=== PATIENT | male | born 1990 | race Caucasian/White ===

== ENCOUNTER 2023-02-26 12:46 | Inpatient (IN) | payer OTHER, SELFPAY ==
[2023-02-26] VITALS (8 sets, daily range): BP systolic 118–160; BP diastolic 75–103; PULSE 101–130; RESP 14–22; TEMP 36.1–36.9; O2SAT 96–100; BMI 24.4; BMI 20.8
--- NOTE | ~2023-02-26 | CT_ITS ---
EXAMINATION: CT ABDOMEN AND PELVIS WITHOUT CONTRAST CLINICAL INFORMATION: obs. COMPARISON: No pertinent prior studies are available for comparison. TECHNIQUE: Multidetector volumetric imaging was performed from the superior aspect of the liver through the pubic symphysis without contrast per request. Sagittal and coronal reformatted images were obtained on the technologist workstation. This CT examination was performed using dose optimization techniques as appropriate, variously including the following: *Automated exposure control *Adjustment of mA and/or kV according to patient size (this includes techniques or standardized protocols for targeted exams where dose is matched to indication/reason for exam; i.e. extremities or head) *Use of iterative reconstruction technique DLP: 376 mGy-cm. FINDINGS: LUNG BASES: The visualized lung bases are unremarkable. LIVER, GALLBLADDER, BILIARY TREE: The non-contrast liver is normal in size, shape, and attenuation. No focal hepatic lesion or biliary ductal dilatation is present. The gallbladder is unremarkable with no evidence of radiopaque gallstones, gallbladder wall thickening, or obvious pericholecystic inflammatory changes. PANCREAS: Unremarkable. SPLEEN: Unremarkable. ADRENAL GLANDS: Unremarkable. KIDNEYS AND URETERS: The kidneys are normal in size, shape, and attenuation. No hydronephrosis, hydroureter, or calculi seen. No perinephric stranding. BLADDER: Unremarkable. GASTROINTESTINAL TRACT: The small and large bowel are unremarkable. The appendix is unremarkable. ABDOMINAL WALL: No significant hernia is appreciated. LYMPHOVASCULAR STRUCTURES: No lymphadenopathy. The aorta is unremarkable. There is subtle soft tissue stranding in the perivascular space in the region of the celiac axis and to lesser extent SMA. Etiology and significance of this is uncertain and difficult to define further on this noncontrast examination. PELVIC VISCERA: Unremarkable. OSSEUS STRUCTURES: Unremarkable. CT/CT abdomen pelvis wo IV con IMPRESSION: There is subtle soft tissue stranding in the perivascular space in the region of the celiac axis and to lesser extent SMA. Etiology and significance of this is uncertain and difficult to define further on this noncontrast study. This could be clinically correlated. Further evaluation with contrast would be helpful to better evaluate the vessels when the patient is more clinically able. No acute intra-abdominal process otherwise.
--- NOTE | ~2023-02-26 | XR_ITS ---
EXAMINATION: XR CHEST CLINICAL INFORMATION: Shortness of breath. COMPARISON: None available. TECHNIQUE: Frontal view of the chest was obtained. FINDINGS: No significant abnormality is noted involving the heart, lungs, mediastinum, bony thorax or soft tissues. XR/XR chest 1V IMPRESSION: Unremarkable examination.
--- NOTE | 2023-02-26 12:58 | ED_ITS ---
HPI - General Adult General Chief complaint: Abdominal Pain Stated complaint: VOMITING, WEAK,+LOC PER EMS Time Seen by Provider: 02/26/23 14:42 History of Present Illness HPI narrative: Patient is a 32-year-old male with a history of diabetes for many years. Presented today with having abdominal pain generalized malaise nausea vomiting not having good intake patient's sugar was noted to be 162 by EMS. Noted to have elevated sugar at home. Patient took 35 units of Humalog prior to arrival. No fever no chills. No diaphoresis. No cough and a congestion or upper respiratory symptoms. Patient is from home history of DKA in the past no chest pain Related Data Home Medications Medication Instructions Recorded Confirmed insulin glargine 100 unit/mL 30 unit subcut QPM 02/26/23 02/26/23 subcutaneous solution insulin lispro 100 unit/mL 1 sliding scale dose subcut 02/26/23 02/26/23 subcutaneous pen USEASDIRECTD Allergies Allergy/AdvReac Type Severity Reaction Status Date / Time No Known Allergies Allergy Unverified 04/22/20 18:26 Review of Systems Review of Systems: Positive generalized malaise weakness Yes all other systems are reviewed and are negative [facility] Past Medical History Attestation statement: The following information was validated with the patient. Social History Social History Advance Directives: No Advance Directives Information Provided: No Physical Exam ED Vital Signs: Vital Signs - 24 hr 02/26/23 12:59 02/26/23 15:14 Temperature 96.9 F Pulse Rate 130 H 125 H Respiratory Rate 16 18 Blood Pressure 126/82 160/101 H Pulse Oximetry 100 100 Oxygen Delivery Method Room Air Room Air BMI result Body Mass Index 24.4 Appearance: Alert. Oriented X3. No acute distress. Eyes: Pupils equal, round and reactive to light. ENT: Pharynx normal. Neck: Normal inspection. Neck supple. No lymph nodes noted. No crepitus CVS: Tachycardic Respiratory: No respiratory distress. Breath sounds normal. No Wheezing. No ral es Abdomen: Soft and nontender. No rigidity. No distention. good BS x4 Skin: Skin warm and dry. Normal skin color. Normal skin turgor. Extremities: No lower extremity edema. Neurovascular intact to all extremities. No Lacerations. No Rash Neuro: Oriented X 3. No motor deficit. No sensory deficit. Moving all extermities. No slurred speech Course Course Course Narrative: RME- 32-year-old male with past medical history significant for type 1 diabetes presents for evaluation of vomiting or abdominal pain x1 week. Reports a syncopal episode yesterday. Plan for labs, EKG, UA Medications Administered Generic Name Dose Route Start Last Admin Trade Name Freq PRN Reason Stop Dose Admin Dextrose/Sodium Chloride 1,000 mls @ 125 mls/hr 02/26/23 15:15 02/26/23 16:25 D5ns IVCONT 125 mls/hr .Q8H PARKER Administration Insulin Human Regular 100 unit in 100 mls @ 6 mls/hr 02/26/23 16:15 02/26/23 17:38 Myxredlin IVCONT 9 unit/hr .[id number] PARKER 9 mls/hr Titration Protocol 6 UNIT/HR Discontinued Medications Generic Name Dose Route Start Last Admin Trade Name Freq PRN Reason Stop Dose Admin Sodium Chloride 1,000 mls @ 999 mls/hr 02/26/23 15:15 02/26/23 17:36 Ns IV 02/26/23 16:15 Infused .Q1H1M PARKER Infusion Sodium Chloride 1,000 mls @ 999 mls/hr 02/26/23 15:15 02/26/23 16:39 Ns IV 02/26/23 16:15 Not Given .Q1H1M PARKER Ketorolac Tromethamine 30 mg 02/26/23 16:14 02/26/23 16:25 Ketorolac Tromethamine 30 Mg/Ml Vial IVPUSH 02/26/23 16:15 30 mg ONCE ONE Administration Ondansetron HCl 4 mg 02/26/23 15:04 02/26/23 15:31 Ondansetron Hcl 4 Mg/2 Ml Vial IVPUSH 02/26/23 15:05 4 mg ONCE ONE Administration Medical Decision Making Medical Decision Making [facility] Narrative: Patient presented today with having epigastric pain heart rate in the 130s short of breath weak has a long history of diabetes. Patient been noticing his sugar been up and down. Took additional insulin prior. Presents to the emergency dep artment sugar was approximately 200 having epigastric pain weakness. He patient's labs showed a large anion gap of 27. Bicarb is 15. Patient's pH on a venous gas is 7.2. Signs and symptoms consistent with diabetic ketoacidosis. Because patient's sugar is less than 250 started patient on a D5 drip along with having insulin drip started. IV fluid was given. Patient's sugars going up and down. Will repeat electrolytes in approximately 1 hour. Patient's potassium was checked prior to the insulin started. It was 4.9. 17:30 Patient's electrolytes be repeated. On repeat exam patient clinically appears well. Patient's sugar is staying in the 300 range which is acceptable. Being monitored very carefully. Patient's case presented to the paper making machine operator for admission. CT scan of the abdomen is done. Awaiting final results. 18:05 Patient's repeat lab actually shows a increase in patient's anion gap. Sugar is now 350. Patient's bicarb is now 5. We will go ahead and give additional IV fluids. Will stop the D5 for now as sugars above 250. Insulin drip is still going. Patient to be admitted to the intensive care unit. Differential Diagnosis Differential Diagnoses: The differential diagnosis associated with the prese ntation includes Nausea vomiting, obstruction, diabetic ketoacidosis, hyperglycemia, kapoor creatitis, biliary issues, cardiac issue Consult Healthcare Provider Management of the patient was discussed with: Hospitalist and Senior Tax Manager Income Tax Preparer Lab Data MDM Lab Attestation statement: I reviewed the patient's lab results. 02/26/23 13:56 02/26/23 13:56 Labs: Lab Results 02/26/23 02/26/23 02/26/23 Range/Units 13:56 13:56 15:13 WBC 11.3 H (4.8-10.8) X10*3/uL RBC 4.88 (4.60-5.80) X10*6/uL Hgb 13.3 L (14.0-18.0) g/dl Hct 41.1 L (42.0-52.0) % MCV 84.2 (80.0-98.0) fL MCH 27.3 (27.0-33.0) pg MCHC 32.4 (31.0-36.0) g/dl RDW 13.8 (11.0-16.0) % Plt Count 414 H (160-400) X10*3/uL MPV 9.6 (9.4-12.4) fL Immature Gran % (Auto) 1.1 H (0.0-0.4) % Neut % (Auto) 73.3 H (45-73) % Lymph % (Auto) 17.4 L (20-40) % Wilkinson % (Auto) 7.7 (2-11) % Eos % (Auto) 0.1 (0-4) % Baso % (Auto) 0.4 (0-2) % Lymph # (Auto) 2.0 (1.2-4.9) X10*3/uL Wilkinson # (Auto) 0.9 (0.1-1.2) X10*3/uL Eos # (Auto) 0.0 (0.0-0.4) X10*3/uL Baso # (Auto) 0.1 (0.0-0.2) X10*3/uL Abs Immat Gran (auto) 0.12 H (0.00-0.03) X10*3/uL Absolute Neuts (auto) 8.3 (2.0-8.3) x10*3/uL Absolute Nucleated RBC 0.000 (0.0-0.012) X10*3/uL Nucleated RBC % (auto) 0.0 (0.0-0.2) /100WBC VBG pH (7.32-7.43) VBG pCO2 mmHg VBG pO2 mmHg VBG HCO3 (22-26) mmol/L VBG O2 Saturation % VBG Base Excess mmol/L Sodium 136 (135-145) mmol/L Potassium 4.9 (3.3-5.1) mmol/L Chloride 99 (96-108) mmol/L Carbon Dioxide 15 L (22-29) mmol/L Anion Gap 27 H (12-20) BUN 16 (9-16) mg/dL Creatinine 1.66 H (0.5-1.4) mg/dL Estim Creat Clear Calc 70.7 Estimated GFR 49 POC Glucose 276 H (60-115) mg/dL Random Glucose 203 H (60-115) mg/dL Calcium 9.4 (8.4-10.2) mg/dL Magnesium 2.1 (1.6-2.6) mg/dL Total Bilirubin 0.5 (0.0-1.0) mg/dL AST 13 (5-37) U/L ALT 16 (0-40) U/L Alkaline Phosphatase 85 (39-117) U/L Total Protein 7.3 (6.5-8.0) g/dL Albumin 4.1 (3.5-5.0) g/dL Lipase 9 (8-78) U/L Beta-Hydroxybutyrate (0.02-0.27) mmol/L Urine Color Urine Appearance Urine pH (5.0-9.0) Ur Specific [place] (1.005-1.025) Urine Protein (Neg-Trace) mg/dL Urine Glucose (UA) (Negative) mg/dL Urine Ketones (Negative) mg/dL Urine Blood (Negative) Urine Nitrite (Negative) Ur Leukocyte Esterase (Negative) 02/26/23 02/26/23 02/26/23 Range/Units 15:27 15:30 16:27 WBC (4.8-10.8) X10*3/uL RBC (4.60-5.80) X10*6/uL Hgb (14.0-18.0) g/dl Hct (42.0-52.0) % MCV (80.0-98.0) fL MCH (27.0-33.0) pg MCHC (31.0-36.0) g/dl RDW (11.0-16.0) % Plt Count (160-400) X10*3/uL MPV (9.4-12.4) fL Immature Gran % (Auto) (0.0-0.4) % Neut % (Auto) (45-73) % Lymph % (Auto) (20-40) % Wilkinson % (Auto) (2-11) % Eos % (Auto) (0-4) % Baso % (Auto) (0-2) % Lymph # (Auto) (1.2-4.9) X10*3/uL Wilkinson # (Auto) (0.1-1.2) X10*3/uL Eos # (Auto) (0.0-0.4) X10*3/uL Baso # (Auto) (0.0-0.2) X10*3/uL Abs Immat Gran (auto) (0.00-0.03) X10*3/uL Absolute Neuts (auto) (2.0-8.3) x10*3/uL Absolute Nucleated RBC (0.0-0.012) X10*3/uL Nucleated RBC % (auto) (0.0-0.2) /100WBC VBG pH 7.21 L (7.32-7.43) VBG pCO2 20 mmHg VBG pO2 63 mmHg VBG HCO3 8 L (22-26) mmol/L VBG O2 Saturation 86.0 % VBG Base Excess -17.0 mmol/L Sodium (135-145) mmol/L Potassium (3.3-5.1) mmol/L Chloride (96-108) mmol/L Carbon Dioxide (22-29) mmol/L Anion Gap (12-20) BUN (9-16) mg/dL Creatinine (0.5-1.4) mg/dL Estim Creat Clear Calc Estimated GFR POC Glucose 343 H (60-115) mg/dL Random Glucose (60-115) mg/dL Calcium (8.4-10.2) mg/dL Magnesium (1.6-2.6) mg/dL Total Bilirubin (0.0-1.0) mg/dL AST (5-37) U/L ALT (0-40) U/L Alkaline Phosphatase (39-117) U/L Total Protein (6.5-8.0) g/dL Albumin (3.5-5.0) g/dL Lipase (8-78) U/L Beta-Hydroxybutyrate 12.57 H (0.02-0.27) mmol/L Urine Color Urine Appearance Urine pH (5.0-9.0) Ur Specific [place] (1.005-1.025) Urine Protein (Neg-Trace) mg/dL Urine Glucose (UA) (Negative) mg/dL Urine Ketones (Negative) mg/dL Urine Blood (Negative) Urine Nitrite (Negative) Ur Leukocyte Esterase (Negative) 02/26/23 02/26/23 02/26/23 Range/Units 17:04 17:32 17:33 WBC (4.8-10.8) X10*3/uL RBC (4.60-5.80) X10*6/uL Hgb (14.0-18.0) g/dl Hct (42.0-52.0) % MCV (80.0-98.0) fL MCH (27.0-33.0) pg MCHC (31.0-36.0) g/dl RDW (11.0-16.0) % Plt Count (160-400) X10*3/uL MPV (9.4-12.4) fL Immature Gran % (Auto) (0.0-0.4) % Neut % (Auto) (45-73) % Lymph % (Auto) (20-40) % Wilkinson % (Auto) (2-11) % Eos % (Auto) (0-4) % Baso % (Auto) (0-2) % Lymph # (Auto) (1.2-4.9) X10*3/uL Wilkinson # (Auto) (0.1-1.2) X10*3/uL Eos # (Auto) (0.0-0.4) X10*3/uL Baso # (Auto) (0.0-0.2) X10*3/uL Abs Immat Gran (auto) (0.00-0.03) X10*3/uL Absolute Neuts (auto) (2.0-8.3) x10*3/uL Absolute Nucleated RBC (0.0-0.012) X10*3/uL Nucleated RBC % (auto) (0.0-0.2) /100WBC VBG pH (7.32-7.43) VBG pCO2 mmHg VBG pO2 mmHg VBG HCO3 (22-26) mmol/L VBG O2 Saturation % VBG Base Excess mmol/L Sodium 134 L (135-145) mmol/L Potassium 4.1 (3.3-5.1) mmol/L Chloride 102 (96-108) mmol/L Carbon Dioxide 7 L* D (22-29) mmol/L Anion Gap 29 H (12-20) BUN 15 (9-16) mg/dL Creatinine 1.52 H (0.5-1.4) mg/dL Estim Creat Clear Calc 77.2 Estimated GFR 54 POC Glucose 324 H 321 H (60-115) mg/dL Random Glucose 349 H (60-115) mg/dL Calcium 8.6 D (8.4-10.2) mg/dL Magnesium 1.8 (1.6-2.6) mg/dL Total Bilirubin (0.0-1.0) mg/dL AST (5-37) U/L ALT (0-40) U/L Alkaline Phosphatase (39-117) U/L Total Protein (6.5-8.0) g/dL Albumin (3.5-5.0) g/dL Lipase (8-78) U/L Beta-Hydroxybutyrate (0.02-0.27) mmol/L Urine Color Urine Appearance Urine pH (5.0-9.0) Ur Specific [place] (1.005-1.025) Urine Protein (Neg-Trace) mg/dL Urine Glucose (UA) (Negative) mg/dL Urine Ketones (Negative) mg/dL Urine Blood (Negative) Urine Nitrite (Negative) Ur Leukocyte Esterase (Negative) 02/26/23 Range/Units 17:43 WBC (4.8-10.8) X10*3/uL RBC (4.60-5.80) X10*6/uL Hgb (14.0-18.0) g/dl Hct (42.0-52.0) % MCV (80.0-98.0) fL MCH (27.0-33.0) pg MCHC (31.0-36.0) g/dl RDW (11.0-16.0) % Plt Count (160-400) X10*3/uL MPV (9.4-12.4) fL Immature Gran % (Auto) (0.0-0.4) % Neut % (Auto) (45-73) % Lymph % (Auto) (20-40) % Wilkinson % (Auto) (2-11) % Eos % (Auto) (0-4) % Baso % (Auto) (0-2) % Lymph # (Auto) (1.2-4.9) X10*3/uL Wilkinson # (Auto) (0.1-1.2) X10*3/uL Eos # (Auto) (0.0-0.4) X10*3/uL Baso # (Auto) (0.0-0.2) X10*3/uL Abs Immat Gran (auto) (0.00-0.03) X10*3/uL Absolute Neuts (auto) (2.0-8.3) x10*3/uL Absolute Nucleated RBC (0.0-0.012) X10*3/uL Nucleated RBC % (auto) (0.0-0.2) /100WBC VBG pH (7.32-7.43) VBG pCO2 mmHg VBG pO2 mmHg VBG HCO3 (22-26) mmol/L VBG O2 Saturation % VBG Base Excess mmol/L Sodium (135-145) mmol/L Potassium (3.3-5.1) mmol/L Chloride (96-108) mmol/L Carbon Dioxide (22-29) mmol/L Anion Gap (12-20) BUN (9-16) mg/dL Creatinine (0.5-1.4) mg/dL Estim Creat Clear Calc Estimated GFR POC Glucose (60-115) mg/dL Random Glucose (60-115) mg/dL Calcium (8.4-10.2) mg/dL Magnesium (1.6-2.6) mg/dL Total Bilirubin (0.0-1.0) mg/dL AST (5-37) U/L ALT (0-40) U/L Alkaline Phosphatase (39-117) U/L Total Protein (6.5-8.0) g/dL Albumin (3.5-5.0) g/dL Lipase (8-78) U/L Beta-Hydroxybutyrate (0.02-0.27) mmol/L Urine Color Yellow Urine Appearance Clear Urine pH 5.5 (5.0-9.0) Ur Specific [place] 1.025 (1.005-1.025) Urine Protein 30 (1+) H (Neg-Trace) mg/dL Urine Glucose (UA) >=1000 H (Negative) mg/dL Urine Ketones >=160 (Negative) mg/dL Urine Blood Negative (Negative) Urine Nitrite Negative (Negative) Ur Leukocyte Esterase Negative (Negative) Independent Interpretation I performed an independent interpretation of an: EKG, Plain X-Ray and CT Scan Interpretation: My interpretation of patient's EKG showed a sinus rhythm heart rate is 130 NE QRS QT within normal limits is nonspecific T-wave flattening noted. My interpretation of patient's chest x-ray is grossly negative for pneumonia or pneumothorax Radiology Impression Discussion of test interpretation with radiology: I have reviewed the radiologist's reading. External Record Review External record reviewed: Inpatient record Chronic Conditions Patient?s care impacted by: Diabetes Critical Care Time Critical Care Time Critical Care Time: Yes Total Critical Care Time: 90 Attestation: I have personally provided 90 minutes of critical care time exclusive of time spent on separately billable procedures. Time includes review of lab data, radiology results, discussion with consultants, and monitoring for potential decompensation. Interventions were performed as documented above Discharge Plan Discharge Clinical Impression: DKA (diabetic ketoacidosis) Patient Disposition: Admitted As Inpatient
--- NOTE | 2023-02-26 12:59 | ECG_ITS ---
Test Reason : PAIN Blood Pressure : / mmHG Vent. Rate : 130 BPM Atrial Rate : 130 BPM P-R Int : 130 ms QRS Dur : 082 ms QT Int : 318 ms P-R-T Axes : 084 084 038 degrees QTc Int : 467 ms Sinus tachycardia Right atrial enlargement Borderline ECG When compared with ECG of 12-OCT-2013 17:18, T wave inversion no longer evident in Anterior leads Referred By: Gal Cruz Electronically Signed By:WILBERTO SAHNI MD
[2023-02-26 14:01] LABS: MANUAL DIFF FLAG NO
[2023-02-26 14:05] LABS: Basophils Absolute Auto 0.1 X10*3/uL (0.0-0.2); Basophils Percent Auto 0.4 % (0-2); Eosinophils Percent Auto 0.1 % (0-4); Hematocrit 41.1 % (42.0-52.0); Hemoglobin 13.3 g/dl (14.0-18.0); Imm Gran Abs Auto 0.12 X10*3/uL (0.00-0.03); Imm Gran Pct Auto 1.1 % (0.0-0.4); Lymphocytes Percent Auto 17.4 % (20-40); Mean Corpuscular HGB Conc 32.4 g/dl (31.0-36.0); Mean Corpuscular Hemoglobin 27.3 pg (27.0-33.0); Mean Corpuscular Volume 84.2 fL (80.0-98.0); Mean Platelet Volume 9.6 fL (9.4-12.4); Monocytes Absolute Auto 0.9 X10*3/uL (0.1-1.2); Monocytes Percent Auto 7.7 % (2-11); Neutrophils Absolute Auto 8.3 x10*3/uL (2.0-8.3); Neutrophils Percent Auto 73.3 % (45-73); Platelet Count 414 X10*3/uL (160-400); Red Blood Count 4.88 X10*6/uL (4.60-5.80); Red Cell Distribution Width 13.8 % (11.0-16.0); White Blood Count 11.3 X10*3/uL (4.8-10.8)
[2023-02-26 14:24] LABS: Alanine Aminotransferase 16 U/L (0-40); Albumin Level 4.1 g/dL (3.5-5.0); Alkaline Phosphatase 85 U/L (39-117); Anion Gap 27 (12-20); Aspartate Amino Transferase 13 U/L (5-37); Bilirubin Total 0.5 mg/dL (0.0-1.0); Blood Urea Nitrogen 16 mg/dL (9-16); Calcium 9.4 mg/dL (8.4-10.2); Carbon Dioxide 15 mmol/L (22-29); Chloride 99 mmol/L (96-108); Creatinine Clr Calc Pharmacy 70.7; Estimated Glomerular Filt Rate 49; Glucose Random 203 mg/dL (60-115); Lipase 9 U/L (8-78); Magnesium 2.1 mg/dL (1.6-2.6); Potassium 4.9 mmol/L (3.3-5.1); Sodium 136 mmol/L (135-145); Total Protein 7.3 g/dL (6.5-8.0)
[2023-02-26 15:21] LABS: Glucose, Whole Blood 276 mg/dL (60-115)
[2023-02-26] MEDS: ondansetron HCL 4 MG/2 ML VIAL IVPUSH (15:31)
[2023-02-26] MEDS: 0.9 % Sodium Chloride 1,000 ML 999 ML IV ×2 (15:31→18:16)
[2023-02-26 15:39] LABS: VBG HCO3 8 mmol/L (22-26); VBG pCO2 20 mmHg; VBG pH 7.21 (7.32-7.43); VBG pO2 63 mmHg
[2023-02-26 15:43] LABS: Venous Blood Gas Refer to POC result
[2023-02-26] MEDS: Ketorolac Tromethamine 30 MG/ML VIAL IVPUSH (16:25)
[2023-02-26] MEDS: Dextrose 5 % and 0.9 % NaCl 1,000 ML 125 ML IVCONT (16:25)
[2023-02-26 16:32] LABS: Glucose, Whole Blood 343 mg/dL (60-115)
[2023-02-26] MEDS: Insulin Regular/NS 100 UNIT/100 ML PLAST..BAG 6 UNIT IVCONT (16:32)
--- NOTE | 2023-02-26 16:34 | PHA.MEDREC ---
Pharmacy Consult ? Medication Reconciliation Pharmacy has completed the medication reconciliation. Patient reported all medications. Renetta Rivas, NickD
[2023-02-26 17:18] LABS: Glucose, Whole Blood 324 mg/dL (60-115)
--- NOTE | 2023-02-26 17:40 | PC.NURSE ---
Pt remains alert/oriented. Feeling better with decreased pain level 01/13. remains tachy on tele rate 120s, sat 100% ra. Insulin gtt adjusted per protocol, now at 9units/hr. Repeat BMP drawn.
[2023-02-26 17:45] LABS: Beta-Hydroxybutyrate 12.57 mmol/L (0.02-0.27)
[2023-02-26 17:47] LABS: Glucose, Whole Blood 321 mg/dL (60-115)
[2023-02-26 17:52] LABS: Appearance Urine Clear; Color Urine Yellow; Glucose Urine UA >=1000 mg/dL (Negative); Leukocyte Esterase Urine Negative (Negative); Nitrite Urine Negative (Negative); PH 5.5 (5.0-9.0); Specific Gravity - Urine 1.025 (1.005-1.025); UMIC TRIGGER UACC YES; Urine Blood Negative (Negative); Urine Ketones >=160 mg/dL (Negative); Urine Protein 30 (1+) mg/dL (Neg-Trace)
[2023-02-26 17:57] LABS: Anion Gap 29 (12-20); Blood Urea Nitrogen 15 mg/dL (9-16); Calcium 8.6 mg/dL (8.4-10.2); Carbon Dioxide 7 mmol/L (22-29); Chloride 102 mmol/L (96-108); Creatinine Clr Calc Pharmacy 77.2; Estimated Glomerular Filt Rate 54; Glucose Random 349 mg/dL (60-115); Magnesium 1.8 mg/dL (1.6-2.6); Potassium 4.1 mmol/L (3.3-5.1); Sodium 134 mmol/L (135-145)
[2023-02-26 18:06] LABS: Bacteria Urine None Seen (None Seen); Granular Casts Urine Present; RBC Urine 0-2 /HPF (0-2); Squamous Epithelial Cell Urine 0-2 /HPF (0-2); WBC Urine 0-5 /HPF (0-5)
[2023-02-26] MEDS: Heparin Sodium,Porcine 5,000 UNIT/ML VIAL 5000 UNIT SUBCUT (18:43)
[2023-02-26 18:44] LABS: Glucose, Whole Blood 202 mg/dL (60-115)
[2023-02-26] MEDS: Dextrose 5 % and Lactated Ring 1,000 ML 50 ML IVCONT (19:10)
--- NOTE | 2023-02-26 19:11 | PC.NURSE ---
Assuemd care of pt. pt florinda levi ghanshyam, AxO x4, no deficits. per Xsu, D5/LR to begin at 50ml/hour to ofset rapid decline of blood glucose between 2792-9173, recheck glucose at 1930. insluin running in R AC per orders. VSS, planning to call report.
[2023-02-26 19:47] LABS: Glucose, Whole Blood 122 mg/dL (60-115)
--- NOTE | 2023-02-26 20:01 | P.HPCC_ITS ---
History of Present Illness Date of Service: 02/26/23 Attending physician on admission: Everton Burks Chief Complaint: abdominal pain ?The patient is a 32-year-old male with a past medical history of type 1 diabetes mellitus who presented to emergency room with abdominal pain.? Patient reports the time has 1 week of abdominal pain, nausea, vomiting? and unable to tolerate PO intake,? reports taking extra Humalog? due to high blood sugars at home.?? ?Vital signs are stable. Laboratory data was significant for? WBC 11.3, initial serum bicarb was 15 but later down to 7.? Anion gap 29, creatinine 1.52 ?Venous blood gas? 7.//63/8 ?IMAGING: ?No acute? infection/ obstruction ED Course: ?Patient received 2 L bolus of normal saline,? started on maintenance fluids with dextrose and started on insulin drip ?Patient will be admitted to ICU for management of DKA or insulin drip Review of Systems Review of Systems: as per HPI Yes all other systems are reviewed and are negative PMFSH Past Medical History Medical History (Updated 02/26/23 @ 20:21 by Sandra Hermosillo NP) Type 1 diabetes mellitus Social History Social History Household Members: Other Housing: House Do you presently have visiting nurse or other home services: No Patient Tobacco Use Status: Never used Tobacco Use of substances other than those prescribed or required for medical reasons: Yes Substance Use Type: Marijuana Currently Displaying Signs/Symptoms of Drug Intoxication Withdrawal: No Any prior treatment program specific to substance use: No Have you been hit, kicked, punched, or otherwise hurt by someone within the past year? If so, by whom?: No Do you feel safe in your current relationship?: Yes Is there a partner from a previous relationship who is making you feel unsafe now?: No Are you made to feel afraid or neglected: No Advance Directives: No Advance Directives Information Provided: No Do you have thoughts of harming others: None Do you have a plan to hurt others: No Plan Recently lost weight without trying: No Eating poorly because of decreased appetite: No Nutrition Risks: No Nutritional Risk Poor oral hygiene: No Meds Allergies Allergy/AdvReac Type Severity Reaction Status Date / Time No Known Allergies Allergy Unverified 04/22/20 18:26 Active Medications: Current Medications Heparin Sodium (Porcine) (Heparin Sodium,Porcine 5,000 Unit/Ml Vial) 5,000 unit SUBCUT Q8H [facility] Last Admin: 02/26/23 18:43 Dose: 5,000 unit Insulin Human Regular (Myxredlin) 100 unit in 100 mls @ 6 mls/hr IVCONT .[id number] [facility]; Protocol Last Titration: 02/26/23 18:39 Dose: 4.5 unit/hr, 4.5 mls/hr Dextrose/Lactated Ringer's (D5lr) 1,000 mls @ 150 mls/hr IVCONT .[id number] [facility] Last Admin: 02/26/23 19:10 Dose: 50 mls/hr Pharmacy Consult (Consult Rx Perform Med Rec) 1 each MISCELLANE ONCE PRN PRN Reason: Consult order Home Medications Medication Instructions Recorded Confirmed Last Taken Type insulin glargine 100 unit/mL 30 unit subcut QPM 02/26/23 02/26/23 Unknown History subcutaneous solution insulin lispro 100 unit/mL 1 sliding scale dose subcut 02/26/23 02/26/23 Unknown History subcutaneous pen USEASDIRECTD Physical Exam Vital Signs: Vital Signs: Last Vital Signs Temp 98.5 F 02/26/23 19:22 Pulse 122 H 02/26/23 19:22 Resp 14 02/26/23 19:22 BP 122/96 H 02/26/23 19:22 Pulse Ox 100 02/26/23 19:22 O2 Del Method Room Air 02/26/23 19:22 BMI result Body Mass Index 24.4 Constitutional: Alert, in no distress. Sitting comfortably on the hospital bed. Mental Status: Oriented to person, place and time. Head: Normocephalic. Eyes: Pupils are equal, round and reactive to light. Extraocular muscles intact. Ear, Nose and Throat: Oropharynx clear, mucous membranes dry. Ears and nose without masses, lesions or deformities. Trachea midline. Neck: Supple, Full range of motion. Respiratory: Expiratory wheezing in all lung arellano.? Minor increased work of breathing.? Cardiovascular: S1 S2 regular. No murmurs, rubs or gallops. Gastrointestinal: Abdomen soft,, non-distended. does report diffuse tendernessNormal bowel sounds. No pulsatile mass. No hepatosplenomegaly. Genitourinary: No costovertebral angle tenderness. Neurologic: Cranial nerves II-XII grossly intact. No focal neurological deficits. Moves all extremities spontaneously. Sensation intact bilaterally. Skin: Skin discoloration in face/ hands and lower extremities. Musculoskeletal: No cyanosis or clubbing. No gross deformities. Normal range of motion. Psychiatric: Normal mood and affect Results Labs 02/26/23 13:56 02/26/23 17:32 Labs: Laboratory Results - last 24 hr 02/26/23 02/26/23 02/26/23 13:56 13:56 15:13 MCV 84.2 MCH 27.3 MCHC 32.4 RDW 13.8 Plt Count 414 H MPV 9.6 Immature Gran % (Auto) 1.1 H Neut % (Auto) 73.3 H Lymph % (Auto) 17.4 L [place] % (Auto) 7.7 Eos % (Auto) 0.1 Baso % (Auto) 0.4 Lymph # (Auto) 2.0 [place] # (Auto) 0.9 Eos # (Auto) 0.0 Baso # (Auto) 0.1 Abs Immat Gran (auto) 0.12 H Absolute Neuts (auto) 8.3 Absolute Nucleated RBC 0.000 Nucleated RBC % (auto) 0.0 VBG pH VBG pCO2 VBG pO2 VBG HCO3 VBG O2 Saturation VBG Base Excess Anion Gap 27 H Estim Creat Clear Calc 70.7 Estimated GFR 49 POC Glucose 276 H Random Glucose 203 H Calcium 9.4 Magnesium 2.1 Total Bilirubin 0.5 AST 13 ALT 16 Alkaline Phosphatase 85 Total Protein 7.3 Albumin 4.1 Lipase 9 Beta-Hydroxybutyrate Urine Color Urine Appearance Urine pH Ur Specific [place] Urine Protein Urine Glucose (UA) Urine Ketones Urine Blood Urine Nitrite Ur Leukocyte Esterase Urine RBC Urine WBC Ur Squamous Epith Cells Urine Bacteria Hyaline Casts Granular Casts 02/26/23 02/26/23 02/26/23 15:27 15:30 16:27 MCV MCH MCHC RDW Plt Count MPV Immature Gran % (Auto) Neut % (Auto) Lymph % (Auto) [place] % (Auto) Eos % (Auto) Baso % (Auto) Lymph # (Auto) [place] # (Auto) Eos # (Auto) Baso # (Auto) Abs Immat Gran (auto) Absolute Neuts (auto) Absolute Nucleated RBC Nucleated RBC % (auto) VBG pH 7.21 L VBG pCO2 20 VBG pO2 63 VBG HCO3 8 L VBG O2 Saturation 86.0 VBG Base Excess -17.0 Anion Gap Estim Creat Clear Calc Estimated GFR POC Glucose 343 H Random Glucose Calcium Magnesium Total Bilirubin AST ALT Alkaline Phosphatase Total Protein Albumin Lipase Beta-Hydroxybutyrate 12.57 H Urine Color Urine Appearance Urine pH Ur Specific [place] Urine Protein Urine Glucose (UA) Urine Ketones Urine Blood Urine Nitrite Ur Leukocyte Esterase Urine RBC Urine WBC Ur Squamous Epith Cells Urine Bacteria Hyaline Casts Granular Casts 02/26/23 02/26/23 02/26/23 17:04 17:32 17:33 MCV MCH MCHC RDW Plt Count MPV Immature Gran % (Auto) Neut % (Auto) Lymph % (Auto) [place] % (Auto) Eos % (Auto) Baso % (Auto) Lymph # (Auto) [place] # (Auto) Eos # (Auto) Baso # (Auto) Abs Immat Gran (auto) Absolute Neuts (auto) Absolute Nucleated RBC Nucleated RBC % (auto) VBG pH VBG pCO2 VBG pO2 VBG HCO3 VBG O2 Saturation VBG Base Excess Anion Gap 29 H Estim Creat Clear Calc 77.2 Estimated GFR 54 POC Glucose 324 H 321 H Random Glucose 349 H Calcium 8.6 D Magnesium 1.8 Total Bilirubin AST ALT Alkaline Phosphatase Total Protein Albumin Lipase Beta-Hydroxybutyrate Urine Color Urine Appearance Urine pH Ur Specific [place] Urine Protein Urine Glucose (UA) Urine Ketones Urine Blood Urine Nitrite Ur Leukocyte Esterase Urine RBC Urine WBC Ur Squamous Epith Cells Urine Bacteria Hyaline Casts Granular Casts 02/26/23 02/26/23 02/26/23 17:43 18:37 19:42 MCV MCH MCHC RDW Plt Count MPV Immature Gran % (Auto) Neut % (Auto) Lymph % (Auto) [place] % (Auto) Eos % (Auto) Baso % (Auto) Lymph # (Auto) [place] # (Auto) Eos # (Auto) Baso # (Auto) Abs Immat Gran (auto) Absolute Neuts (auto) Absolute Nucleated RBC Nucleated RBC % (auto) VBG pH VBG pCO2 VBG pO2 VBG HCO3 VBG O2 Saturation VBG Base Excess Anion Gap Estim Creat Clear Calc Estimated GFR POC Glucose 202 H 122 H Random Glucose Calcium Magnesium Total Bilirubin AST ALT Alkaline Phosphatase Total Protein Albumin Lipase Beta-Hydroxybutyrate Urine Color Yellow Urine Appearance Clear Urine pH 5.5 Ur Specific [place] 1.025 Urine Protein 30 (1+) H Urine Glucose (UA) >=1000 H Urine Ketones >=160 Urine Blood Negative Urine Nitrite Negative Ur Leukocyte Esterase Negative Urine RBC 0-2 Urine WBC 0-5 Ur Squamous Epith Cells 0-2 Urine Bacteria None Seen Hyaline Casts 6-10 Granular Casts Present Imaging Radiologist's Impressions: Impressions Chest X-Ray 02/26/23 15:49 IMPRESSION: Unremarkable examination. Abdomen/Pelvis CT 02/26/23 16:56 IMPRESSION: There is subtle soft tissue stranding in the perivascular space in the region of the celiac axis and to lesser extent SMA. Etiology and significance of this is uncertain and difficult to define further on this noncontrast study. This could be clinically correlated. Further evaluation with contrast would be helpful to better evaluate the vessels when the patient is more clinically able. No acute intra-abdominal process otherwise. Assessment and Plan (1) DKA (diabetic ketoacidosis): Status: Acute (2) Type 1 diabetes mellitus: Status: Acute (3) CRISTI (acute kidney injury): Status: Acute (4) Gastroparesis: Status: Acute Plan 32 -year-old male with underlying history of type 1 diabetes mellitus admitted with diabetic ketoacidosis Plan: Neuro:? No acute issues. Cardiac:? No acute issues. Pulmonary:? ? no acute issues Renal:? ? CRISTI- ? most likely related to hypoperfusion, nonoliguric.? Continue IV fluid.? Continue to check renal induces and urine output Endo:? type 1 diabetes /diabetic ketoacidosis-? continue insulin drip until her gap is close. Follow DKA protocol?? GI:? nausea and vomiting from? gastroparesis. ? Continue Zofran p.r.n.,? ID: ? leukocytosis,? white count slightly elevated,? no signs of acute infection,? this is likely due to DKA Heme/Onc:? No acute issues. Psych:? No acute issues. Miscellaneous:? No acute issues. Prophylaxis:? subQ heparin Diet:NPO except ice chips CODE: FULL Does not qualify for critical care time Time Spent With Patient Time: Total time managing care of this patient today ____ minutes.
[2023-02-26 21:19] LABS: Glucose, Whole Blood 92 mg/dL (60-115)
[2023-02-26 21:40] LABS: Glucose, Whole Blood 96 mg/dL (60-115)
[2023-02-26 21:56] LABS: Anion Gap 15 (12-20); Blood Urea Nitrogen 14 mg/dL (9-16); Calcium 8.6 mg/dL (8.4-10.2); Carbon Dioxide 19 mmol/L (22-29); Chloride 109 mmol/L (96-108); Creatinine Clr Calc Pharmacy 74.6; Estimated Glomerular Filt Rate 59; Glucose Random 86 mg/dL (60-115); Magnesium 1.7 mg/dL (1.6-2.6); Phosphorus 0.9 mg/dL (2.7-4.5); Potassium 3.5 mmol/L (3.3-5.1); Sodium 139 mmol/L (135-145)
[2023-02-26] MEDS: Magnesium Sulfate/D5W 1 GM/100 ML PIGGYBACK IV (22:07)
[2023-02-26 22:17] LABS: Glucose, Whole Blood 90 mg/dL (60-115)
--- NOTE | 2023-02-26 22:24 | PC.NURSE ---
Assumed care at 1930. Pt came from ED via stretcher. On insulin drip at 4.5unit per hour. D5LR infusing at 50ml an hour. POC on arrival was 122. IVF increased to 150ml an hour per [employer]ATOR order. Sinus tach on monitor. Critical results for phos 0.9. Order for replacements received.
[2023-02-26] MEDS: LORazepam 2 MG/ML VIAL 1 MG IVPUSH (22:35)
[2023-02-26 23:30] LABS: Glucose, Whole Blood 104 mg/dL (60-115)
[2023-02-26] MEDS: Potassium Phosphate/NS 15 MMOL/250 ML PLAST..BAG 62.5 MMOL IV (23:34)
[2023-02-26 23:59] LABS: Glucose, Whole Blood 125 mg/dL (60-115)
[2023-02-27] VITALS (13 sets, daily range): BP systolic 111–151; BP diastolic 73–98; PULSE 81–111; RESP 16–30; TEMP 36–36.6; O2SAT 96–100; BMI 21.9
[2023-02-27] MEDS: Dextrose 5 % and Lactated Ring 1,000 ML 200 ML IVCONT ×2 (00:01→03:43)
[2023-02-27 00:58] LABS: Glucose, Whole Blood 178 mg/dL (60-115)
[2023-02-27 01:59] LABS: Glucose, Whole Blood 178 mg/dL (60-115)
[2023-02-27] MEDS: Heparin Sodium,Porcine 5,000 UNIT/ML VIAL 5000 UNIT SUBCUT ×3 (03:02→17:44)
[2023-02-27 03:15] LABS: Glucose, Whole Blood 158 mg/dL (60-115)
[2023-02-27] MEDS: Potassium Phosphate/NS 15 MMOL/250 ML PLAST..BAG 62.5 MMOL IV ×2 (03:41→08:46)
[2023-02-27 04:05] LABS: Glucose, Whole Blood 130 mg/dL (60-115)
[2023-02-27 04:39] LABS: VBG Base Excess -4.7 mmol/L; VBG HCO3 19 mmol/L (22-26); VBG pCO2 31 mmHg; VBG pH 7.39 (7.32-7.43); VBG pO2 78 mmHg
[2023-02-27 04:51] LABS: MANUAL DIFF FLAG NO
[2023-02-27 05:00] LABS: Basophils Percent Auto 0.3 % (0-2); Eosinophils Absolute Auto 0.1 X10*3/uL (0.0-0.4); Eosinophils Percent Auto 0.8 % (0-4); Hematocrit 30.7 % (42.0-52.0); Hemoglobin 10.1 g/dl (14.0-18.0); Imm Gran Abs Auto 0.05 X10*3/uL (0.00-0.03); Imm Gran Pct Auto 0.5 % (0.0-0.4); Lymphocytes Percent Auto 30.7 % (20-40); Mean Corpuscular HGB Conc 32.9 g/dl (31.0-36.0); Mean Corpuscular Hemoglobin 27.1 pg (27.0-33.0); Mean Corpuscular Volume 82.3 fL (80.0-98.0); Mean Platelet Volume 9.8 fL (9.4-12.4); Monocytes Absolute Auto 1.2 X10*3/uL (0.1-1.2); Monocytes Percent Auto 12.3 % (2-11); Neutrophils Absolute Auto 5.4 x10*3/uL (2.0-8.3); Neutrophils Percent Auto 55.4 % (45-73); Platelet Count 279 X10*3/uL (160-400); Red Blood Count 3.73 X10*6/uL (4.60-5.80); Red Cell Distribution Width 13.9 % (11.0-16.0); White Blood Count 9.7 X10*3/uL (4.8-10.8)
[2023-02-27 05:04] LABS: Glucose, Whole Blood 121 mg/dL (60-115)
[2023-02-27 05:48] LABS: Venous Blood Gas Refer to POC result
[2023-02-27 06:04] LABS: Glucose, Whole Blood 124 mg/dL (60-115)
[2023-02-27 06:33] LABS: Albumin Level 2.7 g/dL (3.5-5.0); Anion Gap 8 (12-20); Blood Urea Nitrogen 11 mg/dL (9-16); Calcium 7.7 mg/dL (8.4-10.2); Carbon Dioxide 21 mmol/L (22-29); Chloride 110 mmol/L (96-108); Creatinine Clr Calc Pharmacy 94.7; Estimated Glomerular Filt Rate > 60; Glucose Random 128 mg/dL (60-115); Magnesium 1.8 mg/dL (1.6-2.6); Phosphorus 2.4 mg/dL (2.7-4.5); Potassium 3.4 mmol/L (3.3-5.1); Sodium 136 mmol/L (135-145)
[2023-02-27 08:04] LABS: Glucose, Whole Blood 136 mg/dL (60-115)
--- NOTE | 2023-02-27 08:20 | PM.CCPN ---
Subjective Subjective Date of Service: 02/27/23 Interval History: 32-year-old gentleman with underlying type diabetes mellitus admitted on 02/26/2023 with abdominal discomfort with nausea and vomiting secondary to underlying diabetic ketoacidosis requiring initiation of insulin drip and monitoring in the intensive care unit. No events overnight. Titrated off insulin drip. Critical Care Time (minutes): 0 Physical Exam Vital Signs: Vital Signs: Last Vital Signs Temp 97.8 F 02/27/23 08:00 Pulse 101 H 02/27/23 08:00 Resp 21 H 02/27/23 08:00 BP 132/88 02/27/23 08:00 Pulse Ox 98 02/27/23 08:00 O2 Del Method Room Air 02/27/23 08:00 BMI result Body Mass Index 21.9 Const: General: no acute distress, alert and awake Eyes: Sclerae: sclerae normal EOM: EOMs intact bilaterally Neck: Neck: Yes no lymphadenopathy, Yes trachea midline and Yes supple Resp: Effort & Inspection: normal respiratory effort and no respiratory distress Auscultation: clear to auscultation bilaterally Cardio: Rate: tachycardic Rhythm: regular rhythm Heart sounds: no gallops, no murmurs and no rubs GI: Palpation (GI): Soft to palpation and Other GI palpation findings present ( Nontender) Auscultation: normal bowel sounds Extrem: General: Yes no pedal edema, No clubbing and No cyanosis Objective Data Labs 02/27/23 04:29 02/27/23 04:42 Labs: Laboratory Results - last 24 hr 02/26/23 02/26/23 02/26/23 13:56 13:56 15:13 WBC 11.3 H RBC 4.88 Hgb 13.3 L Hct 41.1 L MCV 84.2 MCH 27.3 MCHC 32.4 RDW 13.8 Plt Count 414 H MPV 9.6 Immature Gran % (Auto) 1.1 H Neut % (Auto) 73.3 H Lymph % (Auto) 17.4 L [place] % (Auto) 7.7 Eos % (Auto) 0.1 Baso % (Auto) 0.4 Lymph # (Auto) 2.0 [place] # (Auto) 0.9 Eos # (Auto) 0.0 Baso # (Auto) 0.1 Abs Immat Gran (auto) 0.12 H Absolute Neuts (auto) 8.3 Absolute Nucleated RBC 0.000 Nucleated RBC % (auto) 0.0 VBG pH VBG pCO2 VBG pO2 VBG HCO3 VBG O2 Saturation VBG Base Excess Sodium 136 Potassium 4.9 Chloride 99 Carbon Dioxide 15 L Anion Gap 27 H BUN 16 Creatinine 1.66 H Estim Creat Clear Calc 70.7 Estimated GFR 49 POC Glucose 276 H Random Glucose 203 H Calcium 9.4 Phosphorus Magnesium 2.1 Total Bilirubin 0.5 AST 13 ALT 16 Alkaline Phosphatase 85 Total Protein 7.3 Albumin 4.1 Lipase 9 Beta-Hydroxybutyrate Urine Color Urine Appearance Urine pH Ur Specific [place] Urine Protein Urine Glucose (UA) Urine Ketones Urine Blood Urine Nitrite Ur Leukocyte Esterase Urine RBC Urine WBC Ur Squamous Epith Cells Urine Bacteria Hyaline Casts Granular Casts 02/26/23 02/26/23 02/26/23 15:27 15:30 16:27 WBC RBC Hgb Hct MCV MCH MCHC RDW Plt Count MPV Immature Gran % (Auto) Neut % (Auto) Lymph % (Auto) [place] % (Auto) Eos % (Auto) Baso % (Auto) Lymph # (Auto) [place] # (Auto) Eos # (Auto) Baso # (Auto) Abs Immat Gran (auto) Absolute Neuts (auto) Absolute Nucleated RBC Nucleated RBC % (auto) VBG pH 7.21 L VBG pCO2 20 VBG pO2 63 VBG HCO3 8 L VBG O2 Saturation 86.0 VBG Base Excess -17.0 Sodium Potassium Chloride Carbon Dioxide Anion Gap BUN Creatinine Estim Creat Clear Calc Estimated GFR POC Glucose 343 H Random Glucose Calcium Phosphorus Magnesium Total Bilirubin AST ALT Alkaline Phosphatase Total Protein Albumin Lipase Beta-Hydroxybutyrate 12.57 H Urine Color Urine Appearance Urine pH Ur Specific [place] Urine Protein Urine Glucose (UA) Urine Ketones Urine Blood Urine Nitrite Ur Leukocyte Esterase Urine RBC Urine WBC Ur Squamous Epith Cells Urine Bacteria Hyaline Casts Granular Casts 02/26/23 02/26/23 02/26/23 17:04 17:32 17:33 WBC RBC Hgb Hct MCV MCH MCHC RDW Plt Count MPV Immature Gran % (Auto) Neut % (Auto) Lymph % (Auto) [place] % (Auto) Eos % (Auto) Baso % (Auto) Lymph # (Auto) [place] # (Auto) Eos # (Auto) Baso # (Auto) Abs Immat Gran (auto) Absolute Neuts (auto) Absolute Nucleated RBC Nucleated RBC % (auto) VBG pH VBG pCO2 VBG pO2 VBG HCO3 VBG O2 Saturation VBG Base Excess Sodium 134 L Potassium 4.1 Chloride 102 Carbon Dioxide 7 L* D Anion Gap 29 H BUN 15 Creatinine 1.52 H Estim Creat Clear Calc 77.2 Estimated GFR 54 POC Glucose 324 H 321 H Random Glucose 349 H Calcium 8.6 D Phosphorus Magnesium 1.8 Total Bilirubin AST ALT Alkaline Phosphatase Total Protein Albumin Lipase Beta-Hydroxybutyrate Urine Color Urine Appearance Urine pH Ur Specific [place] Urine Protein Urine Glucose (UA) Urine Ketones Urine Blood Urine Nitrite Ur Leukocyte Esterase Urine RBC Urine WBC Ur Squamous Epith Cells Urine Bacteria Hyaline Casts Granular Casts 02/26/23 02/26/23 02/26/23 17:43 18:37 19:42 WBC RBC Hgb Hct MCV MCH MCHC RDW Plt Count MPV Immature Gran % (Auto) Neut % (Auto) Lymph % (Auto) [place] % (Auto) Eos % (Auto) Baso % (Auto) Lymph # (Auto) [place] # (Auto) Eos # (Auto) Baso # (Auto) Abs Immat Gran (auto) Absolute Neuts (auto) Absolute Nucleated RBC Nucleated RBC % (auto) VBG pH VBG pCO2 VBG pO2 VBG HCO3 VBG O2 Saturation VBG Base Excess Sodium Potassium Chloride Carbon Dioxide Anion Gap BUN Creatinine Estim Creat Clear Calc Estimated GFR POC Glucose 202 H 122 H Random Glucose Calcium Phosphorus Magnesium Total Bilirubin AST ALT Alkaline Phosphatase Total Protein Albumin Lipase Beta-Hydroxybutyrate Urine Color Yellow Urine Appearance Clear Urine pH 5.5 Ur Specific [place] 1.025 Urine Protein 30 (1+) H Urine Glucose (UA) >=1000 H Urine Ketones >=160 Urine Blood Negative Urine Nitrite Negative Ur Leukocyte Esterase Negative Urine RBC 0-2 Urine WBC 0-5 Ur Squamous Epith Cells 0-2 Urine Bacteria None Seen Hyaline Casts 6-10 Granular Casts Present 02/26/23 02/26/23 02/26/23 20:42 21:14 21:37 WBC RBC Hgb Hct MCV MCH MCHC RDW Plt Count MPV Immature Gran % (Auto) Neut % (Auto) Lymph % (Auto) [place] % (Auto) Eos % (Auto) Baso % (Auto) Lymph # (Auto) [place] # (Auto) Eos # (Auto) Baso # (Auto) Abs Immat Gran (auto) Absolute Neuts (auto) Absolute Nucleated RBC Nucleated RBC % (auto) VBG pH VBG pCO2 VBG pO2 VBG HCO3 VBG O2 Saturation VBG Base Excess Sodium 139 Potassium 3.5 Chloride 109 H Carbon Dioxide 19 L Anion Gap 15 BUN 14 Creatinine 1.41 H Estim Creat Clear Calc 74.6 Estimated GFR 59 POC Glucose 92 96 Random Glucose 86 Calcium 8.6 Phosphorus 0.9 L* Magnesium 1.7 Total Bilirubin AST ALT Alkaline Phosphatase Total Protein Albumin Lipase Beta-Hydroxybutyrate Urine Color Urine Appearance Urine pH Ur Specific [place] Urine Protein Urine Glucose (UA) Urine Ketones Urine Blood Urine Nitrite Ur Leukocyte Esterase Urine RBC Urine WBC Ur Squamous Epith Cells Urine Bacteria Hyaline Casts Granular Casts 02/26/23 02/26/23 02/26/23 22:14 23:27 23:55 WBC RBC Hgb Hct MCV MCH MCHC RDW Plt Count MPV Immature Gran % (Auto) Neut % (Auto) Lymph % (Auto) [place] % (Auto) Eos % (Auto) Baso % (Auto) Lymph # (Auto) [place] # (Auto) Eos # (Auto) Baso # (Auto) Abs Immat Gran (auto) Absolute Neuts (auto) Absolute Nucleated RBC Nucleated RBC % (auto) VBG pH VBG pCO2 VBG pO2 VBG HCO3 VBG O2 Saturation VBG Base Excess Sodium Potassium Chloride Carbon Dioxide Anion Gap BUN Creatinine Estim Creat Clear Calc Estimated GFR POC Glucose 90 104 125 H Random Glucose Calcium Phosphorus Magnesium Total Bilirubin AST ALT Alkaline Phosphatase Total Protein Albumin Lipase Beta-Hydroxybutyrate Urine Color Urine Appearance Urine pH Ur Specific [place] Urine Protein Urine Glucose (UA) Urine Ketones Urine Blood Urine Nitrite Ur Leukocyte Esterase Urine RBC Urine WBC Ur Squamous Epith Cells Urine Bacteria Hyaline Casts Granular Casts 02/27/23 02/27/23 02/27/23 00:54 01:56 03:10 WBC RBC Hgb Hct MCV MCH MCHC RDW Plt Count MPV Immature Gran % (Auto) Neut % (Auto) Lymph % (Auto) [place] % (Auto) Eos % (Auto) Baso % (Auto) Lymph # (Auto) [place] # (Auto) Eos # (Auto) Baso # (Auto) Abs Immat Gran (auto) Absolute Neuts (auto) Absolute Nucleated RBC Nucleated RBC % (auto) VBG pH VBG pCO2 VBG pO2 VBG HCO3 VBG O2 Saturation VBG Base Excess Sodium Potassium Chloride Carbon Dioxide Anion Gap BUN Creatinine Estim Creat Clear Calc Estimated GFR POC Glucose 178 H 178 H 158 H Random Glucose Calcium Phosphorus Magnesium Total Bilirubin AST ALT Alkaline Phosphatase Total Protein Albumin Lipase Beta-Hydroxybutyrate Urine Color Urine Appearance Urine pH Ur Specific [place] Urine Protein Urine Glucose (UA) Urine Ketones Urine Blood Urine Nitrite Ur Leukocyte Esterase Urine RBC Urine WBC Ur Squamous Epith Cells Urine Bacteria Hyaline Casts Granular Casts 02/27/23 02/27/23 02/27/23 04:01 04:29 04:29 WBC 9.7 RBC 3.73 L D Hgb 10.1 L D Hct 30.7 L D MCV 82.3 MCH 27.1 MCHC 32.9 RDW 13.9 Plt Count 279 D MPV 9.8 Immature Gran % (Auto) 0.5 H Neut % (Auto) 55.4 Lymph % (Auto) 30.7 [place] % (Auto) 12.3 H Eos % (Auto) 0.8 Baso % (Auto) 0.3 Lymph # (Auto) 3.0 [place] # (Auto) 1.2 Eos # (Auto) 0.1 Baso # (Auto) 0.0 Abs Immat Gran (auto) 0.05 H Absolute Neuts (auto) 5.4 Absolute Nucleated RBC 0.000 Nucleated RBC % (auto) 0.0 VBG pH 7.39 VBG pCO2 31 VBG pO2 78 VBG HCO3 19 L VBG O2 Saturation 97.0 VBG Base Excess -4.7 Sodium Potassium Chloride Carbon Dioxide Anion Gap BUN Creatinine Estim Creat Clear Calc Estimated GFR POC Glucose 130 H Random Glucose Calcium Phosphorus Magnesium Total Bilirubin AST ALT Alkaline Phosphatase Total Protein Albumin Lipase Beta-Hydroxybutyrate Urine Color Urine Appearance Urine pH Ur Specific [place] Urine Protein Urine Glucose (UA) Urine Ketones Urine Blood Urine Nitrite Ur Leukocyte Esterase Urine RBC Urine WBC Ur Squamous Epith Cells Urine Bacteria Hyaline Casts Granular Casts 02/27/23 02/27/23 02/27/23 04:42 05:00 05:59 WBC RBC Hgb Hct MCV MCH MCHC RDW Plt Count MPV Immature Gran % (Auto) Neut % (Auto) Lymph % (Auto) [place] % (Auto) Eos % (Auto) Baso % (Auto) Lymph # (Auto) [place] # (Auto) Eos # (Auto) Baso # (Auto) Abs Immat Gran (auto) Absolute Neuts (auto) Absolute Nucleated RBC Nucleated RBC % (auto) VBG pH VBG pCO2 VBG pO2 VBG HCO3 VBG O2 Saturation VBG Base Excess Sodium 136 Potassium 3.4 Chloride 110 H Carbon Dioxide 21 L Anion Gap 8 L BUN 11 Creatinine 1.17 Estim Creat Clear Calc 94.7 Estimated GFR > 60 POC Glucose 121 H 124 H Random Glucose 128 H Calcium 7.7 L D Phosphorus 2.4 L Magnesium 1.8 Total Bilirubin AST ALT Alkaline Phosphatase Total Protein Albumin 2.7 L Lipase Beta-Hydroxybutyrate Urine Color Urine Appearance Urine pH Ur Specific [place] Urine Protein Urine Glucose (UA) Urine Ketones Urine Blood Urine Nitrite Ur Leukocyte Esterase Urine RBC Urine WBC Ur Squamous Epith Cells Urine Bacteria Hyaline Casts Granular Casts 02/27/23 08:00 WBC RBC Hgb Hct MCV MCH MCHC RDW Plt Count MPV Immature Gran % (Auto) Neut % (Auto) Lymph % (Auto) [place] % (Auto) Eos % (Auto) Baso % (Auto) Lymph # (Auto) [place] # (Auto) Eos # (Auto) Baso # (Auto) Abs Immat Gran (auto) Absolute Neuts (auto) Absolute Nucleated RBC Nucleated RBC % (auto) VBG pH VBG pCO2 VBG pO2 VBG HCO3 VBG O2 Saturation VBG Base Excess Sodium Potassium Chloride Carbon Dioxide Anion Gap BUN Creatinine Estim Creat Clear Calc Estimated GFR POC Glucose 136 H Random Glucose Calcium Phosphorus Magnesium Total Bilirubin AST ALT Alkaline Phosphatase Total Protein Albumin Lipase Beta-Hydroxybutyrate Urine Color Urine Appearance Urine pH Ur Specific [place] Urine Protein Urine Glucose (UA) Urine Ketones Urine Blood Urine Nitrite Ur Leukocyte Esterase Urine RBC Urine WBC Ur Squamous Epith Cells Urine Bacteria Hyaline Casts Granular Casts Progress Note: A&P Assessment and plan (1) Type 1 diabetes mellitus: Status: Acute (2) CRISTI (acute kidney injury): Status: Acute (3) DKA (diabetic ketoacidosis): Status: Acute Plan Assessment: 32-year-old gentleman with underlying diabetes mellitus type 1 admitted with diabetic ketoacidosis requiring insulin drip. Now titrated off. Plan: Neuro: No acute issues. Cardiac: No acute issues. Pulmonary: No acute issues. Renal: Acute kidney injury secondary to diabetic ketoacidosis, improving. Non oliguric. Continue to monitor renal indices and urine output. Endo: Diabetic ketoacidosis, titrated off insulin drip to SC insulin. GI: No acute issues. ID: No acute issues Heme/Onc: No acute issues. Psych: No acute issues. Miscellaneous: No acute issues. Prophylaxis: Heparin Diet: diabetic Quality Stroke Does the patient have a stroke diagnosis?: No VTE Prior VTE?: No VTE Risk Level:: Medical - moderate - high VTE Device Contraindication: Treatment Not Indicated VTE Drug Contraindication: N/A - Med Ordered
[2023-02-27] MEDS: Albumin Human 25 % 100 ML IV ×3 (08:46→19:36)
[2023-02-27] MEDS: Insulin Glargine,Hum.rec.anlog 100 UNIT/ML 10 ML VIAL 30 UNIT SUBCUT (08:46)
[2023-02-27 09:01] LABS: Amphetamine Screen Urine Not Detected (Not Detect); Barbiturates, Urine Not Detected (Not Detect); Benzodiazepines Screen Urine Not Detected (Not Detect); Cannabinoid Screen Urine POSITIVE (Not Detect); Cocaine Screen Urine Not Detected (Not Detect); Fentanyl, urine Not Detected (Not Detect); Opiate Screen Urine Not Detected (Not Detect); Phencyclidine Screen Urine Not Detected (Not Detect)
--- NOTE | 2023-02-27 09:03 | PM.EVENT ---
Event Note Date of Service: 02/27/23 Event Note: Discussed case with Dr. Burks. Admitted for DKA requiring insulin drip DKA ss, ada diet CRISTI resolved Time Spent With Patient Time: Total time managing care of this patient today ____ minutes.
--- NOTE | 2023-02-27 09:28 | MHC.CM.PN ---
Pt in ICU w/DKA: now stable and able to transfer to floor. Pt offers no barriers to self care: has been a type 1 diabetic for a long time Has transportation home and understands follow up plan. CM to follow for changes
[2023-02-27 11:50] LABS: Glucose, Whole Blood 213 mg/dL (60-115)
[2023-02-27 12:29] LABS: Anion Gap 10 (12-20); Blood Urea Nitrogen 8 mg/dL (9-16); Calcium 8.3 mg/dL (8.4-10.2); Carbon Dioxide 22 mmol/L (22-29); Chloride 106 mmol/L (96-108); Creatinine Clr Calc Pharmacy 88.6; Estimated Glomerular Filt Rate > 60; Glucose Random 246 mg/dL (60-115); Potassium 3.9 mmol/L (3.3-5.1); Sodium 134 mmol/L (135-145)
[2023-02-27] MEDS: Insulin Lispro 100 UNIT/ML 3 ML VIAL SUBCUT (12:40)
[2023-02-27 17:03] LABS: Glucose, Whole Blood 129 mg/dL (60-115)
[2023-02-27 20:11] LABS: Glucose, Whole Blood 104 mg/dL (60-115)
[2023-02-28] VITALS: BP 130/84; PULSE 98; RESP 20; TEMP 36.5; O2SAT 97
[2023-02-28] MEDS: Heparin Sodium,Porcine 5,000 UNIT/ML VIAL 5000 UNIT SUBCUT (02:57)
[2023-02-28 03:01] VITALS: BP 133/85; PULSE 90; RESP 20; TEMP 36.6; O2SAT 98
[2023-02-28] MEDS: Albumin Human 25 % 100 ML IV (03:03)
[2023-02-28 06:00] VITALS: BMI 21.6
[2023-02-28 07:23] VITALS: BP 145/86; PULSE 83; RESP 18; TEMP 36.5; O2SAT 98
[2023-02-28 07:36] LABS: Glucose, Whole Blood 213 mg/dL (60-115)
[2023-02-28] MEDS: Insulin Lispro 100 UNIT/ML 3 ML VIAL SUBCUT (08:16)
[2023-02-28] MEDS: Insulin Glargine,Hum.rec.anlog 100 UNIT/ML 10 ML VIAL 30 UNIT SUBCUT (08:17)
[2023-02-28 08:22] LABS: MANUAL DIFF FLAG NO
[2023-02-28 08:29] LABS: Basophils Percent Auto 0.4 % (0-2); Eosinophils Absolute Auto 0.1 X10*3/uL (0.0-0.4); Eosinophils Percent Auto 1.2 % (0-4); Hematocrit 28.6 % (42.0-52.0); Hemoglobin 9.4 g/dl (14.0-18.0); Imm Gran Abs Auto 0.02 X10*3/uL (0.00-0.03); Imm Gran Pct Auto 0.3 % (0.0-0.4); Lymphocytes Absolute Auto 1.9 X10*3/uL (1.2-4.9); Lymphocytes Percent Auto 28.3 % (20-40); Mean Corpuscular HGB Conc 32.9 g/dl (31.0-36.0); Mean Corpuscular Hemoglobin 27.2 pg (27.0-33.0); Mean Corpuscular Volume 82.7 fL (80.0-98.0); Mean Platelet Volume 10.5 fL (9.4-12.4); Monocytes Absolute Auto 0.5 X10*3/uL (0.1-1.2); Monocytes Percent Auto 7.9 % (2-11); Neutrophils Absolute Auto 4.1 x10*3/uL (2.0-8.3); Neutrophils Percent Auto 61.9 % (45-73); Platelet Count 255 X10*3/uL (160-400); Red Blood Count 3.46 X10*6/uL (4.60-5.80); Red Cell Distribution Width 14.2 % (11.0-16.0); White Blood Count 6.7 X10*3/uL (4.8-10.8)
[2023-02-28 08:44] LABS: Albumin Level 3.7 g/dL (3.5-5.0); Anion Gap 11 (12-20); Blood Urea Nitrogen 7 mg/dL (9-16); Calcium 8.5 mg/dL (8.4-10.2); Carbon Dioxide 26 mmol/L (22-29); Chloride 104 mmol/L (96-108); Creatinine Clr Calc Pharmacy 98.3; Estimated Glomerular Filt Rate > 60; Glucose Random 235 mg/dL (60-115); Magnesium 1.8 mg/dL (1.6-2.6); Phosphorus 1.6 mg/dL (2.7-4.5); Potassium 3.4 mmol/L (3.3-5.1); Sodium 138 mmol/L (135-145)
--- NOTE | 2023-02-28 09:56 | MHC.CM.PN ---
[facility] PT WILL BE MEDICALLY CLEARED FOR D/C HOME SELF-CARE W/PT ARRANGING TRANSPORT.
--- NOTE | 2023-02-28 10:00 | PM.DS ---
DS: Providers Provider Date of Service: 02/28/23 Date of admission: 02/26/23 18:30 Primary care physician: Unknown Physician DS: Diagnosis Discharge Diagnosis (1) Type 1 diabetes mellitus: Status: Acute (2) CRISTI (acute kidney injury): Status: Acute (3) DKA (diabetic ketoacidosis): Status: Acute DS: Summary Hospital Course Hospital Course: History and physical as per admitting provider. The patient is a 32-year-old male with a past medical history of type 1 diabetes mellitus who presented to emergency room with abdominal pain.? Patient reports the time has 1 week of abdominal pain, nausea, vomiting? and unable to tolerate PO intake,? reports taking extra Humalog? due to high blood sugars at home.??Vital signs are stable. Laboratory data was significant for? WBC 11.3, initial serum bicarb was 15 but later down to 7.? Anion gap 29, creatinine 1.52 Venous blood gas? 7.21//63/8 IMAGING: No acute? infection/ obstruction ED Course: Patient received 2 L bolus of normal saline,? started on maintenance fluids with dextrose and started on insulin drip Patient will be admitted to ICU for management of DKA or insulin drip 32-year-old man treated for DKA and CRISTI secondary to nausea and vomiting. Nausea and vomiting likely secondary to gastroparesis. Patient was admitted to the ICU and treated with an insulin drip and IV fluids. Acidosis subsequently resolved and patient was transferred to the medical floor. His nausea vomiting and abdominal pain has completely resolved. CRISTI likely secondary to hypovolemia from vomiting. Renal function back to baseline. Patient to be discharged home to resume his Lantus and sliding scale. Time Spent with Patient Time attestation: Total time managing care of this patient today ____ minutes. Discharge coordination time: Greater than 30 minutes Quality: Safe Use of Opioids Does Pt have an Active Cancer Diagnosis on the Problem List?: No Quality: Stroke Does the patient have a stroke diagnosis?: No Physical Exam Vital Signs: Vital Signs: Last Vital Signs Temp 97.7 F 02/28/23 07:23 Pulse 83 02/28/23 07:23 Resp 18 02/28/23 07:23 BP 145/86 H 02/28/23 07:23 Pulse Ox 98 02/28/23 07:23 O2 Del Method Room Air 02/28/23 07:23 BMI result Body Mass Index 21.6 Appearing in no acute distress head is normocephalic atraumatic eyes pupils are PERRLA sclera is anicteric mouth throat mucous membranes are intact and moist neck is supple no lymphadenopathy, no JVD noted lung sounds are clear to auscultation heart regular rate rhythm, clear S1, S2 positive bowel sounds, abdomen is soft, nontender neuro patient is alert x3, no focal deficits DS: Data Data Completed and Pending Labs on day of discharge: Laboratory Results - last 24 hr 02/27/23 02/27/23 02/27/23 11:41 12:01 16:59 WBC RBC Hgb Hct MCV MCH MCHC RDW Plt Count MPV Immature Gran % (Auto) Neut % (Auto) Lymph % (Auto) [place] % (Auto) Eos % (Auto) Baso % (Auto) Lymph # (Auto) [place] # (Auto) Eos # (Auto) Baso # (Auto) Abs Immat Gran (auto) Absolute Neuts (auto) Absolute Nucleated RBC Nucleated RBC % (auto) Sodium 134 L Potassium 3.9 Chloride 106 Carbon Dioxide 22 Anion Gap 10 L BUN 8 L Creatinine 1.25 Estim Creat Clear Calc 88.6 Estimated GFR > 60 POC Glucose 213 H 129 H Random Glucose 246 H Calcium 8.3 L D Phosphorus Magnesium Albumin 02/27/23 02/28/23 02/28/23 20:04 06:29 06:29 WBC 6.7 RBC 3.46 L Hgb 9.4 L Hct 28.6 L MCV 82.7 MCH 27.2 MCHC 32.9 RDW 14.2 Plt Count 255 MPV 10.5 Immature Gran % (Auto) 0.3 Neut % (Auto) 61.9 Lymph % (Auto) 28.3 [place] % (Auto) 7.9 Eos % (Auto) 1.2 Baso % (Auto) 0.4 Lymph # (Auto) 1.9 [place] # (Auto) 0.5 Eos # (Auto) 0.1 Baso # (Auto) 0.0 Abs Immat Gran (auto) 0.02 Absolute Neuts (auto) 4.1 Absolute Nucleated RBC 0.000 Nucleated RBC % (auto) 0.0 Sodium 138 Potassium 3.4 Chloride 104 Carbon Dioxide 26 Anion Gap 11 L BUN 7 L Creatinine 1.11 Estim Creat Clear Calc 98.3 Estimated GFR > 60 POC Glucose 104 Random Glucose 235 H Calcium 8.5 Phosphorus 1.6 L Magnesium 1.8 Albumin 3.7 02/28/23 07:32 WBC RBC Hgb Hct MCV MCH MCHC RDW Plt Count MPV Immature Gran % (Auto) Neut % (Auto) Lymph % (Auto) [place] % (Auto) Eos % (Auto) Baso % (Auto) Lymph # (Auto) [place] # (Auto) Eos # (Auto) Baso # (Auto) Abs Immat Gran (auto) Absolute Neuts (auto) Absolute Nucleated RBC Nucleated RBC % (auto) Sodium Potassium Chloride Carbon Dioxide Anion Gap BUN Creatinine Estim Creat Clear Calc Estimated GFR POC Glucose 213 H Random Glucose Calcium Phosphorus Magnesium Albumin Discharge Plan Discharge Anticipated Discharge Date/Time: 02/28/23 09:58 Patient Disposition: Home, Self-Care Discharge Diagnosis: DKA CRISTI Discharge Medications: Continued insulin glargine 100 unit/mL Solution 30 unit SUBCUT QPM insulin lispro 100 unit/mL Insulin Pen 1 sliding scale dose SUBCUT USEASDIRECTD Protocol: Insulin Correction Scale Less than or equal to 110 ---- Give (units): 0 111 to 150 Give (units): 0 151 to 200 Give (units): 2 201 to 250 Give (units): 4 251 to 300 Give (units): 6 301 to 350 Give (units): 8 Greater than 350 Give (units): 10 Call MD if Blood Glucose > : 350 Discharge Orders: Discharge Order (Routine); Ordered 02/28/23 Ordered By: Jessika Carlisle Diet: Advance to usual diet Activity on Discharge: As tolerated Stand Alone Forms: Patient Portal Discharge page Care Plan Goals: Treat episodes of nausea and vomiting to avoid DKA Health Concerns: DKA CRISTI Plan of Treatment: Follow-up with primary care provider as needed Take all medications as prescribed Assessment: See discharge summary
== END 2023-02-28 11:09 | disposition home or self-care (01) | DRG 420 ==
LOC: HO.ED 17:35 → HO.EDOVER 18:34 → HO.ICU 18:38 → HO.IMC 02-27 14:17
PROVIDERS: Physician Assistant; Registered Nurse Community Health; Admitting Provider Internal Medicine Pulmonary Disease; Emergency Provider Emergency Medicine Emergency Medical Services; Visit Provider Nurse Practitioner Acute Care
DX: E10.10 Type 1 diabetes mellitus with ketoacidosis without coma (principal); N17.9 Acute kidney failure, unspecified; K31.84 Gastroparesis; E10.43 Type 1 diabetes mellitus with diabetic autonomic (poly)neuropathy; E86.1 Hypovolemia
CPT/HCPCS: 36415; 71045; 74176; 80048; 80053; 80307; 81001; 82010; 82040; 82803; 82947; 83690; 83735; 84100; 85025; 93005; 99285; J1643; J1885; J2060; J2405; J3475; P9047

== ENCOUNTER → 2023-02-26 12:59 | Outpatient (BNV) | payer OTHER, SELFPAY | PROVIDERS: Emergency Provider Emergency Medicine Emergency Medical Services; Visit Provider Internal Medicine Cardiovascular Disease | DX: R52 Pain, unspecified (principal) | CPT/HCPCS: 93010 ==

== ENCOUNTER → 2023-02-26 18:30 | Outpatient (BNV) | payer OTHER, SELFPAY | PROVIDERS: Admitting Provider Internal Medicine Pulmonary Disease; Emergency Provider Emergency Medicine Emergency Medical Services; Visit Provider Internal Medicine Pulmonary Disease | DX: N17.9 Acute kidney failure, unspecified (principal); E11.10 Type 2 diabetes mellitus with ketoacidosis without coma | CPT/HCPCS: 99232 ==

== ENCOUNTER → 2023-02-26 18:30 | Outpatient (BNV) | payer OTHER, SELFPAY | PROVIDERS: Admitting Provider Internal Medicine Pulmonary Disease; Emergency Provider Emergency Medicine Emergency Medical Services; Visit Provider Registered Nurse Community Health | DX: E11.10 Type 2 diabetes mellitus with ketoacidosis without coma (principal); N17.9 Acute kidney failure, unspecified; K31.84 Gastroparesis | CPT/HCPCS: 99223 ==

== ENCOUNTER → 2023-02-26 18:30 | Outpatient (BNV) | payer OTHER, SELFPAY | PROVIDERS: Admitting Provider Internal Medicine Pulmonary Disease; Emergency Provider Emergency Medicine Emergency Medical Services; Visit Provider Nurse Practitioner Acute Care | DX: E11.10 Type 2 diabetes mellitus with ketoacidosis without coma (principal); N17.9 Acute kidney failure, unspecified | CPT/HCPCS: 99239; 99499 ==

== ENCOUNTER 2023-03-16 08:44 | Emergency (ER) | payer OTHER, SELFPAY ==
[2023-03-16 09:02] VITALS: BP 128/92; BP 145/96; PULSE 102; PULSE 115; RESP 20; TEMP 37.2; O2SAT 100; O2SAT 99; BMI 24.4
[2023-03-16] MEDS: Lactated Ringers 1,000 ML 999 ML IV ×2 (09:24→09:28)
--- NOTE | 2023-03-16 09:26 | ED.ABDPAIN ---
HPI - Abdominal Pain General Chief Complaint: Abdominal Pain Stated Complaint: N/V x 2 days per EMS Time Seen by Provider: 03/16/23 08:49 Source: patient Mode of arrival: ambulatory Limitations: no limitations History of Present Illness HPI narrative: 32-year-old male who presents emergency department for evaluation nausea, vomiting and x2 days. Patient states that feels similar to his DKA wanes admitted on 02/26/2023. Patient states that he has not been able to hold down any food or fluid for the past 2 days. He has been giving himself insulin. He states that he has a constant, diffuse abdominal pain. The pain is a spasm/cramping sensation which waxes and wanes in intensity and is currently 7/10. He denied fever but states he had 1 episode of chills. He denied rhinorrhea, sore throat, cough, chest pain, shortness of breath. He states that he had 2 loose diarrheal stools over the past 2 days. He denied frequency, urgency or dysuria. He denied myalgias arthralgias The patient was recently admitted from 02/26/2023 until 02/28/2023 for DKA and acute kidney injury. I did review the record, at that time, his bicarb was 15 but dropped down to 7, his anion gap was 29 and his creatinine was 1.52. PH was 7.21 . He was treated in the intensive care unit with normal saline and insulin drip. Related Data Home Medications Medication Instructions Recorded Confirmed insulin glargine 100 unit/mL 30 unit subcut QPM 02/26/23 02/26/23 subcutaneous solution insulin lispro 100 unit/mL 1 sliding scale dose subcut 02/26/23 02/26/23 subcutaneous pen [id number] Allergies Allergy/AdvReac Type Severity Reaction Status Date / Time No Known Allergies Allergy Unverified 04/22/20 18:26 Review of Systems Review of Systems Yes all other systems are reviewed and are negative PENDING SALE TO [facility] Past Medical History PENDING SALE TO [facility] Narrative: Past medical history: Reviewed below, DKA with acute kidney injury hospitalized 02/26/2023. Surgical history: None. Social history: He denies tobacco use. He rarely drinks alcohol. He smokes marijuana daily. Medical History Gastroparesis Type 1 diabetes mellitus Social History Social History Household Members: Other Housing: House Do you presently have visiting nurse or other home services: No Alcohol intake: current Alcohol intake frequency: holidays/special occasions only Patient Tobacco Use Status: Never used Tobacco Smoked in Last 30 Days: Yes Use of substances other than those prescribed or required for medical reasons: Yes Substance Use Type: Marijuana Substance Use Frequency: Monthly Advance Directives: No Advance Directives Information Provided: No service: No Physical Exam ED Vital Signs: Vital Signs - 24 hr 03/16/23 09:02 03/16/23 09:46 03/16/23 11:28 Temperature 98.9 F 98.9 F 99.3 F Pulse Rate 115 H 104 H 99 Respiratory Rate 20 20 17 Blood Pressure 145/96 H 124/94 H 139/95 H Pulse Oximetry 100 100 Oxygen Delivery Method Room Air Room Air 03/16/23 14:47 03/16/23 16:02 Temperature 98.6 F 99.3 F Pulse Rate 98 102 H Respiratory Rate 16 18 Blood Pressure 132/87 Pulse Oximetry 98 96 Oxygen Delivery Method Room Air Room Air BMI result Body Mass Index 24.4 Vital signs did reveal an elevated pulse of 115 and elevated blood pressure of 145/96. Exam: General: Awake, alert in no distress. There is a strong odor of ketones on his breath. Head: Normocephalic, atraumatic EENT: PERRL, Lids normal, sclera normal, conjunctiva normal, nose normal , ears normal, throat without erythema or exudates Neck: Supple, no adenopathy, trachea midline and nontender Lung: breath sounds symmetric, no wheezing, rales or rhonchi Chest: symmetric movement, nontender Heart: Tachycardia with a regular rhythm, normal S1, S2 no murmurs or rubs Abdomen: soft, moderate diffuse , nondistended, normal bowel sounds Back: no vertebral tenderness, no CVAT Extremities: no deformities, moves all extremities symmetrically Skin: no rashes, no lesion, normal color and warmth Neuro: Awake, alert, oriented, normal speech, cranial nerves intact, moves all extremities symmetrically Psych: Pleasant, cooperative Medical Decision Making Medical Decision Making MDM Narrative: 32-year-old male with a history of diabetes mellitus S and DKA with acute kidney injury who presents to the emergency department for evaluation of 2 days of nausea, vomiting, abdominal pain-unable to eat or drink, continues to uses insulin. Patient states that his symptoms feel similar to his presentation with DKA on 02/26/2023. Vital signs revealed an elevated blood pressure and tachycardia. Exam revealed a strong odor of ketones on his breath with diffuse abdominal tenderness otherwise was unremarkable pain. I ordered the following evaluation: CBC, CMP, lipase, beta hydroxybutyrate, lactic acid, VBG, point of care glucose, IV insertion, quality assurance monitor chassis, pulse ox monitor. Patient was ordered to get lactated Ringer's IV x2 L. I also ordered Toradol 15 mg IV for his abdominal and Zofran 4 mg IV for his nausea and vomiting. 1059: Patient's laboratory evaluation was surprising in the sense that he a was alkalotic with a pH of 7.55, had an elevated serum bicarb of 36 and VBG bicarb elevated at 45. Patient also had ketones in his urine and ketones in his blood. I suspect that the patient's alkalosis an elevated bicarb was secondary to consuming a large amount of TUMS over the last 2 days and this is masking his acidosis I did discuss these abnormal values with the covering print graphic designer, Dr. Burks any recommended treating the patient with D5 lactated Ringer's and IV insulin. He also recommended repeating the patient's potassium with 10 mEq and 100 mL of NS times 4 and oral potassium chloride 40 mEq. There were no intensive care unit beds at this time therefore the patient will be kept in the emergency department Patient was ordered to get regular insulin 5 units IV, D5 LR at 125 mL/hr, q.1 hour point of care glucose and Q 2 hours BMP to follow electrolytes. 1508: Patient had a repeat BMP which revealed a potassium of 5.0 which is normal which is reassuring BUN of 24 with a creatinine of 1.43 she is slightly improved. Patient's serum glucose was elevated at 535 however this was drawn above the D5 LR IV line. 1634: We do not have intensive care unit beds at this time and the print graphic designer does not think that will be able crater of bed over the next 24 hours. I contacted at [facility], [facility] and [facility] and they do not have any intensive care unit beds The patient refuses to go to [facility] or the [facility]. At this time, the patient wants to sign out against medical advice. The patient is competent to understand the risks and benefits of leaving against medical advice before he was discharged AMA. Differential Diagnosis Differential Diagnoses: The differential diagnosis associated with the presentation includes Admission/Observation Consideration of admission/observation: Escalation of care including admission/observation considered Consult Healthcare Provider Management of the patient was discussed with: Lining Presser (Field Marketing Representative, Dr. Burks) Lab Data MDM Lab Attestation statement: I reviewed the patient's lab results. My independent interpretation patient's laboratory evaluation is as follows: Anemia with an H&H of 11 and 38. Low potassium 3.2. Elevated bicarb 36, elevated BUN 31 with an elevated creatinine to 1.51. Urinalysis revealed greater than 160 ketones. Venous pH was elevate 7.55, penis bicarb was elevated 45, anion gap was normal at 17. Patient's BUN and creatinine were elevated at 31 and 1.51. Calcium is elevated 11.5. Patient's serum beta hydroxybutyrate was elevated at 1.94 03/16/23 09:50 03/16/23 09:35 Labs: Lab Results 03/16/23 03/16/23 03/16/23 Range/Units 09:24 09:35 09:37 WBC (4.8-10.8) X10*3/uL RBC (4.60-5.80) X10*6/uL Hgb (14.0-18.0) g/dl Hct (42.0-52.0) % MCV (80.0-98.0) fL MCH (27.0-33.0) pg MCHC (31.0-36.0) g/dl RDW (11.0-16.0) % Plt Count (160-400) X10*3/uL MPV (9.4-12.4) fL Immature Gran % (Auto) (0.0-0.4) % Neut % (Auto) (45-73) % Lymph % (Auto) (20-40) % Harris % (Auto) (2-11) % Eos % (Auto) (0-4) % Baso % (Auto) (0-2) % Lymph # (Auto) (1.2-4.9) X10*3/uL Harris # (Auto) (0.1-1.2) X10*3/uL Eos # (Auto) (0.0-0.4) X10*3/uL Baso # (Auto) (0.0-0.2) X10*3/uL Abs Immat Gran (auto) (0.00-0.03) X10*3/uL Absolute Neuts (auto) (2.0-8.3) x10*3/uL Absolute Nucleated RBC (0.0-0.012) X10*3/uL Nucleated RBC % (auto) (0.0-0.2) /100WBC VBG pH 7.55 H (7.32-7.43) VBG pCO2 51 mmHg VBG pO2 33 mmHg VBG HCO3 45 H (22-26) mmol/L VBG O2 Saturation 43.0 % VBG Base Excess 19.6 mmol/L Sodium 143 (135-145) mmol/L Potassium 3.2 L (3.3-5.1) mmol/L Chloride 93 L (96-108) mmol/L Carbon Dioxide 36 H (22-29) mmol/L Anion Gap 17 (12-20) BUN 31 H (9-16) mg/dL Creatinine 1.51 H (0.5-1.4) mg/dL Estim Creat Clear Calc 77.7 Estimated GFR 54 POC Glucose 87 (60-115) mg/dL Random Glucose 82 (60-115) mg/dL Lactic Acid (0.5-2.0) mmol/L Calcium 11.6 H D (8.4-10.2) mg/dL Total Bilirubin 0.6 (0.0-1.0) mg/dL AST 18 (5-37) U/L ALT 34 (0-40) U/L Alkaline Phosphatase 89 (39-117) U/L Total Protein 8.1 H (6.5-8.0) g/dL Albumin 4.7 (3.5-5.0) g/dL Lipase 7 L (8-78) U/L Beta-Hydroxybutyrate 1.94 H (0.02-0.27) mmol/L 03/16/23 03/16/23 03/16/23 Range/Units 09:50 09:50 11:02 WBC 9.0 (4.8-10.8) X10*3/uL RBC 4.01 L (4.60-5.80) X10*6/uL Hgb 11.1 L (14.0-18.0) g/dl Hct 33.8 L (42.0-52.0) % MCV 84.3 (80.0-98.0) fL MCH 27.7 (27.0-33.0) pg MCHC 32.8 (31.0-36.0) g/dl RDW 14.6 (11.0-16.0) % Plt Count 398 D (160-400) X10*3/uL MPV 9.1 L (9.4-12.4) fL Immature Gran % (Auto) 0.2 (0.0-0.4) % Neut % (Auto) 74.8 H (45-73) % Lymph % (Auto) 14.5 L (20-40) % Harris % (Auto) 10.0 (2-11) % Eos % (Auto) 0.1 (0-4) % Baso % (Auto) 0.4 (0-2) % Lymph # (Auto) 1.3 (1.2-4.9) X10*3/uL Harris # (Auto) 0.9 (0.1-1.2) X10*3/uL Eos # (Auto) 0.0 (0.0-0.4) X10*3/uL Baso # (Auto) 0.0 (0.0-0.2) X10*3/uL Abs Immat Gran (auto) 0.02 (0.00-0.03) X10*3/uL Absolute Neuts (auto) 6.7 (2.0-8.3) x10*3/uL Absolute Nucleated RBC 0.000 (0.0-0.012) X10*3/uL Nucleated RBC % (auto) 0.0 (0.0-0.2) /100WBC VBG pH (7.32-7.43) VBG pCO2 mmHg VBG pO2 mmHg VBG HCO3 (22-26) mmol/L VBG O2 Saturation % VBG Base Excess mmol/L Sodium (135-145) mmol/L Potassium (3.3-5.1) mmol/L Chloride (96-108) mmol/L Carbon Dioxide (22-29) mmol/L Anion Gap (12-20) BUN (9-16) mg/dL Creatinine (0.5-1.4) mg/dL Estim Creat Clear Calc Estimated GFR POC Glucose 50 L* (60-115) mg/dL Random Glucose (60-115) mg/dL Lactic Acid 2.0 (0.5-2.0) mmol/L Calcium (8.4-10.2) mg/dL Total Bilirubin (0.0-1.0) mg/dL AST (5-37) U/L ALT (0-40) U/L Alkaline Phosphatase (39-117) U/L Total Protein (6.5-8.0) g/dL Albumin (3.5-5.0) g/dL Lipase (8-78) U/L Beta-Hydroxybutyrate (0.02-0.27) mmol/L 03/16/23 03/16/23 03/16/23 Range/Units 11:27 12:45 13:46 WBC (4.8-10.8) X10*3/uL RBC (4.60-5.80) X10*6/uL Hgb (14.0-18.0) g/dl Hct (42.0-52.0) % MCV (80.0-98.0) fL MCH (27.0-33.0) pg MCHC (31.0-36.0) g/dl RDW (11.0-16.0) % Plt Count (160-400) X10*3/uL MPV (9.4-12.4) fL Immature Gran % (Auto) (0.0-0.4) % Neut % (Auto) (45-73) % Lymph % (Auto) (20-40) % Harris % (Auto) (2-11) % Eos % (Auto) (0-4) % Baso % (Auto) (0-2) % Lymph # (Auto) (1.2-4.9) X10*3/uL Harris # (Auto) (0.1-1.2) X10*3/uL Eos # (Auto) (0.0-0.4) X10*3/uL Baso # (Auto) (0.0-0.2) X10*3/uL Abs Immat Gran (auto) (0.00-0.03) X10*3/uL Absolute Neuts (auto) (2.0-8.3) x10*3/uL Absolute Nucleated RBC (0.0-0.012) X10*3/uL Nucleated RBC % (auto) (0.0-0.2) /100WBC VBG pH (7.32-7.43) VBG pCO2 mmHg VBG pO2 mmHg VBG HCO3 (22-26) mmol/L VBG O2 Saturation % VBG Base Excess mmol/L Sodium 137 (135-145) mmol/L Potassium 5.0 D (3.3-5.1) mmol/L Chloride 97 (96-108) mmol/L Carbon Dioxide 29 (22-29) mmol/L Anion Gap 16 (12-20) BUN 24 H (9-16) mg/dL Creatinine 1.43 H (0.5-1.4) mg/dL Estim Creat Clear Calc 82.1 Estimated GFR 58 POC Glucose 129 H 130 H (60-115) mg/dL Random Glucose 535 H* (60-115) mg/dL Lactic Acid (0.5-2.0) mmol/L Calcium 8.9 D (8.4-10.2) mg/dL Total Bilirubin (0.0-1.0) mg/dL AST (5-37) U/L ALT (0-40) U/L Alkaline Phosphatase (39-117) U/L Total Protein (6.5-8.0) g/dL Albumin (3.5-5.0) g/dL Lipase (8-78) U/L Beta-Hydroxybutyrate (0.02-0.27) mmol/L 03/16/23 03/16/23 03/16/23 Range/Units 14:35 15:26 16:24 WBC (4.8-10.8) X10*3/uL RBC (4.60-5.80) X10*6/uL Hgb (14.0-18.0) g/dl Hct (42.0-52.0) % MCV (80.0-98.0) fL MCH (27.0-33.0) pg MCHC (31.0-36.0) g/dl RDW (11.0-16.0) % Plt Count (160-400) X10*3/uL MPV (9.4-12.4) fL Immature Gran % (Auto) (0.0-0.4) % Neut % (Auto) (45-73) % Lymph % (Auto) (20-40) % Harris % (Auto) (2-11) % Eos % (Auto) (0-4) % Baso % (Auto) (0-2) % Lymph # (Auto) (1.2-4.9) X10*3/uL Harris # (Auto) (0.1-1.2) X10*3/uL Eos # (Auto) (0.0-0.4) X10*3/uL Baso # (Auto) (0.0-0.2) X10*3/uL Abs Immat Gran (auto) (0.00-0.03) X10*3/uL Absolute Neuts (auto) (2.0-8.3) x10*3/uL Absolute Nucleated RBC (0.0-0.012) X10*3/uL Nucleated RBC % (auto) (0.0-0.2) /100WBC VBG pH (7.32-7.43) VBG pCO2 mmHg VBG pO2 mmHg VBG HCO3 (22-26) mmol/L VBG O2 Saturation % VBG Base Excess mmol/L Sodium (135-145) mmol/L Potassium (3.3-5.1) mmol/L Chloride (96-108) mmol/L Carbon Dioxide (22-29) mmol/L Anion Gap (12-20) BUN (9-16) mg/dL Creatinine (0.5-1.4) mg/dL Estim Creat Clear Calc Estimated GFR POC Glucose 53 L* 109 101 (60-115) mg/dL Random Glucose (60-115) mg/dL Lactic Acid (0.5-2.0) mmol/L Calcium (8.4-10.2) mg/dL Total Bilirubin (0.0-1.0) mg/dL AST (5-37) U/L ALT (0-40) U/L Alkaline Phosphatase (39-117) U/L Total Protein (6.5-8.0) g/dL Albumin (3.5-5.0) g/dL Lipase (8-78) U/L Beta-Hydroxybutyrate (0.02-0.27) mmol/L Medications Administered Generic Name Dose Route Start Last Admin Trade Name Freq PRN Reason Stop Dose Admin Dextrose/Lactated Ringer's 1,000 mls @ 250 mls/hr 03/16/23 11:15 03/16/23 11:25 D5lr IVCONT 125 mls/hr .Q4H PARKER Administration Insulin Human Regular 100 unit in 100 mls @ 5 mls/hr 03/16/23 11:15 03/16/23 15:21 Myxredlin IVCONT 5 unit/hr .Q20H PARKER 5 mls/hr Titration Protocol 5 UNIT/HR Discontinued Medications Generic Name Dose Route Start Last Admin Trade Name Freq PRN Reason Stop Dose Admin Dextrose 25 gm 03/16/23 11:03 03/16/23 11:06 Dextrose 50 % 25 Gm/50 Ml Syringe IVPUSH 03/16/23 11:04 25 gm ONCE ONE Administration Lactated Ringer's 1,000 mls @ 999 mls/hr 03/16/23 09:15 03/16/23 10:27 Lr IV 03/16/23 10:15 Infused .Q1H1M PARKER Infusion Lactated Ringer's 1,000 mls @ 999 mls/hr 03/16/23 09:30 03/16/23 10:27 Lr IV 03/16/23 10:30 Infused .Q1H1M PRAKER Infusion Potassium Chloride 10 meq in 100 mls @ 100 mls/hr 03/16/23 10:45 03/16/23 15:02 Potassium Chloride/H20 IV 03/16/23 14:44 50 mls/hr Q1H PARKER Administration Ketorolac Tromethamine 15 mg 03/16/23 09:13 03/16/23 09:29 Ketorolac Tromethamine 15 Mg/Ml Vial IVPUSH 03/16/23 09:14 15 mg ONCE STA Administration Ondansetron HCl 4 mg 03/16/23 09:13 03/16/23 09:29 Ondansetron Hcl 4 Mg/2 Ml Vial IVPUSH 03/16/23 09:14 4 mg ONCE ONE Administration Potassium Chloride 40 meq 03/16/23 10:44 03/16/23 11:10 Potassium Chloride Packet 20 Meq Packet PO 03/16/23 10:45 40 meq ONCE ONE Administration Discharge Plan Discharge Clinical Impression: Diabetic keto-acidosis, Alkalosis Patient Disposition: Left Against Medical Advice Additional Instructions: Your laboratory findings are consistent with ketosis, your pH was high at 7.55 and this is most likely due to the significant amount of TUMS that you ate over the last 2 days. We do not have an ICU bed here so I attempted to transfer you to another hospital that can care for you. I called [facility], [facility] in [facility] and they were unable to accept you as an ICU transfer pain You refused transfer to [facility] or [facility] but you refused transfer out of the area. Diabetic ketoacidosis is a life-threatening condition if you leave the hospital you can , you understand this risk, therefore we are discharging you against medical advice. Follow-up with your doctor in 24 hours Please return to the emergency department if your symptoms get worse or if you develop any symptoms that are concerning to you. Prescriptions: No Action insulin glargine 100 unit/mL Solution 30 unit SUBCUT QPM insulin lispro 100 unit/mL Insulin Pen 1 sliding scale dose SUBCUT USEASDIRECTD Protocol: Insulin Correction Scale Less than or equal to 110 ---- Give (units): 0 111 to 150 Give (units): 0 151 to 200 Give (units): 2 201 to 250 Give (units): 4 251 to 300 Give (units): 6 301 to 350 Give (units): 8 Greater than 350 Give (units): 10 Call MD if Blood Glucose > : 350 Stand Alone Forms: Against Medical Advice
[2023-03-16 09:28] LABS: Glucose, Whole Blood 87 mg/dL (60-115)
[2023-03-16] MEDS: Ketorolac Tromethamine 15 MG/ML VIAL IVPUSH (09:29)
[2023-03-16] MEDS: ondansetron HCL 4 MG/2 ML VIAL IVPUSH (09:29)
--- NOTE | 2023-03-16 09:44 | PC.NURSE ---
Pt to [facility] from home via EMS for n/v/d x3 days. Pt has T1D and past history of hospitalization for DKA. POC was 89 for EMS, in hospital POC: 87. Pt tachycardic in the low 100s. Endorsing 7/10 abdominal pain and cramping. Cardiac monitoring initiated. Medicated per OCT. IV access obtained, LR bolus infusing. Plan for labs, meds. WCTA
[2023-03-16 09:46] VITALS: BP 124/94; PULSE 104; RESP 20; TEMP 37.2; O2SAT 100
[2023-03-16 09:47] LABS: VBG Base Excess 19.6 mmol/L; VBG HCO3 45 mmol/L (22-26); VBG pCO2 51 mmHg; VBG pH 7.55 (7.32-7.43); VBG pO2 33 mmHg
[2023-03-16 09:55] LABS: MANUAL DIFF FLAG NO
[2023-03-16 09:56] LABS: Basophils Percent Auto 0.4 % (0-2); Eosinophils Percent Auto 0.1 % (0-4); Hematocrit 33.8 % (42.0-52.0); Hemoglobin 11.1 g/dl (14.0-18.0); Imm Gran Abs Auto 0.02 X10*3/uL (0.00-0.03); Imm Gran Pct Auto 0.2 % (0.0-0.4); Lymphocytes Absolute Auto 1.3 X10*3/uL (1.2-4.9); Lymphocytes Percent Auto 14.5 % (20-40); Mean Corpuscular HGB Conc 32.8 g/dl (31.0-36.0); Mean Corpuscular Hemoglobin 27.7 pg (27.0-33.0); Mean Corpuscular Volume 84.3 fL (80.0-98.0); Mean Platelet Volume 9.1 fL (9.4-12.4); Monocytes Absolute Auto 0.9 X10*3/uL (0.1-1.2); Neutrophils Absolute Auto 6.7 x10*3/uL (2.0-8.3); Neutrophils Percent Auto 74.8 % (45-73); Platelet Count 398 X10*3/uL (160-400); Red Blood Count 4.01 X10*6/uL (4.60-5.80); Red Cell Distribution Width 14.6 % (11.0-16.0)
[2023-03-16 09:58] LABS: Venous Blood Gas Refer to POC result
[2023-03-16 10:21] LABS: Alanine Aminotransferase 34 U/L (0-40); Albumin Level 4.7 g/dL (3.5-5.0); Alkaline Phosphatase 89 U/L (39-117); Anion Gap 17 (12-20); Aspartate Amino Transferase 18 U/L (5-37); Bilirubin Total 0.6 mg/dL (0.0-1.0); Blood Urea Nitrogen 31 mg/dL (9-16); Calcium 11.6 mg/dL (8.4-10.2); Carbon Dioxide 36 mmol/L (22-29); Chloride 93 mmol/L (96-108); Creatinine Clr Calc Pharmacy 77.7; Estimated Glomerular Filt Rate 54; Glucose Random 82 mg/dL (60-115); Lipase 7 U/L (8-78); Potassium 3.2 mmol/L (3.3-5.1); Sodium 143 mmol/L (135-145); Total Protein 8.1 g/dL (6.5-8.0)
[2023-03-16 10:45] LABS: Beta-Hydroxybutyrate 1.94 mmol/L (0.02-0.27)
[2023-03-16 11:06] LABS: Glucose, Whole Blood 50 mg/dL (60-115)
[2023-03-16] MEDS: Dextrose 50 % 25 GM/50 ML SYRINGE IVPUSH (11:06)
[2023-03-16] MEDS: Potassium Chloride Packet 20 MEQ PACKET 40 MEQ PO (11:10)
[2023-03-16] MEDS: Potassium Chloride/H20 10 MEQ/100 ML PIGGYBACK 100 MEQ IV (11:10)
[2023-03-16] MEDS: Dextrose 5 % and Lactated Ring 1,000 ML 125 ML IVCONT (11:25)
[2023-03-16 11:28] VITALS: BP 139/95; PULSE 99; RESP 17; TEMP 37.4
[2023-03-16 11:34] LABS: Glucose, Whole Blood 129 mg/dL (60-115)
[2023-03-16] MEDS: Insulin Regular/NS 100 UNIT/100 ML PLAST..BAG IVCONT (11:40)
[2023-03-16] MEDS: Potassium Chloride/H20 10 MEQ/100 ML PIGGYBACK 50 MEQ IV ×3 (12:26→15:02)
[2023-03-16 12:48] LABS: Glucose, Whole Blood 130 mg/dL (60-115)
[2023-03-16 14:39] LABS: Glucose, Whole Blood 53 mg/dL (60-115)
[2023-03-16 14:47] VITALS: PULSE 98; RESP 16; TEMP 37; O2SAT 98
[2023-03-16 15:00] LABS: Anion Gap 16 (12-20); Blood Urea Nitrogen 24 mg/dL (9-16); Calcium 8.9 mg/dL (8.4-10.2); Carbon Dioxide 29 mmol/L (22-29); Chloride 97 mmol/L (96-108); Creatinine Clr Calc Pharmacy 82.1; Estimated Glomerular Filt Rate 58; Glucose Random 535 mg/dL (60-115); Sodium 137 mmol/L (135-145)
[2023-03-16 15:31] LABS: Glucose, Whole Blood 109 mg/dL (60-115)
[2023-03-16 16:02] VITALS: BP 132/87; PULSE 102; RESP 18; TEMP 37.4; O2SAT 96
[2023-03-16 16:29] LABS: Glucose, Whole Blood 101 mg/dL (60-115)
--- NOTE | 2023-03-16 17:09 | PC.NURSE ---
This RN titrated insulin infusion per MAR according to DKA protocol. Per provider (Leonardo Domingo) in order to get the patient out of DKA instead of decreasing insulin infusion, we should instead focus on increasing the patients glucose. Advised to increase LR to 250ml/hr and titrate insulin back up to 5u/hr with a goal of titrating the patient to 8. Charge notified.
== END 2023-03-16 17:11 | disposition left against medical advice (07) ==
PROVIDERS: Emergency Provider Emergency Medicine Emergency Medical Services
DX: E10.10 Type 1 diabetes mellitus with ketoacidosis without coma (principal); E87.3 Alkalosis; R00.0 Tachycardia, unspecified; F12.90 Cannabis use, unspecified, uncomplicated; Z79.4 Long term (current) use of insulin
CPT/HCPCS: 36415; 80048; 80053; 82010; 82803; 82947; 83605; 83690; 85025; 96361; 96365; 96366; 96375; 96376; 99285; J1885; J2405

== ENCOUNTER 2023-05-22 17:28 | Emergency (ER) | payer OTHER, SELFPAY ==
--- NOTE | ~2023-05-22 | XR_ITS ---
EXAMINATION: XR CHEST CLINICAL INFORMATION: Shortness of breath. COMPARISON: 02/26/2023. TECHNIQUE: Frontal view of the chest was obtained. FINDINGS: The cardiomediastinal silhouette is normal. There is no focal lung consolidation or pleural effusion. The bony structures and soft tissues are unremarkable. XR/XR chest 1V IMPRESSION: No active cardiopulmonary disease.
[2023-05-22 17:31] VITALS: BP 135/96; PULSE 106; O2SAT 100
--- NOTE | 2023-05-22 17:35 | ECG_ITS ---
Test Reason : DIZZINESS Blood Pressure : / mmHG Vent. Rate : 095 BPM Atrial Rate : 095 BPM P-R Int : 130 ms QRS Dur : 084 ms QT Int : 336 ms P-R-T Axes : 042 075 065 degrees QTc Int : 422 ms Normal sinus rhythm Normal ECG When compared with ECG of 26-FEB-2023 13:52, Heart rate has decreased Referred By: Stevo Owen Electronically Signed By:PATRICE ADLER MD
[2023-05-22 17:37] VITALS: BP 138/64; PULSE 104; RESP 18; TEMP 36.7
--- NOTE | 2023-05-22 17:37 | ED_ITS ---
HPI - General Adult General Chief complaint: General Medical Stated complaint: DIZZINESS, HYPERGLYCEMIA Time Seen by Provider: 05/22/23 17:37 Source: patient Mode of arrival: ambulatory Limitations: no limitations History of Present Illness HPI narrative: Type 1 diabetic been feeling tired weak for last 2 days had subjective fever feeling weak almost passing out had a near syncope episode no headache will start short of breath but saturating 100% blood sugar been less [id number] Related Data Home Medications Medication Instructions Recorded Confirmed insulin glargine 100 unit/mL 30 unit subcut QPM 02/26/23 02/26/23 subcutaneous solution insulin lispro 100 unit/mL 1 sliding scale dose subcut 02/26/23 02/26/23 subcutaneous pen USEASDIRECTD Allergies Allergy/AdvReac Type Severity Reaction Status Date / Time No Known Allergies Allergy Unverified 04/22/20 18:26 Review of Systems 2 Review of Systems: Yes all other systems are reviewed and are negative [facility] Past Medical History Medical History Type 1 diabetes mellitus Gastroparesis Social History Social History Household Members: Other Housing: House Do you presently have visiting nurse or other home services: No Alcohol intake: current Alcohol intake frequency: holidays/special occasions only Patient Tobacco Use Status: Never used Tobacco Smoked in Last 30 Days: No Use of substances other than those prescribed or required for medical reasons: Yes Substance Use Type: Marijuana Substance Use Frequency: Monthly Advance Directives: No Advance Directives Information Provided: No service: No Physical Exam ED Vital Signs: Vital Signs - 24 hr 05/22/23 17:37 05/22/23 17:58 05/22/23 20:47 Temperature 98.1 F 98.2 F 98.3 F Pulse Rate 104 H 97 99 Respiratory Rate 18 16 18 Blood Pressure 138/64 137/86 148/92 H Pulse Oximetry 98 97 Oxygen Delivery Method Room Air Room Air Oxygen Flow Rate 97 BMI result Body Mass Index 21.7 Appearance: Alert. Oriented X3. No acute distress. Eyes: PERRLA, No Nystagmus ENT: Pharynx normal. Oral Mucosa moist Neck: Normal inspection. Neck supple. CVS: Normal heart rate and rhythm. Pulses normal. Respiratory: No respiratory distress. Equal air entry bilateral, no wheezing/rales/rhonchi Abdomen: Soft and nontender. Bowel sounds are present, no mass palpable, no CVA tenderness Skin: Skin warm and dry. Normal skin color. Normal skin turgor. Extremities: No lower extremity edema. No calf tenderness Neuro: Oriented X 3. No motor deficit. No sensory deficit.No cerebellar signs , cranial nerves II-XII intact Medications Administered Discontinued Medications Generic Name Dose Route Start Last Admin Trade Name Freq PRN Reason Stop Dose Admin Sodium Chloride 1,000 mls @ 999 mls/hr 05/22/23 20:26 05/22/23 20:34 Ns IV 05/22/23 21:26 999 mls/hr .Q1H1M ONE Administration Sodium Chloride 1,000 mls @ 999 mls/hr 05/22/23 20:26 05/22/23 20:35 Ns IV 05/22/23 21:26 999 mls/hr .Q1H1M ONE Administration Insulin Glargine 30 unit 05/22/23 23:03 05/22/23 23:34 Insulin Glargine,Hum.Rec.Anlog 100 Unit/Ml 10 Ml Vial SUBCUT 05/22/23 23:04 30 unit ONCE ONE Administration Insulin Human Lispro 12 unit 05/22/23 20:26 05/22/23 20:34 Insulin Lispro 100 Unit/Ml 3 Ml Vial SUBCUT 05/22/23 20:27 12 unit ONCE ONE Administration Medical Decision Making Medical Decision Making [facility] Narrative: Patient with mild DKA workup otherwise negative improved after IV fluids and insulin patient with eating food in the ER blood sugar improved last blood sugar was 193, symptoms improved discharge patient home advised to take insulin and drink plenty of fluids Differential Diagnosis Differential Diagnoses: The differential diagnosis associated with the presentation includes Dehydration /DKA/viral syndrome Admission/Observation Consideration of admission/observation: Escalation of care including admission/observation considered Lab Data [facility] Lab Attestation statement: I reviewed the patient's lab results. 05/22/23 17:57 05/22/23 17:57 Labs: Lab Results 05/22/23 05/22/23 05/22/23 Range/Units 17:57 18:00 18:15 WBC 8.4 (4.8-10.8) X10*3/uL RBC 3.96 L (4.60-5.80) X10*6/uL Hgb 10.6 L (14.0-18.0) g/dl Hct 32.9 L (42.0-52.0) % MCV 83.1 (80.0-98.0) fL MCH 26.8 L (27.0-33.0) pg MCHC 32.2 (31.0-36.0) g/dl RDW 14.3 (11.0-16.0) % Plt Count 448 H (160-400) X10*3/uL MPV 9.5 (9.4-12.4) fL Immature Gran % (Auto) 0.4 (0.0-0.4) % Neut % (Auto) 77.3 H (45-73) % Lymph % (Auto) 14.5 L (20-40) % [place] % (Auto) 7.3 (2-11) % Eos % (Auto) 0.0 (0-4) % Baso % (Auto) 0.5 (0-2) % Lymph # (Auto) 1.2 (1.2-4.9) X10*3/uL [place] # (Auto) 0.6 (0.1-1.2) X10*3/uL Eos # (Auto) 0.0 (0.0-0.4) X10*3/uL Baso # (Auto) 0.0 (0.0-0.2) X10*3/uL Abs Immat Gran (auto) 0.03 (0.00-0.03) X10*3/uL Absolute Neuts (auto) 6.5 (2.0-8.3) x10*3/uL Absolute Nucleated RBC 0.000 (0.0-0.012) X10*3/uL Nucleated RBC % (auto) 0.0 (0.0-0.2) /100WBC Sodium 131 L (135-145) mmol/L Potassium 5.4 H (3.3-5.1) mmol/L Chloride 96 (96-108) mmol/L Carbon Dioxide 19 L (22-29) mmol/L Anion Gap 21 H (12-20) BUN 28 H (9-16) mg/dL Creatinine 1.71 H (0.5-1.4) mg/dL Estim Creat Clear Calc 63.6 Estimated GFR 47 POC Glucose 372 H* (60-115) mg/dL Random Glucose 403 H* (60-115) mg/dL Calcium 9.7 D (8.4-10.2) mg/dL Total Bilirubin 0.5 (0.0-1.0) mg/dL AST 16 (5-37) U/L ALT 34 (0-40) U/L Alkaline Phosphatase 91 (39-117) U/L Total Protein 7.3 (6.5-8.0) g/dL Albumin 4.2 (3.5-5.0) g/dL Urine Color Yellow Urine Appearance Clear Urine pH 5.0 (5.0-9.0) Ur Specific [place] 1.025 (1.005-1.025) Urine Protein Negative (Neg-Trace) mg/dL Urine Glucose (UA) >=1000 H (Negative) mg/dL Urine Ketones 80 (Negative) mg/dL Urine Blood Negative (Negative) Urine Nitrite Negative (Negative) Ur Leukocyte Esterase Negative (Negative) Urine RBC 0-2 (0-2) /HPF Urine WBC 0-5 (0-5) /HPF Ur Squamous Epith Cells 0-2 (0-2) /HPF Urine Bacteria None Seen (None Seen) Hyaline Casts 6-10 (0-2) /LPF COVID-19 (MYA) Negative (Negative) COVID-19 Clin Com See Note Influenza Type A (JUDE) (Negative) Influenza Type B (JUDE) (Negative) Influenza A & B Note 05/22/23 05/22/23 Range/Units 18:40 23:04 WBC (4.8-10.8) X10*3/uL RBC (4.60-5.80) X10*6/uL Hgb (14.0-18.0) g/dl Hct (42.0-52.0) % MCV (80.0-98.0) fL MCH (27.0-33.0) pg MCHC (31.0-36.0) g/dl RDW (11.0-16.0) % Plt Count (160-400) X10*3/uL MPV (9.4-12.4) fL Immature Gran % (Auto) (0.0-0.4) % Neut % (Auto) (45-73) % Lymph % (Auto) (20-40) % [place] % (Auto) (2-11) % Eos % (Auto) (0-4) % Baso % (Auto) (0-2) % Lymph # (Auto) (1.2-4.9) X10*3/uL [place] # (Auto) (0.1-1.2) X10*3/uL Eos # (Auto) (0.0-0.4) X10*3/uL Baso # (Auto) (0.0-0.2) X10*3/uL Abs Immat Gran (auto) (0.00-0.03) X10*3/uL Absolute Neuts (auto) (2.0-8.3) x10*3/uL Absolute Nucleated RBC (0.0-0.012) X10*3/uL Nucleated RBC % (auto) (0.0-0.2) /100WBC Sodium (135-145) mmol/L Potassium (3.3-5.1) mmol/L Chloride (96-108) mmol/L Carbon Dioxide (22-29) mmol/L Anion Gap (12-20) BUN (9-16) mg/dL Creatinine (0.5-1.4) mg/dL Estim Creat Clear Calc Estimated GFR POC Glucose 193 H (60-115) mg/dL Random Glucose (60-115) mg/dL Calcium (8.4-10.2) mg/dL Total Bilirubin (0.0-1.0) mg/dL AST (5-37) U/L ALT (0-40) U/L Alkaline Phosphatase (39-117) U/L Total Protein (6.5-8.0) g/dL Albumin (3.5-5.0) g/dL Urine Color Urine Appearance Urine pH (5.0-9.0) Ur Specific [place] (1.005-1.025) Urine Protein (Neg-Trace) mg/dL Urine Glucose (UA) (Negative) mg/dL Urine Ketones (Negative) mg/dL Urine Blood (Negative) Urine Nitrite (Negative) Ur Leukocyte Esterase (Negative) Urine RBC (0-2) /HPF Urine WBC (0-5) /HPF Ur Squamous Epith Cells (0-2) /HPF Urine Bacteria (None Seen) Hyaline Casts (0-2) /LPF COVID-19 (MYA) (Negative) COVID-19 Clin Com Influenza Type A (JUDE) Negative (Negative) Influenza Type B (JUDE) Negative (Negative) Influenza A & B Note See Note Independent Interpretation I performed an independent interpretation of an: EKG Interpretation: Normal sinus rhythm heart rate 95 beats per minute normal intervals normal axis no acute ST-T changes no acute ischemia Discharge Plan Discharge Clinical Impression: Hyperglycemia due to type 1 diabetes mellitus Patient Disposition: Home, Self-Care Instructions: Diabetic Hyperglycemia (ED) Additional Instructions: Drink plenty of fluids Take your insulin on time Follow with PCP if not better Prescriptions: No Action insulin glargine 100 unit/mL Solution 30 unit SUBCUT QPM insulin lispro 100 unit/mL Insulin Pen 1 sliding scale dose SUBCUT USEASDIRECTD Protocol: Insulin Correction Scale Less than or equal to 110 ---- Give (units): 0 111 to 150 Give (units): 0 151 to 200 Give (units): 2 201 to 250 Give (units): 4 251 to 300 Give (units): 6 301 to 350 Give (units): 8 Greater than 350 Give (units): 10 Call MD if Blood Glucose > : 350
--- NOTE | 2023-05-22 17:41 | PC.NURSE ---
Patient alert and oriented, reports is a diabetic and reports last BS was 179 around noon. Patient reports feeling weak and tired since yesterday morning. Denies vomiting or pain with urination. Report some nausea. Reports headache last night nut not currently. Reports sob but no chest pain sinus tacy on monitor.
[2023-05-22 17:57] VITALS: BMI 21.7
[2023-05-22 17:58] VITALS: BP 137/86; PULSE 97; RESP 16; TEMP 36.8; O2SAT 98
[2023-05-22 18:04] LABS: Glucose, Whole Blood 372 mg/dL (60-115)
[2023-05-22 18:09] LABS: MANUAL DIFF FLAG NO
[2023-05-22 18:11] LABS: Basophils Percent Auto 0.5 % (0-2); Hematocrit 32.9 % (42.0-52.0); Hemoglobin 10.6 g/dl (14.0-18.0); Imm Gran Abs Auto 0.03 X10*3/uL (0.00-0.03); Imm Gran Pct Auto 0.4 % (0.0-0.4); Lymphocytes Absolute Auto 1.2 X10*3/uL (1.2-4.9); Lymphocytes Percent Auto 14.5 % (20-40); Mean Corpuscular HGB Conc 32.2 g/dl (31.0-36.0); Mean Corpuscular Hemoglobin 26.8 pg (27.0-33.0); Mean Corpuscular Volume 83.1 fL (80.0-98.0); Mean Platelet Volume 9.5 fL (9.4-12.4); Monocytes Absolute Auto 0.6 X10*3/uL (0.1-1.2); Monocytes Percent Auto 7.3 % (2-11); Neutrophils Absolute Auto 6.5 x10*3/uL (2.0-8.3); Neutrophils Percent Auto 77.3 % (45-73); Platelet Count 448 X10*3/uL (160-400); Red Blood Count 3.96 X10*6/uL (4.60-5.80); Red Cell Distribution Width 14.3 % (11.0-16.0); White Blood Count 8.4 X10*3/uL (4.8-10.8)
[2023-05-22 18:16] LABS: Appearance Urine Clear; Color Urine Yellow; Glucose Urine UA >=1000 mg/dL (Negative); Leukocyte Esterase Urine Negative (Negative); Nitrite Urine Negative (Negative); Specific Gravity - Urine 1.025 (1.005-1.025); UMIC TRIGGER UACC YES; Urine Blood Negative (Negative); Urine Ketones 80 mg/dL (Negative); Urine Protein Negative (Neg-Trace)
[2023-05-22 18:32] LABS: Alanine Aminotransferase 34 U/L (0-40); Albumin Level 4.2 g/dL (3.5-5.0); Alkaline Phosphatase 91 U/L (39-117); Anion Gap 21 (12-20); Aspartate Amino Transferase 16 U/L (5-37); Bilirubin Total 0.5 mg/dL (0.0-1.0); Blood Urea Nitrogen 28 mg/dL (9-16); Calcium 9.7 mg/dL (8.4-10.2); Carbon Dioxide 19 mmol/L (22-29); Chloride 96 mmol/L (96-108); Creatinine Clr Calc Pharmacy 63.6; Estimated Glomerular Filt Rate 47; Glucose Random 403 mg/dL (60-115); Potassium 5.4 mmol/L (3.3-5.1); Sodium 131 mmol/L (135-145); Total Protein 7.3 g/dL (6.5-8.0)
[2023-05-22 18:40] LABS: COVID-19 Test Negative (Negative); IDNOW Serial# BCCEAD1C
[2023-05-22 19:02] LABS: IDNOW Serial# BCCEAD1C; Influenza A Negative (Negative); Influenza B2 Negative (Negative)
[2023-05-22] MEDS: Insulin Lispro 100 UNIT/ML 3 ML VIAL 12 UNIT SUBCUT (20:34)
[2023-05-22] MEDS: 0.9 % Sodium Chloride 1,000 ML 999 ML IV ×2 (20:34→20:35)
[2023-05-22 20:47] VITALS: BP 148/92; PULSE 99; RESP 18; TEMP 36.8; O2SAT 97
[2023-05-22 20:57] LABS: Bacteria Urine None Seen (None Seen); RBC Urine 0-2 /HPF (0-2); Squamous Epithelial Cell Urine 0-2 /HPF (0-2); WBC Urine 0-5 /HPF (0-5)
[2023-05-22 23:08] LABS: Glucose, Whole Blood 193 mg/dL (60-115)
[2023-05-22] MEDS: Insulin Glargine,Hum.rec.anlog 100 UNIT/ML 10 ML VIAL 30 UNIT SUBCUT (23:34)
== END 2023-05-22 23:45 | disposition home or self-care (01) ==
PROVIDERS: Emergency Provider Internal Medicine
DX: E10.65 Type 1 diabetes mellitus with hyperglycemia (principal); R53.1 Weakness; Z11.52 Encounter for screening for COVID-19; F12.90 Cannabis use, unspecified, uncomplicated; Z79.4 Long term (current) use of insulin
CPT/HCPCS: 36415; 71045; 80053; 81001; 82947; 85025; 87502; 87635; 93005; 99284; 99285

== ENCOUNTER 2023-06-07 11:19 | Emergency (ER) | payer OTHER, SELFPAY ==
[2023-06-07 11:28] VITALS: BP 120/88; BP 138/96; PULSE 107; PULSE 108; RESP 20; TEMP 36.6; O2SAT 100; O2SAT 99; BMI 21.5
[2023-06-07 11:29] LABS: Glucose, Whole Blood 168 mg/dL (60-115)
--- NOTE | 2023-06-07 11:51 | ED.GENADULT ---
HPI - General Adult General Chief complaint: General Medical Stated complaint: HIGH BLOOD SUGAR Time Seen by Provider: 06/07/23 11:28 Source: patient and old records reviewed Mode of arrival: EMS Limitations: no limitations History of Present Illness HPI narrative: 33 yo male with PMH of IDDM diagnosed at age 16 here with c/o chronic abdominal pain and n/v that is intermittent. He reports having some n/v and epgiastric pain x 3 days which triggered elevated BS - he is still taking his insulin and dosed this AM. He notes his highest blood sugar was in the 400s. He states he has not seen a GI doctor for this and was never dx with gastroparesis. He states he took insulin prior to arrival. MD complaint: n/v abdominal pain elevated BS Onset (ago): day(s) (3) Location: abdomen Radiation: non-radiation Severity: moderate Quality: aching Pain Consistency: intermittent Relieving factors: none Exacerbating factors: eating Associated symptoms: loss of appetite, malaise and nausea/vomiting Related Data Home Medications Medication Instructions Recorded Confirmed insulin glargine 100 unit/mL 30 unit subcut QPM 02/26/23 02/26/23 subcutaneous solution insulin lispro 100 unit/mL 1 sliding scale dose subcut 02/26/23 02/26/23 subcutaneous pen USEASDIRECTD Previous Rx's Medication Instructions Recorded metoclopramide HCl 10 mg tablet 10 mg PO TIDWMEAL #90 tabs 06/07/23 (Reglan) Allergies Allergy/AdvReac Type Severity Reaction Status Date / Time No Known Allergies Allergy Unverified 04/22/20 18:26 Review of Systems Review of Systems: Constitutional : No Weight loss, No Fever, No Chills ENT/Mouth : No sore throat, No Rhinorrhea Eyes: No Swelling, No Redness Cardiovascular : No Chest Pain, No SOB, NoEdema Respiratory : No Cough, No Sputum, No Wheezing Gastrointestinal : Positive Nausea, Positive Vomiting, no Diarrhea, positive abdominal Pain, No Hematochezia, No Melena Genitourinary : No Dysuria, No Urinary Frequency, No Hematuria, No Urgency Musculoskeletal : No joint pain, No Myalgias, No Joint Swelling Skin : No Skin Lesions, No rash Neuro : No Weakness, No Numbness, No Dizziness, No Headache Psych : No Anxiety/Panic, No Depression All other systems reviewed and are negative. [facility] Past Medical History Attestation statement: The following information was validated with the patient. Source: old records reviewed Medical History Type 1 diabetes mellitus Gastroparesis Social History Social History Household Members: Other Housing: House Do you presently have visiting nurse or other home services: No Alcohol intake: current Alcohol intake frequency: holidays/special occasions only Patient Tobacco Use Status: Never used Tobacco Smoked in Last 30 Days: No Use of substances other than those prescribed or required for medical reasons: Yes Substance Use Type: Marijuana Substance Use Frequency: Weekly Advance Directives: No Advance Directives Information Provided: No service: No Physical Exam ED Vital Signs: Vital Signs - 24 hr 06/07/23 11:28 Temperature 98 F Pulse Rate 107 H Respiratory Rate 20 Blood Pressure 138/96 H Pulse Oximetry 100 Oxygen Delivery Method Room Air BMI result Body Mass Index 21.5 Appearance: Alert. Oriented X3. No acute distress. Eyes: Pupils equal, round and reactive to light. ENT: Pharynx mildly dry MM Neck: Normal inspection. Neck supple. CVS: Normal heart rate and rhythm. Pulses normal. Respiratory: No respiratory distress. Breath sounds normal. Abdomen: Soft and nontender. Skin: Skin warm and dry. pale skin color. Normal skin turgor. Extremities: No lower extremity edema. No calf ttp Neuro: Oriented X 3. No motor deficit. No sensory deficit. Course Course Course Narrative: no gap normal ph doubt DKA Medications Administered Generic Name Dose Route Start Last Admin Trade Name Freq PRN Reason Stop Dose Admin Lactated Ringer's 1,000 mls @ 999 mls/hr 06/07/23 14:45 06/07/23 14:45 Lr IV 06/07/23 15:45 999 mls/hr .Q1H1M PARKER Administration Discontinued Medications Generic Name Dose Route Start Last Admin Trade Name Freq PRN Reason Stop Dose Admin Lactated Ringer's 1,000 mls @ 999 mls/hr 06/07/23 11:45 06/07/23 14:32 Lr IV 06/07/23 12:45 Infused .Q1H1M PARKER Infusion Lactated Ringer's 1,000 mls @ 999 mls/hr 06/07/23 11:45 06/07/23 14:32 Lr IV 06/07/23 12:45 Infused .Q1H1M PARKER Infusion Ketorolac Tromethamine 15 mg 06/07/23 11:45 06/07/23 12:14 Ketorolac Tromethamine 15 Mg/Ml Vial IVPUSH 06/07/23 11:46 15 mg ONCE ONE Administration Ondansetron HCl 4 mg 06/07/23 11:45 06/07/23 12:13 Ondansetron Hcl 4 Mg/2 Ml Vial IVPUSH 06/07/23 11:46 4 mg ONCE ONE Administration Medical Decision Making Medical Decision Making [facility] Narrative: 33 yo male with PMH of IDDM dx age 16 recurrent bouts of upper abdominal pain and n/v that started 3 days ago hx of same. took insulin prior to arrival. He has never seen GI for this - he does smoke THC. at this time labs, IVF x 2L, zofran and toradol. possible DKA vs gastroparesis. Differential Diagnosis Differential Diagnoses: The differential diagnosis associated with the presentation includes gastritis, gastroparesis, DKA Admission/Observation Consideration of admission/observation: Escalation of care including admission/observation considered tolerating PO feels much better, not in DKA Lab Data [facility] Lab Attestation statement: I reviewed the patient's lab results. 06/07/23 12:01 06/07/23 12:01 Labs: Lab Results 06/07/23 06/07/23 06/07/23 Range/Units 11:26 11:59 12:01 WBC 10.4 (4.8-10.8) X10*3/uL RBC 4.62 (4.60-5.80) X10*6/uL Hgb 12.0 L (14.0-18.0) g/dl Hct 37.5 L (42.0-52.0) % MCV 81.2 (80.0-98.0) fL MCH 26.0 L (27.0-33.0) pg MCHC 32.0 (31.0-36.0) g/dl RDW 14.2 (11.0-16.0) % Plt Count 478 H (160-400) X10*3/uL MPV 9.5 (9.4-12.4) fL Immature Gran % (Auto) 0.5 H (0.0-0.4) % Neut % (Auto) 79.0 H (45-73) % Lymph % (Auto) 13.3 L (20-40) % [place] % (Auto) 6.6 (2-11) % Eos % (Auto) 0.0 (0-4) % Baso % (Auto) 0.6 (0-2) % Lymph # (Auto) 1.4 (1.2-4.9) X10*3/uL [place] # (Auto) 0.7 (0.1-1.2) X10*3/uL Eos # (Auto) 0.0 (0.0-0.4) X10*3/uL Baso # (Auto) 0.1 (0.0-0.2) X10*3/uL Abs Immat Gran (auto) 0.05 H (0.00-0.03) X10*3/uL Absolute Neuts (auto) 8.2 (2.0-8.3) x10*3/uL Absolute Nucleated RBC 0.000 (0.0-0.012) X10*3/uL Nucleated RBC % (auto) 0.0 (0.0-0.2) /100WBC VBG pH (7.32-7.43) VBG pCO2 mmHg VBG pO2 mmHg VBG HCO3 (22-26) mmol/L VBG O2 Saturation % VBG Base Excess mmol/L Sodium 137 (135-145) mmol/L Potassium 4.4 (3.3-5.1) mmol/L Chloride 101 (96-108) mmol/L Carbon Dioxide 20 L (22-29) mmol/L Anion Gap 20 (12-20) BUN 19 H (9-16) mg/dL Creatinine 1.55 H (0.5-1.4) mg/dL Estim Creat Clear Calc 69.4 Estimated GFR 52 POC Glucose 168 H (60-115) mg/dL Random Glucose 170 H (60-115) mg/dL Lactic Acid 1.4 (0.5-2.0) mmol/L Calcium 10.3 H D (8.4-10.2) mg/dL Magnesium 2.1 (1.6-2.6) mg/dL Total Bilirubin 0.6 (0.0-1.0) mg/dL Direct Bilirubin 0.2 (0.0-0.5) mg/dL AST 16 (5-37) U/L ALT 30 (0-40) U/L Alkaline Phosphatase 95 (39-117) U/L Total Protein 7.6 (6.5-8.0) g/dL Albumin 4.2 (3.5-5.0) g/dL Lipase 11 (8-78) U/L Beta-Hydroxybutyrate 5.57 H (0.02-0.27) mmol/L COVID-19 (MYA) Negative (Negative) COVID-19 Clin Com See Note 06/07/23 Range/Units 12:07 WBC (4.8-10.8) X10*3/uL RBC (4.60-5.80) X10*6/uL Hgb (14.0-18.0) g/dl Hct (42.0-52.0) % MCV (80.0-98.0) fL MCH (27.0-33.0) pg MCHC (31.0-36.0) g/dl RDW (11.0-16.0) % Plt Count (160-400) X10*3/uL MPV (9.4-12.4) fL Immature Gran % (Auto) (0.0-0.4) % Neut % (Auto) (45-73) % Lymph % (Auto) (20-40) % [place] % (Auto) (2-11) % Eos % (Auto) (0-4) % Baso % (Auto) (0-2) % Lymph # (Auto) (1.2-4.9) X10*3/uL [place] # (Auto) (0.1-1.2) X10*3/uL Eos # (Auto) (0.0-0.4) X10*3/uL Baso # (Auto) (0.0-0.2) X10*3/uL Abs Immat Gran (auto) (0.00-0.03) X10*3/uL Absolute Neuts (auto) (2.0-8.3) x10*3/uL Absolute Nucleated RBC (0.0-0.012) X10*3/uL Nucleated RBC % (auto) (0.0-0.2) /100WBC VBG pH 7.35 (7.32-7.43) VBG pCO2 36 mmHg VBG pO2 46 mmHg VBG HCO3 20 L (22-26) mmol/L VBG O2 Saturation 72.0 % VBG Base Excess -4.2 mmol/L Sodium (135-145) mmol/L Potassium (3.3-5.1) mmol/L Chloride (96-108) mmol/L Carbon Dioxide (22-29) mmol/L Anion Gap (12-20) BUN (9-16) mg/dL Creatinine (0.5-1.4) mg/dL Estim Creat Clear Calc Estimated GFR POC Glucose (60-115) mg/dL Random Glucose (60-115) mg/dL Lactic Acid (0.5-2.0) mmol/L Calcium (8.4-10.2) mg/dL Magnesium (1.6-2.6) mg/dL Total Bilirubin (0.0-1.0) mg/dL Direct Bilirubin (0.0-0.5) mg/dL AST (5-37) U/L ALT (0-40) U/L Alkaline Phosphatase (39-117) U/L Total Protein (6.5-8.0) g/dL Albumin (3.5-5.0) g/dL Lipase (8-78) U/L Beta-Hydroxybutyrate (0.02-0.27) mmol/L COVID-19 (MYA) (Negative) COVID-19 Clin Com Independent Historian Clinical information obtained from an independent historian. History obtained from or confirmed by: EMS External Record Review External record reviewed: Inpatient record Prescription Management I considered prescription management with: Other Discharge Plan Discharge Clinical Impression: Acute dehydration Vomiting Qualifiers: Vomiting type: unspecified Nausea presence: with nausea Qualified Code(s): R11.2 - Nausea with vomiting, unspecified Patient Disposition: Home, Self-Care Instructions: Dehydration (ED), Acute Nausea and Vomiting (ED) Additional Instructions: continue to take your insulin and monitor your blood sugar. drink plenty of fluids and advance diet slowly. return for fevers, vomiting, worsening pain, inability to eat or drink, signs of DKA. Prescriptions: New metoclopramide HCl [Reglan] 10 mg tablet 10 mg PO TIDWMEAL Qty: 90 3RF No Action insulin glargine 100 unit/mL Solution 30 unit SUBCUT QPM insulin lispro 100 unit/mL Insulin Pen 1 sliding scale dose SUBCUT USEASDIRECTD Protocol: Insulin Correction Scale Less than or equal to 110 ---- Give (units): 0 111 to 150 Give (units): 0 151 to 200 Give (units): 2 201 to 250 Give (units): 4 251 to 300 Give (units): 6 301 to 350 Give (units): 8 Greater than 350 Give (units): 10 Call MD if Blood Glucose > : 350 Stand Alone Forms: Work/School Release
[2023-06-07 12:07] LABS: MANUAL DIFF FLAG NO
[2023-06-07 12:09] LABS: Basophils Absolute Auto 0.1 X10*3/uL (0.0-0.2); Basophils Percent Auto 0.6 % (0-2); Hematocrit 37.5 % (42.0-52.0); Imm Gran Abs Auto 0.05 X10*3/uL (0.00-0.03); Imm Gran Pct Auto 0.5 % (0.0-0.4); Lymphocytes Absolute Auto 1.4 X10*3/uL (1.2-4.9); Lymphocytes Percent Auto 13.3 % (20-40); Mean Corpuscular Volume 81.2 fL (80.0-98.0); Mean Platelet Volume 9.5 fL (9.4-12.4); Monocytes Absolute Auto 0.7 X10*3/uL (0.1-1.2); Monocytes Percent Auto 6.6 % (2-11); Neutrophils Absolute Auto 8.2 x10*3/uL (2.0-8.3); Platelet Count 478 X10*3/uL (160-400); Red Blood Count 4.62 X10*6/uL (4.60-5.80); Red Cell Distribution Width 14.2 % (11.0-16.0); White Blood Count 10.4 X10*3/uL (4.8-10.8)
[2023-06-07 12:12] LABS: VBG Base Excess -4.2 mmol/L; VBG HCO3 20 mmol/L (22-26); VBG pCO2 36 mmHg; VBG pH 7.35 (7.32-7.43); VBG pO2 46 mmHg
[2023-06-07] MEDS: ondansetron HCL 4 MG/2 ML VIAL IVPUSH (12:13)
[2023-06-07] MEDS: Ketorolac Tromethamine 15 MG/ML VIAL IVPUSH (12:14)
[2023-06-07] MEDS: Lactated Ringers 1,000 ML 999 ML IV ×3 (12:17→14:45)
[2023-06-07 12:20] LABS: Lactic Acid 1.4 mmol/L (0.5-2.0)
[2023-06-07 12:23] LABS: COVID-19 Test Negative (Negative); IDNOW Serial# BCCEAD1C
[2023-06-07 12:27] LABS: Venous Blood Gas Refer to POC result
[2023-06-07 12:32] LABS: Alanine Aminotransferase 30 U/L (0-40); Albumin Level 4.2 g/dL (3.5-5.0); Alkaline Phosphatase 95 U/L (39-117); Anion Gap 20 (12-20); Aspartate Amino Transferase 16 U/L (5-37); Beta-Hydroxybutyrate 5.57 mmol/L (0.02-0.27); Bilirubin Direct 0.2 mg/dL (0.0-0.5); Bilirubin Total 0.6 mg/dL (0.0-1.0); Blood Urea Nitrogen 19 mg/dL (9-16); Calcium 10.3 mg/dL (8.4-10.2); Carbon Dioxide 20 mmol/L (22-29); Chloride 101 mmol/L (96-108); Creatinine Clr Calc Pharmacy 69.4; Estimated Glomerular Filt Rate 52; Glucose Random 170 mg/dL (60-115); Lipase 11 U/L (8-78); Magnesium 2.1 mg/dL (1.6-2.6); Potassium 4.4 mmol/L (3.3-5.1); Sodium 137 mmol/L (135-145); Total Protein 7.6 g/dL (6.5-8.0)
[2023-06-07 14:53] VITALS: BP 157/97; PULSE 116; RESP 18; O2SAT 99
[2023-06-07 15:40] VITALS: PULSE 120
[2023-06-07] MEDS: hydrOXYzine HCL 25 MG TABLET PO (15:58)
[2023-06-07 16:48] VITALS: PULSE 122
[2023-06-07] MEDS: LORazepam 1 MG TABLET PO (16:48)
[2023-06-07] MEDS: Metoprolol Tartrate 25 MG TABLET PO (16:48)
[2023-06-07 17:48] VITALS: PULSE 103
== END 2023-06-07 17:49 | disposition home or self-care (01) ==
PROVIDERS: Emergency Provider Emergency Medicine
DX: E86.0 Dehydration (principal); R11.2 Nausea with vomiting, unspecified; R10.13 Epigastric pain; R73.9 Hyperglycemia, unspecified; R00.0 Tachycardia, unspecified; Z11.52 Encounter for screening for COVID-19; Z20.822 Contact with and (suspected) exposure to COVID-19; Z79.899 Other long term (current) drug therapy
CPT/HCPCS: 80048; 80076; 82010; 82803; 82947; 83605; 83690; 83735; 85025; 87635; 96361; 96374; 96375; 99284; J1885; J2405

== ENCOUNTER 2023-06-21 15:15 | Inpatient (IN) | payer OTHER, SELFPAY ==
--- NOTE | ~2023-06-21 | CT_ITS ---
EXAMINATION: CT ABDOMEN AND PELVIS WITHOUT CONTRAST CLINICAL INFORMATION: Nausea, vomiting, abdominal pain. COMPARISON: CT abdomen/pelvis 02/26/2023. TECHNIQUE: Multidetector volumetric imaging was performed from the superior aspect of the liver through the pubic symphysis. Sagittal and coronal reformatted images were obtained on the technologist's workstation. This CT examination was performed using dose optimization techniques as appropriate, variously including the following: *Automated exposure control *Adjustment of mA and/or kV according to patient size (this includes techniques or standardized protocols for targeted exams where dose is matched to indication/reason for exam; i.e. extremities or head) *Use of iterative reconstruction technique DLP: 433 mGy-cm FINDINGS: The lack of intravenous contrast limits evaluation of the solid visceral organs including the liver, spleen, pancreas, and kidneys. LUNG BASES: No focal consolidation or pleural effusion. LIVER, GALLBLADDER, AND BILIARY TREE: The liver is normal in size, shape, and attenuation. No focal hepatic lesion or biliary ductal dilatation is present. The gallbladder is unremarkable with no evidence of radiopaque gallstones, gallbladder wall thickening, or obvious pericholecystic inflammatory changes. PANCREAS: Limited noncontrast examination. No main duct dilatation. No significant peripancreatic fat stranding or free fluid. SPLEEN: Unremarkable. ADRENAL GLANDS: Unremarkable. KIDNEYS AND URETERS: The kidneys are normal in size, shape, and attenuation. No hydronephrosis, hydroureter, or calculi seen. No perinephric stranding. BLADDER: Unremarkable. GASTROINTESTINAL TRACT: Nonspecific fluid distention of the duodenum transitioning to luminal underdistention posterior to the SMA/SMV (3:44). The small bowel is nondilated. Normal appendix. No pericolonic fat stranding or free fluid. Equivocal rectal wall thickening, overall suboptimally assessed due to underdistention. No perirectal inflammatory changes. ABDOMINAL WALL: No significant hernia is appreciated. LYMPH NODES: No lymphadenopathy. VASCULAR: Previously described subtle soft tissue stranding in the perivascular space in the region of the celiac axis and to lesser extent SMA, is decreased. Normal caliber abdominal aorta. PELVIC VISCERA: Unremarkable. OSSEOUS STRUCTURES: No acute or aggressive appearing osseous findings. CT/CT abdomen pelvis wo IV con IMPRESSION: 1. Nonspecific fluid distention of the duodenum transitioning to luminal underdistention posterior to the SMA/SMV, this could be seen in the setting of superior mesenteric artery syndrome. Further characterization with outpatient CTA abdomen could be obtained as clinically warranted. 2. Suggestion of rectal wall thickening, suboptimally assessed due to underdistention. Recommend clinical correlation for acute bronchitis. 3. Previously described subtle soft tissue stranding in the perivascular space in the region of the celiac axis and to lesser extent SMA is decreased.
--- NOTE | ~2023-06-21 | FL_ITS ---
EXAMINATION: XR FLUOROSCOPY UPPER GI WITH AIR CLINICAL INFORMATION: Abdominal pain,? SMA syndrome on recent CT exam. COMPARISON: No prior upper GI exam. Correlation made with CT abdomen and pelvis without contrast 06/21/2023. TECHNIQUE: Fluoroscopic air contrast upper GI examination was performed utilizing standard techniques with thin and thick barium and effervescent granules. Numerous spot images were obtained. Several fluoroscopic image hold cine sequences were also obtained. FINDINGS: Lateral cine images of the oropharynx and hypopharynx demonstrate normal swallow mechanism with normal epiglottic inversion and soft palate elevation. No tracheal penetration, glottic or subglottic aspiration identified. No nasopharyngeal reflux present. Hypopharyngeal structures appear normal without evidence of mass or diverticulum. There was no significant cricopharyngeal achalasia. Dual and single contrast images of the esophagus demonstrate normal caliber, contour, and mucosal pattern. No evidence of stricture, mass, or ulcerations identified. Primary peristaltic wave was propulsive, however was followed by multiple nonpropulsive tertiary contractions consistent with dysmotility/presbyesophagus. A small type I hiatus hernia is present. Gastroesophageal reflux was present to the level of the thoracic inlet. Dual contrast and single contrast images of the stomach demonstrated normal contour and mucosal pattern without evidence of mass, ulceration, or other abnormality. No delay of contrast passage into to the duodenal bulb and sweep was present. Single and air-contrast images of the duodenal bulb demonstrate no abnormality. The duodenal sweep has a normal appearance, course, and mucosal fold appearance. No obstruction is identified., And no evidence of SMA syndrome is evident. The imaged proximal jejunum has a normal fold pattern and caliber. In review of the CT abdomen and pelvis without contrast (oral or IV) there are several prominent lymph nodes surrounding the celiac axis in the retroperitoneum, nonspecific but could suggest nonspecific viral syndrome. FLUOROSCOPY TIME: 4 minutes and 19 seconds Number of Spot Images: 19 Number of cines obtained: 10 DOSE AREA PRODUCT: 2789 uGy-m2 (microgray-meter squared) FL/FL upper GI series IMPRESSION: 1. Small type I hiatus hernia. 2. Gastroesophageal reflux to the level of the thoracic inlet. 3. Esophageal dysmotility. 4. No evidence of SMA syndrome on this examination. See the body of the report.
[2023-06-21 15:26] VITALS: BP 144/76; BP 167/107; PULSE 122; PULSE 126; RESP 16; TEMP 37; O2SAT 100; O2SAT 98; BMI 21.7
[2023-06-21 15:52] LABS: Glucose, Whole Blood 300 mg/dL (60-115)
[2023-06-21 15:52] LABS: MANUAL DIFF FLAG NO
[2023-06-21 15:53] LABS: Basophils Percent Auto 0.2 % (0-2); Eosinophils Percent Auto 0.1 % (0-4); Hemoglobin 11.2 g/dl (14.0-18.0); Imm Gran Abs Auto 0.09 X10*3/uL (0.00-0.03); Imm Gran Pct Auto 0.5 % (0.0-0.4); Lymphocytes Percent Auto 5.7 % (20-40); Mean Corpuscular Hemoglobin 25.6 pg (27.0-33.0); Mean Corpuscular Volume 79.9 fL (80.0-98.0); Mean Platelet Volume 9.3 fL (9.4-12.4); Monocytes Absolute Auto 1.5 X10*3/uL (0.1-1.2); Monocytes Percent Auto 8.3 % (2-11); Neutrophils Percent Auto 85.2 % (45-73); Platelet Count 508 X10*3/uL (160-400); Red Blood Count 4.38 X10*6/uL (4.60-5.80); Red Cell Distribution Width 14.8 % (11.0-16.0); White Blood Count 17.6 X10*3/uL (4.8-10.8)
[2023-06-21 15:57] LABS: Appearance Urine Clear; Color Urine Yellow; Glucose Urine UA >=1000 mg/dL (Negative); Leukocyte Esterase Urine Negative (Negative); Nitrite Urine Negative (Negative); Specific Gravity - Urine >= 1.030 (1.005-1.025); UMIC TRIGGER UACC YES; Urine Blood Negative (Negative); Urine Ketones 80 mg/dL (Negative); Urine Protein Trace mg/dL (Neg-Trace)
[2023-06-21 16:20] VITALS: BP 164/98; PULSE 119; RESP 24; TEMP 37.1; O2SAT 99
--- NOTE | 2023-06-21 16:33 | ED.GENADULT ---
HPI - General Adult General Chief complaint: General Medical Stated complaint: N/V,DIABETIC W/ SUGAR OF 338 TAKEN BY EMS Time Seen by Provider: 06/21/23 16:06 Source: patient Mode of arrival: EMS Limitations: no limitations History of Present Illness HPI narrative: Is a 33-year-old male presents emergency department via EMS for evaluation of nausea vomiting and diarrhea. He reports a chronic history with nausea vomiting diarrhea and abdominal pain dating back at least 2 years. He states he has not yet been able to be evaluated by GI outpatient secondary to insurance issues and transitioning a primary care provider. He presents today with 3 days of nausea, vomiting any time she attempts to eat to drain reportedly black emesis but denies it to be coffee ground appearance, diarrhea at least 2-3 times daily described as watery stools which is also black. He has diffuse abdominal pain, constant in nature, states it feels like an intense stabbing pain particularly in the left lower abdomen in the remainder of the abdomen feels spastic and cramping. Has been experiencing chills but denies fever. Denies any known sick contacts. He denies URI symptoms. He states that this is consistent with his prior episodes, states he has previously been found to be in DKA with similar symptoms. He is a type 1 diabetic, diagnosed at the age of 16, reports compliance with sliding scale insulin and Lantus 30 units at bedtime. Related Data Home Medications Medication Instructions Recorded Confirmed insulin glargine 100 unit/mL 30 unit subcut QPM 02/26/23 06/21/23 subcutaneous solution insulin lispro 100 unit/mL 1 sliding scale dose subcut 02/26/23 06/21/23 subcutaneous pen [id number] Allergies Allergy/AdvReac Type Severity Reaction Status Date / Time No Known Allergies Allergy Unverified 04/22/20 18:26 Review of Systems Review of Systems: Yes all other systems are reviewed and are negative PMFSH Past Medical History Attestation statement: The following information was validated with the patient. Source: old records reviewed Medical History (Updated 06/22/23 @ 01:25 by Paula Tinajero CNP) Type 1 diabetes mellitus Gastroparesis Social History Social History Household Members: Other Housing: House Do you presently have visiting nurse or other home services: No Alcohol intake: current Alcohol intake frequency: holidays/special occasions only Patient Tobacco Use Status: Never used Tobacco Smoked in Last 30 Days: No Use of substances other than those prescribed or required for medical reasons: Yes Substance Use Type: Marijuana Advance Directives: No Advance Directives Information Provided: No service: No Physical Exam ED Vital Signs: Vital Signs - 24 hr 06/21/23 15:26 06/21/23 16:20 06/21/23 17:12 Temperature 98.6 F 98.7 F 98.3 F Pulse Rate 122 H 119 H 114 H Respiratory Rate 16 24 H 14 Blood Pressure 167/107 H 164/98 H 160/104 H Pulse Oximetry 100 99 97 Oxygen Delivery Method Room Air Room Air 06/21/23 17:49 Temperature Pulse Rate 115 H Respiratory Rate 16 Blood Pressure 141/90 H Pulse Oximetry 96 Oxygen Delivery Method Room Air BMI result Body Mass Index 21.7 Appearance: Alert.?Oriented to person, place and time. No acute distress.?Normal affect. Eyes: Pupils equal, round and reactive to light.? ENT: Pharynx normal.?? Neck: Normal inspection.? Neck supple.?? CVS: Heart sounds normal. sinus tachycardia? Pulses normal.?? Respiratory: No respiratory distress.? Lung sounds clear to auscultation bilaterally?? Abdomen: Soft With diffuse tenderness upon palpation, notably worse tenderness in the left lower quadrant. No rigidity. No guarding. Nondistended. Normoactive bowel sounds. ? No CVA tenderness Skin: Skin warm and dry.? Normal skin color.? Extremities: No lower extremity edema.? Neuro: Moves all extremities spontaneously. Sensation intact bilaterally. No focal neuro deficits. Ambulates with normal steady gait. Course Reevaluation(s) Reevaluation #1: no lactic acidosis. Elevated beta hydroxybutyrate. VBG with pH 7.45 elevated bicarb at 28; alkalosis likely secondary to vomiting. anion gap of 26 with hyperglycemia 350, not consistent with DKA. PT to receive insulin regular IV and plan to reassess. CRISTI with BUN and creatinine 40/1.85 Time: 18:00 Reevaluation #2: CT revealing nonspecific fluid distention of the duodenum transitioning to luminal under distension posterior to the SMA/SMV, rectal wall thickening. I consulted with General surgery on-call, Dr. López, reviewed patient case, feels that SMA syndrome difficult to assess without contrast, CT imaging was reviewed, advised to keep patient NPO. Asked whether patient should have NGT placed, only if vomiting persists, has had no active vomiting in the emergency department, and stomach is not dilated on imaging. Discussed this case with hospitalist, Dr. Sosa, who accepts patient for admission to medicine service. Patient is agreeable with plan of care. Time: 19:52 Medications Administered Generic Name Dose Route Start Last Admin Trade Name Freq PRN Reason Stop Dose Admin Enoxaparin Sodium 40 mg 06/21/23 21:15 06/21/23 21:48 Enoxaparin Sodium 40 Mg/0.4 Ml Syringe SUBCUT 40 mg Q24H PARKER Administration Insulin Human Lispro 0 unit 06/21/23 21:15 06/21/23 21:51 Insulin Lispro 100 Unit/Ml 3 Ml Vial SUBCUT 10 unit Q6H PARKER Administration Protocol Ondansetron HCl 4 mg 06/21/23 21:04 06/21/23 21:48 Ondansetron Hcl 4 Mg/2 Ml Vial IVPUSH 4 mg Q8H PRN Administration Nausea and Vomiting Discontinued Medications Generic Name Dose Route Start Last Admin Trade Name Freq PRN Reason Stop Dose Admin Sodium Chloride 2,177.25 mls @ 2,177.25 mls/hr 06/21/23 16:09 06/21/23 17:10 Ns 30 ml/kg infuse over 1 hr (2177.25 ml) 06/21/23 17:08 Infused IV Infusion .Q1H STA Piperacillin Sod/Tazobactam 50 mls @ 100 mls/hr 06/21/23 16:12 06/21/23 18:06 Sod 3.375 gm/ Sodium Chloride IV 06/21/23 16:41 Infused ONCE ONE Infusion Insulin Glargine 15 unit 06/21/23 21:09 06/21/23 21:52 Insulin Glargine,Hum.Rec.Anlog 100 Unit/Ml 10 Ml Vial SUBCUT 06/21/23 21:10 15 unit ONCE ONE Administration Insulin Human Regular 5 unit 06/21/23 17:59 06/21/23 18:24 Insulin Regular, Human 100 Unit/Ml 3 Ml Vial IVPUSH 06/21/23 18:00 5 unit ONCE ONE Administration Insulin Human Regular 5 unit 06/21/23 19:18 06/21/23 21:49 Insulin Regular, Human 100 Unit/Ml 3 Ml Vial IVPUSH 06/21/23 19:19 5 unit ONCE ONE Administration Morphine Sulfate 4 mg 06/21/23 16:18 06/21/23 16:45 Morphine Sulfate 4 Mg/Ml Cartridge IVPUSH 06/21/23 16:19 4 mg ONCE ONE Administration Protocol Ondansetron HCl 4 mg 06/21/23 16:09 06/21/23 16:45 Ondansetron Hcl 4 Mg/2 Ml Vial IVPUSH 06/21/23 16:10 4 mg ONCE ONE Administration Medical Decision Making Medical Decision Making MDM Narrative: patient is a 33-year-old male with past medical history of diabetes mellitus, DKA presenting to emergency department for evaluation of nausea vomiting diarrhea and abdominal pain, inability to tolerate oral intake as per HPI. , states this feels similar to prior episodes of DKA in September and March of 2023. I assumed care of patient at 1606, noted patient to be tachycardic, hypertensive, already had and CBC obtained revealing leukocytosis of 17.6 with left shift, normocytic anemia, thrombocytosis, meeting SIRS criteria, SEPSIS alert was called, ordered Zosyn for coverage of intra-abdominal etiology, pending CT of abdomen and pelvis, blood cultures, lactic acid, in addition will obtain venous blood gas, beta hydroxybutyrate, chemistries are pending at the time of initial evaluation, POC glucose of 300. Ketonuria, glucosuria. Patient to receive sepsis fluid bolus, Zofran IV for vomiting, morphine IV for pain. Differential Diagnosis Differential Diagnoses: The differential diagnosis associated with the presentation includes ( DKA, gastroparesis, gastritis, PUD, obstruction, colitis, diverticulitis, appendicitis. Less likely pyelonephritis, urinary tract infection, hydronephrosis, renal calculi) Admission/Observation Consideration of admission/observation: Escalation of care including admission/observation considered ( see narrative above in course narrative for further details) Consult Healthcare Provider Management of the patient was discussed with: Hospitalist and Angiography Nurse Lab Data [facility] Lab Attestation statement: I reviewed the patient's lab results. ( see narrative above and course narrative for further detail) 06/21/23 15:47 06/21/23 15:47 Labs: Lab Results 06/21/23 06/21/23 06/21/23 Range/Units 15:41 15:47 16:46 WBC 17.6 H (4.8-10.8) X10*3/uL RBC 4.38 L (4.60-5.80) X10*6/uL Hgb 11.2 L (14.0-18.0) g/dl Hct 35.0 L (42.0-52.0) % MCV 79.9 L (80.0-98.0) fL MCH 25.6 L (27.0-33.0) pg MCHC 32.0 (31.0-36.0) g/dl RDW 14.8 (11.0-16.0) % Plt Count 508 H (160-400) X10*3/uL MPV 9.3 L (9.4-12.4) fL Immature Gran % (Auto) 0.5 H (0.0-0.4) % Neut % (Auto) 85.2 H (45-73) % Lymph % (Auto) 5.7 L (20-40) % [place] % (Auto) 8.3 (2-11) % Eos % (Auto) 0.1 (0-4) % Baso % (Auto) 0.2 (0-2) % Lymph # (Auto) 1.0 L (1.2-4.9) X10*3/uL [place] # (Auto) 1.5 H (0.1-1.2) X10*3/uL Eos # (Auto) 0.0 (0.0-0.4) X10*3/uL Baso # (Auto) 0.0 (0.0-0.2) X10*3/uL Abs Immat Gran (auto) 0.09 H (0.00-0.03) X10*3/uL Absolute Neuts (auto) 15.0 H (2.0-8.3) x10*3/uL Absolute Nucleated RBC 0.000 (0.0-0.012) X10*3/uL Nucleated RBC % (auto) 0.0 (0.0-0.2) /100WBC VBG pH (7.32-7.43) VBG pCO2 mmHg VBG pO2 mmHg VBG HCO3 (22-26) mmol/L VBG O2 Saturation % VBG Base Excess mmol/L Sodium 135 (135-145) mmol/L Potassium 4.5 (3.3-5.1) mmol/L Chloride 89 L (96-108) mmol/L Carbon Dioxide 25 (22-29) mmol/L Anion Gap 26 H (12-20) BUN 40 H (9-16) mg/dL Creatinine 1.85 H (0.5-1.4) mg/dL Estim Creat Clear Calc 58.8 Estimated GFR 43 POC Glucose 300 H (60-115) mg/dL Random Glucose 350 H* (60-115) mg/dL Lactic Acid 1.2 (0.5-2.0) mmol/L Calcium 9.9 (8.4-10.2) mg/dL Total Bilirubin 0.5 (0.0-1.0) mg/dL AST 15 (5-37) U/L ALT 33 (0-40) U/L Alkaline Phosphatase 95 (39-117) U/L Total Protein 7.5 (6.5-8.0) g/dL Albumin 4.3 (3.5-5.0) g/dL Lipase 7 L (8-78) U/L Beta-Hydroxybutyrate 6.64 H (0.02-0.27) mmol/L Urine Color Yellow Urine Appearance Clear Urine pH 5.0 (5.0-9.0) Ur Specific Nova >= 1.030 H (1.005-1.025) Urine Protein Trace (Neg-Trace) mg/dL Urine Glucose (UA) >=1000 H (Negative) mg/dL Urine Ketones 80 (Negative) mg/dL Urine Blood Negative (Negative) Urine Nitrite Negative (Negative) Ur Leukocyte Esterase Negative (Negative) Urine RBC 0-2 (0-2) /HPF Urine WBC 0-5 (0-5) /HPF Ur Squamous Epith Cells 0-2 (0-2) /HPF Urine Bacteria None Seen (None Seen) Hyaline Casts 3-5 (0-2) /LPF Stool Occult Blood (NEGATIVE) COVID-19 (MYA) (Negative) COVID-19 Clin Com Influenza Type A (JUDE) (Negative) Influenza Type B (JUDE) (Negative) Influenza A & B Note 06/21/23 06/21/23 06/21/23 Range/Units 16:50 17:34 17:49 WBC (4.8-10.8) X10*3/uL RBC (4.60-5.80) X10*6/uL Hgb (14.0-18.0) g/dl Hct (42.0-52.0) % MCV (80.0-98.0) fL MCH (27.0-33.0) pg MCHC (31.0-36.0) g/dl RDW (11.0-16.0) % Plt Count (160-400) X10*3/uL MPV (9.4-12.4) fL Immature Gran % (Auto) (0.0-0.4) % Neut % (Auto) (45-73) % Lymph % (Auto) (20-40) % [place] % (Auto) (2-11) % Eos % (Auto) (0-4) % Baso % (Auto) (0-2) % Lymph # (Auto) (1.2-4.9) X10*3/uL [place] # (Auto) (0.1-1.2) X10*3/uL Eos # (Auto) (0.0-0.4) X10*3/uL Baso # (Auto) (0.0-0.2) X10*3/uL Abs Immat Gran (auto) (0.00-0.03) X10*3/uL Absolute Neuts (auto) (2.0-8.3) x10*3/uL Absolute Nucleated RBC (0.0-0.012) X10*3/uL Nucleated RBC % (auto) (0.0-0.2) /100WBC VBG pH 7.45 H (7.32-7.43) VBG pCO2 41 mmHg VBG pO2 45 mmHg VBG HCO3 28 H (22-26) mmol/L VBG O2 Saturation 70.0 % VBG Base Excess 4.6 mmol/L Sodium (135-145) mmol/L Potassium (3.3-5.1) mmol/L Chloride (96-108) mmol/L Carbon Dioxide (22-29) mmol/L Anion Gap (12-20) BUN (9-16) mg/dL Creatinine (0.5-1.4) mg/dL Estim Creat Clear Calc Estimated GFR POC Glucose 326 H (60-115) mg/dL Random Glucose (60-115) mg/dL Lactic Acid (0.5-2.0) mmol/L Calcium (8.4-10.2) mg/dL Total Bilirubin (0.0-1.0) mg/dL AST (5-37) U/L ALT (0-40) U/L Alkaline Phosphatase (39-117) U/L Total Protein (6.5-8.0) g/dL Albumin (3.5-5.0) g/dL Lipase (8-78) U/L Beta-Hydroxybutyrate (0.02-0.27) mmol/L Urine Color Urine Appearance Urine pH (5.0-9.0) Ur Specific Nova (1.005-1.025) Urine Protein (Neg-Trace) mg/dL Urine Glucose (UA) (Negative) mg/dL Urine Ketones (Negative) mg/dL Urine Blood (Negative) Urine Nitrite (Negative) Ur Leukocyte Esterase (Negative) Urine RBC (0-2) /HPF Urine WBC (0-5) /HPF Ur Squamous Epith Cells (0-2) /HPF Urine Bacteria (None Seen) Hyaline Casts (0-2) /LPF Stool Occult Blood (NEGATIVE) COVID-19 (MYA) Negative (Negative) COVID-19 Clin Com See Note Influenza Type A (JUDE) Negative (Negative) Influenza Type B (JUDE) Negative (Negative) Influenza A & B Note See Note 06/21/23 06/21/23 Range/Units 19:14 20:07 WBC (4.8-10.8) X10*3/uL RBC (4.60-5.80) X10*6/uL Hgb (14.0-18.0) g/dl Hct (42.0-52.0) % MCV (80.0-98.0) fL MCH (27.0-33.0) pg MCHC (31.0-36.0) g/dl RDW (11.0-16.0) % Plt Count (160-400) X10*3/uL MPV (9.4-12.4) fL Immature Gran % (Auto) (0.0-0.4) % Neut % (Auto) (45-73) % Lymph % (Auto) (20-40) % [place] % (Auto) (2-11) % Eos % (Auto) (0-4) % Baso % (Auto) (0-2) % Lymph # (Auto) (1.2-4.9) X10*3/uL [place] # (Auto) (0.1-1.2) X10*3/uL Eos # (Auto) (0.0-0.4) X10*3/uL Baso # (Auto) (0.0-0.2) X10*3/uL Abs Immat Gran (auto) (0.00-0.03) X10*3/uL Absolute Neuts (auto) (2.0-8.3) x10*3/uL Absolute Nucleated RBC (0.0-0.012) X10*3/uL Nucleated RBC % (auto) (0.0-0.2) /100WBC VBG pH (7.32-7.43) VBG pCO2 mmHg VBG pO2 mmHg VBG HCO3 (22-26) mmol/L VBG O2 Saturation % VBG Base Excess mmol/L Sodium (135-145) mmol/L Potassium (3.3-5.1) mmol/L Chloride (96-108) mmol/L Carbon Dioxide (22-29) mmol/L Anion Gap (12-20) BUN (9-16) mg/dL Creatinine (0.5-1.4) mg/dL Estim Creat Clear Calc Estimated GFR POC Glucose 290 H (60-115) mg/dL Random Glucose (60-115) mg/dL Lactic Acid (0.5-2.0) mmol/L Calcium (8.4-10.2) mg/dL Total Bilirubin (0.0-1.0) mg/dL AST (5-37) U/L ALT (0-40) U/L Alkaline Phosphatase (39-117) U/L Total Protein (6.5-8.0) g/dL Albumin (3.5-5.0) g/dL Lipase (8-78) U/L Beta-Hydroxybutyrate (0.02-0.27) mmol/L Urine Color Urine Appearance Urine pH (5.0-9.0) Ur Specific [place] (1.005-1.025) Urine Protein (Neg-Trace) mg/dL Urine Glucose (UA) (Negative) mg/dL Urine Ketones (Negative) mg/dL Urine Blood (Negative) Urine Nitrite (Negative) Ur Leukocyte Esterase (Negative) Urine RBC (0-2) /HPF Urine WBC (0-5) /HPF Ur Squamous Epith Cells (0-2) /HPF Urine Bacteria (None Seen) Hyaline Casts (0-2) /LPF Stool Occult Blood NEGATIVE (NEGATIVE) COVID-19 (MYA) (Negative) COVID-19 Clin Com Influenza Type A (JUDE) (Negative) Influenza Type B (JUDE) (Negative) Influenza A & B Note Independent Interpretation I performed an independent interpretation of an: EKG and CT Scan Interpretation: Rate:117 Rhythm:? sinus tachycardia Fleming:? normal Normal P waves.? Normal DACIA.?? Normal QRS complex.?? ST T wave :?? no ST elevation, no ST depression qTC:[id number] The study has been interpreted contemporaneously by me. Radiology Impression Discussion of test interpretation with radiology: I have reviewed the radiologist's reading. Radiologist Impression: CT/CT abdomen pelvis wo IV con IMPRESSION: 1. Nonspecific fluid distention of the duodenum transitioning to luminal underdistention posterior to the SMA/SMV, this could be seen in the setting of superior mesenteric artery syndrome. Further characterization with outpatient CTA abdomen could be obtained as clinically warranted. 2. Suggestion of rectal wall thickening, suboptimally assessed due to underdistention. Recommend clinical correlation for acute bronchitis. 3. Previously described subtle soft tissue stranding in the perivascular space in the region of the celiac axis and to lesser extent SMA is decreased. Critical Care Time Critical Care Time Critical Care Time: Yes Total Critical Care Time: 40 Attestation: I personally attest to this critical care time spent taking care of the patient exclusive of all other billable procedures was approximately 40 minutes including initial evaluation of patient, ordering tests, x-ray interpretation, EKG interpretation, medical consultation, documentation, re-evaluation. Discharge Plan Discharge Clinical Impression: Type 1 diabetes mellitus, Intractable nausea and vomiting Patient Disposition: Admitted As Inpatient
--- NOTE | 2023-06-21 16:34 | ECG_ITS ---
Test Reason : TACHYCARDIA Blood Pressure : / mmHG Vent. Rate : 117 BPM Atrial Rate : 117 BPM P-R Int : 142 ms QRS Dur : 084 ms QT Int : 324 ms P-R-T Axes : 069 077 050 degrees QTc Int : 451 ms Sinus tachycardia Nonspecific T wave abnormality Abnormal ECG When compared with ECG of 22-MAY-2023 18:17, Nonspecific T wave abnormality now evident in Inferior leads Lateral leads Referred By: Paula Tinajero Electronically Signed By:PATRICE ADLER MD
[2023-06-21] MEDS: 0.9 % Sodium Chloride 2,177.25 ML 2177.25 ML IV (16:35)
[2023-06-21] MEDS: ondansetron HCL 4 MG/2 ML VIAL IVPUSH ×2 (16:45→21:48)
[2023-06-21] MEDS: Morphine Sulfate 4 MG/ML CARTRIDGE IVPUSH (16:45)
[2023-06-21 16:56] LABS: VBG Base Excess 4.6 mmol/L; VBG HCO3 28 mmol/L (22-26); VBG pCO2 41 mmHg; VBG pH 7.45 (7.32-7.43); VBG pO2 45 mmHg
[2023-06-21 16:58] LABS: Bacteria Urine None Seen (None Seen); RBC Urine 0-2 /HPF (0-2); Squamous Epithelial Cell Urine 0-2 /HPF (0-2); WBC Urine 0-5 /HPF (0-5)
[2023-06-21 17:01] LABS: Venous Blood Gas Refer to POC result
[2023-06-21 17:09] LABS: Lactic Acid 1.2 mmol/L (0.5-2.0)
[2023-06-21] MEDS: Piperacillin Sodium/Tazobactam 3.375 GM in 0.9 % Sodium Chloride 50 ML IV (17:10)
[2023-06-21 17:12] VITALS: BP 160/104; PULSE 114; RESP 14; TEMP 36.8; O2SAT 97
[2023-06-21 17:12] LABS: Beta-Hydroxybutyrate 6.64 mmol/L (0.02-0.27)
[2023-06-21 17:42] LABS: Alanine Aminotransferase 33 U/L (0-40); Albumin Level 4.3 g/dL (3.5-5.0); Alkaline Phosphatase 95 U/L (39-117); Anion Gap 26 (12-20); Aspartate Amino Transferase 15 U/L (5-37); Bilirubin Total 0.5 mg/dL (0.0-1.0); Blood Urea Nitrogen 40 mg/dL (9-16); Calcium 9.9 mg/dL (8.4-10.2); Carbon Dioxide 25 mmol/L (22-29); Chloride 89 mmol/L (96-108); Creatinine Clr Calc Pharmacy 58.8; Estimated Glomerular Filt Rate 43; Glucose Random 350 mg/dL (60-115); Potassium 4.5 mmol/L (3.3-5.1); Sodium 135 mmol/L (135-145); Total Protein 7.5 g/dL (6.5-8.0)
[2023-06-21 17:49] VITALS: BP 141/90; PULSE 115; RESP 16; O2SAT 96
[2023-06-21 17:51] LABS: Lipase 7 U/L (8-78)
[2023-06-21 17:53] LABS: Glucose, Whole Blood 326 mg/dL (60-115)
[2023-06-21 17:57] LABS: COVID-19 Test Negative (Negative); IDNOW Serial# 08D9AD1C; IDNOW Serial# BCCEAD1C; Influenza A Negative (Negative); Influenza B2 Negative (Negative)
--- NOTE | 2023-06-21 17:57 | PC.NURSE ---
delay in abx due to needing blood cultures, pt medicated per MAR, resting quietly, denies any pain at this time.
[2023-06-21] MEDS: Insulin Regular, Human 100 UNIT/ML 3 ML VIAL IVPUSH ×2 (18:24→21:49)
[2023-06-21 19:19] LABS: Glucose, Whole Blood 290 mg/dL (60-115)
[2023-06-21 20:12] LABS: OBS Int Ctl Valid YES; OBS1 NEGATIVE (NEGATIVE)
--- NOTE | 2023-06-21 21:05 | PM.IMHP ---
History of Present Illness Date of Service: 06/21/23 Chief Complaint: Nausea/vomiting This is a 33-year-old male with pertinent history of insulin-dependent diabetes mellitus who presents to the emergency department for evaluation of nausea/vomiting/diarrhea. Patient states that he is compliant with his home insulin. He has a chronic history of nausea vomiting that has been ongoing for years. He states that 3 days prior to presentation, he has been having persistent nausea of with dark colored emesis and dark stools. Patient is trying to get an appointment with outpatient GI but has not been able to get it due to insurance issues. Also has associated diffuse abdominal discomfort, constant, nonradiating and without any relieving factors. Admits chills but no fever. Unable to keep anything down and unable to tolerate p.o. intake. States his sugars have been high at home but he takes his home insulin. No chest discomfort, palpitations, shortness of breath, changes in urinary habits. In the emergency department, blood glucose found to be elevated. CT imaging concerning for SMA syndrome and general surgery was consulted. Review of Systems Constitutional: Constitutional: Reports chills, Reports fatigue, Reports lethargy and Reports poor appetite Cardiovascular: Cardiovascular: Reports no additional cardiovascular complaints Respiratory: Respiratory: Reports no additional respiratory complaints Gastrointestinal: Gastrointestinal: Reports diarrhea, Reports nausea and Reports vomiting Genitourinary: Genitourinary: Reports no additional male genitourinary complaints Musculoskeletal: Musculoskeletal: Reports no additional musculoskeletal complaints Endocrine: Endocrine: Reports fatigue [facility] Medical History (Updated 06/21/23 @ 21:21 by Cheri Sosa MD) Type 1 diabetes mellitus Gastroparesis Pertinent family history: No family history of early CAD Social History Household Members: Other Housing: House Do you presently have visiting nurse or other home services: No Alcohol intake: current Alcohol intake frequency: holidays/special occasions only Patient Tobacco Use Status: Never used Tobacco Smoked in Last 30 Days: No Use of substances other than those prescribed or required for medical reasons: Yes Substance Use Type: Marijuana Advance Directives: No Advance Directives Information Provided: No service: No Meds Allergies Allergy/AdvReac Type Severity Reaction Status Date / Time No Known Allergies Allergy Unverified 04/22/20 18:26 Home Medications Medication Instructions Recorded Confirmed Last Taken Type insulin glargine 100 unit/mL 30 unit subcut QPM 02/26/23 06/21/23 Unknown History subcutaneous solution insulin lispro 100 unit/mL 1 sliding scale dose subcut 02/26/23 06/21/23 Unknown History subcutaneous pen USEASDIRECTD Physical Exam Vital Signs and Narrative: Vital Signs: Last Vital Signs Temp 98.3 F 06/21/23 17:12 Pulse 115 H 06/21/23 17:49 Resp 16 06/21/23 17:49 BP 141/90 H 06/21/23 17:49 Pulse Ox 96 06/21/23 17:49 O2 Del Method Room Air 06/21/23 17:49 BMI result Body Mass Index 21.7 Middle-aged male lying in bed in no distress Neck supple, no JVD Tachycardic with regular rhythm, S1-S2 heard Regular breath sounds bilaterally, no wheezing or crackles appreciated Abdomen with generalized tenderness, no guarding, no rigidity, no rebound tenderness Patient is awake, alert and oriented to self, place, time and person ; no focal motor deficit Psych: Normal mood No pedal edema Results Labs 06/21/23 15:47 06/21/23 15:47 Labs: Laboratory Results - last 24 hr 06/21/23 06/21/23 06/21/23 15:41 15:47 16:46 MCV 79.9 L MCH 25.6 L MCHC 32.0 RDW 14.8 Plt Count 508 H MPV 9.3 L Immature Gran % (Auto) 0.5 H Neut % (Auto) 85.2 H Lymph % (Auto) 5.7 L [place] % (Auto) 8.3 Eos % (Auto) 0.1 Baso % (Auto) 0.2 Lymph # (Auto) 1.0 L [place] # (Auto) 1.5 H Eos # (Auto) 0.0 Baso # (Auto) 0.0 Abs Immat Gran (auto) 0.09 H Absolute Neuts (auto) 15.0 H Absolute Nucleated RBC 0.000 Nucleated RBC % (auto) 0.0 VBG pH VBG pCO2 VBG pO2 VBG HCO3 VBG O2 Saturation VBG Base Excess Anion Gap 26 H Estim Creat Clear Calc 58.8 Estimated GFR 43 POC Glucose 300 H Random Glucose 350 H* Lactic Acid 1.2 Calcium 9.9 Total Bilirubin 0.5 AST 15 ALT 33 Alkaline Phosphatase 95 Total Protein 7.5 Albumin 4.3 Lipase 7 L Beta-Hydroxybutyrate 6.64 H Urine Color Yellow Urine Appearance Clear Urine pH 5.0 Ur Specific [place] >= 1.030 H Urine Protein Trace Urine Glucose (UA) >=1000 H Urine Ketones 80 Urine Blood Negative Urine Nitrite Negative Ur Leukocyte Esterase Negative Urine RBC 0-2 Urine WBC 0-5 Ur Squamous Epith Cells 0-2 Urine Bacteria None Seen Hyaline Casts 3-5 Stool Occult Blood COVID-19 (MYA) COVID-19 Clin Com Influenza Type A (JUDE) Influenza Type B (JUDE) Influenza A & B Note 06/21/23 06/21/23 06/21/23 16:50 17:34 17:49 MCV MCH MCHC RDW Plt Count MPV Immature Gran % (Auto) Neut % (Auto) Lymph % (Auto) [place] % (Auto) Eos % (Auto) Baso % (Auto) Lymph # (Auto) [place] # (Auto) Eos # (Auto) Baso # (Auto) Abs Immat Gran (auto) Absolute Neuts (auto) Absolute Nucleated RBC Nucleated RBC % (auto) VBG pH 7.45 H VBG pCO2 41 VBG pO2 45 VBG HCO3 28 H VBG O2 Saturation 70.0 VBG Base Excess 4.6 Anion Gap Estim Creat Clear Calc Estimated GFR POC Glucose 326 H Random Glucose Lactic Acid Calcium Total Bilirubin AST ALT Alkaline Phosphatase Total Protein Albumin Lipase Beta-Hydroxybutyrate Urine Color Urine Appearance Urine pH Ur Specific [place] Urine Protein Urine Glucose (UA) Urine Ketones Urine Blood Urine Nitrite Ur Leukocyte Esterase Urine RBC Urine WBC Ur Squamous Epith Cells Urine Bacteria Hyaline Casts Stool Occult Blood COVID-19 (MYA) Negative COVID-19 Clin Com See Note Influenza Type A (JUDE) Negative Influenza Type B (JUDE) Negative Influenza A & B Note See Note 06/21/23 06/21/23 19:14 20:07 MCV MCH MCHC RDW Plt Count MPV Immature Gran % (Auto) Neut % (Auto) Lymph % (Auto) [place] % (Auto) Eos % (Auto) Baso % (Auto) Lymph # (Auto) [place] # (Auto) Eos # (Auto) Baso # (Auto) Abs Immat Gran (auto) Absolute Neuts (auto) Absolute Nucleated RBC Nucleated RBC % (auto) VBG pH VBG pCO2 VBG pO2 VBG HCO3 VBG O2 Saturation VBG Base Excess Anion Gap Estim Creat Clear Calc Estimated GFR POC Glucose 290 H Random Glucose Lactic Acid Calcium Total Bilirubin AST ALT Alkaline Phosphatase Total Protein Albumin Lipase Beta-Hydroxybutyrate Urine Color Urine Appearance Urine pH Ur Specific [place] Urine Protein Urine Glucose (UA) Urine Ketones Urine Blood Urine Nitrite Ur Leukocyte Esterase Urine RBC Urine WBC Ur Squamous Epith Cells Urine Bacteria Hyaline Casts Stool Occult Blood NEGATIVE COVID-19 (MYA) COVID-19 Clin Com Influenza Type A (JUDE) Influenza Type B (JUDE) Influenza A & B Note Imaging Radiologist's Impressions: Impressions Abdomen/Pelvis CT 06/21/23 18:28 IMPRESSION: 1. Nonspecific fluid distention of the duodenum transitioning to luminal underdistention posterior to the SMA/SMV, this could be seen in the setting of superior mesenteric artery syndrome. Further characterization with outpatient CTA abdomen could be obtained as clinically warranted. 2. Suggestion of rectal wall thickening, suboptimally assessed due to underdistention. Recommend clinical correlation for acute bronchitis. 3. Previously described subtle soft tissue stranding in the perivascular space in the region of the celiac axis and to lesser extent SMA is decreased. Assessment and Plan (1) Nausea vomiting and diarrhea: Status: Acute (2) Hyperglycemia due to type 1 diabetes mellitus: Status: Acute Plan This is a 33-year-old male with pertinent history of insulin-dependent diabetes mellitus who presents to the emergency department for evaluation of nausea/vomiting/diarrhea. #. Intractable nausea and vomiting: Imaging concerning for ?SMA syndrome. General surgery consulted from the ER, appreciate assistance. Will keep patient NPO. No further episodes of vomiting in the ER, if he develops persistent vomiting, will insert NG tube. #. Diarrhea: Patient states he has been having dark stools. Stool occult blood negative in the ER. GI panel obtained. Consulting GI, appreciate assistance #. Type 1 insulin-dependent diabetes mellitus with hyperglycemia: Initiating basal plus insulin regimen DVT prophylaxis: Lovenox Admit as inpatient and will require two night minimum hospital stay for close monitoring of symptoms, optimization of blood glucose (as above), which is not possible in a lesser acute setting. Specialist consult pending Quality Stroke Does the patient have a stroke diagnosis?: No VTE Prior VTE?: No VTE Risk Level:: Medical - moderate - high VTE Device Contraindication: Treatment Not Indicated VTE Drug Contraindication: N/A - Med Ordered
[2023-06-21 21:16] VITALS: BP 148/89; PULSE 122; RESP 12; TEMP 37.2; O2SAT 97
[2023-06-21 21:44] LABS: Glucose, Whole Blood 462 mg/dL (60-115)
[2023-06-21] MEDS: Enoxaparin Sodium 40 MG/0.4 ML SYRINGE SUBCUT (21:48)
[2023-06-21] MEDS: Insulin Lispro 100 UNIT/ML 3 ML VIAL SUBCUT (21:51)
[2023-06-21] MEDS: Insulin Glargine,Hum.rec.anlog 100 UNIT/ML 10 ML VIAL 15 UNIT SUBCUT (21:52)
--- NOTE | 2023-06-21 21:57 | PHA.MEDREC ---
Pharmacy Consult ? Medication Reconciliation Pharmacy has completed the medication reconciliation. Patient reported medications. Renetta Rivas,NickD
[2023-06-21 23:42] VITALS: BP 135/90; PULSE 113; RESP 14; TEMP 36.9; O2SAT 97
[2023-06-22 02:02] LABS: Glucose, Whole Blood 243 mg/dL (60-115)
[2023-06-22 03:30] LABS: Glucose, Whole Blood 227 mg/dL (60-115)
[2023-06-22] MEDS: Insulin Lispro 100 UNIT/ML 3 ML VIAL SUBCUT ×3 (03:50→21:24)
[2023-06-22] MEDS: 0.9 % Sodium Chloride Flush 3 ML SYRINGE IVFLUSH ×2 (03:51→07:54)
[2023-06-22] MEDS: Morphine Sulfate 2 MG/ML CARTRIDGE IVPUSH (04:05)
[2023-06-22 04:08] VITALS: BP 129/94; PULSE 106; RESP 17; TEMP 36.9; O2SAT 96
--- NOTE | 2023-06-22 04:19 | PC.NURSE ---
pt c/o abdominal pain at this time. made aware. pt medicated per OCT. VSS.
--- NOTE | 2023-06-22 05:21 | PC.NURSE ---
pt resting comfortably with eyes closed, breathing even and unlabored, no apparent distress noted at this time.
[2023-06-22 06:31] LABS: MANUAL DIFF FLAG NO
[2023-06-22 06:33] LABS: Basophils Percent Auto 0.3 % (0-2); Eosinophils Percent Auto 0.1 % (0-4); Hemoglobin 9.8 g/dl (14.0-18.0); Imm Gran Abs Auto 0.07 X10*3/uL (0.00-0.03); Imm Gran Pct Auto 0.5 % (0.0-0.4); Lymphocytes Absolute Auto 2.1 X10*3/uL (1.2-4.9); Lymphocytes Percent Auto 14.2 % (20-40); Mean Corpuscular HGB Conc 32.7 g/dl (31.0-36.0); Mean Corpuscular Hemoglobin 26.2 pg (27.0-33.0); Mean Corpuscular Volume 80.2 fL (80.0-98.0); Mean Platelet Volume 9.2 fL (9.4-12.4); Monocytes Absolute Auto 1.5 X10*3/uL (0.1-1.2); Neutrophils Absolute Auto 11.1 x10*3/uL (2.0-8.3); Neutrophils Percent Auto 74.9 % (45-73); Platelet Count 407 X10*3/uL (160-400); Red Blood Count 3.74 X10*6/uL (4.60-5.80); Red Cell Distribution Width 14.8 % (11.0-16.0); White Blood Count 14.8 X10*3/uL (4.8-10.8)
[2023-06-22 06:53] LABS: Anion Gap 15 (12-20); Blood Urea Nitrogen 26 mg/dL (9-16); Calcium 8.8 mg/dL (8.4-10.2); Carbon Dioxide 26 mmol/L (22-29); Chloride 100 mmol/L (96-108); Creatinine Clr Calc Pharmacy 81.2; Estimated Glomerular Filt Rate > 60; Glucose Random 230 mg/dL (60-115); Potassium 3.8 mmol/L (3.3-5.1); Sodium 137 mmol/L (135-145)
[2023-06-22 07:19] VITALS: BP 118/77; PULSE 107; RESP 16; TEMP 36.9; O2SAT 95
--- NOTE | 2023-06-22 07:25 | P.CNGI_ITS ---
History of Present Illness Data of Consult Service Date: 06/22/23 Requesting physician: Cheri Sosa Primary Care Provider: None Physician HPI Reason for consult: Dark stools 33 YM with IDDM (Type 1- diagnosed at age 16 yrs) seen at [facility] on 06/21/23 for evaluation of nausea/vomiting/diarrhea. Pt reports symptoms of nausea and vomiting for the past 2 years and more persistent recently. He reports having nausea without eating and he has been unable to identify any precipitating foods Pt admits to a decrease in PO intake with wt loss of > 20 lbs. Pt was referred to a [facility] in [place] for above symptoms and he has been unable to get an appt (since they dont accept [employer]) Meanwhile his PCP has retired and he is looking for a new PCP. Patient states that he is compliant with his home insulin. Pt states that 3 days prior to presentation, he has been having persistent nausea of with dark colored emesis and dark stools. He complains of constipation alternating with diarrhea and also notes intermittent passage of BRB per rectum which is bright red and is separate from the stools Also has associated diffuse abdominal discomfort, constant, nonradiating and without any relieving factors. Pt admits to chills and denies fever. He has been unable to keep anything down and unable to tolerate p.o. intake. Pt stated his sugars have been high at home despite him taking his home insulin. No chest discomfort, palpitations, shortness of breath, changes in urinary habits. Pt denies smoking tobacco and takes alcohol and Marijuana rarely In the emergency department, blood glucose found to be elevated. imaging concerning for SMA syndrome and general surgery was consulted and no surgical intervention was advised. 06/21/[address] SCAN SHOWED: 1. Nonspecific fluid distention of the duodenum transitioning to luminal underdistention posterior to the SMA/SMV, this could be seen in the setting of superior mesenteric artery syndrome. Further characterization with outpatient CTA abdomen could be obtained as clinically warranted. 2. Suggestion of rectal wall thickening, suboptimally assessed due to underdistention. Recommend clinical correlation for acute bronchitis. 3. Previously described subtle soft tissue stranding in the perivascular space in the region of the celiac axis and to lesser extent SMA is decreased. Review of Systems 2 Review of Systems: Yes all other systems are reviewed and are negative PMFSH Past Medical History Medical History Type 1 diabetes mellitus Gastroparesis Social History Social History Household Members: None Housing: House Do you presently have visiting nurse or other home services: No Alcohol intake: current Alcohol intake frequency: holidays/special occasions only Patient Tobacco Use Status: Never used Tobacco Smoked in Last 30 Days: No Second Hand Smoke Exposure: No Use of substances other than those prescribed or required for medical reasons: Yes Substance Use Type: Marijuana Substance Use Frequency: Chronic Longstanding Advance Directives: Yes Advance Directives on File: Yes Advance Directives Date on File: 06/22/23 service: No Meds Allergies Allergy/AdvReac Type Severity Reaction Status Date / Time No Known Allergies Allergy Verified 12/23/23 16:09 Active Medications: Current Medications Acetaminophen (Acetaminophen 325 Mg Tablet) 650 mg PO Q6H PRN PRN Reason: Pain, Mild (Pain Scale 1-3) Dextrose (Dextrose 50 % 25 Gm/50 Ml Syringe) 25 gm IVPUSH Q15M PRN; Protocol PRN Reason: per Hypoglycemia Standing Ord. Enoxaparin Sodium (Enoxaparin Sodium 40 Mg/0.4 Ml Syringe) 40 mg SUBCUT Q24H PARKER Last Admin: 06/21/23 21:48 Dose: 40 mg Glucose (Glucose Gel 15 Gm Gel..Gram.) 15 gm PO Q15M PRN; Protocol PRN Reason: per Hypoglycemia Standing Ord. Insulin Glargine (Insulin Glargine,Hum.Rec.Anlog 100 Unit/Ml 10 Ml Vial) 15 unit SUBCUT BEDTIME PARKER Insulin Human Lispro (Insulin Lispro 100 Unit/Ml 3 Ml Vial) 0 unit SUBCUT Q6H PARKER; Protocol Last Admin: 06/22/23 03:50 Dose: 4 unit Melatonin (Melatonin 3 Mg Tablet) 6 mg PO BEDTIME PRN PRN Reason: Insomnia Morphine Sulfate (Morphine Sulfate 2 Mg/Ml Cartridge) 2 mg IVPUSH Q4H PRN; Protocol PRN Reason: Pain, Severe (Pain Scale 7-10) Last Admin: 06/22/23 04:05 Dose: 2 mg Ondansetron HCl (Ondansetron Hcl 4 Mg/2 Ml Vial) 4 mg IVPUSH Q8H PRN PRN Reason: Nausea and Vomiting Last Admin: 06/21/23 21:48 Dose: 4 mg Sodium Chloride (0.9 % Sodium Chloride Flush 3 Ml Syringe) 3 ml IVFLUSH [facility] Last Admin: 06/22/23 03:51 Dose: 3 ml Home Medications ?Medication ?Instructions ?Recorded ?Confirmed ?Last Taken ?Type insulin glargine 100 unit/mL 30 unit subcut BEDTIME 02/26/23 10/28/23 Unknown History subcutaneous solution insulin lispro 100 unit/mL 1 sliding scale dose subcut 02/26/23 10/28/23 10/28/23 History subcutaneous pen USEASDIRECTD Physical Exam 2 Vital Signs: Vital Signs: Last Vital Signs Temp 98.5 F 06/22/23 07:19 Pulse 107 H 06/22/23 07:19 Resp 16 06/22/23 07:19 BP 118/77 06/22/23 07:19 Pulse Ox 95 06/22/23 07:19 O2 Del Method Room Air 06/22/23 07:19 BMI result Body Mass Index 21.7 Const: General: cooperative, comfortable, no acute distress, alert and awake Nutritional Appearance: average body habitus Orientation/consciousness: p atient oriented x3 Resp: Effort & Inspection: normal respiratory effort, able to speak in complete sentences, no respiratory distress and no use of accessory muscles Cardio: Rate: tachycardic GI: Inspection: No distended Palpation (GI): Soft to palpation Neuro: General: patient oriented x3, moves all extremities and CN's II-XI intact bilaterally Extrem: General: Yes no pedal edema Results Labs 06/23/23 13:24 06/22/23 06:05 Labs: Short CBC 06/21/23 06/22/23 Range/Units 15:47 06:05 WBC 17.6 H 14.8 H (4.8-10.8) X10*3/uL Hgb 11.2 L 9.8 L (14.0-18.0) g/dl Hct 35.0 L 30.0 L (42.0-52.0) % Plt Count 508 H 407 H (160-400) X10*3/uL BMP 06/21/23 06/22/23 15:47 06:05 Sodium 135 137 Potassium 4.5 3.8 Chloride 89 L 100 Carbon Dioxide 25 26 BUN 40 H 26 H Creatinine 1.85 H 1.34 Calcium 9.9 8.8 D Liver Function 06/21/23 Range/Units 15:47 Total Bilirubin 0.5 (0.0-1.0) mg/dL AST 15 (5-37) U/L ALT 33 (0-40) U/L Alkaline Phosphatase 95 (39-117) U/L Albumin 4.3 (3.5-5.0) g/dL Urine 06/21/23 Range/Units 15:47 Urine Color Yellow Urine Appearance Clear Urine pH 5.0 (5.0-9.0) Ur Specific [place] >= 1.030 H (1.005-1.025) Urine Protein Trace (Neg-Trace) mg/dL Urine Glucose (UA) >=1000 H (Negative) mg/dL Assessment and Plan (1) Nausea vomiting and diarrhea: Status: Resolved Plan 33 YM with IDDM (Type 1- diagnosed at age 16 yrs) seen at [facility] ED on 06/21/23 for evaluation of nausea/vomiting/diarrhea. Patient states that he is compliant with his home insulin. Pt states that 3 days prior to presentation, he has been having persistent nausea with dark colored emesis and dark stools (stool hemoccult was negative). He also notes intermittent passage of blood per rectum which is bright red and appears separate from the stools Also has associated diffuse abdominal discomfort, constant, non-radiating and without any relieving factors. Pt's symptoms can be due to PUD, gastritis, erosive esophagitis or diabetic gastroparesis 06/21/[address] SCAN SHOWED: 1. Nonspecific fluid distention of the duodenum transitioning to luminal underdistention posterior to the SMA/SMV, this could be seen in the setting of superior mesenteric artery syndrome. Further characterization with outpatient CTA abdomen could be obtained as clinically warranted. 2. Suggestion of rectal wall thickening, suboptimally assessed due to underdistention. Recommend clinical correlation for acute proctitis 3. Previously described subtle soft tissue stranding in the perivascular space in the region of the celiac axis and to lesser extent SMA is decreased. RECOMMENDATIONS: 1. Agree with IV pain medications and antiemetics for symptom management 2. UGI to confirm a diagnosis pf SMA syndrome 3. Pt needs further evaluation with EGD, Colonoscopy and a gastric emptying study (these can be performed as an outpatient if nausea and vomiting subsides) Procedures Date of Service Date of Service: 02/17/24
--- NOTE | 2023-06-22 07:32 | MHC.CM.PN ---
Met with patient in regards to discharge planning. Patient lives alone, ambulates independently and had no services prior to coming to the hospital. Patient denies having a PCP. PCP list provided. Copy of HCP obtained from [facility]. Patient received 3 Covid vaccines. Patient interested in information on filing for disability. Resource book and info on filing disability provided. Patient does not drive. Will need assistance with transportation when medically stable. May need [facility]. Continue to monitor for d/c needs.
[2023-06-22 07:39] LABS: Glucose, Whole Blood 240 mg/dL (60-115)
--- NOTE | 2023-06-22 08:16 | PC.NURSE ---
PT IS A/O X 4 NO SOB/LARA NOTED SPEAKS IN FULL SENTENCES. LUNGS - CTA. HEART SOUNDS REGULAR. ABD SOFT AND NON-DISTENDED, BS + X 4 QUADS. NO EDEMA NOTED. PT DENIES ANY PAIN/DISC. PT AWARE OF PLAN OF CARE. POC - 240 PT CONTINUES TO BE NPO.
[2023-06-22 10:53] VITALS: BP 130/100; PULSE 107; RESP 16; TEMP 36.9; O2SAT 97
[2023-06-22] MEDS: Lactated Ringers 1,000 ML 100 ML IVCONT ×2 (10:57→20:08)
--- NOTE | 2023-06-22 11:34 | PC.NURSE ---
RN TO RN REPORT GIVEN TO SOLIS. PT AWARE OF PLAN OF CARE FOR TRANSFER TO [facility].
--- NOTE | 2023-06-22 11:47 | P.CONGS_ITS ---
History of Present Illness Consult details Consult date: 06/22/23 Requesting physician: Yeni Luis Narrative: 33-year-old male patient presenting with complaints of generalized abdominal pain. He reports similar pain for at least 1 year but has been unable to be evaluated by Gastroenterology due to insurance issues. The pain seemed to increase in severity over the last 24 hours and he subsequently presented to the emergency department for further evaluation. This morning he reports the pain is improved after receiving some pain medication and he denies any further nausea or vomiting. He reports a chronic history of constipation with occasional bleeding. The pain is described as constant with episodes of increased severity, colicky in nature. He denies a previous history of abdominal surgery or trauma. He is an insulin-dependent diabetic since the age of 16. Admitting laboratories revealed an elevated WBC of 17.6. CT abdomen and pelvis revealed changes suggestive of an SMA syndrome. He denies any recent weight loss. Review of Systems 2 Review of Systems: Yes all other systems are reviewed and are negative PMFSH Past Medical History Medical History Type 1 diabetes mellitus Gastroparesis Social History Social History Household Members: Other Housing: House Do you presently have visiting nurse or other home services: No Alcohol intake: current Alcohol intake frequency: holidays/special occasions only Patient Tobacco Use Status: Never used Tobacco Smoked in Last 30 Days: No Use of substances other than those prescribed or required for medical reasons: Yes Substance Use Type: Marijuana Advance Directives: Yes Advance Directives on File: Yes Advance Directives Date on File: 06/22/23 Nutrition Risks: No Nutritional Risk service: No Meds Allergies Allergy/AdvReac Type Severity Reaction Status Date / Time No Known Allergies Allergy Unverified 04/22/20 18:26 Active Medications: Current Medications Acetaminophen (Acetaminophen 325 Mg Tablet) 650 mg PO Q6H PRN PRN Reason: Pain, Mild (Pain Scale 1-3) Dextrose (Dextrose 50 % 25 Gm/50 Ml Syringe) 25 gm IVPUSH Q15M PRN; Protocol PRN Reason: per Hypoglycemia Standing Ord. Enoxaparin Sodium (Enoxaparin Sodium 40 Mg/0.4 Ml Syringe) 40 mg SUBCUT Q24H [facility] Last Admin: 06/21/23 21:48 Dose: 40 mg Glucose (Glucose Gel 15 Gm Gel..Gram.) 15 gm PO Q15M PRN; Protocol PRN Reason: per Hypoglycemia Standing Ord. Lactated Ringer's (Lr) 1,000 mls @ 100 mls/hr IVCONT .Q10H [facility] Last Admin: 06/22/23 10:57 Dose: 100 mls/hr Insulin Glargine (Insulin Glargine,Hum.Rec.Anlog 100 Unit/Ml 10 Ml Vial) 15 unit SUBCUT BEDTIME [facility] Insulin Human Lispro (Insulin Lispro 100 Unit/Ml 3 Ml Vial) 0 unit SUBCUT Q6H [facility]; Protocol Last Admin: 06/22/23 10:57 Dose: Not Given Melatonin (Melatonin 3 Mg Tablet) 6 mg PO BEDTIME PRN PRN Reason: Insomnia Morphine Sulfate (Morphine Sulfate 2 Mg/Ml Cartridge) 2 mg IVPUSH Q4H PRN; Protocol PRN Reason: Pain, Severe (Pain Scale 7-10) Last Admin: 06/22/23 04:05 Dose: 2 mg Ondansetron HCl (Ondansetron Hcl 4 Mg/2 Ml Vial) 4 mg IVPUSH Q8H PRN PRN Reason: Nausea and Vomiting Last Admin: 06/21/23 21:48 Dose: 4 mg Sodium Chloride (0.9 % Sodium Chloride Flush 3 Ml Syringe) [address] [facility] Last Admin: 06/22/23 07:54 Dose: 3 ml Home Medications Medication Instructions Recorded Confirmed Last Taken Type insulin glargine 100 unit/mL 30 unit subcut QPM 02/26/23 06/21/23 Unknown History subcutaneous solution insulin lispro 100 unit/mL 1 sliding scale dose subcut 02/26/23 06/21/23 Unknown History subcutaneous pen [id number] Physical Exam 2 Vital Signs: Vital Signs: Last Vital Signs Temp 98.5 F 06/22/23 10:53 Pulse 107 H 06/22/23 10:53 Resp 16 06/22/23 10:53 BP 130/100 H 06/22/23 10:53 Pulse Ox 97 06/22/23 10:53 O2 Del Method Room Air 06/22/23 10:53 BMI result Body Mass Index 21.7 Const: General: cooperative and no acute distress Nutritional Appearance: w ell nourished Orientation/consciousness: patient oriented x3 Limitations: no limitations HEENT: Head: Yes normocephalic and Yes atraumatic Ears: hearing grossly normal bilaterally Resp: Effort & Inspection: normal respiratory effort, no audible wheezes, no cough and no respiratory distress Cardio: Jugular venous distension: no JVD GI: Other: Soft, nondistended, nontender to deep palpation. No rebound, guarding, or rigidity. No palpable mass. No tympany to percussion. Inspection: Yes normal to inspection Skin: Other: Warm, dry, no rash Neuro: General: patient oriented x3 Extrem: General: Yes no clubbing, cyanosis or edema Results Labs 06/22/23 06:05 06/22/23 06:05 Labs: Abnormal lab results 06/21/23 06/21/23 06/21/23 Range/Units 15:41 15:47 16:46 WBC 17.6 H (4.8-10.8) X10*3/uL RBC 4.38 L (4.60-5.80) X10*6/uL Hgb 11.2 L (14.0-18.0) g/dl Hct 35.0 L (42.0-52.0) % MCV 79.9 L (80.0-98.0) fL MCH 25.6 L (27.0-33.0) pg Plt Count 508 H (160-400) X10*3/uL MPV 9.3 L (9.4-12.4) fL Immature Gran % (Auto) 0.5 H (0.0-0.4) % Neut % (Auto) 85.2 H (45-73) % Lymph % (Auto) 5.7 L (20-40) % Lymph # (Auto) 1.0 L (1.2-4.9) X10*3/uL [place] # (Auto) 1.5 H (0.1-1.2) X10*3/uL Abs Immat Gran (auto) 0.09 H (0.00-0.03) X10*3/uL Absolute Neuts (auto) 15.0 H (2.0-8.3) x10*3/uL VBG pH (7.32-7.43) VBG HCO3 (22-26) mmol/L Chloride 89 L (96-108) mmol/L Anion Gap 26 H (12-20) BUN 40 H (9-16) mg/dL Creatinine 1.85 H (0.5-1.4) mg/dL POC Glucose 300 H (60-115) mg/dL Random Glucose 350 H* (60-115) mg/dL Lipase 7 L (8-78) U/L Beta-Hydroxybutyrate 6.64 H (0.02-0.27) mmol/L Ur Specific [place] >= 1.030 H (1.005-1.025) Urine Glucose (UA) >=1000 H (Negative) mg/dL 06/21/23 06/21/23 06/21/23 Range/Units 16:50 17:49 19:14 WBC (4.8-10.8) X10*3/uL RBC (4.60-5.80) X10*6/uL Hgb (14.0-18.0) g/dl Hct (42.0-52.0) % MCV (80.0-98.0) fL MCH (27.0-33.0) pg Plt Count (160-400) X10*3/uL MPV (9.4-12.4) fL Immature Gran % (Auto) (0.0-0.4) % Neut % (Auto) (45-73) % Lymph % (Auto) (20-40) % Lymph # (Auto) (1.2-4.9) X10*3/uL [place] # (Auto) (0.1-1.2) X10*3/uL Abs Immat Gran (auto) (0.00-0.03) X10*3/uL Absolute Neuts (auto) (2.0-8.3) x10*3/uL VBG pH 7.45 H (7.32-7.43) VBG HCO3 28 H (22-26) mmol/L Chloride (96-108) mmol/L Anion Gap (12-20) BUN (9-16) mg/dL Creatinine (0.5-1.4) mg/dL POC Glucose 326 H 290 H (60-115) mg/dL Random Glucose (60-115) mg/dL Lipase (8-78) U/L Beta-Hydroxybutyrate (0.02-0.27) mmol/L Ur Specific [place] (1.005-1.025) Urine Glucose (UA) (Negative) mg/dL 06/21/23 06/22/23 06/22/23 Range/Units 21:19 01:58 03:25 WBC (4.8-10.8) X10*3/uL RBC (4.60-5.80) X10*6/uL Hgb (14.0-18.0) g/dl Hct (42.0-52.0) % MCV (80.0-98.0) fL MCH (27.0-33.0) pg Plt Count (160-400) X10*3/uL MPV (9.4-12.4) fL Immature Gran % (Auto) (0.0-0.4) % Neut % (Auto) (45-73) % Lymph % (Auto) (20-40) % Lymph # (Auto) (1.2-4.9) X10*3/uL [place] # (Auto) (0.1-1.2) X10*3/uL Abs Immat Gran (auto) (0.00-0.03) X10*3/uL Absolute Neuts (auto) (2.0-8.3) x10*3/uL VBG pH (7.32-7.43) VBG HCO3 (22-26) mmol/L Chloride (96-108) mmol/L Anion Gap (12-20) BUN (9-16) mg/dL Creatinine (0.5-1.4) mg/dL POC Glucose 462 H* 243 H 227 H (60-115) mg/dL Random Glucose (60-115) mg/dL Lipase (8-78) U/L Beta-Hydroxybutyrate (0.02-0.27) mmol/L Ur Specific [place] (1.005-1.025) Urine Glucose (UA) (Negative) mg/dL 06/22/23 06/22/23 Range/Units 06:05 07:33 WBC 14.8 H (4.8-10.8) X10*3/uL RBC 3.74 L (4.60-5.80) X10*6/uL Hgb 9.8 L (14.0-18.0) g/dl Hct 30.0 L (42.0-52.0) % MCV (80.0-98.0) fL MCH 26.2 L (27.0-33.0) pg Plt Count 407 H (160-400) X10*3/uL MPV 9.2 L (9.4-12.4) fL Immature Gran % (Auto) 0.5 H (0.0-0.4) % Neut % (Auto) 74.9 H (45-73) % Lymph % (Auto) 14.2 L (20-40) % Lymph # (Auto) (1.2-4.9) X10*3/uL [place] # (Auto) 1.5 H (0.1-1.2) X10*3/uL Abs Immat Gran (auto) 0.07 H (0.00-0.03) X10*3/uL Absolute Neuts (auto) 11.1 H (2.0-8.3) x10*3/uL VBG pH (7.32-7.43) VBG HCO3 (22-26) mmol/L Chloride (96-108) mmol/L Anion Gap (12-20) BUN 26 H (9-16) mg/dL Creatinine (0.5-1.4) mg/dL POC Glucose 240 H (60-115) mg/dL Random Glucose 230 H (60-115) mg/dL Lipase (8-78) U/L Beta-Hydroxybutyrate (0.02-0.27) mmol/L Ur Specific [place] (1.005-1.025) Urine Glucose (UA) (Negative) mg/dL Short CBC 06/21/23 06/22/23 Range/Units 15:47 06:05 WBC 17.6 H 14.8 H (4.8-10.8) X10*3/uL Hgb 11.2 L 9.8 L (14.0-18.0) g/dl Hct 35.0 L 30.0 L (42.0-52.0) % Plt Count 508 H 407 H (160-400) X10*3/uL BMP 06/21/23 06/22/23 15:47 06:05 Sodium 135 137 Potassium 4.5 3.8 Chloride 89 L 100 Carbon Dioxide 25 26 BUN 40 H 26 H Creatinine 1.85 H 1.34 Calcium 9.9 8.8 D Liver Function 06/21/23 Range/Units 15:47 Total Bilirubin 0.5 (0.0-1.0) mg/dL AST 15 (5-37) U/L ALT 33 (0-40) U/L Alkaline Phosphatase 95 (39-117) U/L Albumin 4.3 (3.5-5.0) g/dL Urine 06/21/23 Range/Units 15:47 Urine Color Yellow Urine Appearance Clear Urine pH 5.0 (5.0-9.0) Ur Specific [place] >= 1.030 H (1.005-1.025) Urine Protein Trace (Neg-Trace) mg/dL Urine Glucose (UA) >=1000 H (Negative) mg/dL All other labs normal. Assessment and Plan (1) Intractable nausea and vomiting: Status: Acute Plan 33-year-old male patient with a history of insulin-dependent diabetes and a 1 year history of diffuse abdominal pain associated with constipation. Workup in the emergency department revealed an elevated WBC and CT findings suggestive of an SMA syndrome. This morning he feels much improved with no further abdominal pain but this may return once he starts eating. Suggest repeating CT with oral contrast to better define any potential obstruction from SMA. Agree with need for gastroenterology consultation for possible IBS. No surgical intervention anticipated at this time. Procedures Date of Service Date of Service: 06/22/23
[2023-06-22 11:59] VITALS: BP 154/90; PULSE 100; RESP 18; TEMP 36.2; O2SAT 97
[2023-06-22 13:26] LABS: Glucose, Whole Blood 279 mg/dL (60-115)
[2023-06-22] MEDS: ondansetron HCL 4 MG/2 ML VIAL IVPUSH (13:51)
--- NOTE | 2023-06-22 13:54 | PC.NURSE ---
Hold Insulin, NPO, per PA.
[2023-06-22 15:24] VITALS: BP 168/98; PULSE 96; RESP 20; TEMP 36.2; O2SAT 97
[2023-06-22 16:17] LABS: Glucose, Whole Blood 281 mg/dL (60-115)
--- NOTE | 2023-06-22 16:49 | P.PNIM_ITS ---
Subjective Subjective Date of Service: 06/22/23 Interval History: seen and examined this morning follow up for abdominal pain, nausea and vomiting all improving Review of Systems Review of Systems: Yes all other systems are reviewed and are negative Constitutional Constitutional: Denies chills and Denies fever(s) Cardiovascular Cardiovascular: Denies chest pain Physical Exam 2 Vital Signs: Vital Signs: Last Vital Signs Temp 97.2 F 06/22/23 15:24 Pulse 96 06/22/23 15:24 Resp 20 06/22/23 15:24 BP 168/98 H 06/22/23 15:24 Pulse Ox 97 06/22/23 15:24 O2 Del Method Room Air 06/22/23 15:24 BMI result Body Mass Index 21.7 Const: General: cooperative, comfortable, no acute distress, alert and awake Nutritional Appearance: average body habitus Orientation/consciousness: p atient oriented x3 Resp: Effort & Inspection: normal respiratory effort, able to speak in complete sentences, no respiratory distress and no use of accessory muscles Cardio: Rate: tachycardic GI: Inspection: No distended Palpation (GI): Soft to palpation Neuro: General: patient oriented x3, moves all extremities and CN's II-XI intact bilaterally Extrem: General: Yes no pedal edema Objective Data Active Medications Acetaminophen (Acetaminophen 325 Mg Tablet) 650 mg PO Q6H PRN PRN Reason: Pain, Mild (Pain Scale 1-3) Dextrose (Dextrose 50 % 25 Gm/50 Ml Syringe) 25 gm IVPUSH Q15M PRN; Protocol PRN Reason: per Hypoglycemia Standing Ord. Enoxaparin Sodium (Enoxaparin Sodium 40 Mg/0.4 Ml Syringe) 40 mg SUBCUT Q24H [facility] Last Admin: 06/21/23 21:48 Dose: 40 mg Documented By: ELIANE Glucose (Glucose Gel 15 Gm Gel..Gram.) 15 gm PO Q15M PRN; Protocol PRN Reason: per Hypoglycemia Standing Ord. Lactated Ringer's (Lr) 1,000 mls @ 100 mls/hr IVCONT .Q10H [facility] Last Infusion: 06/22/23 15:38 Dose: 100 mls/hr Documented By: ANTWAN Insulin Glargine (Insulin Glargine,Hum.Rec.Anlog 100 Unit/Ml 10 Ml Vial) 15 unit SUBCUT BEDTIME [facility] Insulin Human Lispro (Insulin Lispro 100 Unit/Ml 3 Ml Vial) 0 unit SUBCUT QIDACHS [facility]; Protocol Melatonin (Melatonin 3 Mg Tablet) 6 mg PO BEDTIME PRN PRN Reason: Insomnia Morphine Sulfate (Morphine Sulfate 2 Mg/Ml Cartridge) 2 mg IVPUSH Q4H PRN; Protocol PRN Reason: Pain, Severe (Pain Scale 7-10) Last Admin: 06/22/23 04:05 Dose: 2 mg Documented By: ELIANE Ondansetron HCl (Ondansetron Hcl 4 Mg/2 Ml Vial) 4 mg IVPUSH Q8H PRN PRN Reason: Nausea and Vomiting Last Admin: 06/22/23 13:51 Dose: 4 mg Documented By: JOÃO Sodium Chloride (0.9 % Sodium Chloride Flush 3 Ml Syringe) [facility] Last Admin: 06/22/23 15:38 Dose: Not Given Documented By: ANTWAN Non-Admin Reason: IV Running Labs 06/22/23 06:05 06/22/23 06:05 Labs: Laboratory Results - last 24 hr 06/21/23 06/21/23 06/21/23 15:41 15:47 16:46 MCV MCH MCHC RDW Plt Count MPV Immature Gran % (Auto) Neut % (Auto) Lymph % (Auto) [place] % (Auto) Eos % (Auto) Baso % (Auto) Lymph # (Auto) [place] # (Auto) Eos # (Auto) Baso # (Auto) Abs Immat Gran (auto) Absolute Neuts (auto) Absolute Nucleated RBC Nucleated RBC % (auto) VBG pH VBG pCO2 VBG pO2 VBG HCO3 VBG O2 Saturation VBG Base Excess Anion Gap 26 H Estim Creat Clear Calc 58.8 Estimated GFR 43 POC Glucose 300 H Random Glucose 350 H* Lactic Acid 1.2 Calcium 9.9 Total Bilirubin 0.5 AST 15 ALT 33 Alkaline Phosphatase 95 Total Protein 7.5 Albumin 4.3 Lipase 7 L Beta-Hydroxybutyrate 6.64 H Urine Color Yellow Urine Appearance Clear Urine pH 5.0 Ur Specific [place] >= 1.030 H Urine Protein Trace Urine Glucose (UA) >=1000 H Urine Ketones 80 Urine Blood Negative Urine Nitrite Negative Ur Leukocyte Esterase Negative Urine RBC 0-2 Urine WBC 0-5 Ur Squamous Epith Cells 0-2 Urine Bacteria None Seen Hyaline Casts 3-5 Stool Occult Blood COVID-19 (MYA) COVID-19 Clin Com Influenza Type A (JUDE) Influenza Type B (JUDE) Influenza A & B Note 06/21/23 06/21/23 06/21/23 16:50 17:34 17:49 MCV MCH MCHC RDW Plt Count MPV Immature Gran % (Auto) Neut % (Auto) Lymph % (Auto) [place] % (Auto) Eos % (Auto) Baso % (Auto) Lymph # (Auto) [place] # (Auto) Eos # (Auto) Baso # (Auto) Abs Immat Gran (auto) Absolute Neuts (auto) Absolute Nucleated RBC Nucleated RBC % (auto) VBG pH 7.45 H VBG pCO2 41 VBG pO2 45 VBG HCO3 28 H VBG O2 Saturation 70.0 VBG Base Excess 4.6 Anion Gap Estim Creat Clear Calc Estimated GFR POC Glucose 326 H Random Glucose Lactic Acid Calcium Total Bilirubin AST ALT Alkaline Phosphatase Total Protein Albumin Lipase Beta-Hydroxybutyrate Urine Color Urine Appearance Urine pH Ur Specific [place] Urine Protein Urine Glucose (UA) Urine Ketones Urine Blood Urine Nitrite Ur Leukocyte Esterase Urine RBC Urine WBC Ur Squamous Epith Cells Urine Bacteria Hyaline Casts Stool Occult Blood COVID-19 (MYA) Negative COVID-19 Clin Com See Note Influenza Type A (JUDE) Negative Influenza Type B (JUDE) Negative Influenza A & B Note See Note 06/21/23 06/21/23 06/21/23 19:14 20:07 21:19 MCV MCH MCHC RDW Plt Count MPV Immature Gran % (Auto) Neut % (Auto) Lymph % (Auto) [place] % (Auto) Eos % (Auto) Baso % (Auto) Lymph # (Auto) [place] # (Auto) Eos # (Auto) Baso # (Auto) Abs Immat Gran (auto) Absolute Neuts (auto) Absolute Nucleated RBC Nucleated RBC % (auto) VBG pH VBG pCO2 VBG pO2 VBG HCO3 VBG O2 Saturation VBG Base Excess Anion Gap Estim Creat Clear Calc Estimated GFR POC Glucose 290 H 462 H* Random Glucose Lactic Acid Calcium Total Bilirubin AST ALT Alkaline Phosphatase Total Protein Albumin Lipase Beta-Hydroxybutyrate Urine Color Urine Appearance Urine pH Ur Specific [place] Urine Protein Urine Glucose (UA) Urine Ketones Urine Blood Urine Nitrite Ur Leukocyte Esterase Urine RBC Urine WBC Ur Squamous Epith Cells Urine Bacteria Hyaline Casts Stool Occult Blood NEGATIVE COVID-19 (MYA) COVID-19 Clin Com Influenza Type A (JUDE) Influenza Type B (JUDE) Influenza A & B Note 06/22/23 06/22/23 06/22/23 01:58 03:25 06:05 MCV 80.2 MCH 26.2 L MCHC 32.7 RDW 14.8 Plt Count 407 H MPV 9.2 L Immature Gran % (Auto) 0.5 H Neut % (Auto) 74.9 H Lymph % (Auto) 14.2 L [place] % (Auto) 10.0 Eos % (Auto) 0.1 Baso % (Auto) 0.3 Lymph # (Auto) 2.1 [place] # (Auto) 1.5 H Eos # (Auto) 0.0 Baso # (Auto) 0.0 Abs Immat Gran (auto) 0.07 H Absolute Neuts (auto) 11.1 H Absolute Nucleated RBC 0.000 Nucleated RBC % (auto) 0.0 VBG pH VBG pCO2 VBG pO2 VBG HCO3 VBG O2 Saturation VBG Base Excess Anion Gap 15 Estim Creat Clear Calc 81.2 Estimated GFR > 60 POC Glucose 243 H 227 H Random Glucose 230 H Lactic Acid Calcium 8.8 D Total Bilirubin AST ALT Alkaline Phosphatase Total Protein Albumin Lipase Beta-Hydroxybutyrate Urine Color Urine Appearance Urine pH Ur Specific [place] Urine Protein Urine Glucose (UA) Urine Ketones Urine Blood Urine Nitrite Ur Leukocyte Esterase Urine RBC Urine WBC Ur Squamous Epith Cells Urine Bacteria Hyaline Casts Stool Occult Blood COVID-19 (MYA) COVID-19 Clin Com Influenza Type A (JUDE) Influenza Type B (JUDE) Influenza A & B Note 06/22/23 06/22/23 06/22/23 07:33 13:22 16:12 MCV MCH MCHC RDW Plt Count MPV Immature Gran % (Auto) Neut % (Auto) Lymph % (Auto) [place] % (Auto) Eos % (Auto) Baso % (Auto) Lymph # (Auto) [place] # (Auto) Eos # (Auto) Baso # (Auto) Abs Immat Gran (auto) Absolute Neuts (auto) Absolute Nucleated RBC Nucleated RBC % (auto) VBG pH VBG pCO2 VBG pO2 VBG HCO3 VBG O2 Saturation VBG Base Excess Anion Gap Estim Creat Clear Calc Estimated GFR POC Glucose 240 H 279 H 281 H Random Glucose Lactic Acid Calcium Total Bilirubin AST ALT Alkaline Phosphatase Total Protein Albumin Lipase Beta-Hydroxybutyrate Urine Color Urine Appearance Urine pH Ur Specific [place] Urine Protein Urine Glucose (UA) Urine Ketones Urine Blood Urine Nitrite Ur Leukocyte Esterase Urine RBC Urine WBC Ur Squamous Epith Cells Urine Bacteria Hyaline Casts Stool Occult Blood COVID-19 (MYA) COVID-19 Clin Com Influenza Type A (JUDE) Influenza Type B (JUDE) Influenza A & B Note Assessment and Plan (1) Intractable nausea and vomiting: Status: Acute Plan This is a 33-year-old male with pertinent history of insulin-dependent diabetes mellitus who presents to the emergency department for evaluation of nausea/vomiting/diarrhea. #. Intractable nausea and vomiting: improving Imaging concerning for ?SMA syndrome seen by General surgery- no surgical intervention anticiapted at this time seen by GI, plan for UGI #. Diarrhea: improved Patient states he has been having dark stools Stool occult blood negative in the ER GI panel pending GI following #. Type 1 insulin-dependent diabetes mellitus with hyperglycemia: continue lower dose of baseline insulin and follow sliding scale advance to clears DVT prophylaxis: [place] attending - dr. cuellar patient requires ongoing hospital stay for close monitoring of symptoms, optimization of blood glucose (as above), which is not possible in a lesser acute setting as well as specialist evaluation and further imaging Quality Stroke Does the patient have a stroke diagnosis?: No VTE Prior VTE?: No VTE Risk Level:: Medical - moderate - high VTE Device Contraindication: Treatment Not Indicated VTE Drug Contraindication: N/A - Med Ordered
[2023-06-22 19:12] VITALS: BP 137/94; PULSE 95; RESP 18; TEMP 36.6; O2SAT 100
[2023-06-22 21:12] LABS: Glucose, Whole Blood 306 mg/dL (60-115)
[2023-06-22] MEDS: Insulin Glargine,Hum.rec.anlog 100 UNIT/ML 10 ML VIAL 15 UNIT SUBCUT (21:23)
[2023-06-22] MEDS: Enoxaparin Sodium 40 MG/0.4 ML SYRINGE SUBCUT (21:24)
[2023-06-23 03:27] VITALS: BP 120/78; PULSE 72; RESP 18; TEMP 36.5; O2SAT 97
[2023-06-23] MEDS: Lactated Ringers 1,000 ML 100 ML IVCONT (04:15)
[2023-06-23 06:09] LABS: Hematocrit 28.5 % (42.0-52.0); Hemoglobin 8.9 g/dl (14.0-18.0); Mean Corpuscular HGB Conc 31.2 g/dl (31.0-36.0); Mean Corpuscular Hemoglobin 25.8 pg (27.0-33.0); Mean Corpuscular Volume 82.6 fL (80.0-98.0); Mean Platelet Volume 9.4 fL (9.4-12.4); Platelet Count 309 X10*3/uL (160-400); Red Blood Count 3.45 X10*6/uL (4.60-5.80); Red Cell Distribution Width 14.6 % (11.0-16.0); White Blood Count 6.3 X10*3/uL (4.8-10.8)
[2023-06-23 07:21] LABS: Glucose, Whole Blood 80 mg/dL (60-115)
[2023-06-23 07:23] VITALS: BP 151/99; PULSE 86; RESP 16; TEMP 36.9; O2SAT 99
[2023-06-23 07:51] LABS: Glucose, Whole Blood 97 mg/dL (60-115)
[2023-06-23 10:57] LABS: Glucose, Whole Blood 230 mg/dL (60-115)
[2023-06-23] MEDS: Insulin Lispro 100 UNIT/ML 3 ML VIAL SUBCUT (11:51)
--- NOTE | 2023-06-23 12:59 | P.DS_ITS ---
DS: Providers Provider Date of Service: 06/23/23 Date of admission: 06/21/23 21:04 Date of discharge: 06/23/23 Primary care physician: None Physician Consults: 06/21/23 21:59 Consult to Gastroenterology Routine Consulting Provider: Francesco Torre Reason for consultation: Dark stools Consult to General Surgery Routine Consulting Provider: [facility] [place] General Surgeons Reason for consultation: ?sma syndrome Attending physician on discharge: Jan Valera Discharging clinician: Yeni Luis DS: Diagnosis Discharge Diagnosis (1) Nausea vomiting and diarrhea: Status: Acute DS: Summary Hospital Course Hospital Course: From H&P on day of admission This is a 33-year-old male with pertinent history of insulin-dependent diabetes mellitus who presents to the emergency department for evaluation of nausea/vomiting/diarrhea. Patient states that he is compliant with his home insulin. He has a chronic history of nausea vomiting that has been ongoing for years. He states that 3 days prior to presentation, he has been having persistent nausea of with dark colored emesis and dark stools. Patient is trying to get an appointment with outpatient GI but has not been able to get it due to insurance issues. Also has associated diffuse abdominal discomfort, constant, nonradiating and without any relieving factors. Admits chills but no fever. Unable to keep anything down and unable to tolerate p.o. intake. States his sugars have been high at home but he takes his home insulin. No chest discomfort, palpitations, shortness of breath, changes in urinary habits. In the emergency department, blood glucose found to be elevated. CT imaging concerning for SMA syndrome and general surgery was consulted. Intractable nausea and vomiting: improving Imaging concerning for ?SMA syndrome. seen by General surgery- no surgical intervention necessary. Follow up Upper GI series was negative for SMA syndrome. It did show some gastroesophageal reflux and esophageal dysmotility. Patient denies difficulty swallowing. GI rec PPI. nausea, vomiting, diarrhea and abdominal pain resolved and patient is currently tolerating a full diabetic diet. patient also was reporting rectal bleeding, now resolved. Seen by GI rec outpatient EGD/colonoscopy and GES. H/H drifted down somewhat from baseline but has remained stable. No active bleeding, outpatient follow up as above. Time Attestation Discharge coordination time: Greater than 30 minutes Quality: Safe Use of Opioids Does Pt have an Active Cancer Diagnosis on the Problem List?: No Quality: Stroke Does the patient have a stroke diagnosis?: No Physical Exam Vital Signs: Vital Signs: Last Vital Signs Temp 98.5 F 06/23/23 07:23 Pulse 86 06/23/23 07:23 Resp 16 06/23/23 07:23 BP 151/99 H 06/23/23 07:23 Pulse Ox 99 06/23/23 07:23 O2 Del Method Room Air 06/23/23 07:23 BMI result Body Mass Index 21.7 Const: General: cooperative, comfortable, no acute distress, alert and awake Nutritional Appearance: average body habitus Orientation/consciousness: patient oriented x3 Resp: Effort & Inspection: normal respiratory effort, able to speak in complete sentences, no respiratory distress and no use of accessory muscles Cardio: Rate: tachycardic GI: Inspection: No distended Palpation (GI): Soft to palpation Neuro: General: patient oriented x3, moves all extremities and CN's II-XI intact bilaterally Extrem: General: Yes no pedal edema DS: Data Data Completed and Pending Labs on day of discharge: Laboratory Results - last 24 hr 06/22/23 06/22/23 06/22/23 13:22 16:12 21:08 WBC RBC Hgb Hct MCV MCH MCHC RDW Plt Count MPV Absolute Nucleated RBC Nucleated RBC % (auto) POC Glucose 279 H 281 H 306 H 06/23/23 06/23/23 06/23/23 05:52 07:15 07:47 WBC 6.3 RBC 3.45 L Hgb 8.9 L Hct 28.5 L MCV 82.6 MCH 25.8 L MCHC 31.2 RDW 14.6 Plt Count 309 MPV 9.4 Absolute Nucleated RBC 0.000 Nucleated RBC % (auto) 0.0 POC Glucose 80 97 06/23/23 10:51 WBC RBC Hgb Hct MCV MCH MCHC RDW Plt Count MPV Absolute Nucleated RBC Nucleated RBC % (auto) POC Glucose 230 H Preliminary micro results at discharge 06/21/23 17:03 Blood Culture - Preliminary Blood - Venous No growth after 24 hours. 06/21/23 16:46 Blood Culture - Preliminary Blood - Venous No growth after 24 hours. Discharge Plan Discharge Anticipated Discharge Date/Time: 06/23/23 13:54 Patient Disposition: Home, Self-Care Discharge Diagnosis: Abdominal pain with nausea and vomiting rectal bleeding Referrals: Francesco Torre MD [Physician] - 1 Week Physician,None [Primary Care Provider] - 1 Week Discharge Medications: New omeprazole 20 mg capsule,delayed release(DR/EC) 20 mg PO DAILY 30 Days Qty: 30 0RF Continued insulin glargine 100 unit/mL Solution 30 unit SUBCUT QPM insulin lispro 100 unit/mL Insulin Pen 1 sliding scale dose SUBCUT USEASDIRECTD Protocol: Insulin Correction Scale Less than or equal to 110 ---- Give (units): 0 111 to 150 Give (units): 0 151 to 200 Give (units): 2 201 to 250 Give (units): 4 251 to 300 Give (units): 6 301 to 350 Give (units): 8 Greater than 350 Give (units): 10 Call MD if Blood Glucose > : 350 Discharge Orders: Discharge Order (Routine); Ordered 06/23/23 Ordered By: Yeni Luis Activity on Discharge: As tolerated Stand Alone Forms: Patient Portal Discharge page Care Plan Goals: see below Health Concerns: abdominal pain, nausea, vomiting; rectal bleeding Plan of Treatment: call to schedule a follow up appointment with GI to schedule likely EGD, colonoscopy and gastric emptying study take omeprazole as prescribed You've had a few high blood pressure readings, recommend outpatient follow up Assessment: see discharge summary
[2023-06-23 13:41] LABS: Hematocrit 29.6 % (42.0-52.0); Hemoglobin 9.2 g/dl (14.0-18.0)
--- NOTE | 2023-06-23 13:59 | MHC.CM.PN ---
Addendum entered by Dawn Diallo 06/23/23 15:00: PT UNABLE TO ARRANGE TRANSPORT LYFT REQUESTED RIDE COMPLETED AT 1448 HOURS Original Note: PT TO DC HOME TODAY WITH NO SERVICES VIA SELF-ARRANGED TRANSPORT
== END 2023-06-23 15:08 | disposition home or self-care (01) | DRG 249 ==
LOC: HO.ED 17:04 → HO.EDOVER 21:17 → HO.S3 06-22 10:48
PROVIDERS: Nurse Practitioner Family; Admitting Provider Student in an Organized Health Care Education/Training Program; Emergency Provider Internal Medicine; Visit Provider Physician Assistant Medical
DX: R11.2 Nausea with vomiting, unspecified (principal); E10.65 Type 1 diabetes mellitus with hyperglycemia; K21.9 Gastro-esophageal reflux disease without esophagitis; R19.5 Other fecal abnormalities; K22.4 Dyskinesia of esophagus; Z20.822 Contact with and (suspected) exposure to COVID-19
CPT/HCPCS: 36415; 74176; 74240; 80048; 80053; 81001; 81003; 82010; 82272; 82803; 82947; 83605; 83690; 85014; 85018; 85025; 85027; 87040; 87502; 87635; 93005; 99221; 99285; J1650; J2270; J2405; J2543; J7120

== ENCOUNTER 2023-06-21 21:04 | Outpatient (BNV) | payer OTHER, SELFPAY | END 2023-06-22 15:10 | PROVIDERS: Admitting Provider Student in an Organized Health Care Education/Training Program; Emergency Provider Internal Medicine; Visit Provider Radiology Diagnostic Radiology | DX: K55.1 Chronic vascular disorders of intestine (principal); R10.9 Unspecified abdominal pain | CPT/HCPCS: 74246 ==

== ENCOUNTER → 2023-06-21 21:04 | Outpatient (BNV) | payer OTHER, SELFPAY | PROVIDERS: Admitting Provider Student in an Organized Health Care Education/Training Program; Emergency Provider Internal Medicine; Visit Provider Surgery | DX: R11.2 Nausea with vomiting, unspecified (principal) | CPT/HCPCS: 99222 ==

== ENCOUNTER → 2023-06-21 21:04 | Outpatient (BNV) | payer OTHER, SELFPAY | PROVIDERS: Admitting Provider Student in an Organized Health Care Education/Training Program; Emergency Provider Internal Medicine; Visit Provider Student in an Organized Health Care Education/Training Program | DX: E10.65 Type 1 diabetes mellitus with hyperglycemia (principal); R11.2 Nausea with vomiting, unspecified; R19.7 Diarrhea, unspecified | CPT/HCPCS: 99222; 99232; 99239 ==

== ENCOUNTER → 2023-06-21 21:04 | Outpatient (BNV) | payer OTHER, SELFPAY | PROVIDERS: Admitting Provider Student in an Organized Health Care Education/Training Program; Emergency Provider Internal Medicine; Visit Provider Internal Medicine Gastroenterology | DX: R11.2 Nausea with vomiting, unspecified (principal); R19.7 Diarrhea, unspecified | CPT/HCPCS: 99499 ==

== ENCOUNTER 2023-09-19 11:58 | Inpatient (IN) | payer OTHER, SELFPAY ==
[2023-09-19 12:33] VITALS: BP 153/105; PULSE 119; RESP 18; TEMP 36.1; O2SAT 100; BMI 21.9
--- NOTE | 2023-09-19 12:37 | ED_ITS ---
HPI - General Adult General Chief complaint: Nausea/Vomiting/Diarrhea Stated complaint: Vomiting Type I Diabetic Time Seen by Provider: 09/19/23 16:43 Source: patient and old records reviewed Mode of arrival: ambulatory Limitations: no limitations History of Present Illness HPI narrative: 33 yo male with PMH of IDDM bouts of DKA and cyclical vomiting syndrome vs gastroparesis and THC use he has had n/v and high sugars for two days. He thinks he is in DKA. Hx of similar episodes in past MD complaint: high sugars, n/v Onset (ago): day(s) (2) Location: abdomen Radiation: non-radiation Severity: moderate Quality: aching and dull Pain Consistency: intermittent Relieving factors: none Exacerbating factors: eating Associated symptoms: loss of appetite, malaise, nausea/vomiting and weakness Treatments prior to arrival: other (no insulin today) Related Data Home Medications Medication Instructions Recorded Confirmed insulin glargine 100 unit/mL 30 unit subcut QPM 02/26/23 06/21/23 subcutaneous solution insulin lispro 100 unit/mL 1 sliding scale dose subcut 02/26/23 06/21/23 subcutaneous pen USEASDIRECTD Previous Rx's Medication Instructions Recorded omeprazole 20 mg capsule,delayed 20 mg PO DAILY 30 days #30 caps 06/23/23 release Allergies Allergy/AdvReac Type Severity Reaction Status Date / Time No Known Allergies Allergy Verified 09/19/23 12:33 Review of Systems 2 Review of Systems: Constitutional : No Weight loss, No Fever, No Chills ENT/Mouth : No sore throat, No Rhinorrhea Eyes: No Swelling, No Redness Cardiovascular : No Chest Pain, No SOB, NoEdema Respiratory : No Cough, No Sputum, No Wheezing Gastrointestinal : Positive Nausea, Positive Vomiting, no Diarrhea, positive abdominal Pain, No Hematochezia, No Melena Genitourinary : No Dysuria, No Urinary Frequency, No Hematuria, No Urgency Musculoskeletal : No joint pain, No Myalgias, No Joint Swelling Skin : No Skin Lesions, No rash Neuro : No Weakness, No Numbness, No Dizziness, No Headache Psych : No Anxiety/Panic, No Depression Heme/Lymph: No Bruising, No Lymphadenopathy Endocrine : pos Polyuria, pos Polydipsia All other systems reviewed and are negative. [facility] Past Medical History Attestation statement: The following information was validated with the patient. Source: old records reviewed Medical History Type 1 diabetes mellitus Gastroparesis Social History Social History Household Members: None Housing: House Do you presently have visiting nurse or other home services: No Alcohol intake: current Alcohol intake frequency: holidays/special occasions only Patient Tobacco Use Status: Never used Tobacco Substance Use Type: Marijuana Advance Directives: Yes Advance Directives on File: Yes Advance Directives Date on File: 06/22/23 service: No Physical Exam ED Vital Signs: Vital Signs - 24 hr 09/19/23 12:33 09/19/23 17:37 09/19/23 20:00 Temperature 96.9 F 98.7 F 98.2 F Pulse Rate 119 H 104 H 116 H Respiratory Rate 18 16 18 Blood Pressure 153/105 H 161/99 H 171/89 H Pulse Oximetry 100 97 97 Oxygen Delivery Method Room Air Room Air Room Air BMI result Body Mass Index 21.9 Appearance: Alert. Oriented X3. No acute distress. Eyes: Pupils equal, round and reactive to light. ENT: Pharynx dry MM Neck: Normal inspection. Neck supple. CVS: Normal heart rate and rhythm. Pulses normal. Respiratory: No respiratory distress. Breath sounds normal. Abdomen: Soft and non-tender. Skin: Skin warm and dry. pale skin color. Normal skin turgor. Extremities: No lower extremity edema. No calf ttp Neuro: Oriented X 3. No motor deficit. No sensory deficit. Course Course Course Narrative: Type 1 diabetic complains of vomiting for past 24 hours of everything he eats with some body aches Labs are ordered This is rapid medical exam done in triage pending full evaluation and dispo by ER provider Medications Administered Generic Name Dose Route Start Last Admin Trade Name Freq PRN Reason Stop Dose Admin Insulin Human Regular 100 unit in 100 mls @ 7 mls/hr 09/19/23 16:45 09/19/23 20:12 Myxredlin IVCONT 0.5 unit/hr .[id number] PARKER 0.5 mls/hr Titration Protocol 7 UNIT/HR Discontinued Medications Generic Name Dose Route Start Last Admin Trade Name Freq PRN Reason Stop Dose Admin Diphenhydramine HCl 25 mg 09/19/23 16:44 09/19/23 17:05 Diphenhydramine Hcl 50 Mg/Ml Vial IVPUSH 09/19/23 16:45 25 mg ONCE ONE Administration Lactated Ringer's 1,000 mls @ 999 mls/hr 09/19/23 16:45 09/19/23 18:30 Lr IV 09/19/23 17:45 Infused .Q1H1M PARKER Infusion Lactated Ringer's 1,000 mls @ 999 mls/hr 09/19/23 16:45 09/19/23 18:30 Lr IV 09/19/23 17:45 Infused .Q1H1M PARKER Infusion Lactated Ringer's 1,000 mls @ 999 mls/hr 09/19/23 16:45 09/19/23 19:38 Lr IV 09/19/23 17:45 Infused .Q1H1M PARKER Infusion Metoclopramide HCl 10 mg 09/19/23 16:44 09/19/23 17:05 Metoclopramide Hcl 10 Mg/2 Ml Vial IVPUSH 09/19/23 16:45 10 mg ONCE ONE Administration Medical Decision Making Medical Decision Making MDM Narrative: 33 yo male with PMH of IDDM, DKA, gastroparesis, THC use here with c/o upper abdominal pain and n/v at this time will need basic labs, IVF x 3L given CRISTI, given sugars in 600s will start on IV insulin drip does have gap - anticipate given levels we can correct in ED over the next few hours - VBG ph reassuring, lactic reassuring. Planned admit pending repeat BMP Differential Diagnosis Differential Diagnoses: The differential diagnosis associated with the presentation includes DKA, dehydration, gastroparesis Admission/Observation Consideration of admission/observation: Escalation of care including admission/observation considered DKA gap closed but CRISTI still present will need admission for further care and monitoring Consult Healthcare Provider Management of the patient was discussed with: Hospitalist (will admit) Lab Data [facility] Lab Attestation statement: I reviewed the patient's lab results. 09/19/23 15:18 09/19/23 20:33 Labs: Lab Results 09/19/23 09/19/23 09/19/23 Range/Units 15:18 16:58 17:04 WBC 15.0 H (4.8-10.8) X10*3/uL RBC 4.30 L D (4.60-5.80) X10*6/uL Hgb 10.4 L (14.0-18.0) g/dl Hct 34.4 L (42.0-52.0) % MCV 80.0 (80.0-98.0) fL MCH 24.2 L (27.0-33.0) pg MCHC 30.2 L (31.0-36.0) g/dl RDW 15.8 (11.0-16.0) % Plt Count 478 H D (160-400) X10*3/uL MPV 9.7 (9.4-12.4) fL Immature Gran % (Auto) 0.5 H (0.0-0.4) % Neut % (Auto) 91.7 H (45-73) % Lymph % (Auto) 4.9 L (20-40) % Aiken % (Auto) 2.8 (2-11) % Eos % (Auto) 0.0 (0-4) % Baso % (Auto) 0.1 (0-2) % Lymph # (Auto) 0.7 L (1.2-4.9) X10*3/uL Aiken # (Auto) 0.4 (0.1-1.2) X10*3/uL Eos # (Auto) 0.0 (0.0-0.4) X10*3/uL Baso # (Auto) 0.0 (0.0-0.2) X10*3/uL Abs Immat Gran (auto) 0.08 H (0.00-0.03) X10*3/uL Absolute Neuts (auto) 13.7 H (2.0-8.3) x10*3/uL Absolute Nucleated RBC 0.000 (0.0-0.012) X10*3/uL Nucleated RBC % (auto) 0.0 (0.0-0.2) /100WBC Smear Tech's Comments VERIFIED VBG pH (7.32-7.43) VBG pCO2 mmHg VBG pO2 mmHg VBG HCO3 (22-26) mmol/L VBG O2 Saturation % VBG Base Excess mmol/L Sodium 139 (135-145) mmol/L Potassium 4.8 (3.3-5.1) mmol/L Chloride 96 (96-108) mmol/L Carbon Dioxide 24 (22-29) mmol/L Anion Gap 24 H (12-20) BUN 39 H (9-16) mg/dL Creatinine 1.95 H (0.5-1.4) mg/dL Estim Creat Clear Calc 56.3 Estimated GFR 40 POC Glucose 588 H* (60-115) mg/dL Random Glucose 627 H* (60-115) mg/dL Lactic Acid 1.7 (0.5-2.0) mmol/L Calcium 9.5 D (8.4-10.2) mg/dL Total Bilirubin 0.4 (0.0-1.0) mg/dL Direct Bilirubin 0.2 (0.0-0.5) mg/dL AST 16 (5-37) U/L ALT 37 (0-40) U/L Alkaline Phosphatase 119 H (39-117) U/L Total Protein 7.9 (6.5-8.0) g/dL Albumin 4.3 (3.5-5.0) g/dL Lipase 14 (8-78) U/L Beta-Hydroxybutyrate 6.53 H (0.02-0.27) mmol/L Urine Color Urine Appearance Urine pH (5.0-9.0) Ur Specific [place] (1.005-1.025) Urine Protein (Neg-Trace) mg/dL Urine Glucose (UA) (Negative) mg/dL Urine Ketones (Negative) mg/dL Urine Blood (Negative) Urine Nitrite (Negative) Ur Leukocyte Esterase (Negative) Urine RBC (0-2) /HPF Urine WBC (0-5) /HPF Ur Squamous Epith Cells (0-2) /HPF Urine Bacteria (None Seen) Hyaline Casts (0-2) /LPF COVID-19 (MYA) Negative (Negative) COVID-19 Clin Com See Note Influenza Type A (JUDE) Negative (Negative) Influenza Type B (JUDE) Negative (Negative) Influenza A & B Note See Note 09/19/23 09/19/23 09/19/23 Range/Units 17:05 18:15 19:14 WBC (4.8-10.8) X10*3/uL RBC (4.60-5.80) X10*6/uL Hgb (14.0-18.0) g/dl Hct (42.0-52.0) % MCV (80.0-98.0) fL MCH (27.0-33.0) pg MCHC (31.0-36.0) g/dl RDW (11.0-16.0) % Plt Count (160-400) X10*3/uL MPV (9.4-12.4) fL Immature Gran % (Auto) (0.0-0.4) % Neut % (Auto) (45-73) % Lymph % (Auto) (20-40) % Aiken % (Auto) (2-11) % Eos % (Auto) (0-4) % Baso % (Auto) (0-2) % Lymph # (Auto) (1.2-4.9) X10*3/uL Aiken # (Auto) (0.1-1.2) X10*3/uL Eos # (Auto) (0.0-0.4) X10*3/uL Baso # (Auto) (0.0-0.2) X10*3/uL Abs Immat Gran (auto) (0.00-0.03) X10*3/uL Absolute Neuts (auto) (2.0-8.3) x10*3/uL Absolute Nucleated RBC (0.0-0.012) X10*3/uL Nucleated RBC % (auto) (0.0-0.2) /100WBC Smear Tech's Comments VBG pH 7.40 (7.32-7.43) VBG pCO2 32 mmHg VBG pO2 57 mmHg VBG HCO3 20 L (22-26) mmol/L VBG O2 Saturation 83.0 % VBG Base Excess -3.7 mmol/L Sodium (135-145) mmol/L Potassium (3.3-5.1) mmol/L Chloride (96-108) mmol/L Carbon Dioxide (22-29) mmol/L Anion Gap (12-20) BUN (9-16) mg/dL Creatinine (0.5-1.4) mg/dL Estim Creat Clear Calc Estimated GFR POC Glucose 492 H* 324 H (60-115) mg/dL Random Glucose (60-115) mg/dL Lactic Acid (0.5-2.0) mmol/L Calcium (8.4-10.2) mg/dL Total Bilirubin (0.0-1.0) mg/dL Direct Bilirubin (0.0-0.5) mg/dL AST (5-37) U/L ALT (0-40) U/L Alkaline Phosphatase (39-117) U/L Total Protein (6.5-8.0) g/dL Albumin (3.5-5.0) g/dL Lipase (8-78) U/L Beta-Hydroxybutyrate (0.02-0.27) mmol/L Urine Color Urine Appearance Urine pH (5.0-9.0) Ur Specific [place] (1.005-1.025) Urine Protein (Neg-Trace) mg/dL Urine Glucose (UA) (Negative) mg/dL Urine Ketones (Negative) mg/dL Urine Blood (Negative) Urine Nitrite (Negative) Ur Leukocyte Esterase (Negative) Urine RBC (0-2) /HPF Urine WBC (0-5) /HPF Ur Squamous Epith Cells (0-2) /HPF Urine Bacteria (None Seen) Hyaline Casts (0-2) /LPF COVID-19 (MYA) (Negative) COVID-19 Clin Com Influenza Type A (JUDE) (Negative) Influenza Type B (JUDE) (Negative) Influenza A & B Note 09/19/23 09/19/23 Range/Units 19:38 20:33 WBC (4.8-10.8) X10*3/uL RBC (4.60-5.80) X10*6/uL Hgb (14.0-18.0) g/dl Hct (42.0-52.0) % MCV (80.0-98.0) fL MCH (27.0-33.0) pg MCHC (31.0-36.0) g/dl RDW (11.0-16.0) % Plt Count (160-400) X10*3/uL MPV (9.4-12.4) fL Immature Gran % (Auto) (0.0-0.4) % Neut % (Auto) (45-73) % Lymph % (Auto) (20-40) % Aiken % (Auto) (2-11) % Eos % (Auto) (0-4) % Baso % (Auto) (0-2) % Lymph # (Auto) (1.2-4.9) X10*3/uL Aiken # (Auto) (0.1-1.2) X10*3/uL Eos # (Auto) (0.0-0.4) X10*3/uL Baso # (Auto) (0.0-0.2) X10*3/uL Abs Immat Gran (auto) (0.00-0.03) X10*3/uL Absolute Neuts (auto) (2.0-8.3) x10*3/uL Absolute Nucleated RBC (0.0-0.012) X10*3/uL Nucleated RBC % (auto) (0.0-0.2) /100WBC Smear Tech's Comments VBG pH (7.32-7.43) VBG pCO2 mmHg VBG pO2 mmHg VBG HCO3 (22-26) mmol/L VBG O2 Saturation % VBG Base Excess mmol/L Sodium 144 (135-145) mmol/L Potassium 4.1 (3.3-5.1) mmol/L Chloride 104 (96-108) mmol/L Carbon Dioxide 24 (22-29) mmol/L Anion Gap 20 (12-20) BUN 36 H (9-16) mg/dL Creatinine 1.64 H (0.5-1.4) mg/dL Estim Creat Clear Calc 67.0 Estimated GFR 49 POC Glucose (60-115) mg/dL Random Glucose 310 H (60-115) mg/dL Lactic Acid (0.5-2.0) mmol/L Calcium 9.1 (8.4-10.2) mg/dL Total Bilirubin (0.0-1.0) mg/dL Direct Bilirubin (0.0-0.5) mg/dL AST (5-37) U/L ALT (0-40) U/L Alkaline Phosphatase (39-117) U/L Total Protein (6.5-8.0) g/dL Albumin (3.5-5.0) g/dL Lipase (8-78) U/L Beta-Hydroxybutyrate (0.02-0.27) mmol/L Urine Color Yellow Urine Appearance Clear Urine pH 5.0 (5.0-9.0) Ur Specific [place] >= 1.030 H (1.005-1.025) Urine Protein Trace (Neg-Trace) mg/dL Urine Glucose (UA) >=1000 H (Negative) mg/dL Urine Ketones >=160 (Negative) mg/dL Urine Blood Trace H (Negative) Urine Nitrite Negative (Negative) Ur Leukocyte Esterase Negative (Negative) Urine RBC 0-2 (0-2) /HPF Urine WBC 0-5 (0-5) /HPF Ur Squamous Epith Cells 0-2 (0-2) /HPF Urine Bacteria None Seen (None Seen) Hyaline Casts 0-2 (0-2) /LPF COVID-19 (MYA) (Negative) COVID-19 Clin Com Influenza Type A (JUDE) (Negative) Influenza Type B (JUDE) (Negative) Influenza A & B Note External Record Review External record reviewed: Inpatient record Critical Care Time Critical Care Time Critical Care Time: Yes Total Critical Care Time: 60 Attestation: insulin drip, repeat labs, IVF x 3L, review of records I attest to this time spent taking care of the patient Discharge Plan Discharge Clinical Impression: CRISTI (acute kidney injury) DKA (diabetic ketoacidosis) Qualifiers: Diabetes mellitus type: type 1 Diabetes mellitus complication detail: without coma Qualified Code(s): E10.10 - Type 1 diabetes mellitus with ketoacidosis without coma Nausea & vomiting Qualifiers: Vomiting type: unspecified Qualified Code(s): R11.2 - Nausea with vomiting, unspecified Patient Disposition: Admitted As Inpatient Prescriptions: No Action insulin glargine 100 unit/mL Solution 30 unit SUBCUT QPM insulin lispro 100 unit/mL Insulin Pen 1 sliding scale dose SUBCUT USEASDIRECTD Protocol: Insulin Correction Scale Less than or equal to 110 ---- Give (units): 0 111 to 150 Give (units): 0 151 to 200 Give (units): 2 201 to 250 Give (units): 4 251 to 300 Give (units): 6 301 to 350 Give (units): 8 Greater than 350 Give (units): 10 Call MD if Blood Glucose > : 350 omeprazole 20 mg capsule,delayed release(DR/EC) 20 mg PO DAILY 30 Days Qty: 30 0RF
[2023-09-19 15:33] LABS: Basophils Percent Auto 0.1 % (0-2); Hematocrit 34.4 % (42.0-52.0); Hemoglobin 10.4 g/dl (14.0-18.0); Imm Gran Abs Auto 0.08 X10*3/uL (0.00-0.03); Imm Gran Pct Auto 0.5 % (0.0-0.4); Lymphocytes Absolute Auto 0.7 X10*3/uL (1.2-4.9); Lymphocytes Percent Auto 4.9 % (20-40); MANUAL DIFF FLAG SCAN; Mean Corpuscular HGB Conc 30.2 g/dl (31.0-36.0); Mean Corpuscular Hemoglobin 24.2 pg (27.0-33.0); Mean Platelet Volume 9.7 fL (9.4-12.4); Monocytes Absolute Auto 0.4 X10*3/uL (0.1-1.2); Monocytes Percent Auto 2.8 % (2-11); Neutrophils Absolute Auto 13.7 x10*3/uL (2.0-8.3); Neutrophils Percent Auto 91.7 % (45-73); Platelet Count 478 X10*3/uL (160-400); Red Cell Distribution Width 15.8 % (11.0-16.0); SCAN SMEAR FLAG 1
[2023-09-19 15:43] LABS: Alanine Aminotransferase 37 U/L (0-40); Albumin Level 4.3 g/dL (3.5-5.0); Alkaline Phosphatase 119 U/L (39-117); Anion Gap 24 (12-20); Aspartate Amino Transferase 16 U/L (5-37); Beta-Hydroxybutyrate 6.53 mmol/L (0.02-0.27); Bilirubin Direct 0.2 mg/dL (0.0-0.5); Bilirubin Total 0.4 mg/dL (0.0-1.0); Blood Urea Nitrogen 39 mg/dL (9-16); COVID-19 Test Negative (Negative); Calcium 9.5 mg/dL (8.4-10.2); Carbon Dioxide 24 mmol/L (22-29); Chloride 96 mmol/L (96-108); Creatinine Clr Calc Pharmacy 56.3; Estimated Glomerular Filt Rate 40; Glucose Random 627 mg/dL (60-115); IDNOW Serial# 58CA691E; IDNOW Serial# 9DB6401D; Influenza A Negative (Negative); Influenza B2 Negative (Negative); Lipase 14 U/L (8-78); Potassium 4.8 mmol/L (3.3-5.1); Sodium 139 mmol/L (135-145); Total Protein 7.9 g/dL (6.5-8.0)
[2023-09-19 16:14] LABS: SLIDE REVIEW VERIFIED
[2023-09-19 17:03] LABS: Glucose, Whole Blood 588 mg/dL (60-115)
[2023-09-19] MEDS: Lactated Ringers 1,000 ML 999 ML IV ×3 (17:05→18:30)
[2023-09-19] MEDS: Metoclopramide HCl 10 MG/2 ML VIAL IVPUSH (17:05)
[2023-09-19] MEDS: diphenhydrAMINE HCL 50 MG/ML VIAL 25 MG IVPUSH (17:05)
[2023-09-19] MEDS: Insulin Regular/NS 100 UNIT/100 ML PLAST..BAG 7 UNIT IVCONT (17:07)
[2023-09-19 17:12] LABS: VBG Base Excess -3.7 mmol/L; VBG HCO3 20 mmol/L (22-26); VBG pCO2 32 mmHg; VBG pO2 57 mmHg
[2023-09-19 17:12] LABS: Venous Blood Gas Refer to POC result
[2023-09-19 17:24] LABS: Lactic Acid 1.7 mmol/L (0.5-2.0)
[2023-09-19 17:37] VITALS: BP 161/99; PULSE 104; RESP 16; TEMP 37.1; O2SAT 97
[2023-09-19 18:19] LABS: Glucose, Whole Blood 492 mg/dL (60-115)
[2023-09-19 19:17] LABS: Glucose, Whole Blood 324 mg/dL (60-115)
[2023-09-19 19:45] LABS: Appearance Urine Clear; Color Urine Yellow; Glucose Urine UA >=1000 mg/dL (Negative); Leukocyte Esterase Urine Negative (Negative); Nitrite Urine Negative (Negative); Specific Gravity - Urine >= 1.030 (1.005-1.025); UMIC TRIGGER UACC YES; Urine Blood Trace (Negative); Urine Ketones >=160 mg/dL (Negative); Urine Protein Trace mg/dL (Neg-Trace)
[2023-09-19 19:50] LABS: Bacteria Urine None Seen (None Seen); Hyaline Casts Urine 0-2 /LPF (0-2); RBC Urine 0-2 /HPF (0-2); Squamous Epithelial Cell Urine 0-2 /HPF (0-2); WBC Urine 0-5 /HPF (0-5)
[2023-09-19 20:00] VITALS: BP 171/89; PULSE 116; RESP 18; TEMP 36.8; O2SAT 97
--- NOTE | 2023-09-19 20:04 | MHC.EDTECH ---
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
[2023-09-19 20:49] LABS: Anion Gap 20 (12-20); Blood Urea Nitrogen 36 mg/dL (9-16); Calcium 9.1 mg/dL (8.4-10.2); Carbon Dioxide 24 mmol/L (22-29); Chloride 104 mmol/L (96-108); Estimated Glomerular Filt Rate 49; Glucose Random 310 mg/dL (60-115); Potassium 4.1 mmol/L (3.3-5.1); Sodium 144 mmol/L (135-145)
--- NOTE | 2023-09-19 20:53 | PC.NURSE ---
Stopping insulin drip per MD verbal order
--- NOTE | 2023-09-19 20:58 | PHA.MEDREC ---
Pharmacy Consult ? Medication Reconciliation Pharmacy has completed the medication reconciliation. Patient reported he only takes insulin, and reported his doses. Renetta Rivas, NickD
[2023-09-19] MEDS: Insulin Glargine,Hum.rec.anlog 100 UNIT/ML 10 ML VIAL 10 UNIT SUBCUT (21:04)
[2023-09-19] MEDS: Lactated Ringers 1,000 ML 100 ML IVCONT (21:05)
[2023-09-19 21:12] LABS: Glucose, Whole Blood 241 mg/dL (60-115)
[2023-09-19 21:12] LABS: Glucose, Whole Blood 341 mg/dL (60-115)
--- NOTE | 2023-09-19 21:31 | P.HPHOSP_ITS ---
History of Present Illness Date of Service: 09/19/23 Attending physician on admission: Cheri Sosa Chief Complaint: nausea/vomiting, hyperglycemia 33-year-old male with history of type 1 diabetes, gastroparesis presented to the ED earlier today for evaluation of nausea and vomiting ongoing for several days. He denies eating any bad foods or recent illness. No one at home with similar symptoms. Does have history of diabetic ketoacidosis as well as gastroparesis. No fevers or chills. Does have mild epigastric pain. No diarrhea, melena, hematochezia, shortness of breath, lightheadedness, chest pain. He states he did not take any insulin today and fasting glucose was 271 when he woke up this morning but glucose levels have been high in the 400s for the last few days. He has poor outpatient follow-up. 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 He has been getting insulin from his friend but reports compliance with insulin usage. He is unsure of his last hemoglobin A1c. He does smoke cannabis on a regular basis. Denies any other illicit drug use, cigarette smoking, or alcohol use. On arrival, patient tachycardic to 119, hypertensive to 171/89 on admission. There was a leukocytosis of 15.0. Stable normocytic anemia with H/H 10.4/34.4%. Renal function on admission consistent with baseline with creatinine 1.64 though initially elevated at 1.95. Electrolyte levels normal though initially did have anion gap 24 with VBG showing normal pH 7.40, pCO2 32, bicarbonate 20. Initial glucose 627, beta hydroxybutyrate 6.53. Urinalysis with significantly elevated glucose levels, trace protein, elevated specific gravity, and positive ketones. He was started on insulin drip and given bolus lactated Ringer's with closure of anion gap and improvement in creatinine to 1.64. Electrolytes remained normal. He was weaned from insulin drip and given 10 units Lantus. He was also treated with Reglan and Benadryl. Review of Systems 2 Review of Systems: General: No fevers, malaise, unintentional weight loss HEENT: No blurred vision, diplopia. No sore throat, nasal congestion, rhinorrhea, sinus pain, ear pain Cardiovascular: No chest pain, palpitations, or leg edema Respiratory: No shortness of breath, wheezing, cough GI: +abd pain, +n/v. No diarrhea, constipation, melena, hematochezia : No dysuria, hematuria, increased urinary frequency, decreased urinary output MSK: No myalgia, back pain Neuro: No headaches, weakness, paresthesias Skin: No rashes or lesions [facility] Medical History Type 1 diabetes mellitus Gastroparesis Social History Household Members: None Housing: House Do you presently have visiting nurse or other home services: No Alcohol intake: current Alcohol intake frequency: holidays/special occasions only Patient Tobacco Use Status: Never used Tobacco Substance Use Type: Marijuana Advance Directives: Yes Advance Directives on File: Yes Advance Directives Date on File: 06/22/23 service: No Meds Allergies Allergy/AdvReac Type Severity Reaction Status Date / Time No Known Allergies Allergy Verified 09/19/23 12:33 Active Medications: Current Medications Acetaminophen (Acetaminophen 325 Mg Tablet) 650 mg PO Q6H PRN PRN Reason: Pain, Mild (Pain Scale 1-3) Dextrose (Dextrose 50 % 25 Gm/50 Ml Syringe) 25 gm IVPUSH Q15M PRN; Protocol PRN Reason: per Hypoglycemia Standing Ord. Enoxaparin Sodium (Enoxaparin Sodium 40 Mg/0.4 Ml Syringe) 40 mg SUBCUT Q24H [facility] Glucose (Glucose Gel 15 Gm Gel..Gram.) 15 gm PO Q15M PRN; Protocol PRN Reason: per Hypoglycemia Standing Ord. Insulin Human Regular (Myxredlin) 100 unit in 100 mls @ 7 mls/hr IVCONT .[id number] [facility]; Protocol Last Titration: 09/19/23 20:55 Dose: 0 unit/hr, 0 mls/hr Lactated Ringer's (Lr) 1,000 mls @ 100 mls/hr IVCONT .Q10H [facility] Last Admin: 09/19/23 21:05 Dose: 100 mls/hr Insulin Human Lispro (Insulin Lispro 100 Unit/Ml 3 Ml Vial) 0 unit SUBCUT QIDACHS [facility]; Protocol Ondansetron HCl (Ondansetron Hcl 4 Mg/2 Ml Vial) 4 mg IVPUSH Q8H PRN PRN Reason: Nausea and Vomiting Senna (Sennosides 8.6 Mg Tablet) 17.2 mg PO BEDTIME PRN PRN Reason: Constipation Sodium Chloride (0.9 % Sodium Chloride Flush 3 Ml Syringe) [facility] Medications Medication Instructions Recorded Confirmed Last Taken Type insulin glargine 100 unit/mL 30 unit subcut QPM 02/26/23 09/19/23 Unknown History subcutaneous solution insulin lispro 100 unit/mL 1 sliding scale dose subcut 02/26/23 09/19/23 Unknown History subcutaneous pen [id number] Physical Exam 2 Vital Signs and Narrative: Vital Signs: Last Vital Signs Temp 98.2 F 09/19/23 20:00 Pulse 116 H 09/19/23 20:00 Resp 18 09/19/23 20:00 BP 171/89 H 09/19/23 20:00 Pulse Ox 97 09/19/23 20:00 O2 Del Method Room Air 09/19/23 20:00 BMI result Body Mass Index 21.9 Constitutional - Awake and Alert, No apparent distress Eyes - PERRLA, EOMI Cardiovascular - S1S2, RRR, No edema Respiratory - Normal lung expansion, Normal respiratory effort, No respiratory distress, CTA bilaterally Gastrointestinal - mild epigastric ttp, ND; +BS; No rebound or guarding Extremities - no calf tenderness bilaterally, no swelling Skin - Warm/Dry Neurological - Alert & oriented x3 Psychological - Appropriate affect Results Labs 09/19/23 15:18 09/19/23 20:33 Labs: Laboratory Results - last 24 hr 09/19/23 09/19/23 09/19/23 15:18 16:58 17:04 MCV 80.0 MCH 24.2 L MCHC 30.2 L RDW 15.8 Plt Count 478 H D MPV 9.7 Immature Gran % (Auto) 0.5 H Neut % (Auto) 91.7 H Lymph % (Auto) 4.9 L [place] % (Auto) 2.8 Eos % (Auto) 0.0 Baso % (Auto) 0.1 Lymph # (Auto) 0.7 L [place] # (Auto) 0.4 Eos # (Auto) 0.0 Baso # (Auto) 0.0 Abs Immat Gran (auto) 0.08 H Absolute Neuts (auto) 13.7 H Absolute Nucleated RBC 0.000 Nucleated RBC % (auto) 0.0 Smear Tech's Comments VERIFIED VBG pH VBG pCO2 VBG pO2 VBG HCO3 VBG O2 Saturation VBG Base Excess Anion Gap 24 H Estim Creat Clear Calc 56.3 Estimated GFR 40 POC Glucose 588 H* Random Glucose 627 H* Lactic Acid 1.7 Calcium 9.5 D Total Bilirubin 0.4 Direct Bilirubin 0.2 AST 16 ALT 37 Alkaline Phosphatase 119 H Total Protein 7.9 Albumin 4.3 Lipase 14 Beta-Hydroxybutyrate 6.53 H Urine Color Urine Appearance Urine pH Ur Specific [place] Urine Protein Urine Glucose (UA) Urine Ketones Urine Blood Urine Nitrite Ur Leukocyte Esterase Urine RBC Urine WBC Ur Squamous Epith Cells Urine Bacteria Hyaline Casts COVID-19 (MYA) Negative COVID-19 Clin Com See Note Influenza Type A (JUDE) Negative Influenza Type B (JUDE) Negative Influenza A & B Note See Note 09/19/23 09/19/23 09/19/23 17:05 18:15 19:14 MCV MCH MCHC RDW Plt Count MPV Immature Gran % (Auto) Neut % (Auto) Lymph % (Auto) [place] % (Auto) Eos % (Auto) Baso % (Auto) Lymph # (Auto) [place] # (Auto) Eos # (Auto) Baso # (Auto) Abs Immat Gran (auto) Absolute Neuts (auto) Absolute Nucleated RBC Nucleated RBC % (auto) Smear Tech's Comments VBG pH 7.40 VBG pCO2 32 VBG pO2 57 VBG HCO3 20 L VBG O2 Saturation 83.0 VBG Base Excess -3.7 Anion Gap Estim Creat Clear Calc Estimated GFR POC Glucose 492 H* 324 H Random Glucose Lactic Acid Calcium Total Bilirubin Direct Bilirubin AST ALT Alkaline Phosphatase Total Protein Albumin Lipase Beta-Hydroxybutyrate Urine Color Urine Appearance Urine pH Ur Specific [place] Urine Protein Urine Glucose (UA) Urine Ketones Urine Blood Urine Nitrite Ur Leukocyte Esterase Urine RBC Urine WBC Ur Squamous Epith Cells Urine Bacteria Hyaline Casts COVID-19 (MYA) COVID-19 Clin Com Influenza Type A (JUDE) Influenza Type B (JUDE) Influenza A & B Note 09/19/23 09/19/23 09/19/23 19:38 20:08 20:33 MCV MCH MCHC RDW Plt Count MPV Immature Gran % (Auto) Neut % (Auto) Lymph % (Auto) [place] % (Auto) Eos % (Auto) Baso % (Auto) Lymph # (Auto) [place] # (Auto) Eos # (Auto) Baso # (Auto) Abs Immat Gran (auto) Absolute Neuts (auto) Absolute Nucleated RBC Nucleated RBC % (auto) Smear Tech's Comments VBG pH VBG pCO2 VBG pO2 VBG HCO3 VBG O2 Saturation VBG Base Excess Anion Gap 20 Estim Creat Clear Calc 67.0 Estimated GFR 49 POC Glucose 241 H Random Glucose 310 H Lactic Acid Calcium 9.1 Total Bilirubin Direct Bilirubin AST ALT Alkaline Phosphatase Total Protein Albumin Lipase Beta-Hydroxybutyrate Urine Color Yellow Urine Appearance Clear Urine pH 5.0 Ur Specific [place] >= 1.030 H Urine Protein Trace Urine Glucose (UA) >=1000 H Urine Ketones >=160 Urine Blood Trace H Urine Nitrite Negative Ur Leukocyte Esterase Negative Urine RBC 0-2 Urine WBC 0-5 Ur Squamous Epith Cells 0-2 Urine Bacteria None Seen Hyaline Casts 0-2 COVID-19 (MYA) COVID-19 Clin Com Influenza Type A (JUDE) Influenza Type B (JUDE) Influenza A & B Note 09/19/23 20:59 MCV MCH MCHC RDW Plt Count MPV Immature Gran % (Auto) Neut % (Auto) Lymph % (Auto) [place] % (Auto) Eos % (Auto) Baso % (Auto) Lymph # (Auto) [place] # (Auto) Eos # (Auto) Baso # (Auto) Abs Immat Gran (auto) Absolute Neuts (auto) Absolute Nucleated RBC Nucleated RBC % (auto) Smear Tech's Comments VBG pH VBG pCO2 VBG pO2 VBG HCO3 VBG O2 Saturation VBG Base Excess Anion Gap Estim Creat Clear Calc Estimated GFR POC Glucose 341 H Random Glucose Lactic Acid Calcium Total Bilirubin Direct Bilirubin AST ALT Alkaline Phosphatase Total Protein Albumin Lipase Beta-Hydroxybutyrate Urine Color Urine Appearance Urine pH Ur Specific [place] Urine Protein Urine Glucose (UA) Urine Ketones Urine Blood Urine Nitrite Ur Leukocyte Esterase Urine RBC Urine WBC Ur Squamous Epith Cells Urine Bacteria Hyaline Casts COVID-19 (MYA) COVID-19 Clin Com Influenza Type A (JUDE) Influenza Type B (JUDE) Influenza A & B Note Assessment and Plan (1) DKA (diabetic ketoacidosis): Qualifiers: Diabetes mellitus complication detail: without coma Diabetes mellitus type: type 1 Qualified Code(s): E10.10 - Type 1 diabetes mellitus with ketoacidosis without coma Status: Acute (2) CRISTI (acute kidney injury): Status: Acute (3) Nausea & vomiting: Qualifiers: Vomiting type: unspecified Qualified Code(s): R11.2 - Nausea with vomiting, unspecified Status: Acute Plan 33-year-old male with history of type 1 diabetes, gastroparesis admitted for diabetic ketoacidosis #Diabetic ketoacidosis -Glucose on arrival >600. AG 24. VBG showed compensating metabolic acidosis, beta hydroxybutyrate 6.53 -weaned from insulin drip -given 10 units Lantus. Add additional 12 units Lantus -resume dose adjusted basal insulin -Humalog on sliding scale -Reglan p.r.n. -bland diabetic diet -POC glucose -hemoglobin A1c pending -will need referral to PCP, endocrinology, and refills of his insulin on discharge -admit to med/tele # acute kidney injury-due to above -resolved on admission -continue IV LR # intractable nausea and vomiting -diabetic gastroparesis versus cannabis hyperemesis syndrome -counseled on cannabis cessation -Reglan p.r.n. -bland diet -reactive leukocytosis of 15.0 secondary to vomiting -outpatient follow-up with Gastroenterology -continue LR DVT prophylaxis-Lovenox Full code Patient will require inpatient stay at least 2 midnights for further management of diabetic ketoacidosis with intractable nausea and vomiting weaned from insulin drip requiring further management of glucose levels with basal and bolus insulin, close monitoring glucose levels as well as monitoring of renal function electrolyte levels. Quality Stroke Does the patient have a stroke diagnosis?: No VTE Prior VTE?: No VTE Risk Level:: Medical - moderate - high VTE Device Contraindication: Treatment Not Indicated VTE Drug Contraindication: N/A - Med Ordered
[2023-09-19 21:43] VITALS: BP 163/89; PULSE 115; RESP 20; TEMP 37.5; O2SAT 98
[2023-09-19] MEDS: amLODIPine Besylate 5 MG TABLET PO (21:51)
[2023-09-19] MEDS: Insulin Glargine,Hum.rec.anlog 100 UNIT/ML 10 ML VIAL 12 UNIT SUBCUT (21:51)
[2023-09-19] MEDS: Enoxaparin Sodium 40 MG/0.4 ML SYRINGE SUBCUT (21:51)
--- NOTE | 2023-09-19 22:52 | PC.NURSE ---
Admit for DKA : on arrival Blood glucose over 600 and was metabolic acidosis . Was on insulin drip however D/C at 2054. Anion gap 20@ 2032. PMH- DM type 1 and gastroparesis. IV 20 RAC and 20 Lforearm Plan POC, endo consult, diabetic diet, LR 100ml.hr
[2023-09-19 23:39] VITALS: BP 156/99; PULSE 109; RESP 16; TEMP 37.5; O2SAT 97
[2023-09-20 01:02] VITALS: BP 149/94; PULSE 108; RESP 16; TEMP 36.9; O2SAT 97
[2023-09-20 05:03] VITALS: BP 149/96; PULSE 109; RESP 17; TEMP 36.8; O2SAT 97
[2023-09-20 05:08] LABS: Glucose, Whole Blood 216 mg/dL (60-115)
[2023-09-20 05:15] LABS: Estimated Average Glucose 260 mg/dL; Hemoglobin A1c % 10.7 % (<6.0)
[2023-09-20 05:31] LABS: Basophils Absolute Auto 0.1 X10*3/uL (0.0-0.2); Basophils Percent Auto 0.3 % (0-2); Eosinophils Percent Auto 0.1 % (0-4); Hematocrit 29.4 % (42.0-52.0); Hemoglobin 9.1 g/dl (14.0-18.0); Imm Gran Abs Auto 0.08 X10*3/uL (0.00-0.03); Imm Gran Pct Auto 0.4 % (0.0-0.4); Lymphocytes Absolute Auto 2.5 X10*3/uL (1.2-4.9); Lymphocytes Percent Auto 13.5 % (20-40); MANUAL DIFF FLAG SCAN; Mean Corpuscular Hemoglobin 24.5 pg (27.0-33.0); Mean Corpuscular Volume 79.2 fL (80.0-98.0); Mean Platelet Volume 9.5 fL (9.4-12.4); Monocytes Absolute Auto 1.5 X10*3/uL (0.1-1.2); Monocytes Percent Auto 8.5 % (2-11); Neutrophils Percent Auto 77.2 % (45-73); Platelet Count 411 X10*3/uL (160-400); Red Blood Count 3.71 X10*6/uL (4.60-5.80); SCAN SMEAR FLAG 1; White Blood Count 18.2 X10*3/uL (4.8-10.8)
[2023-09-20 05:37] LABS: SLIDE REVIEW VERIFIED
[2023-09-20 05:51] LABS: Anion Gap 16 (12-20); Blood Urea Nitrogen 27 mg/dL (9-16); Calcium 8.9 mg/dL (8.4-10.2); Carbon Dioxide 29 mmol/L (22-29); Chloride 101 mmol/L (96-108); Creatinine Clr Calc Pharmacy 80.2; Estimated Glomerular Filt Rate > 60; Glucose Random 210 mg/dL (60-115); Potassium 4.1 mmol/L (3.3-5.1); Sodium 142 mmol/L (135-145)
[2023-09-20 07:21] LABS: Glucose, Whole Blood 168 mg/dL (60-115)
[2023-09-20] MEDS: Insulin Lispro 100 UNIT/ML 3 ML VIAL SUBCUT ×2 (07:54→11:48)
[2023-09-20 08:00] VITALS: BP 152/95; PULSE 96; RESP 18; TEMP 37; O2SAT 99
[2023-09-20] MEDS: Lactated Ringers 1,000 ML 100 ML IVCONT (08:55)
[2023-09-20 09:25] LABS: Glucose, Whole Blood 151 mg/dL (60-115)
--- NOTE | 2023-09-20 09:41 | MHC.CM.PN ---
CM met with Patient at bedside. 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 Home/self care is the plan and CM has initiated and will follow for dc planning. Patient has no PCP but is working on obtaining one. Patient's Sister/Og is the HCP.
--- NOTE | 2023-09-20 09:48 | MHC.CM.PN ---
CM will provide Patient with the pamphlet containing local PCPs.
[2023-09-20 11:00] VITALS: BP 145/83; PULSE 97; RESP 18; TEMP 36.6; O2SAT 96
[2023-09-20 11:02] VITALS: BP 145/83; PULSE 97; RESP 18; TEMP 36.1; O2SAT 96
[2023-09-20 11:36] LABS: Glucose, Whole Blood 173 mg/dL (60-115)
--- NOTE | 2023-09-20 12:30 | HO.PM.IMPN ---
Subjective Subjective Date of Service: 09/20/23 Interval History: seen and examined this morning follow up for abdominal pain, nausea and vomiting all improving Physical Exam Vital Signs: Vital Signs: Last Vital Signs Temp 96.9 F 09/20/23 11:02 Pulse 97 09/20/23 11:02 Resp 18 09/20/23 11:02 BP 145/83 H 09/20/23 11:02 Pulse Ox 96 09/20/23 11:02 O2 Del Method Room Air 09/20/23 11:02 BMI result Body Mass Index 21.9 General: AO X 3, no acute distress Resp: CTA bilateral CVS: S1,S2,RRR GI: +BS, NT, no distention Skin: No rash Neuro: motor grossly intact Psych: appropriate affect Objective Data Active Medications Acetaminophen (Acetaminophen 325 Mg Tablet) 650 mg PO Q6H PRN PRN Reason: Pain, Mild (Pain Scale 1-3) Dextrose (Dextrose 50 % 25 Gm/50 Ml Syringe) 25 gm IVPUSH Q15M PRN; Protocol PRN Reason: per Hypoglycemia Standing Ord. Enoxaparin Sodium (Enoxaparin Sodium 40 Mg/0.4 Ml Syringe) 40 mg SUBCUT Q24H [facility] Last Admin: 09/19/23 21:51 Dose: 40 mg Documented By: WILLIAM Glucose (Glucose Gel 15 Gm Gel..Gram.) 15 gm PO Q15M PRN; Protocol PRN Reason: per Hypoglycemia Standing Ord. Lactated Ringer's (Lr) 1,000 mls @ 100 mls/hr IVCONT .Q10H [facility] Last Admin: 09/20/23 08:55 Dose: 100 mls/hr Documented By: JOSE Insulin Glargine (Insulin Glargine,Hum.Rec.Anlog 100 Unit/Ml 10 Ml Vial) 22 unit SUBCUT BEDTIME [facility] Insulin Human Lispro (Insulin Lispro 100 Unit/Ml 3 Ml Vial) 0 unit SUBCUT QIDACHS [facility]; Protocol Last Admin: 09/20/23 11:48 Dose: 2 unit Documented By: RANDELL Metoclopramide HCl (Metoclopramide Hcl 10 Mg/2 Ml Vial) 10 mg IVPUSH Q6H PRN PRN Reason: Nausea and Vomiting Ondansetron HCl (Ondansetron Hcl 4 Mg/2 Ml Vial) 4 mg IVPUSH Q8H PRN PRN Reason: Nausea and Vomiting Senna (Sennosides 8.6 Mg Tablet) 17.2 mg PO BEDTIME PRN PRN Reason: Constipation Sodium Chloride (0.9 % Sodium Chloride Flush 3 Ml Syringe) 3 ml IVFLUSH QSHIFT [facility] Last Admin: 09/20/23 07:55 Dose: Not Given Documented By: TITA Non-Admin Reason: IV Running Labs 09/20/23 05:11 09/20/23 05:10 Labs: Laboratory Results - last 24 hr 09/19/23 09/19/23 09/19/23 15:18 16:58 17:04 MCV 80.0 MCH 24.2 L MCHC 30.2 L RDW 15.8 Plt Count 478 H D MPV 9.7 Immature Gran % (Auto) 0.5 H Neut % (Auto) 91.7 H Lymph % (Auto) 4.9 L [place] % (Auto) 2.8 Eos % (Auto) 0.0 Baso % (Auto) 0.1 Lymph # (Auto) 0.7 L [place] # (Auto) 0.4 Eos # (Auto) 0.0 Baso # (Auto) 0.0 Abs Immat Gran (auto) 0.08 H Absolute Neuts (auto) 13.7 H Absolute Nucleated RBC 0.000 Nucleated RBC % (auto) 0.0 Smear Tech's Comments VERIFIED VBG pH VBG pCO2 VBG pO2 VBG HCO3 VBG O2 Saturation VBG Base Excess Anion Gap 24 H Estim Creat Clear Calc 56.3 Estimated GFR 40 POC Glucose 588 H* Random Glucose 627 H* Estimat Average Glucose 260 Hemoglobin A1c % 10.7 H Lactic Acid 1.7 Calcium 9.5 D Total Bilirubin 0.4 Direct Bilirubin 0.2 AST 16 ALT 37 Alkaline Phosphatase 119 H Total Protein 7.9 Albumin 4.3 Lipase 14 Beta-Hydroxybutyrate 6.53 H Urine Color Urine Appearance Urine pH Ur Specific [place] Urine Protein Urine Glucose (UA) Urine Ketones Urine Blood Urine Nitrite Ur Leukocyte Esterase Urine RBC Urine WBC Ur Squamous Epith Cells Urine Bacteria Hyaline Casts COVID-19 (MYA) Negative COVID-19 Clin Com See Note Influenza Type A (JUDE) Negative Influenza Type B (JUDE) Negative Influenza A & B Note See Note 09/19/23 09/19/23 09/19/23 17:05 18:15 19:14 MCV MCH MCHC RDW Plt Count MPV Immature Gran % (Auto) Neut % (Auto) Lymph % (Auto) [place] % (Auto) Eos % (Auto) Baso % (Auto) Lymph # (Auto) [place] # (Auto) Eos # (Auto) Baso # (Auto) Abs Immat Gran (auto) Absolute Neuts (auto) Absolute Nucleated RBC Nucleated RBC % (auto) Smear Tech's Comments VBG pH 7.40 VBG pCO2 32 VBG pO2 57 VBG HCO3 20 L VBG O2 Saturation 83.0 VBG Base Excess -3.7 Anion Gap Estim Creat Clear Calc Estimated GFR POC Glucose 492 H* 324 H Random Glucose Estimat Average Glucose Hemoglobin A1c % Lactic Acid Calcium Total Bilirubin Direct Bilirubin AST ALT Alkaline Phosphatase Total Protein Albumin Lipase Beta-Hydroxybutyrate Urine Color Urine Appearance Urine pH Ur Specific [place] Urine Protein Urine Glucose (UA) Urine Ketones Urine Blood Urine Nitrite Ur Leukocyte Esterase Urine RBC Urine WBC Ur Squamous Epith Cells Urine Bacteria Hyaline Casts COVID-19 (MYA) COVID-19 Clin Com Influenza Type A (JUDE) Influenza Type B (JUDE) Influenza A & B Note 09/19/23 09/19/23 09/19/23 19:38 20:08 20:33 MCV MCH MCHC RDW Plt Count MPV Immature Gran % (Auto) Neut % (Auto) Lymph % (Auto) [place] % (Auto) Eos % (Auto) Baso % (Auto) Lymph # (Auto) [place] # (Auto) Eos # (Auto) Baso # (Auto) Abs Immat Gran (auto) Absolute Neuts (auto) Absolute Nucleated RBC Nucleated RBC % (auto) Smear Tech's Comments VBG pH VBG pCO2 VBG pO2 VBG HCO3 VBG O2 Saturation VBG Base Excess Anion Gap 20 Estim Creat Clear Calc 67.0 Estimated GFR 49 POC Glucose 241 H Random Glucose 310 H Estimat Average Glucose Hemoglobin A1c % Lactic Acid Calcium 9.1 Total Bilirubin Direct Bilirubin AST ALT Alkaline Phosphatase Total Protein Albumin Lipase Beta-Hydroxybutyrate Urine Color Yellow Urine Appearance Clear Urine pH 5.0 Ur Specific [place] >= 1.030 H Urine Protein Trace Urine Glucose (UA) >=1000 H Urine Ketones >=160 Urine Blood Trace H Urine Nitrite Negative Ur Leukocyte Esterase Negative Urine RBC 0-2 Urine WBC 0-5 Ur Squamous Epith Cells 0-2 Urine Bacteria None Seen Hyaline Casts 0-2 COVID-19 (MYA) COVID-19 Clin Com Influenza Type A (JUDE) Influenza Type B (JUDE) Influenza A & B Note 09/19/23 09/20/23 09/20/23 20:59 05:03 05:10 MCV MCH MCHC RDW Plt Count MPV Immature Gran % (Auto) Neut % (Auto) Lymph % (Auto) [place] % (Auto) Eos % (Auto) Baso % (Auto) Lymph # (Auto) [place] # (Auto) Eos # (Auto) Baso # (Auto) Abs Immat Gran (auto) Absolute Neuts (auto) Absolute Nucleated RBC Nucleated RBC % (auto) Smear Tech's Comments VBG pH VBG pCO2 VBG pO2 VBG HCO3 VBG O2 Saturation VBG Base Excess Anion Gap 16 Estim Creat Clear Calc 80.2 Estimated GFR > 60 POC Glucose 341 H 216 H Random Glucose 210 H Estimat Average Glucose Hemoglobin A1c % Lactic Acid Calcium 8.9 Total Bilirubin Direct Bilirubin AST ALT Alkaline Phosphatase Total Protein Albumin Lipase Beta-Hydroxybutyrate Urine Color Urine Appearance Urine pH Ur Specific [place] Urine Protein Urine Glucose (UA) Urine Ketones Urine Blood Urine Nitrite Ur Leukocyte Esterase Urine RBC Urine WBC Ur Squamous Epith Cells Urine Bacteria Hyaline Casts COVID-19 (MYA) COVID-19 Clin Com Influenza Type A (JUDE) Influenza Type B (JUDE) Influenza A & B Note 09/20/23 09/20/23 09/20/23 05:11 07:17 09:22 MCV 79.2 L MCH 24.5 L MCHC 31.0 RDW 16.0 Plt Count 411 H MPV 9.5 Immature Gran % (Auto) 0.4 Neut % (Auto) 77.2 H Lymph % (Auto) 13.5 L [place] % (Auto) 8.5 Eos % (Auto) 0.1 Baso % (Auto) 0.3 Lymph # (Auto) 2.5 [place] # (Auto) 1.5 H Eos # (Auto) 0.0 Baso # (Auto) 0.1 Abs Immat Gran (auto) 0.08 H Absolute Neuts (auto) 14.0 H Absolute Nucleated RBC 0.000 Nucleated RBC % (auto) 0.0 Smear Tech's Comments VERIFIED VBG pH VBG pCO2 VBG pO2 VBG HCO3 VBG O2 Saturation VBG Base Excess Anion Gap Estim Creat Clear Calc Estimated GFR POC Glucose 168 H 151 H Random Glucose Estimat Average Glucose Hemoglobin A1c % Lactic Acid Calcium Total Bilirubin Direct Bilirubin AST ALT Alkaline Phosphatase Total Protein Albumin Lipase Beta-Hydroxybutyrate Urine Color Urine Appearance Urine pH Ur Specific [place] Urine Protein Urine Glucose (UA) Urine Ketones Urine Blood Urine Nitrite Ur Leukocyte Esterase Urine RBC Urine WBC Ur Squamous Epith Cells Urine Bacteria Hyaline Casts COVID-19 (MYA) COVID-19 Clin Com Influenza Type A (JUDE) Influenza Type B (JUDE) Influenza A & B Note 09/20/23 11:24 MCV MCH MCHC RDW Plt Count MPV Immature Gran % (Auto) Neut % (Auto) Lymph % (Auto) [place] % (Auto) Eos % (Auto) Baso % (Auto) Lymph # (Auto) [place] # (Auto) Eos # (Auto) Baso # (Auto) Abs Immat Gran (auto) Absolute Neuts (auto) Absolute Nucleated RBC Nucleated RBC % (auto) Smear Tech's Comments VBG pH VBG pCO2 VBG pO2 VBG HCO3 VBG O2 Saturation VBG Base Excess Anion Gap Estim Creat Clear Calc Estimated GFR POC Glucose 173 H Random Glucose Estimat Average Glucose Hemoglobin A1c % Lactic Acid Calcium Total Bilirubin Direct Bilirubin AST ALT Alkaline Phosphatase Total Protein Albumin Lipase Beta-Hydroxybutyrate Urine Color Urine Appearance Urine pH Ur Specific [place] Urine Protein Urine Glucose (UA) Urine Ketones Urine Blood Urine Nitrite Ur Leukocyte Esterase Urine RBC Urine WBC Ur Squamous Epith Cells Urine Bacteria Hyaline Casts COVID-19 (MYA) COVID-19 Clin Com Influenza Type A (JUDE) Influenza Type B (JUDE) Influenza A & B Note Assessment and Plan (1) Intractable nausea and vomiting: Status: Resolved Plan 33-year-old male with pertinent history of insulin-dependent diabetes mellitus who presents to the emergency department for evaluation of nausea/vomiting/diarrhea. #. Intractable nausea and vomiting: improving Imaging concerning for ?SMA syndrome seen by General surgery- no surgical intervention anticiapted at this time seen by GI, plan for UGI #. Diarrhea: improved Patient states he has been having dark stools Stool occult blood negative in the ER GI panel pending GI following #. Type 1 insulin-dependent diabetes mellitus with hyperglycemia: continue lower dose of baseline insulin and follow sliding scale advance to clears DVT prophylaxis: Lovenox attending - dr. cuellar patient requires ongoing hospital stay for close monitoring of symptoms, optimization of blood glucose (as above), which is not possible in a lesser acute setting as well as specialist evaluation and further imaging Quality Stroke Does the patient have a stroke diagnosis?: No VTE Prior VTE?: No VTE Risk Level:: Medical - moderate - high VTE Device Contraindication: Treatment Not Indicated VTE Drug Contraindication: N/A - Med Ordered
--- NOTE | 2023-09-20 12:42 | PM.DS ---
DS: Providers Provider Date of Service: 09/20/23 Date of admission: 09/19/23 21:27 Primary care physician: None Physician DS: Diagnosis Discharge Diagnosis (1) Intractable nausea and vomiting: Status: Resolved DS: Summary Hospital Course Hospital Course: admission HPI Chief Complaint: nausea/vomiting, hyperglycemia 33-year-old male with history of type 1 diabetes, gastroparesis presented to the ED earlier today for evaluation of nausea and vomiting ongoing for several days. He denies eating any bad foods or recent illness. No one at home with similar symptoms. Does have history of diabetic ketoacidosis as well as gastroparesis. No fevers or chills. Does have mild epigastric pain. No diarrhea, melena, hematochezia, shortness of breath, lightheadedness, chest pain. He states he did not take any insulin today and fasting glucose was 271 when he woke up this morning but glucose levels have been high in the 400s for the last few days. He has poor outpatient follow-up. He has not currently have a PCP or it sales executive. He has been getting insulin from his friend but reports compliance with insulin usage. He is unsure of his last hemoglobin A1c. He does smoke cannabis on a regular basis. Denies any other illicit drug use, cigarette smoking, or alcohol use. On arrival, patient tachycardic to 119, hypertensive to 171/89 on admission. There was a leukocytosis of 15.0. Stable normocytic anemia with H/H 10.4/34.4%. Renal function on admission consistent with baseline with creatinine 1.64 though initially elevated at 1.95. Electrolyte levels normal though initially did have anion gap 24 with VBG showing normal pH 7.40, pCO2 32, bicarbonate 20. Initial glucose 627, beta hydroxybutyrate 6.53. Urinalysis with significantly elevated glucose levels, trace protein, elevated specific gravity, and positive ketones. He was started on insulin drip and given bolus lactated Ringer's with closure of anion gap and improvement in creatinine to 1.64. Electrolytes remained normal. He was weaned from insulin drip and given 10 units Lantus. He was also treated with Reglan and Benadryl. Hospital course: The Patient presented with nasusea and vomitting since sunday and thought it was related to the food he ate, he was not eating as result and presented with hyperglycemia, low bicab, high AGAP, elevated beta hydroxybutyrate, ketones in urine, overall clinical presentation consistent with DKA and was treated with IVF and IV insulin and overall the course of time, sugar came down he was ultimately given long acting insulin, given diet which he is tolerating, repat lab show normal bicab, normal Anion gap. Nasuea and vomitting could be viral in etiology but one cannot rule out diabetes gastroparesis, I have advised him taking reglan as needed for nausea, and making referal to be seen by auction clerk. He is in the process of getting a new PCP and we discussed the importance of staying regular with insulin, over the course of time he may benefit from insulin pump, and continous glucose monitoring, he will need an it sales executive for this. He is comfortable going home today and tells me has has enough insulin at home. Marked Leukocytosis was likely reactive and is trending down without antibiotics. Time Attestation Discharge coordination time: Greater than 30 minutes Quality: Safe Use of Opioids Does Pt have an Active Cancer Diagnosis on the Problem List?: No Quality: Stroke Does the patient have a stroke diagnosis?: No Physical Exam Vital Signs: Vital Signs: Last Vital Signs Temp 96.9 F 09/20/23 11:02 Pulse 97 09/20/23 11:02 Resp 18 09/20/23 11:02 BP 145/83 H 09/20/23 11:02 Pulse Ox 96 09/20/23 11:02 O2 Del Method Room Air 09/20/23 11:02 BMI result Body Mass Index 21.9 Const: Other: General: AO X 3, no acute distress Resp: CTA bilateral CVS: S1,S2,RRR GI: +BS, NT, no distention Skin: No rash Neuro: motor grossly intact Psych: appropriate affect DS: Data Data Completed and Pending Labs on day of discharge: Laboratory Results - last 24 hr 09/19/23 09/19/23 09/19/23 15:18 16:58 17:04 WBC 15.0 H RBC 4.30 L D Hgb 10.4 L Hct 34.4 L MCV 80.0 MCH 24.2 L MCHC 30.2 L RDW 15.8 Plt Count 478 H D MPV 9.7 Immature Gran % (Auto) 0.5 H Neut % (Auto) 91.7 H Lymph % (Auto) 4.9 L Wallace % (Auto) 2.8 Eos % (Auto) 0.0 Baso % (Auto) 0.1 Lymph # (Auto) 0.7 L Wallace # (Auto) 0.4 Eos # (Auto) 0.0 Baso # (Auto) 0.0 Abs Immat Gran (auto) 0.08 H Absolute Neuts (auto) 13.7 H Absolute Nucleated RBC 0.000 Nucleated RBC % (auto) 0.0 Smear Tech's Comments VERIFIED VBG pH VBG pCO2 VBG pO2 VBG HCO3 VBG O2 Saturation VBG Base Excess Sodium 139 Potassium 4.8 Chloride 96 Carbon Dioxide 24 Anion Gap 24 H BUN 39 H Creatinine 1.95 H Estim Creat Clear Calc 56.3 Estimated GFR 40 POC Glucose 588 H* Random Glucose 627 H* Estimat Average Glucose 260 Hemoglobin A1c % 10.7 H Lactic Acid 1.7 Calcium 9.5 D Total Bilirubin 0.4 Direct Bilirubin 0.2 AST 16 ALT 37 Alkaline Phosphatase 119 H Total Protein 7.9 Albumin 4.3 Lipase 14 Beta-Hydroxybutyrate 6.53 H Urine Color Urine Appearance Urine pH Ur Specific [place] Urine Protein Urine Glucose (UA) Urine Ketones Urine Blood Urine Nitrite Ur Leukocyte Esterase Urine RBC Urine WBC Ur Squamous Epith Cells Urine Bacteria Hyaline Casts COVID-19 (MYA) Negative COVID-19 Clin Com See Note Influenza Type A (JUDE) Negative Influenza Type B (JUDE) Negative Influenza A & B Note See Note 09/19/23 09/19/23 09/19/23 17:05 18:15 19:14 WBC RBC Hgb Hct MCV MCH MCHC RDW Plt Count MPV Immature Gran % (Auto) Neut % (Auto) Lymph % (Auto) Wallace % (Auto) Eos % (Auto) Baso % (Auto) Lymph # (Auto) Wallace # (Auto) Eos # (Auto) Baso # (Auto) Abs Immat Gran (auto) Absolute Neuts (auto) Absolute Nucleated RBC Nucleated RBC % (auto) Smear Tech's Comments VBG pH 7.40 VBG pCO2 32 VBG pO2 57 VBG HCO3 20 L VBG O2 Saturation 83.0 VBG Base Excess -3.7 Sodium Potassium Chloride Carbon Dioxide Anion Gap BUN Creatinine Estim Creat Clear Calc Estimated GFR POC Glucose 492 H* 324 H Random Glucose Estimat Average Glucose Hemoglobin A1c % Lactic Acid Calcium Total Bilirubin Direct Bilirubin AST ALT Alkaline Phosphatase Total Protein Albumin Lipase Beta-Hydroxybutyrate Urine Color Urine Appearance Urine pH Ur Specific [place] Urine Protein Urine Glucose (UA) Urine Ketones Urine Blood Urine Nitrite Ur Leukocyte Esterase Urine RBC Urine WBC Ur Squamous Epith Cells Urine Bacteria Hyaline Casts COVID-19 (MYA) COVID-19 Clin Com Influenza Type A (JUDE) Influenza Type B (JUDE) Influenza A & B Note 09/19/23 09/19/23 09/19/23 19:38 20:08 20:33 WBC RBC Hgb Hct MCV MCH MCHC RDW Plt Count MPV Immature Gran % (Auto) Neut % (Auto) Lymph % (Auto) Wallace % (Auto) Eos % (Auto) Baso % (Auto) Lymph # (Auto) Wallace # (Auto) Eos # (Auto) Baso # (Auto) Abs Immat Gran (auto) Absolute Neuts (auto) Absolute Nucleated RBC Nucleated RBC % (auto) Smear Tech's Comments VBG pH VBG pCO2 VBG pO2 VBG HCO3 VBG O2 Saturation VBG Base Excess Sodium 144 Potassium 4.1 Chloride 104 Carbon Dioxide 24 Anion Gap 20 BUN 36 H Creatinine 1.64 H Estim Creat Clear Calc 67.0 Estimated GFR 49 POC Glucose 241 H Random Glucose 310 H Estimat Average Glucose Hemoglobin A1c % Lactic Acid Calcium 9.1 Total Bilirubin Direct Bilirubin AST ALT Alkaline Phosphatase Total Protein Albumin Lipase Beta-Hydroxybutyrate Urine Color Yellow Urine Appearance Clear Urine pH 5.0 Ur Specific [place] >= 1.030 H Urine Protein Trace Urine Glucose (UA) >=1000 H Urine Ketones >=160 Urine Blood Trace H Urine Nitrite Negative Ur Leukocyte Esterase Negative Urine RBC 0-2 Urine WBC 0-5 Ur Squamous Epith Cells 0-2 Urine Bacteria None Seen Hyaline Casts 0-2 COVID-19 (MYA) COVID-19 Clin Com Influenza Type A (JUDE) Influenza Type B (JUDE) Influenza A & B Note 09/19/23 09/20/23 09/20/23 20:59 05:03 05:10 WBC RBC Hgb Hct MCV MCH MCHC RDW Plt Count MPV Immature Gran % (Auto) Neut % (Auto) Lymph % (Auto) Wallace % (Auto) Eos % (Auto) Baso % (Auto) Lymph # (Auto) Wallace # (Auto) Eos # (Auto) Baso # (Auto) Abs Immat Gran (auto) Absolute Neuts (auto) Absolute Nucleated RBC Nucleated RBC % (auto) Smear Tech's Comments VBG pH VBG pCO2 VBG pO2 VBG HCO3 VBG O2 Saturation VBG Base Excess Sodium 142 Potassium 4.1 Chloride 101 Carbon Dioxide 29 Anion Gap 16 BUN 27 H Creatinine 1.37 Estim Creat Clear Calc 80.2 Estimated GFR > 60 POC Glucose 341 H 216 H Random Glucose 210 H Estimat Average Glucose Hemoglobin A1c % Lactic Acid Calcium 8.9 Total Bilirubin Direct Bilirubin AST ALT Alkaline Phosphatase Total Protein Albumin Lipase Beta-Hydroxybutyrate Urine Color Urine Appearance Urine pH Ur Specific [place] Urine Protein Urine Glucose (UA) Urine Ketones Urine Blood Urine Nitrite Ur Leukocyte Esterase Urine RBC Urine WBC Ur Squamous Epith Cells Urine Bacteria Hyaline Casts COVID-19 (MYA) COVID-19 Clin Com Influenza Type A (JUDE) Influenza Type B (JUDE) Influenza A & B Note 09/20/23 09/20/23 09/20/23 05:11 07:17 09:22 WBC 18.2 H RBC 3.71 L Hgb 9.1 L Hct 29.4 L MCV 79.2 L MCH 24.5 L MCHC 31.0 RDW 16.0 Plt Count 411 H MPV 9.5 Immature Gran % (Auto) 0.4 Neut % (Auto) 77.2 H Lymph % (Auto) 13.5 L Wallace % (Auto) 8.5 Eos % (Auto) 0.1 Baso % (Auto) 0.3 Lymph # (Auto) 2.5 Wallace # (Auto) 1.5 H Eos # (Auto) 0.0 Baso # (Auto) 0.1 Abs Immat Gran (auto) 0.08 H Absolute Neuts (auto) 14.0 H Absolute Nucleated RBC 0.000 Nucleated RBC % (auto) 0.0 Smear Tech's Comments VERIFIED VBG pH VBG pCO2 VBG pO2 VBG HCO3 VBG O2 Saturation VBG Base Excess Sodium Potassium Chloride Carbon Dioxide Anion Gap BUN Creatinine Estim Creat Clear Calc Estimated GFR POC Glucose 168 H 151 H Random Glucose Estimat Average Glucose Hemoglobin A1c % Lactic Acid Calcium Total Bilirubin Direct Bilirubin AST ALT Alkaline Phosphatase Total Protein Albumin Lipase Beta-Hydroxybutyrate Urine Color Urine Appearance Urine pH Ur Specific [place] Urine Protein Urine Glucose (UA) Urine Ketones Urine Blood Urine Nitrite Ur Leukocyte Esterase Urine RBC Urine WBC Ur Squamous Epith Cells Urine Bacteria Hyaline Casts COVID-19 (MYA) COVID-19 Clin Com Influenza Type A (JUDE) Influenza Type B (JUDE) Influenza A & B Note 09/20/23 11:24 WBC RBC Hgb Hct MCV MCH MCHC RDW Plt Count MPV Immature Gran % (Auto) Neut % (Auto) Lymph % (Auto) Wallace % (Auto) Eos % (Auto) Baso % (Auto) Lymph # (Auto) Wallace # (Auto) Eos # (Auto) Baso # (Auto) Abs Immat Gran (auto) Absolute Neuts (auto) Absolute Nucleated RBC Nucleated RBC % (auto) Smear Tech's Comments VBG pH VBG pCO2 VBG pO2 VBG HCO3 VBG O2 Saturation VBG Base Excess Sodium Potassium Chloride Carbon Dioxide Anion Gap BUN Creatinine Estim Creat Clear Calc Estimated GFR POC Glucose 173 H Random Glucose Estimat Average Glucose Hemoglobin A1c % Lactic Acid Calcium Total Bilirubin Direct Bilirubin AST ALT Alkaline Phosphatase Total Protein Albumin Lipase Beta-Hydroxybutyrate Urine Color Urine Appearance Urine pH Ur Specific [place] Urine Protein Urine Glucose (UA) Urine Ketones Urine Blood Urine Nitrite Ur Leukocyte Esterase Urine RBC Urine WBC Ur Squamous Epith Cells Urine Bacteria Hyaline Casts COVID-19 (MYA) COVID-19 Clin Com Influenza Type A (JUDE) Influenza Type B (JUDE) Influenza A & B Note Discharge Plan Discharge Anticipated Discharge Date/Time: 09/20/23 12:45 Patient Disposition: Home, Self-Care Discharge Diagnosis: DKA, diabetes gastroparesis, nausea and vomitting, reactive leukocytosis Referrals: Physician,None [Primary Care Provider] - 1 Week Discharge Medications: New metoclopramide HCl [Reglan] 5 mg tablet 5 mg PO TID PRN (Reason: nausea and vomiting) Qty: 30 0RF Continued insulin glargine 100 unit/mL Solution 30 unit SUBCUT QPM insulin lispro 100 unit/mL Insulin Pen 1 sliding scale dose SUBCUT USEASDIRECTD Protocol: Insulin Correction Scale Less than or equal to 110 ---- Give (units): 0 111 to 150 Give (units): 0 151 to 200 Give (units): 2 201 to 250 Give (units): 4 251 to 300 Give (units): 6 301 to 350 Give (units): 8 Greater than 350 Give (units): 10 Call MD if Blood Glucose > : 350 Discharge Orders: Discharge Order (Routine); Ordered 09/20/23 Ordered By: Wiley Rendon Diet: Diabetic diet Activity on Discharge: As tolerated Stand Alone Forms: Patient Portal Discharge page Care Plan Goals: DKA prevention, control of diabeted gastroparesis Health Concerns: Type 1 diabetes dka that has resolved gastroparesis Plan of Treatment: take insulin as you usually do take reglin as needed for nausea or vomitting you should follow up with a auction clerk (Call Dr. Tabor's office ) Assessment: see above
[2023-09-20 13:44] LABS: Hematocrit 28.5 % (42.0-52.0); Hemoglobin 8.9 g/dl (14.0-18.0); Mean Corpuscular HGB Conc 31.2 g/dl (31.0-36.0); Mean Corpuscular Hemoglobin 24.7 pg (27.0-33.0); Mean Corpuscular Volume 78.9 fL (80.0-98.0); Mean Platelet Volume 9.6 fL (9.4-12.4); Platelet Count 349 X10*3/uL (160-400); Red Blood Count 3.61 X10*6/uL (4.60-5.80); Red Cell Distribution Width 15.8 % (11.0-16.0); White Blood Count 13.3 X10*3/uL (4.8-10.8)
--- NOTE | 2023-09-20 14:14 | MHC.CM.PN ---
Patient has been medically cleared for dc to home today, self care.
[2023-09-20 15:20] VITALS: BP 144/92; PULSE 95; RESP 18; TEMP 36.6; O2SAT 97
--- NOTE | 2023-09-20 15:32 | MHC.CM.PN ---
Per RN's request, CM has provided Patient with a bus pass for transport to home.
== END 2023-09-20 16:00 | disposition home or self-care (01) | DRG 420 ==
LOC: HO.ED 20:56 → HO.EDOVER 21:36 → HO.IMC 09-20 07:40
PROVIDERS: Physician Assistant Medical; Student in an Organized Health Care Education/Training Program; Admitting Provider Physician Assistant; Emergency Provider Emergency Medicine; Visit Provider Internal Medicine
DX: E10.10 Type 1 diabetes mellitus with ketoacidosis without coma (principal); N17.9 Acute kidney failure, unspecified; K31.84 Gastroparesis; E10.43 Type 1 diabetes mellitus with diabetic autonomic (poly)neuropathy; Z20.822 Contact with and (suspected) exposure to COVID-19; R11.2 Nausea with vomiting, unspecified; F12.90 Cannabis use, unspecified, uncomplicated
CPT/HCPCS: 36415; 80048; 80076; 81001; 82010; 82803; 82947; 83036; 83605; 83690; 85025; 85027; 87502; 87635; 99285; J1200; J1650; J2765; J7120

== ENCOUNTER → 2023-09-19 21:27 | Outpatient (BNV) | payer OTHER, SELFPAY | PROVIDERS: Admitting Provider Physician Assistant; Emergency Provider Emergency Medicine; Visit Provider Physician Assistant | DX: R11.2 Nausea with vomiting, unspecified (principal) | CPT/HCPCS: 99223; 99238 ==

== ENCOUNTER 2023-10-24 10:34 | Emergency (ER) | payer MEDICAID, SELFPAY ==
--- NOTE | 2023-10-24 10:36 | ED_ITS ---
HPI - General Adult General Chief complaint: Nausea/Vomiting/Diarrhea Stated complaint: DIARRHEA VOMITING SINCE YEST Source: patient, EMS, RN notes reviewed and old records reviewed Mode of arrival: EMS Limitations: no limitations History of Present Illness HPI narrative: 33 year old male with pmhx significant for T1DM, DKA, and gastroparesis presents to the ED today via EMS from home for evaluation of nausea, vomiting, diarrhea x1 day. Admits to waking yesterday morning and immediately vomiting. Since this time, he has not been able to keep anything down. Admits to having diffuse abdominal pain following multiple episodes of vomiting. Last episode of vomiting was 1 hour prior to arrival. States the last time he was seen in our ED, there was question of gastroparesis. He was placed on Reglan and Benadryl. He states that he has not been able to keep these medications down at home. Admits to eating porkchops that he cooked himself the night before symptom onset. No one else consumed this food. Patient states that he has been compliant with his insulin. Denies known sick contacts. Denies eating new foods. Denies fever, chills, sore throat, chest pain, shortness of breath, constipation, hematemesis, hematochezia, melena. Admits to smoking marijuana on occasion. Per EMS, POC glucose on arrival was 138. Related Data Home Medications Medication Instructions Recorded Confirmed insulin glargine 100 unit/mL 30 unit subcut QPM 02/26/23 09/19/23 subcutaneous solution insulin lispro 100 unit/mL 1 sliding scale dose subcut 02/26/23 09/19/23 subcutaneous pen USEASDIRECTD Previous Rx's Medication Instructions Recorded metoclopramide HCl 5 mg tablet 5 mg PO TID PRN nausea and 09/20/23 (Reglan) vomiting #30 tabs ondansetron 4 mg disintegrating 4 mg PO DAILY PRN nausea and 10/24/23 tablet vomiting 5 days #14 tabs Allergies Allergy/AdvReac Type Severity Reaction Status Date / Time No Known Allergies Allergy Verified 09/19/23 12:33 Review of Systems 2 Review of Systems: Constitutional: No fever, chills, fatigue, night sweats, weight changes ENT/Mouth: No ear pain, hearing loss, nasal congestion, sinus pain, rhinorrhea, sore throat Eyes: No eye pain, swelling, redness, vision changes, discharge Cardio: No chest pain, palpitations, ELMORE, orthopnea, peripheral edema Pulm: No SOB, cough, sputum, wheezing, dyspnea, hemoptysis GI: No hematemesis, abdominal pain, constipation, hematochezia, melena, + nausea, + vomiting, + diarrhea, + abdominal pain : No irregular bleeding, dysuria, frequency, urgency, hesitancy, hematuria, flank pain, urinary flow changes, urinary incontinence or retention MSK: No back pain, neck pain, joint pain, myalgias Skin: No lesions, rashes Neuro: No weakness, numbness, paresthesias, LOC, dizziness, headache Psych: No anxiety/panic, depression, SI/HI, AH/VH All other systems reviewed and are negative. [facility] Past Medical History Attestation statement: The following information was validated with the patient. Source: old records reviewed and nursing notes reviewed Medical History Type 1 diabetes mellitus Gastroparesis Social History Social History Household Members: None Housing: House Do you presently have visiting nurse or other home services: No Alcohol intake: current Alcohol intake frequency: holidays/special occasions only Patient Tobacco Use Status: Never used Tobacco Second Hand Smoke Exposure: No Substance Use Type: Marijuana Advance Directives: Yes Advance Directives on File: Yes Advance Directives Date on File: 06/22/23 service: No Physical Exam ED Vital Signs: Vital Signs - 24 hr 10/24/23 10:45 10/24/23 12:12 10/24/23 15:03 Temperature 97.7 F 98.9 F Pulse Rate 100 95 99 Respiratory Rate 20 13 20 Blood Pressure 168/111 H 125/75 145/98 H Pulse Oximetry 100 95 99 Oxygen Delivery Method Room Air Room Air Room Air BMI result Body Mass Index 23.1 Vital signs stable Const General: cooperative, comfortable and no acute distress Orientation/consciousness: patient oriented x3 Limitations: no limitations HENMT Head: Yes normal to inspection, Yes No palpable skull fracture present, Yes normocephalic and Yes atraumatic Ears: hearing grossly normal bilaterally Mouth: Normal oral and palatal mucosa present Eyes General: appearance normal, both eyes and all related structures Conjunctivae: conjunctivae normal Sclerae: sclerae normal Pupils: Equal, round and reactive pupils present Neck Neck: Yes normal visual inspection, Yes full ROM, Yes no lymphadenopathy and Yes no meningeal signs Chest Chest palpation & inspection: normal inspection of the chest Resp Effort & Inspection: normal respiratory effort and able to speak in complete sentences Auscultation: clear to auscultation bilaterally Cardio Jugular venous distension: no JVD Rate: regular rate Rhythm: regular rhythm GI Other: + abdomen soft, mildly tender to palpation epigastric region, no rebound or guarding. Normoactive bowel sounds x4. General: Yes no CVA tenderness Back/Spine/Pelvis Back: no CVA tenderness Skin General skin exam: no rashes or lesions noted Neuro General: patient oriented x3 and no meningeal signs Cranial nerves: Yes Equal, round and reactive pupils present Motor exam (neuro): no tremor noted, no asterixis and Motor fasciculations not present Course Course Course Narrative: 1126--CBC with slight leukocytosis to 12.4 likely secondary to vomiting. Chronically anemic, H and H stable. ABG shows metabolic alkalosis with pH of 7.47 and 33 secondary to vomiting. Patient has tested negative for flu, COVID, RSV. 1230-- Informed by RN that patient's POC is now 47. Patient states that he is feeling much better nausea-paredes after receiving Zofran and IV fluids. Abdominal pain is very minimal. Will give patient food to increase glucose and recheck POC. 1350-- Repeat POC is 169. On re-evaluation, patient states that he is feeling great. He's had no further episodes of vomiting and has been tolerating gingerale and food in ED. Pending UA and disposition. 1640-- UA negative for infection. Patient is feeling much better. He is ambulating with steady gait to the bathroom. He is speaking in complete sentences. POC glucose WNL. UA without infection. I discussed all workup results with patient. He feels safe to be discharged home with Zofran. Discussed worrisome signs and symptoms of when to return to the ED. Educated on checking blood sugar at home and being compliant with insulin. He verbalizes understanding. He has been tolerating p.o. intake while in ED and has not had further episodes of vomiting. Patient has remained stable throughout ED visit today. All questions answered at this time. Patient is agreeable with disposition and stable for discharge. Medications Administered Discontinued Medications Generic Name Dose Route Start Last Admin Trade Name Dario PRN Reason Stop Dose Admin Diphenhydramine HCl 50 mg 10/24/23 10:47 10/24/23 10:54 Diphenhydramine Hcl 50 Mg/Ml Vial IVPUSH 10/24/23 10:48 50 mg ONCE ONE Administration Sodium Chloride 1,000 mls @ 999 mls/hr 10/24/23 10:45 10/24/23 14:09 Ns IV 10/24/23 11:45 Infused .Q1H1M PARKER Infusion Metoclopramide HCl 10 mg 10/24/23 10:47 10/24/23 10:54 Metoclopramide Hcl 10 Mg/2 Ml Vial IVPUSH 10/24/23 10:48 10 mg ONCE ONE Administration Morphine Sulfate 4 mg 10/24/23 11:06 10/24/23 11:15 Morphine Sulfate 4 Mg/Ml Cartridge IVPUSH 10/24/23 11:07 4 mg ONCE ONE Administration Protocol Medical Decision Making Medical Decision Making [facility] Narrative: 33 year old male with pmhx significant for T1DM, DKA, and gastroparesis presents to the ED today via EMS from home for evaluation of nausea, vomiting, diarrhea x1 day. Patient hypertensive, vitals otherwise WNL. He is nontoxic-appearing and in no acute distress. Speaking in complete sentences. Lying comfortably in bed, playing on his phone. Abdomen is soft, nondistended, abdomen soft, mildly tender to palpation epigastric region, no rebound or guarding. Normoactive bowel sounds x4. No CVAT bilaterally. Differential diagnosis includes hypoglycemia, hyperglycemia, viral syndrome, gastroenteritis, gastritis. Lower suspicion for DKA, gastroparesis. Plan for labs, viral serology, POC glucose, IV fluids and re-evaluation. Differential Diagnosis Differential Diagnoses: The differential diagnosis associated with the presentation includes As above Admission/Observation Consideration of admission/observation: Escalation of care including admission/observation considered In this patient presenting with acute nausea and vomiting with history of DKA, admission was considered. Lab Data [facility] Lab Attestation statement: I reviewed the patient's lab results. As above 10/24/23 11:03 10/24/23 11:03 Labs: Lab Results 10/24/23 10/24/23 10/24/23 Range/Units 10:41 11:03 11:09 WBC 12.4 H (4.8-10.8) X10*3/uL RBC 4.48 L D (4.60-5.80) X10*6/uL Hgb 11.2 L D (14.0-18.0) g/dl Hct 35.4 L D (42.0-52.0) % MCV 79.0 L (80.0-98.0) fL MCH 25.0 L (27.0-33.0) pg MCHC 31.6 (31.0-36.0) g/dl RDW 15.9 (11.0-16.0) % Plt Count 519 H D (160-400) X10*3/uL MPV 9.5 (9.4-12.4) fL Immature Gran % (Auto) 0.5 H (0.0-0.4) % Neut % (Auto) 86.3 H (45-73) % Lymph % (Auto) 9.0 L (20-40) % [place] % (Auto) 4.0 (2-11) % Eos % (Auto) 0.0 (0-4) % Baso % (Auto) 0.2 (0-2) % Lymph # (Auto) 1.1 L (1.2-4.9) X10*3/uL [place] # (Auto) 0.5 (0.1-1.2) X10*3/uL Eos # (Auto) 0.0 (0.0-0.4) X10*3/uL Baso # (Auto) 0.0 (0.0-0.2) X10*3/uL Abs Immat Gran (auto) 0.06 H (0.00-0.03) X10*3/uL Absolute Neuts (auto) 10.7 H (2.0-8.3) x10*3/uL Absolute Nucleated RBC 0.000 (0.0-0.012) X10*3/uL Nucleated RBC % (auto) 0.0 (0.0-0.2) /100WBC VBG pH 7.47 H (7.32-7.43) VBG pCO2 45 mmHg VBG pO2 32 mmHg VBG HCO3 33 H (22-26) mmol/L VBG O2 Saturation 44.0 % VBG Base Excess 8.6 mmol/L Sodium 145 (135-145) mmol/L Potassium 4.1 (3.3-5.1) mmol/L Chloride 103 (96-108) mmol/L Carbon Dioxide 30 H (22-29) mmol/L Anion Gap 16 (12-20) BUN 30 H (9-16) mg/dL Creatinine 1.25 (0.5-1.4) mg/dL Estim Creat Clear Calc 92.5 Estimated GFR > 60 POC Glucose 103 (60-115) mg/dL Random Glucose 89 (60-115) mg/dL Osmolality 309 H (281-305) mosm/kg Calcium 9.9 D (8.4-10.2) mg/dL Magnesium 2.0 (1.6-2.6) mg/dL Total Bilirubin 0.3 (0.0-1.0) mg/dL AST 23 (5-37) U/L ALT 32 (0-40) U/L Alkaline Phosphatase 119 H (39-117) U/L Total Creatine Kinase 57 (38-174) U/L Total Protein 7.8 (6.5-8.0) g/dL Albumin 4.1 (3.5-5.0) g/dL Lipase 9 (8-78) U/L Beta-Hydroxybutyrate 1.16 H (0.02-0.27) mmol/L Urine Color Urine Appearance Urine pH (5.0-9.0) Ur Specific [place] (1.005-1.025) Urine Protein (Neg-Trace) mg/dL Urine Glucose (UA) (Negative) mg/dL Urine Ketones (Negative) mg/dL Urine Blood (Negative) Urine Nitrite (Negative) Ur Leukocyte Esterase (Negative) Urine RBC (0-2) /HPF Urine WBC (0-5) /HPF Ur Squamous Epith Cells (0-2) /HPF Urine Bacteria (None Seen) Hyaline Casts (0-2) /LPF Influenza Type A (PCR) NEGATIVE (Negative) Influenza Type B (PCR) NEGATIVE (Negative) RSV RNA Qual (PCR) NEGATIVE (Negative) SARS-CoV-2 RNA (RT-PCR) NEGATIVE (Negative) 10/24/23 10/24/23 10/24/23 Range/Units 12:31 13:31 16:00 WBC (4.8-10.8) X10*3/uL RBC (4.60-5.80) X10*6/uL Hgb (14.0-18.0) g/dl Hct (42.0-52.0) % MCV (80.0-98.0) fL MCH (27.0-33.0) pg MCHC (31.0-36.0) g/dl RDW (11.0-16.0) % Plt Count (160-400) X10*3/uL MPV (9.4-12.4) fL Immature Gran % (Auto) (0.0-0.4) % Neut % (Auto) (45-73) % Lymph % (Auto) (20-40) % [place] % (Auto) (2-11) % Eos % (Auto) (0-4) % Baso % (Auto) (0-2) % Lymph # (Auto) (1.2-4.9) X10*3/uL [place] # (Auto) (0.1-1.2) X10*3/uL Eos # (Auto) (0.0-0.4) X10*3/uL Baso # (Auto) (0.0-0.2) X10*3/uL Abs Immat Gran (auto) (0.00-0.03) X10*3/uL Absolute Neuts (auto) (2.0-8.3) x10*3/uL Absolute Nucleated RBC (0.0-0.012) X10*3/uL Nucleated RBC % (auto) (0.0-0.2) /100WBC VBG pH (7.32-7.43) VBG pCO2 mmHg VBG pO2 mmHg VBG HCO3 (22-26) mmol/L VBG O2 Saturation % VBG Base Excess mmol/L Sodium (135-145) mmol/L Potassium (3.3-5.1) mmol/L Chloride (96-108) mmol/L Carbon Dioxide (22-29) mmol/L Anion Gap (12-20) BUN (9-16) mg/dL Creatinine (0.5-1.4) mg/dL Estim Creat Clear Calc Estimated GFR POC Glucose 47 L* 169 H (60-115) mg/dL Random Glucose (60-115) mg/dL Osmolality (281-305) mosm/kg Calcium (8.4-10.2) mg/dL Magnesium (1.6-2.6) mg/dL Total Bilirubin (0.0-1.0) mg/dL AST (5-37) U/L ALT (0-40) U/L Alkaline Phosphatase (39-117) U/L Total Creatine Kinase (38-174) U/L Total Protein (6.5-8.0) g/dL Albumin (3.5-5.0) g/dL Lipase (8-78) U/L Beta-Hydroxybutyrate (0.02-0.27) mmol/L Urine Color Yellow Urine Appearance Clear Urine pH 6.0 (5.0-9.0) Ur Specific [place] >= 1.030 H (1.005-1.025) Urine Protein 100 (2+) H (Neg-Trace) mg/dL Urine Glucose (UA) >=1000 H (Negative) mg/dL Urine Ketones 40 (Negative) mg/dL Urine Blood Negative (Negative) Urine Nitrite Negative (Negative) Ur Leukocyte Esterase Negative (Negative) Urine RBC 0-2 (0-2) /HPF Urine WBC 0-5 (0-5) /HPF Ur Squamous Epith Cells 0-2 (0-2) /HPF Urine Bacteria None Seen (None Seen) Hyaline Casts 3-5 (0-2) /LPF Influenza Type A (PCR) (Negative) Influenza Type B (PCR) (Negative) RSV RNA Qual (PCR) (Negative) SARS-CoV-2 RNA (RT-PCR) (Negative) External Record Review External record reviewed: Inpatient record, Office record, Outpatient record, Prior outpatient labs, Prior outpatient radiology, Primary care record and Outside ED record Prescription Management I considered prescription management with: Other (antiemetic) Chronic Conditions Patient?s care impacted by: Diabetes Social Determinants Patient?s care significantly limited by Social Determinants of Health including: Other Social Determinant of Health Discharge Plan Discharge Clinical Impression: Hypoglycemia, Metabolic alkalosis, Gastroenteritis Patient Disposition: Home, Self-Care Instructions: Gastroenteritis (ED), Acute Nausea and Vomiting (ED), What to Do if Your Blood Sugar is Low (ED), Hypoglycemia in Adolescents with Diabetes (ED) Additional Instructions: Your labs are reassuring. Your urine does not show infection. Your glucose was noted to be low however this improved with eating. You received IV Zofran and fluids today and symptoms improved. You had no further episodes of vomiting and state you feel much better. Zofran has been sent to your pharmacy. Please take this as needed for nausea/vomiting. Please make sure you are checking her sugars regularly at home and taking your insulin as prescribed. Do not miss any doses as this can be dangerous. Follow up with PCP as needed. Please return with new or worsening symptoms. The case of an emergency call 911. Prescriptions: New ondansetron 4 mg tablet,disintegrating 4 mg PO DAILY PRN (Reason: nausea and vomiting) 5 Days Qty: 14 0RF No Action metoclopramide HCl [Reglan] 5 mg tablet 5 mg PO TID PRN (Reason: nausea and vomiting) Qty: 30 0RF insulin glargine 100 unit/mL Solution 30 unit SUBCUT QPM insulin lispro 100 unit/mL Insulin Pen 1 sliding scale dose SUBCUT USEASDIRECTD Protocol: Insulin Correction Scale Less than or equal to 110 ---- Give (units): 0 111 to 150 Give (units): 0 151 to 200 Give (units): 2 201 to 250 Give (units): 4 251 to 300 Give (units): 6 301 to 350 Give (units): 8 Greater than 350 Give (units): 10 Call if Blood Glucose > : 350 Referrals: Physician,Gladys J [Primary Care Provider] -
[2023-10-24 10:45] VITALS: BP 168/111; BP 170/108; PULSE 100; PULSE 104; RESP 20; TEMP 36.5; O2SAT 100; O2SAT 99; BMI 23.1
[2023-10-24 10:47] LABS: Glucose, Whole Blood 103 mg/dL (60-115)
[2023-10-24] MEDS: 0.9 % Sodium Chloride 1,000 ML 999 ML IV (10:53)
[2023-10-24] MEDS: Metoclopramide HCl 10 MG/2 ML VIAL IVPUSH (10:54)
[2023-10-24] MEDS: diphenhydrAMINE HCL 50 MG/ML VIAL IVPUSH (10:54)
[2023-10-24 11:15] LABS: MANUAL DIFF FLAG NO; Venous Blood Gas Refer to POC result
[2023-10-24 11:15] LABS: VBG Base Excess 8.6 mmol/L; VBG HCO3 33 mmol/L (22-26); VBG pCO2 45 mmHg; VBG pH 7.47 (7.32-7.43); VBG pO2 32 mmHg
[2023-10-24] MEDS: Morphine Sulfate 4 MG/ML CARTRIDGE IVPUSH (11:15)
[2023-10-24 11:21] LABS: Basophils Percent Auto 0.2 % (0-2); Hematocrit 35.4 % (42.0-52.0); Hemoglobin 11.2 g/dl (14.0-18.0); Imm Gran Abs Auto 0.06 X10*3/uL (0.00-0.03); Imm Gran Pct Auto 0.5 % (0.0-0.4); Lymphocytes Absolute Auto 1.1 X10*3/uL (1.2-4.9); Mean Corpuscular HGB Conc 31.6 g/dl (31.0-36.0); Mean Platelet Volume 9.5 fL (9.4-12.4); Monocytes Absolute Auto 0.5 X10*3/uL (0.1-1.2); Neutrophils Absolute Auto 10.7 x10*3/uL (2.0-8.3); Neutrophils Percent Auto 86.3 % (45-73); Platelet Count 519 X10*3/uL (160-400); Red Blood Count 4.48 X10*6/uL (4.60-5.80); Red Cell Distribution Width 15.9 % (11.0-16.0); White Blood Count 12.4 X10*3/uL (4.8-10.8)
[2023-10-24 11:36] LABS: Osmolality, Serum 309 mosm/kg (281-305)
[2023-10-24 12:05] LABS: Alanine Aminotransferase 32 U/L (0-40); Albumin Level 4.1 g/dL (3.5-5.0); Alkaline Phosphatase 119 U/L (39-117); Anion Gap 16 (12-20); Aspartate Amino Transferase 23 U/L (5-37); Beta-Hydroxybutyrate 1.16 mmol/L (0.02-0.27); Bilirubin Total 0.3 mg/dL (0.0-1.0); Blood Urea Nitrogen 30 mg/dL (9-16); Calcium 9.9 mg/dL (8.4-10.2); Carbon Dioxide 30 mmol/L (22-29); Chloride 103 mmol/L (96-108); Creatinine Clr Calc Pharmacy 92.5; Estimated Glomerular Filt Rate > 60; Glucose Random 89 mg/dL (60-115); Potassium 4.1 mmol/L (3.3-5.1); Sodium 145 mmol/L (135-145); Total Protein 7.8 g/dL (6.5-8.0)
[2023-10-24 12:12] VITALS: BP 125/75; PULSE 95; RESP 13; O2SAT 95
[2023-10-24 12:25] LABS: Influenza A PCR NEGATIVE (Negative); Influenza B PCR NEGATIVE (Negative); Resp Syncy Virus RNA Qual PCR NEGATIVE (Negative); SARS COV2 PCR INHOUSE NEGATIVE (Negative)
[2023-10-24 12:35] LABS: Glucose, Whole Blood 47 mg/dL (60-115)
[2023-10-24 13:35] LABS: Glucose, Whole Blood 169 mg/dL (60-115)
[2023-10-24 14:17] LABS: Lipase 9 U/L (8-78)
[2023-10-24 15:03] VITALS: BP 145/98; PULSE 99; RESP 20; TEMP 37.2; O2SAT 99
[2023-10-24 16:15] LABS: Appearance Urine Clear; Color Urine Yellow; Glucose Urine UA >=1000 mg/dL (Negative); Leukocyte Esterase Urine Negative (Negative); Nitrite Urine Negative (Negative); Specific Gravity - Urine >= 1.030 (1.005-1.025); UMIC TRIGGER UACC YES; Urine Blood Negative (Negative); Urine Ketones 40 mg/dL (Negative); Urine Protein 100 (2+) mg/dL (Neg-Trace)
[2023-10-24 16:18] LABS: Bacteria Urine None Seen (None Seen); RBC Urine 0-2 /HPF (0-2); Squamous Epithelial Cell Urine 0-2 /HPF (0-2); WBC Urine 0-5 /HPF (0-5)
[2023-10-24 16:51] VITALS: BP 145/98; PULSE 99; RESP 20; TEMP 37.2
== END 2023-10-24 16:52 | disposition home or self-care (01) ==
PROVIDERS: Physician Assistant Medical; Emergency Provider Emergency Medicine
DX: K52.9 Noninfective gastroenteritis and colitis, unspecified (principal); E87.3 Alkalosis; E10.649 Type 1 diabetes mellitus with hypoglycemia without coma; Z11.52 Encounter for screening for COVID-19; Z20.828 Contact with and (suspected) exposure to other viral communicable diseases
CPT/HCPCS: 0241U; 36415; 80053; 81001; 82010; 82550; 82803; 82947; 83690; 83735; 83930; 85025; 96361; 96374; 96375; 99284; J1200; J2270; J2765

== ENCOUNTER 2023-10-28 11:29 | Inpatient (IN) | payer MEDICAID, SELFPAY ==
[2023-10-28] VITALS (15 sets, daily range): BP systolic 140–183; BP diastolic 84–103; PULSE 109–139; RESP 15–32; TEMP 36.1–36.9; O2SAT 85–100; BMI 23.9; BMI 21.6
--- NOTE | ~2023-10-28 | XR_ITS ---
EXAMINATION: XR CHEST CLINICAL INFORMATION: Shortness of breath COMPARISON: Chest radiograph from 02/26/2023 TECHNIQUE: 2 views of the chest were obtained. FINDINGS: Slight elevation the right hemidiaphragm, stable. No pneumothorax. Trachea is midline. Cardiac mediastinal silhouette is not enlarged. No large pleural effusion. Osseous structures are intact. Soft tissues are unremarkable. XR/XR chest 2V IMPRESSION: No acute cardiopulmonary process.
--- NOTE | ~2023-10-28 | NM_ITS ---
EXAMINATION: PULMONARY PERFUSION STUDY CLINICAL INFORMATION: Pulmonary embolus. Chest pain. Shortness of breath. COMPARISON: Chest radiograph from 10/28/2023. TECHNIQUE: The patient received 4 mCi Tc-99m MAA intravenously and a 8-view perfusion study was performed. FINDINGS: No segmental perfusion defects are present. There is homogeneous distribution of activity bilaterally. There are no focal anatomic appearing perfusion defects present. NM/NM pul perfusion IMPRESSION: Normal radionuclide lung perfusion scan. Pulmonary embolism absent.
--- NOTE | 2023-10-28 11:45 | ECG_ITS ---
Test Reason : CHEST PAIN Blood Pressure : / mmHG Vent. Rate : 135 BPM Atrial Rate : 135 BPM P-R Int : 130 ms QRS Dur : 084 ms QT Int : 384 ms P-R-T Axes : 079 080 063 degrees QTc Int : 576 ms Sinus tachycardia Biatrial enlargement Abnormal ECG When compared with ECG of 21-JUN-2023 16:42, Nonspecific T wave abnormality, improved in Inferior leads T wave inversion less evident in Anterolateral leads Referred By: Mone Almodovar Electronically Signed By:Kam Gracia
--- NOTE | 2023-10-28 11:46 | ED.GENADULT ---
HPI - General Adult General Chief complaint: General Medical Stated complaint: SOB and hyperglycemia, BGL 444 Time Seen by Provider: 10/28/23 11:45 Source: patient and EMS Mode of arrival: EMS Limitations: no limitations History of Present Illness HPI narrative: Patient is a 33 year old assigned male at with a history of DM presenting to the emergency department today with nausea, vomiting, chest pain, and shortness of breath. Patient states that over the last day and a half, he has felt generally unwell with chest pain, shortness of breath, upset stomach, nausea, and vomiting. Patient denies any dizziness, lightheadedness, fever, chills, blurry vision, double vision, loss of vision, back pain, night sweats, pain with urination, increased urinary frequency, increased urinary urgency, blood in his urine or stool, syncope or a near syncopal episode, recent trauma or falls, bowel incontinence, bladder incontinence, bowel retention, bladder retention, or any other complaints at this time. Onset (ago): day(s) Relieving factors: none Exacerbating factors: none Associated symptoms: chest pain, nausea/vomiting and shortness of breath Treatments prior to arrival: none Related Data Home Medications Medication Instructions Recorded Confirmed insulin glargine 100 unit/mL 30 unit subcut QPM 02/26/23 09/19/23 subcutaneous solution insulin lispro 100 unit/mL 1 sliding scale dose subcut 02/26/23 09/19/23 subcutaneous pen USEASDIRECTD Previous Rx's Medication Instructions Recorded metoclopramide HCl 5 mg tablet 5 mg PO TID PRN nausea and 09/20/23 (Reglan) vomiting #30 tabs ondansetron 4 mg disintegrating 4 mg PO DAILY PRN nausea and 10/24/23 tablet vomiting 5 days #14 tabs Allergies Allergy/AdvReac Type Severity Reaction Status Date / Time No Known Allergies Allergy Verified 10/28/23 11:32 Review of Systems Constitutional: Constitutional: Reports no additional constitutional complaints, Denies chills, Denies fever(s) and Denies night sweats Eyes: Eyes: Reports no additional eye complaints, Denies blurry vision, Denies change in vision, Denies diplopia, Denies eye discharge, Denies loss of vision and Denies eye pain ENT: Denies dizziness Cardiovascular: Cardiovascular: Reports no additional cardiovascular complaints, Reports chest pain, Denies lightheadedness, Denies Loss of Consciousness and Reports dyspnea Respiratory: Respiratory: Reports no additional respiratory complaints and Reports dyspnea Gastrointestinal: Gastrointestinal: Reports no additional gastrointestinal complaints, Reports abdominal pain, Denies melena, Denies hematochezia, Denies change in bowel habits, Denies change in stool character, Reports nausea and Reports vomiting Genitourinary: Genitourinary: Reports no additional male genitourinary complaints, Denies hematuria, Denies oliguria, Denies difficulty urinating, Denies dysuria, Denies urinary frequency, Denies urinary hesitancy, Denies urinary incontinence and Denies urinary urgency Musculoskeletal: Musculoskeletal: Reports no additional musculoskeletal complaints, Denies numbness and Denies tingling Neurologic: Denies dizziness, Denies loss of vision, Denies numbness and Denies tingling Psychiatric: Psychiatric: Reports no additional psychiatric complaints Endocrine: Endocrine: Reports no additional endocrine complaints Hematologic/Lymphatic: Hematologic/Lymphatic: Reports no additional hematologic/lymphatic complaints Allergic/Immunologic: Allergic/Immunologic: Reports no additional allergic/immunologic complaints [facility] Past Medical History Attestation statement: The following information was validated with the patient. Source: old records reviewed and nursing notes reviewed Medical History Type 1 diabetes mellitus Gastroparesis Social History Social History Household Members: None Housing: House Do you presently have visiting nurse or other home services: No Alcohol intake: current Alcohol intake frequency: holidays/special occasions only Patient Tobacco Use Status: Never used Tobacco Smoked in Last 30 Days: No Second Hand Smoke Exposure: No Use of substances other than those prescribed or required for medical reasons: Yes Substance Use Type: Marijuana Substance Use Frequency: Daily Advance Directives: Yes Advance Directives on File: Yes Advance Directives Date on File: 06/22/23 service: No Physical Exam ED Vital Signs: Vital Signs - 24 hr 10/28/23 11:34 10/28/23 12:13 10/28/23 13:08 Temperature 98 F 97 F Pulse Rate 135 H 136 H 139 H Respiratory Rate 32 H 24 H 28 H Blood Pressure 157/100 H 158/90 H 158/95 H Pulse Oximetry 100 100 100 Oxygen Delivery Method Room Air Room Air BMI result Body Mass Index 23.9 Const General: cooperative, no acute distress, alert and awake Nutritional Appearance: well nourished Orientation/consciousness: patient oriented x3 Limitations: no limitations HENMT Head: Yes normal to inspection and Yes atraumatic Ears: hearing grossly normal bilaterally and external ears normal General nose exam: Normal external nose present, no nasal discharge noted and no epistaxis Face and sinus: Yes normal facial exam, No abrasion and No laceration Mouth: Normal oral and palatal mucosa present, no drooling and no muffled voice Eyes General: appearance normal, both eyes and all related structures Periorbital: periorbital findings normal Eyelids: Yes eyelids normal Conjunctivae: conjunctivae normal Pupils: Equal, round and reactive pupils present EOM: EOMs intact bilaterally Neck Neck: Yes normal visual inspection, Yes full ROM and Yes no lymphadenopathy Chest Chest palpation & inspection: normal inspection of the chest Resp Effort & Inspection: able to speak in complete sentences and tachypneic Auscultation: clear to auscultation bilaterally Cardio Rate: tachycardic Rhythm: regular rhythm GI Inspection: Yes normal to inspection Neuro General: patient oriented x3 and moves all extremities Cranial nerves: Yes Equal, round and reactive pupils present Cognition (Neuro): normal cognition Motor exam (neuro): 5/5 motor strength present throughout Sensory Exam: Normal double simultaneous stimulation for sensation Coordination: [id number] test normal Extrem General: Yes normal to inspection, Yes full ROM and Yes capillary refill normal Psych Appearance: grossly normal Mental Status: mental status grossly normal Affect: normal affect Attitude: cooperative Thought process: Normal thought process present Thought content: Normal thought content present Insight: Good insight present (Psych) Medications Administered Generic Name Dose Route Start Last Admin Trade Name Freq PRN Reason Stop Dose Admin Sodium Bicarbonate 150 meq/ 1,000 mls @ 100 mls/hr 10/28/23 12:45 10/28/23 13:37 Dextrose IV 100 mls/hr .Q10H PARKER Administration Insulin Human Regular 100 unit in 100 mls @ 0 mls/hr 10/28/23 12:45 10/28/23 15:10 Myxredlin IVCONT 2 unit/hr .Q0M PARKER 2 mls/hr Titration Protocol Titrate Discontinued Medications Generic Name Dose Route Start Last Admin Trade Name Freq PRN Reason Stop Dose Admin Sodium Chloride 1,000 mls @ 999 mls/hr 10/28/23 11:45 10/28/23 13:16 Ns IV 10/28/23 12:45 Infused .Q1H1M PARKER Infusion Sodium Chloride 1,000 mls @ 999 mls/hr 10/28/23 12:00 10/28/23 13:41 Ns IV 10/28/23 13:00 Infused .Q1H1M PARKER Infusion Ceftriaxone Sodium 1 gm/ 50 mls @ 100 mls/hr 10/28/23 12:26 10/28/23 13:16 Sodium Chloride IV 10/28/23 12:55 Infused ONCE ONE Infusion Insulin Human Lispro 10 unit 10/28/23 11:53 10/28/23 12:03 Insulin Lispro 100 Unit/Ml 3 Ml Vial SUBCUT 10/28/23 11:54 10 unit ONCE ONE Administration Insulin Human Regular 10 unit 10/28/23 13:01 10/28/23 13:10 Insulin Regular, Human 100 Unit/Ml 3 Ml Vial IVPUSH 10/28/23 13:02 10 unit ONCE ONE Administration Lorazepam 2 mg 10/28/23 11:53 10/28/23 12:04 Lorazepam 2 Mg/Ml Vial IVPUSH 10/28/23 11:54 2 mg ONCE ONE Administration Medical Decision Making Medical Decision Making [facility] Narrative: Patient is a 33 year old assigned male at with a history of DM presenting to the emergency department today with nausea, vomiting, chest pain, and shortness of breath. Patient's physical exam was as noted in the physical exam portion of this note. Patient's blood work showed an elevated blood sugar of 697, CO of 5, Anion GAP of 45, BUN of 29, CR of 2.34, beta-hydroxybuturate of 16.31, and a WBC count of 28.8. Patient's urine showed no acute process. Patient's EKG showed sinus tachycardia. Patient's chest x-ray showed no acute process. Given patient's presentation, I believe the patient to be in DKA. I consulted with my attending physician, Dr. Haynes, who recommended subcutaneous insulin, IV insulin, an insulin drip, and bicarb. All of which were ordered and given / started. Given the patient's elevated WBC count, will cover with ceftriaxone. Patient's clinical presentation is not consistent with sepsis (@1520). Given the patient's complaint of chest pain and shortness of breath coupled with his tachycardia, will rule out PE. VQ scan ordered given patient's elevated CR, he is unable to have a CTA performed. Additionally, urine drug screen added to rule out any substance causing his sustained tachycardia. I spoke to the food bagging machine operator who agreed to admission. I explained my physical exam findings as well as all test results to the patient. I answered all questions asked by the patient. Patient verbalized agreement and undertanding with admission. Differential Diagnosis Differential Diagnoses: The differential diagnosis associated with the presentation includes DKA Tachycardia Hyperglycemia Admission/Observation Consideration of admission/observation: Escalation of care including admission/observation considered Patient admitted. Consult Healthcare Provider Management of the patient was discussed with: Senior Construction Estimator (spoke to the food bagging machine operator as noted in the MDM Rationale portion of this note.) Lab Data [facility] Lab Attestation statement: I reviewed the patient's lab results. My interpretation of these results are in the MDM Rationale portion of this note. 10/28/23 11:55 10/28/23 11:55 Labs: Lab Results 10/28/23 10/28/23 10/28/23 Range/Units 11:43 11:55 12:49 WBC 28.8 H (4.8-10.8) X10*3/uL RBC 4.49 L (4.60-5.80) X10*6/uL Hgb 11.3 L (14.0-18.0) g/dl Hct 37.5 L (42.0-52.0) % MCV 83.5 (80.0-98.0) fL MCH 25.2 L (27.0-33.0) pg MCHC 30.1 L (31.0-36.0) g/dl RDW 15.5 (11.0-16.0) % Plt Count 579 H (160-400) X10*3/uL MPV 9.6 (9.4-12.4) fL Immature Gran % (Auto) 1.1 H (0.0-0.4) % Neut % (Auto) 90.5 H (45-73) % Lymph % (Auto) 4.9 L (20-40) % Esmeralda % (Auto) 3.3 (2-11) % Eos % (Auto) 0.0 (0-4) % Baso % (Auto) 0.2 (0-2) % Lymph # (Auto) 1.4 (1.2-4.9) X10*3/uL Esmeralda # (Auto) 1.0 (0.1-1.2) X10*3/uL Eos # (Auto) 0.0 (0.0-0.4) X10*3/uL Baso # (Auto) 0.1 (0.0-0.2) X10*3/uL Abs Immat Gran (auto) 0.33 H (0.00-0.03) X10*3/uL Absolute Neuts (auto) 26.1 H (2.0-8.3) x10*3/uL Absolute Nucleated RBC 0.000 (0.0-0.012) X10*3/uL Nucleated RBC % (auto) 0.0 (0.0-0.2) /100WBC Smear Tech's Comments VERIFIED VBG pH (7.32-7.43) VBG pCO2 mmHg VBG pO2 mmHg VBG HCO3 (22-26) mmol/L VBG O2 Saturation % VBG Base Excess mmol/L Sodium 136 (135-145) mmol/L Potassium 4.9 (3.3-5.1) mmol/L Chloride 91 L (96-108) mmol/L Carbon Dioxide 5 L* D (22-29) mmol/L Anion Gap 45 H (12-20) BUN 29 H (9-16) mg/dL Creatinine 2.34 H (0.5-1.4) mg/dL Estim Creat Clear Calc 49.7 Estimated GFR 32 POC Glucose 599 H* 557 H* (60-115) mg/dL Random Glucose 697 H* (60-115) mg/dL Lactic Acid (0.5-2.0) mmol/L Calcium 8.9 D (8.4-10.2) mg/dL Magnesium 2.0 (1.6-2.6) mg/dL Total Bilirubin 0.4 (0.0-1.0) mg/dL AST 13 (5-37) U/L ALT 23 (0-40) U/L Alkaline Phosphatase 124 H (39-117) U/L Troponin I High Sens < 2.7 (<3.5-35.0) ng/L Total Protein 7.1 (6.5-8.0) g/dL Albumin 3.8 (3.5-5.0) g/dL Beta-Hydroxybutyrate 16.31 H (0.02-0.27) mmol/L Urine Color Yellow Urine Appearance Clear Urine pH 5.5 (5.0-9.0) Ur Specific [place] 1.020 (1.005-1.025) Urine Protein 100 (2+) H (Neg-Trace) mg/dL Urine Glucose (UA) >=1000 H (Negative) mg/dL Urine Ketones >=160 (Negative) mg/dL Urine Blood Negative (Negative) Urine Nitrite Negative (Negative) Ur Leukocyte Esterase Negative (Negative) Urine RBC 0-2 (0-2) /HPF Urine WBC 0-5 (0-5) /HPF Ur Squamous Epith Cells 0-2 (0-2) /HPF Urine Bacteria None Seen (None Seen) Hyaline Casts 6-10 (0-2) /LPF Granular Casts Present Influenza Type A (PCR) NEGATIVE (Negative) Influenza Type B (PCR) NEGATIVE (Negative) RSV RNA Qual (PCR) NEGATIVE (Negative) SARS-CoV-2 RNA (RT-PCR) NEGATIVE (Negative) 10/28/23 10/28/23 10/28/23 Range/Units 12:50 12:53 14:15 WBC (4.8-10.8) X10*3/uL RBC (4.60-5.80) X10*6/uL Hgb (14.0-18.0) g/dl Hct (42.0-52.0) % MCV (80.0-98.0) fL MCH (27.0-33.0) pg MCHC (31.0-36.0) g/dl RDW (11.0-16.0) % Plt Count (160-400) X10*3/uL MPV (9.4-12.4) fL Immature Gran % (Auto) (0.0-0.4) % Neut % (Auto) (45-73) % Lymph % (Auto) (20-40) % Esmeralda % (Auto) (2-11) % Eos % (Auto) (0-4) % Baso % (Auto) (0-2) % Lymph # (Auto) (1.2-4.9) X10*3/uL Esmeralda # (Auto) (0.1-1.2) X10*3/uL Eos # (Auto) (0.0-0.4) X10*3/uL Baso # (Auto) (0.0-0.2) X10*3/uL Abs Immat Gran (auto) (0.00-0.03) X10*3/uL Absolute Neuts (auto) (2.0-8.3) x10*3/uL Absolute Nucleated RBC (0.0-0.012) X10*3/uL Nucleated RBC % (auto) (0.0-0.2) /100WBC Smear Tech's Comments VBG pH 7.06 L* (7.32-7.43) VBG pCO2 13 mmHg VBG pO2 83 mmHg VBG HCO3 4 L (22-26) mmol/L VBG O2 Saturation 92.0 % VBG Base Excess -23.8 mmol/L Sodium (135-145) mmol/L Potassium (3.3-5.1) mmol/L Chloride (96-108) mmol/L Carbon Dioxide (22-29) mmol/L Anion Gap (12-20) BUN (9-16) mg/dL Creatinine (0.5-1.4) mg/dL Estim Creat Clear Calc Estimated GFR POC Glucose 386 H* (60-115) mg/dL Random Glucose (60-115) mg/dL Lactic Acid 3.3 H* (0.5-2.0) mmol/L Calcium (8.4-10.2) mg/dL Magnesium (1.6-2.6) mg/dL Total Bilirubin (0.0-1.0) mg/dL AST (5-37) U/L ALT (0-40) U/L Alkaline Phosphatase (39-117) U/L Troponin I High Sens (<3.5-35.0) ng/L Total Protein (6.5-8.0) g/dL Albumin (3.5-5.0) g/dL Beta-Hydroxybutyrate (0.02-0.27) mmol/L Urine Color Urine Appearance Urine pH (5.0-9.0) Ur Specific [place] (1.005-1.025) Urine Protein (Neg-Trace) mg/dL Urine Glucose (UA) (Negative) mg/dL Urine Ketones (Negative) mg/dL Urine Blood (Negative) Urine Nitrite (Negative) Ur Leukocyte Esterase (Negative) Urine RBC (0-2) /HPF Urine WBC (0-5) /HPF Ur Squamous Epith Cells (0-2) /HPF Urine Bacteria (None Seen) Hyaline Casts (0-2) /LPF Granular Casts Influenza Type A (PCR) (Negative) Influenza Type B (PCR) (Negative) RSV RNA Qual (PCR) (Negative) SARS-CoV-2 RNA (RT-PCR) (Negative) 10/28/23 Range/Units 15:05 WBC (4.8-10.8) X10*3/uL RBC (4.60-5.80) X10*6/uL Hgb (14.0-18.0) g/dl Hct (42.0-52.0) % MCV (80.0-98.0) fL MCH (27.0-33.0) pg MCHC (31.0-36.0) g/dl RDW (11.0-16.0) % Plt Count (160-400) X10*3/uL MPV (9.4-12.4) fL Immature Gran % (Auto) (0.0-0.4) % Neut % (Auto) (45-73) % Lymph % (Auto) (20-40) % Esmeralda % (Auto) (2-11) % Eos % (Auto) (0-4) % Baso % (Auto) (0-2) % Lymph # (Auto) (1.2-4.9) X10*3/uL Esmeralda # (Auto) (0.1-1.2) X10*3/uL Eos # (Auto) (0.0-0.4) X10*3/uL Baso # (Auto) (0.0-0.2) X10*3/uL Abs Immat Gran (auto) (0.00-0.03) X10*3/uL Absolute Neuts (auto) (2.0-8.3) x10*3/uL Absolute Nucleated RBC (0.0-0.012) X10*3/uL Nucleated RBC % (auto) (0.0-0.2) /100WBC Smear Tech's Comments VBG pH (7.32-7.43) VBG pCO2 mmHg VBG pO2 mmHg VBG HCO3 (22-26) mmol/L VBG O2 Saturation % VBG Base Excess mmol/L Sodium (135-145) mmol/L Potassium (3.3-5.1) mmol/L Chloride (96-108) mmol/L Carbon Dioxide (22-29) mmol/L Anion Gap (12-20) BUN (9-16) mg/dL Creatinine (0.5-1.4) mg/dL Estim Creat Clear Calc Estimated GFR POC Glucose 250 H (60-115) mg/dL Random Glucose (60-115) mg/dL Lactic Acid (0.5-2.0) mmol/L Calcium (8.4-10.2) mg/dL Magnesium (1.6-2.6) mg/dL Total Bilirubin (0.0-1.0) mg/dL AST (5-37) U/L ALT (0-40) U/L Alkaline Phosphatase (39-117) U/L Troponin I High Sens (<3.5-35.0) ng/L Total Protein (6.5-8.0) g/dL Albumin (3.5-5.0) g/dL Beta-Hydroxybutyrate (0.02-0.27) mmol/L Urine Color Urine Appearance Urine pH (5.0-9.0) Ur Specific [place] (1.005-1.025) Urine Protein (Neg-Trace) mg/dL Urine Glucose (UA) (Negative) mg/dL Urine Ketones (Negative) mg/dL Urine Blood (Negative) Urine Nitrite (Negative) Ur Leukocyte Esterase (Negative) Urine RBC (0-2) /HPF Urine WBC (0-5) /HPF Ur Squamous Epith Cells (0-2) /HPF Urine Bacteria (None Seen) Hyaline Casts (0-2) /LPF Granular Casts Influenza Type A (PCR) (Negative) Influenza Type B (PCR) (Negative) RSV RNA Qual (PCR) (Negative) SARS-CoV-2 RNA (RT-PCR) (Negative) Independent Interpretation I performed an independent interpretation of an: EKG, Plain X-Ray and CT Scan Interpretation: My interpretation is in agreement with the radiologist's impression of this imaging study. EXAMINATION: XR CHEST CLINICAL INFORMATION: Shortness of breath COMPARISON: Chest radiograph from 02/26/2023 TECHNIQUE: 2 views of the chest were obtained. FINDINGS: Slight elevation the right hemidiaphragm, stable. No pneumothorax. Trachea is midline. Cardiac mediastinal silhouette is not enlarged. No large pleural effusion. Osseous structures are intact. Soft tissues are unremarkable. XR/XR chest 2V IMPRESSION: No acute cardiopulmonary process. Dictated By: Roxana Chua MD Signed By: Electronically signed by Roxana Chua MD 10/28/23 1326 Vent. Rate: 135 BPM Atrial Rate: 135 BPM P-R Int: 130 ms QRS Dur: 084 ms QT Int: 384 ms P-R-T Axes: 079 080 063 degrees QTc Int: 576 ms Sinus tachycardia Biatrial enlargement Abnormal ECG When compared with ECG of 21-JUN-2023 16:42, Nonspecific T wave abnormality, improved in Inferior leads T wave inversion less evident in Anterolateral leads DD/ 1149 Radiology Impression Discussion of test interpretation with radiology: I have reviewed the radiologist's reading. Independent Historian Clinical information obtained from an independent historian. History obtained from or confirmed by: EMS (EMS provided additional history and confirmed the history provided by the patient.) Chronic Conditions Patient?s care impacted by: Diabetes Critical Care Time Critical Care Time Critical Care Time: Yes Total Critical Care Time: 198 Attestation: I spent 198 minutes of Critical Care Time with this patient. This does not include time spent on separately reported billable procedures. Discharge Plan Discharge Clinical Impression: DKA, type 1, Elevated WBC count, Tachycardia Patient Disposition: Admitted As Inpatient Prescriptions: No Action metoclopramide HCl [Reglan] 5 mg tablet 5 mg PO TID PRN (Reason: nausea and vomiting) Qty: 30 0RF insulin glargine 100 unit/mL Solution 30 unit SUBCUT QPM insulin lispro 100 unit/mL Insulin Pen 1 sliding scale dose SUBCUT USEASDIRECTD Protocol: Insulin Correction Scale Less than or equal to 110 ---- Give (units): 0 111 to 150 Give (units): 0 151 to 200 Give (units): 2 201 to 250 Give (units): 4 251 to 300 Give (units): 6 301 to 350 Give (units): 8 Greater than 350 Give (units): 10 Call MD if Blood Glucose > : 350 ondansetron 4 mg tablet,disintegrating 4 mg PO DAILY PRN (Reason: nausea and vomiting) 5 Days Qty: 14 0RF
[2023-10-28 11:47] LABS: Glucose, Whole Blood 599 mg/dL (60-115)
[2023-10-28] MEDS: 0.9 % Sodium Chloride 1,000 ML 999 ML IV ×2 (11:48→12:09)
[2023-10-28 12:01] LABS: Basophils Absolute Auto 0.1 X10*3/uL (0.0-0.2); Basophils Percent Auto 0.2 % (0-2); Hematocrit 37.5 % (42.0-52.0); Hemoglobin 11.3 g/dl (14.0-18.0); Imm Gran Abs Auto 0.33 X10*3/uL (0.00-0.03); Imm Gran Pct Auto 1.1 % (0.0-0.4); Lymphocytes Absolute Auto 1.4 X10*3/uL (1.2-4.9); Lymphocytes Percent Auto 4.9 % (20-40); MANUAL DIFF FLAG SCAN; Mean Corpuscular HGB Conc 30.1 g/dl (31.0-36.0); Mean Corpuscular Hemoglobin 25.2 pg (27.0-33.0); Mean Corpuscular Volume 83.5 fL (80.0-98.0); Mean Platelet Volume 9.6 fL (9.4-12.4); Monocytes Percent Auto 3.3 % (2-11); Neutrophils Absolute Auto 26.1 x10*3/uL (2.0-8.3); Neutrophils Percent Auto 90.5 % (45-73); Platelet Count 579 X10*3/uL (160-400); Red Blood Count 4.49 X10*6/uL (4.60-5.80); Red Cell Distribution Width 15.5 % (11.0-16.0); SCAN SMEAR FLAG 1; White Blood Count 28.8 X10*3/uL (4.8-10.8)
[2023-10-28 12:02] LABS: Appearance Urine Clear; Color Urine Yellow; Glucose Urine UA >=1000 mg/dL (Negative); Leukocyte Esterase Urine Negative (Negative); Nitrite Urine Negative (Negative); PH 5.5 (5.0-9.0); UMIC TRIGGER UACC YES; Urine Blood Negative (Negative); Urine Ketones >=160 mg/dL (Negative); Urine Protein 100 (2+) mg/dL (Neg-Trace)
[2023-10-28] MEDS: Insulin Lispro 100 UNIT/ML 3 ML VIAL 10 UNIT SUBCUT (12:03)
[2023-10-28] MEDS: LORazepam 2 MG/ML VIAL IVPUSH ×2 (12:04→20:00)
[2023-10-28 12:09] LABS: Bacteria Urine None Seen (None Seen); Granular Casts Urine Present; RBC Urine 0-2 /HPF (0-2); Squamous Epithelial Cell Urine 0-2 /HPF (0-2); WBC Urine 0-5 /HPF (0-5)
--- NOTE | 2023-10-28 12:09 | PC.NURSE ---
Pt coming from home via EMS. Pt reports feeling ill, nausea, SOB and sharp chest pains since yesterday. Pt also reports urinating frequently and feeling very thirsty/ dehydrated. Pt is T1DM and did take his insulin this morning, has hx of DKA. Pt also reports some chills/ feverish feelings and general malaise. Pt reports CP is sharp, 8/10 across his chest. Pt is alert and oriented, breathing elevated (RR 22-28), skin slightly pale. Pt placed on bedside playground monitor, sinus tach in 130s. Pt medicated per OCT.
[2023-10-28 12:24] LABS: SLIDE REVIEW VERIFIED
[2023-10-28 12:25] LABS: Troponin-I High Sensitivity < 2.7 ng/L (<3.5-35.0)
[2023-10-28 12:39] LABS: Alanine Aminotransferase 23 U/L (0-40); Albumin Level 3.8 g/dL (3.5-5.0); Alkaline Phosphatase 124 U/L (39-117); Anion Gap 45 (12-20); Aspartate Amino Transferase 13 U/L (5-37); Beta-Hydroxybutyrate 16.31 mmol/L (0.02-0.27); Bilirubin Total 0.4 mg/dL (0.0-1.0); Blood Urea Nitrogen 29 mg/dL (9-16); Calcium 8.9 mg/dL (8.4-10.2); Chloride 91 mmol/L (96-108); Creatinine Clr Calc Pharmacy 49.7; Estimated Glomerular Filt Rate 32; Potassium 4.9 mmol/L (3.3-5.1); Sodium 136 mmol/L (135-145); Total Protein 7.1 g/dL (6.5-8.0)
[2023-10-28 12:41] LABS: Carbon Dioxide 5 mmol/L (22-29); Glucose Random 697 mg/dL (60-115); Influenza A PCR NEGATIVE (Negative); Influenza B PCR NEGATIVE (Negative); Resp Syncy Virus RNA Qual PCR NEGATIVE (Negative); SARS COV2 PCR INHOUSE NEGATIVE (Negative)
[2023-10-28] MEDS: cefTRIAXone sodium 1 GM in 0.9 % Sodium Chloride 50 ML IV (12:52)
[2023-10-28 12:56] LABS: Glucose, Whole Blood 557 mg/dL (60-115)
[2023-10-28 13:02] LABS: VBG Base Excess -23.8 mmol/L; VBG HCO3 4 mmol/L (22-26); VBG pCO2 13 mmHg; VBG pH 7.06 (7.32-7.43); VBG pO2 83 mmHg
[2023-10-28 13:02] LABS: Venous Blood Gas Refer to POC result
[2023-10-28] MEDS: Insulin Regular, Human 100 UNIT/ML 3 ML VIAL 10 UNIT IVPUSH (13:10)
[2023-10-28 13:13] LABS: Lactic Acid 3.3 mmol/L (0.5-2.0)
[2023-10-28] MEDS: Insulin Regular/NS 100 UNIT/100 ML PLAST..BAG 8 UNIT IVCONT (13:13)
[2023-10-28] MEDS: Sodium Bicarbonate 8.4% 150 MEQ in Dextrose 5 % 850 ML 100 MEQ IV (13:37)
[2023-10-28 14:19] LABS: Glucose, Whole Blood 386 mg/dL (60-115)
[2023-10-28 14:55] LABS: Reflex Lactate? Lactic Acid Added
[2023-10-28 15:10] LABS: Glucose, Whole Blood 250 mg/dL (60-115)
[2023-10-28 15:40] LABS: Amphetamine Screen Urine Not Detected (Not Detect); Barbiturates, Urine Not Detected (Not Detect); Benzodiazepines Screen Urine Not Detected (Not Detect); Cannabinoid Screen Urine POSITIVE (Not Detect); Cocaine Screen Urine Not Detected (Not Detect); Fentanyl, urine Not Detected (Not Detect); Opiate Screen Urine Not Detected (Not Detect); Phencyclidine Screen Urine Not Detected (Not Detect)
--- NOTE | 2023-10-28 15:46 | PHA.MEDREC ---
Pharmacy Consult ? Medication Reconciliation Pharmacy has completed the medication reconciliation.
[2023-10-28 16:04] LABS: ~Lactic Acid-LAB USE ONLY 1.7 mmol/L (0.5-2.0)
[2023-10-28] MEDS: Dextrose 5 % and Lactated Ring 1,000 ML 150 ML IVCONT ×2 (16:04→23:04)
[2023-10-28 16:15] LABS: Glucose, Whole Blood 185 mg/dL (60-115)
[2023-10-28] MEDS: Heparin Sodium,Porcine 5,000 UNIT/ML VIAL 5000 UNIT SUBCUT (16:22)
[2023-10-28 17:26] LABS: Glucose, Whole Blood 152 mg/dL (60-115)
[2023-10-28 18:04] LABS: Glucose, Whole Blood 144 mg/dL (60-115)
--- NOTE | 2023-10-28 18:15 | PC.NURSE ---
ASSUMED CARE OF PT AT 1630. ER NURSE BROUGHT PT TO [facility] AN THIS RN MET PT THERE. ON ARRIVAL, PT A&OX3. STATED HE FEELS BETTER. MONITOR SHOWED ST, 120'S, NO ECTOPY. LUNG SCAN DONE. PT TOLERATED THE TEST WELL. RESULTS PENDING. PT TO ICU AT 1720. NO CHANGES. STATES HE FEELS ABOUT 50% THAN WHEN HE CAME TO ER. ONLT COMPLAINT IS MILD STOMACH DISCOMFORT. PT HAS HICCOUGHS ON AND OFF. NO RESP DISTRESS. LUNGS CLEAR O2 SAT 99-100% ON RA. MONITOR CONTINUES ST, 120'S NO ECTOPY. AFEBRILE 98.4 ORAL. BP 156/90. INSULIN DRIP INFUSING PER PROTOCOL. SEE INSULIN INFUSION FLOW SHEET. DR TREVINO UPDATED ON POC/INSULIN IV RATE. 1800 LABS DRAWN AND PENDING.
[2023-10-28 18:39] LABS: Anion Gap 23 (12-20); Blood Urea Nitrogen 26 mg/dL (9-16); Calcium 7.9 mg/dL (8.4-10.2); Carbon Dioxide 16 mmol/L (22-29); Chloride 104 mmol/L (96-108); Creatinine Clr Calc Pharmacy 63.3; Estimated Glomerular Filt Rate 47; Glucose Random 150 mg/dL (60-115); Potassium 3.7 mmol/L (3.3-5.1); Sodium 139 mmol/L (135-145)
[2023-10-28 19:10] LABS: Glucose, Whole Blood 175 mg/dL (60-115)
--- NOTE | 2023-10-28 19:22 | ECG_ITS ---
Test Reason : CHEST PAIN Blood Pressure : / mmHG Vent. Rate : 125 BPM Atrial Rate : 125 BPM P-R Int : 138 ms QRS Dur : 078 ms QT Int : 336 ms P-R-T Axes : 066 076 073 degrees QTc Int : 484 ms Sinus tachycardia T wave abnormality, consider lateral ischemia Abnormal ECG When compared with ECG of 28-OCT-2023 11:49, Nonspecific T wave abnormality, worse in Inferior leads T wave inversion now evident in Lateral leads Referred By: Renee Ortega Electronically Signed By:Kam Gracia
[2023-10-28] MEDS: Calcium Carbonate 750 MG TAB.CHEW PO (19:59)
[2023-10-28 20:12] LABS: Glucose, Whole Blood 245 mg/dL (60-115)
[2023-10-28 21:07] LABS: Glucose, Whole Blood 204 mg/dL (60-115)
--- NOTE | 2023-10-28 21:11 | PM.CCHP ---
History of Present Illness Date of Service: 10/29/23 Chief Complaint: Diabetic ketoacidosis 33-year-old gentleman with underlying history of diabetes mellitus with prior episodes of DKA admitted on 10/28/2023 with diabetic ketoacidosis after presenting and complaining of nausea, vomiting, and dyspnea. Per patient he has been taking his insulin, however on ER evaluation patient with significant hyperglycemia and diabetic ketoacidosis. Started on insulin drip and admitted to intensive care unit. Review of Systems Constitutional: Constitutional: Denies daytime sleepiness, Denies excessive sweating, Denies fatigue, Denies fever(s), Denies lethargy, Reports malaise, Denies night sweats, Denies snoring and Denies weight loss Eyes: Eyes: Denies blurry vision and Denies itchy eyes ENT: Denies nasal congestion, Denies post nasal drip, Denies sinus pain, Denies sinus pressure and Denies other ( Thrush) Cardiovascular: Cardiovascular: Denies chest pain, Denies pedal edema, Denies dyspnea, Denies orthopnea and Denies paroxysmal nocturnal dyspnea Respiratory: Respiratory: Denies cough, Denies hemoptysis, Denies excessive phlegm production, Denies dyspnea, Denies snoring and Denies wheezing Gastrointestinal: Gastrointestinal: Denies abdominal pain, Denies heartburn and Reports nausea Musculoskeletal: Musculoskeletal: Denies myalgias, Denies arthralgias and Denies joint swelling Integumentary/Breasts: Skin/Breast: Denies rash Neurologic: Denies memory loss and Denies seizure-like activity Psychiatric: Psychiatric: Denies abnormal sleep pattern, Denies anxiety and Denies memory loss Endocrine: Endocrine: Denies excessive sweating, Denies fatigue and Denies heat intolerance Hematologic/Lymphatic: Hematologic/Lymphatic: Denies easy bruising Allergic/Immunologic: Allergic/Immunologic: Denies itchy eyes, Denies seasonal rhinorrhea and Denies wheezing PMFSH Past Medical History Medical History Type 1 diabetes mellitus Gastroparesis Social History Social History Household Members: None Housing: House Do you presently have visiting nurse or other home services: No Alcohol intake: current Alcohol intake frequency: holidays/special occasions only Patient Tobacco Use Status: Never used Tobacco Smoked in Last 30 Days: No Second Hand Smoke Exposure: No Use of substances other than those prescribed or required for medical reasons: Yes Substance Use Type: Marijuana Substance Use Frequency: Weekly Last Used Substance: Days (ago) Currently Displaying Signs/Symptoms of Drug Intoxication Withdrawal: No Any prior treatment program specific to substance use: No Have you been hit, kicked, punched, or otherwise hurt by someone within the past year? If so, by whom?: No Do you feel safe in your current relationship?: No Is there a partner from a previous relationship who is making you feel unsafe now?: No Are you made to feel afraid or neglected: No Spiritual Healthcare Practices: NONE Mandaen Healthcare Practices: NONE Cultural Healthcare Practices: NONE Advance Directives: Yes Advance Directives on File: Yes Advance Directives Date on File: 06/22/23 Do you have thoughts of harming others: None Do you have a plan to hurt others: No Plan Recently lost weight without trying: No Eating poorly because of decreased appetite: No Nutrition Risks: No Nutritional Risk Poor oral hygiene: No service: No Meds Allergies Allergy/AdvReac Type Severity Reaction Status Date / Time No Known Allergies Allergy Verified 10/28/23 11:32 Active Medications: Current Medications Dextrose (Dextrose 50 % 25 Gm/50 Ml Syringe) 25 gm IVPUSH Q30M PRN PRN Reason: BG < 70 Heparin Sodium (Porcine) (Heparin Sodium,Porcine 5,000 Unit/Ml Vial) 5,000 unit SUBCUT Q8H FOR[facility] Last Admin: 10/28/23 16:22 Dose: 5,000 unit Insulin Human Regular (Myxredlin) 100 unit in 100 mls @ 0 mls/hr IVCONT .Q0M [facility]; Protocol Last Titration: 10/28/23 18:02 Dose: 0.5 unit/hr, 0.5 mls/hr Dextrose/Lactated Ringer's (D5lr) 1,000 mls @ 150 mls/hr IVCONT .Q6H40M [facility] Last Admin: 10/28/23 16:04 Dose: 150 mls/hr Home Medications Medication Instructions Recorded Confirmed Last Taken Type insulin glargine 100 unit/mL 30 unit subcut BEDTIME 02/26/23 10/28/23 Unknown History subcutaneous solution insulin lispro 100 unit/mL 1 sliding scale dose subcut 02/26/23 10/28/23 10/28/23 History subcutaneous pen USEASDIRECTD Physical Exam Vital Signs: Vital Signs: Last Vital Signs Temp 98.0 F 10/28/23 21:00 Pulse 115 H 10/28/23 21:00 Resp 18 10/28/23 21:00 BP 143/95 H 10/28/23 21:00 Pulse Ox 97 10/28/23 21:00 O2 Del Method Room Air 10/28/23 21:00 BMI result Body Mass Index 21.6 Const: General: no acute distress and alert Nutritional Appearance: not obese Orientation/consciousness: Other orientation findings ( oriented) HEENT: Head: Yes atraumatic Eyes: General: appearance normal, both eyes and all related structures Sclerae: sclerae normal EOM: EOMs intact bilaterally Neck: Neck: Yes supple Lymphatic: no lymphadenopathy noted Resp: Effort & Inspection: normal respiratory effort and no use of accessory muscles Auscultation: clear to auscultation bilaterally Cardio: Rate: tachycardic Rhythm: regular rhythm Heart sounds: no gallops, no murmurs and no rubs Skin: General skin exam: other ( warm) Extrem: General: No clubbing, No cyanosis and No edema Results Labs 10/29/23 05:24 10/29/23 05:24 Labs: Laboratory Results - last 24 hr 10/28/23 10/28/23 10/28/23 11:43 11:55 12:49 MCV 83.5 MCH 25.2 L MCHC 30.1 L RDW 15.5 Plt Count 579 H MPV 9.6 Immature Gran % (Auto) 1.1 H Neut % (Auto) 90.5 H Lymph % (Auto) 4.9 L [place] % (Auto) 3.3 Eos % (Auto) 0.0 Baso % (Auto) 0.2 Lymph # (Auto) 1.4 [place] # (Auto) 1.0 Eos # (Auto) 0.0 Baso # (Auto) 0.1 Abs Immat Gran (auto) 0.33 H Absolute Neuts (auto) 26.1 H Absolute Nucleated RBC 0.000 Nucleated RBC % (auto) 0.0 Smear Tech's Comments VERIFIED VBG pH VBG pCO2 VBG pO2 VBG HCO3 VBG O2 Saturation VBG Base Excess Anion Gap 45 H Estim Creat Clear Calc 49.7 Estimated GFR 32 POC Glucose 599 H* 557 H* Random Glucose 697 H* Lactic Acid Lactic Acid F/U @ 2Hr Calcium 8.9 D Magnesium 2.0 Total Bilirubin 0.4 AST 13 ALT 23 Alkaline Phosphatase 124 H Troponin I High Sens < 2.7 Total Protein 7.1 Albumin 3.8 Beta-Hydroxybutyrate 16.31 H Urine Color Yellow Urine Appearance Clear Urine pH 5.5 Ur Specific Mead 1.020 Urine Protein 100 (2+) H Urine Glucose (UA) >=1000 H Urine Ketones >=160 Urine Blood Negative Urine Nitrite Negative Ur Leukocyte Esterase Negative Urine RBC 0-2 Urine WBC 0-5 Ur Squamous Epith Cells 0-2 Urine Bacteria None Seen Hyaline Casts 6-10 Granular Casts Present Urine Opiates Screen Not Detected Urine Fentanyl Screen Not Detected Ur Barbiturates Screen Not Detected Ur Phencyclidine Scrn Not Detected Ur Amphetamines Screen Not Detected U Benzodiazepines Scrn Not Detected Urine Cocaine Screen Not Detected U Marijuana (THC) Screen POSITIVE H Influenza Type A (PCR) NEGATIVE Influenza Type B (PCR) NEGATIVE RSV RNA Qual (PCR) NEGATIVE SARS-CoV-2 RNA (RT-PCR) NEGATIVE 10/28/23 10/28/23 10/28/23 12:50 12:53 14:15 MCV MCH MCHC RDW Plt Count MPV Immature Gran % (Auto) Neut % (Auto) Lymph % (Auto) [place] % (Auto) Eos % (Auto) Baso % (Auto) Lymph # (Auto) [place] # (Auto) Eos # (Auto) Baso # (Auto) Abs Immat Gran (auto) Absolute Neuts (auto) Absolute Nucleated RBC Nucleated RBC % (auto) Smear Tech's Comments VBG pH 7.06 L* VBG pCO2 13 VBG pO2 83 VBG HCO3 4 L VBG O2 Saturation 92.0 VBG Base Excess -23.8 Anion Gap Estim Creat Clear Calc Estimated GFR POC Glucose 386 H* Random Glucose Lactic Acid 3.3 H* Lactic Acid F/U @ 2Hr Calcium Magnesium Total Bilirubin AST ALT Alkaline Phosphatase Troponin I High Sens Total Protein Albumin Beta-Hydroxybutyrate Urine Color Urine Appearance Urine pH Ur Specific Mead Urine Protein Urine Glucose (UA) Urine Ketones Urine Blood Urine Nitrite Ur Leukocyte Esterase Urine RBC Urine WBC Ur Squamous Epith Cells Urine Bacteria Hyaline Casts Granular Casts Urine Opiates Screen Urine Fentanyl Screen Ur Barbiturates Screen Ur Phencyclidine Scrn Ur Amphetamines Screen U Benzodiazepines Scrn Urine Cocaine Screen U Marijuana (THC) Screen Influenza Type A (PCR) Influenza Type B (PCR) RSV RNA Qual (PCR) SARS-CoV-2 RNA (RT-PCR) 10/28/23 10/28/23 10/28/23 15:05 15:34 16:11 MCV MCH MCHC RDW Plt Count MPV Immature Gran % (Auto) Neut % (Auto) Lymph % (Auto) [place] % (Auto) Eos % (Auto) Baso % (Auto) Lymph # (Auto) [place] # (Auto) Eos # (Auto) Baso # (Auto) Abs Immat Gran (auto) Absolute Neuts (auto) Absolute Nucleated RBC Nucleated RBC % (auto) Smear Tech's Comments VBG pH VBG pCO2 VBG pO2 VBG HCO3 VBG O2 Saturation VBG Base Excess Anion Gap Estim Creat Clear Calc Estimated GFR POC Glucose 250 H 185 H Random Glucose Lactic Acid Lactic Acid F/U @ 2Hr 1.7 Calcium Magnesium Total Bilirubin AST ALT Alkaline Phosphatase Troponin I High Sens Total Protein Albumin Beta-Hydroxybutyrate Urine Color Urine Appearance Urine pH Ur Specific Mead Urine Protein Urine Glucose (UA) Urine Ketones Urine Blood Urine Nitrite Ur Leukocyte Esterase Urine RBC Urine WBC Ur Squamous Epith Cells Urine Bacteria Hyaline Casts Granular Casts Urine Opiates Screen Urine Fentanyl Screen Ur Barbiturates Screen Ur Phencyclidine Scrn Ur Amphetamines Screen U Benzodiazepines Scrn Urine Cocaine Screen U Marijuana (THC) Screen Influenza Type A (PCR) Influenza Type B (PCR) RSV RNA Qual (PCR) SARS-CoV-2 RNA (RT-PCR) 10/28/23 10/28/23 10/28/23 17:17 18:00 18:13 MCV MCH MCHC RDW Plt Count MPV Immature Gran % (Auto) Neut % (Auto) Lymph % (Auto) [place] % (Auto) Eos % (Auto) Baso % (Auto) Lymph # (Auto) [place] # (Auto) Eos # (Auto) Baso # (Auto) Abs Immat Gran (auto) Absolute Neuts (auto) Absolute Nucleated RBC Nucleated RBC % (auto) Smear Tech's Comments VBG pH VBG pCO2 VBG pO2 VBG HCO3 VBG O2 Saturation VBG Base Excess Anion Gap 23 H Estim Creat Clear Calc 63.3 Estimated GFR 47 POC Glucose 152 H 144 H Random Glucose 150 H Lactic Acid Lactic Acid F/U @ 2Hr Calcium 7.9 L D Magnesium Total Bilirubin AST ALT Alkaline Phosphatase Troponin I High Sens Total Protein Albumin Beta-Hydroxybutyrate Urine Color Urine Appearance Urine pH Ur Specific [place] Urine Protein Urine Glucose (UA) Urine Ketones Urine Blood Urine Nitrite Ur Leukocyte Esterase Urine RBC Urine WBC Ur Squamous Epith Cells Urine Bacteria Hyaline Casts Granular Casts Urine Opiates Screen Urine Fentanyl Screen Ur Barbiturates Screen Ur Phencyclidine Scrn Ur Amphetamines Screen U Benzodiazepines Scrn Urine Cocaine Screen U Marijuana (THC) Screen Influenza Type A (PCR) Influenza Type B (PCR) RSV RNA Qual (PCR) SARS-CoV-2 RNA (RT-PCR) 10/28/23 10/28/23 10/28/23 19:06 20:04 21:04 MCV MCH MCHC RDW Plt Count MPV Immature Gran % (Auto) Neut % (Auto) Lymph % (Auto) [place] % (Auto) Eos % (Auto) Baso % (Auto) Lymph # (Auto) [place] # (Auto) Eos # (Auto) Baso # (Auto) Abs Immat Gran (auto) Absolute Neuts (auto) Absolute Nucleated RBC Nucleated RBC % (auto) Smear Tech's Comments VBG pH VBG pCO2 VBG pO2 VBG HCO3 VBG O2 Saturation VBG Base Excess Anion Gap Estim Creat Clear Calc Estimated GFR POC Glucose 175 H 245 H 204 H Random Glucose Lactic Acid Lactic Acid F/U @ 2Hr Calcium Magnesium Total Bilirubin AST ALT Alkaline Phosphatase Troponin I High Sens Total Protein Albumin Beta-Hydroxybutyrate Urine Color Urine Appearance Urine pH Ur Specific [place] Urine Protein Urine Glucose (UA) Urine Ketones Urine Blood Urine Nitrite Ur Leukocyte Esterase Urine RBC Urine WBC Ur Squamous Epith Cells Urine Bacteria Hyaline Casts Granular Casts Urine Opiates Screen Urine Fentanyl Screen Ur Barbiturates Screen Ur Phencyclidine Scrn Ur Amphetamines Screen U Benzodiazepines Scrn Urine Cocaine Screen U Marijuana (THC) Screen Influenza Type A (PCR) Influenza Type B (PCR) RSV RNA Qual (PCR) SARS-CoV-2 RNA (RT-PCR) Imaging Radiologist's Impressions: Impressions Chest X-Ray 10/28/23 12:15 IMPRESSION: No acute cardiopulmonary process. Pulmonary Perfusion Imaging 10/28/23 17:15 IMPRESSION: Normal radionuclide lung perfusion scan. Pulmonary embolism absent. Assessment and Plan (1) DKA, type 1: Status: Acute (2) CRISTI (acute kidney injury): Status: Resolved Plan Assessment: 33-year-old gentleman with underlying diabetes mellitus type 1 admitted with diabetic ketoacidosis requiring insulin drip. Plan: Neuro: No acute issues. Cardiac: No acute issues. Pulmonary: No acute issues. Renal: Acute kidney injury secondary to diabetic ketoacidosis, expect to improve with IV support. Non oliguric. Continue to monitor renal indices and urine output. Endo: Diabetic ketoacidosis, continue on IV insulin drip protocol. GI: No acute issues. ID: No acute issues Heme/Onc: No acute issues. Psych: No acute issues. Miscellaneous: No acute issues. Prophylaxis: Heparin Diet: Nothing by mouth
[2023-10-28 22:01] LABS: Glucose, Whole Blood 162 mg/dL (60-115)
[2023-10-28 22:09] LABS: VBG Base Excess -4.4 mmol/L; VBG HCO3 18 mmol/L (22-26); VBG pCO2 28 mmHg; VBG pH 7.42 (7.32-7.43); VBG pO2 66 mmHg
[2023-10-28 22:35] LABS: Anion Gap 22 (12-20); Blood Urea Nitrogen 22 mg/dL (9-16); Calcium 8.2 mg/dL (8.4-10.2); Carbon Dioxide 18 mmol/L (22-29); Chloride 103 mmol/L (96-108); Creatinine Clr Calc Pharmacy 63.7; Estimated Glomerular Filt Rate 47; Glucose Random 184 mg/dL (60-115); Potassium 3.8 mmol/L (3.3-5.1); Sodium 139 mmol/L (135-145)
[2023-10-28 23:05] LABS: Glucose, Whole Blood 182 mg/dL (60-115)
--- NOTE | 2023-10-28 23:17 | PC.NURSE ---
Assumed care of patient at 19:00. Patient seen in ICU, admitted earlier today for DKA requiring insulin gtt and q1h POC per protocol. Continues on D5/LR per CUPROUS CHLORIDE OPERATOR. Pt is A&Ox4. Tele showing sinus tach 110-120's on assuming care, no ectopy noted. 19:00 hour patient c/o intermittent dull/throbbing 5/10 chest pain as well as intermittent hiccups that pt stated started last night in the middle of the night . Pt also noted to be hypertensive at the time and stated I have anxiety at home, but it's worse when I'm in the hospital . CUPROUS CHLORIDE OPERATOR Renee Ortega notified of current complaints and BP. An EKG was obtained confirming sinus tach. 1x tums requested by pt for indigestion, 1x ativan IVP were ordered and given per CUPROUS CHLORIDE OPERATOR with +effect; HTN improved, HR improved to 100-110's and pt denied further chest pain. Hypoactive BSx4. Continues NPO at this time. Abdomen soft, round, non-tender. Denies n/v. Voiding cyu in urinal. Pt is resting in bed with eyes closed at this time, breathing observed even and unlabored. No distress noted. Bed alarm on and safety measures in place. Call rocha within reach and educated on use, pt able to make his needs known. See shift assessment, task, and MAR for full details. Plan of care continues.
[2023-10-29] VITALS (14 sets, daily range): BP systolic 146–179; BP diastolic 80–118; PULSE 96–118; RESP 10–28; TEMP 36.2–37.3; O2SAT 95–98; BMI 22.2
[2023-10-29 00:01] LABS: Glucose, Whole Blood 218 mg/dL (60-115)
[2023-10-29] MEDS: Heparin Sodium,Porcine 5,000 UNIT/ML VIAL 5000 UNIT SUBCUT ×4 (00:15→23:34)
[2023-10-29 01:05] LABS: Glucose, Whole Blood 197 mg/dL (60-115)
[2023-10-29 01:06] LABS: Venous Blood Gas Refer to POC result
[2023-10-29 02:00] LABS: Glucose, Whole Blood 153 mg/dL (60-115)
[2023-10-29 03:04] LABS: Glucose, Whole Blood 127 mg/dL (60-115)
[2023-10-29 03:59] LABS: Glucose, Whole Blood 148 mg/dL (60-115)
[2023-10-29 05:17] LABS: Glucose, Whole Blood 153 mg/dL (60-115)
[2023-10-29] MEDS: Dextrose 5 % and Lactated Ring 1,000 ML 150 ML IVCONT (05:29)
[2023-10-29 05:33] LABS: VBG Base Excess 0.9 mmol/L; VBG HCO3 24 mmol/L (22-26); VBG pCO2 33 mmHg; VBG pH 7.46 (7.32-7.43); VBG pO2 95 mmHg
[2023-10-29 05:35] LABS: Venous Blood Gas Refer to POC result
[2023-10-29 06:09] LABS: Glucose, Whole Blood 184 mg/dL (60-115)
[2023-10-29 06:48] LABS: Alanine Aminotransferase 15 U/L (0-40); Alkaline Phosphatase 97 U/L (39-117); Anion Gap 12 (12-20); Aspartate Amino Transferase 10 U/L (5-37); Bilirubin Total 0.3 mg/dL (0.0-1.0); Blood Urea Nitrogen 17 mg/dL (9-16); Calcium 8.4 mg/dL (8.4-10.2); Carbon Dioxide 22 mmol/L (22-29); Chloride 106 mmol/L (96-108); Creatinine Clr Calc Pharmacy 84.3; Estimated Glomerular Filt Rate > 60; Glucose Random 153 mg/dL (60-115); Magnesium 1.8 mg/dL (1.6-2.6); Phosphorus 1.7 mg/dL (2.7-4.5); Potassium 3.4 mmol/L (3.3-5.1); Sodium 137 mmol/L (135-145); Total Protein 5.5 g/dL (6.5-8.0)
[2023-10-29 06:58] LABS: Basophils Absolute Auto 0.1 X10*3/uL (0.0-0.2); Basophils Percent Auto 0.2 % (0-2); Eosinophils Percent Auto 0.2 % (0-4); Hematocrit 29.2 % (42.0-52.0); Hemoglobin 9.3 g/dl (14.0-18.0); Imm Gran Abs Auto 0.21 X10*3/uL (0.00-0.03); Imm Gran Pct Auto 0.8 % (0.0-0.4); Lymphocytes Absolute Auto 1.8 X10*3/uL (1.2-4.9); Lymphocytes Percent Auto 7.1 % (20-40); MANUAL DIFF FLAG SCAN; Mean Corpuscular HGB Conc 31.8 g/dl (31.0-36.0); Mean Corpuscular Hemoglobin 25.6 pg (27.0-33.0); Mean Corpuscular Volume 80.4 fL (80.0-98.0); Mean Platelet Volume 9.9 fL (9.4-12.4); Monocytes Absolute Auto 2.1 X10*3/uL (0.1-1.2); Monocytes Percent Auto 8.4 % (2-11); Neutrophils Percent Auto 83.3 % (45-73); Platelet Count 452 X10*3/uL (160-400); Red Blood Count 3.63 X10*6/uL (4.60-5.80); Red Cell Distribution Width 15.8 % (11.0-16.0); SCAN SMEAR FLAG 1; White Blood Count 25.2 X10*3/uL (4.8-10.8)
[2023-10-29 07:06] LABS: Glucose, Whole Blood 206 mg/dL (60-115)
[2023-10-29 08:07] LABS: Glucose, Whole Blood 192 mg/dL (60-115)
[2023-10-29 08:21] LABS: SLIDE REVIEW VERIFIED
[2023-10-29] MEDS: Insulin Glargine,Hum.rec.anlog 100 UNIT/ML 10 ML VIAL 15 UNIT SUBCUT (09:30)
[2023-10-29] MEDS: Potassium Phosphate/NS 15 MMOL/250 ML PLAST..BAG 62.5 MMOL IV (09:30)
--- NOTE | 2023-10-29 09:33 | P.PNCC_ITS ---
Subjective Subjective Date of Service: 10/29/23 Interval History: 33-year-old gentleman with underlying history of diabetes mellitus with prior episodes of DKA admitted on 10/28/2023 with diabetic ketoacidosis after presenting and complaining of nausea, vomiting, and dyspnea. Per patient he has been taking his insulin, however on ER evaluation patient with significant hyperglycemia and diabetic ketoacidosis. Started on insulin drip and admitted to intensive care unit. No events overnight, titrated off insulin drip. Critical Care Time (minutes): 0 Physical Exam 2 Vital Signs: Vital Signs: Last Vital Signs Temp 98.0 F 10/29/23 08:00 Pulse 103 H 10/29/23 09:00 Resp 25 H 10/29/23 09:00 BP 179/109 H 10/29/23 09:00 Pulse Ox 95 10/29/23 09:00 O2 Del Method Room Air 10/29/23 09:00 BMI result Body Mass Index 22.2 Const: General: no acute distress, alert and awake Eyes: Sclerae: sclerae normal EOM: EOMs intact bilaterally Neck: Neck: Yes no lymphadenopathy, Yes trachea midline and Yes supple Resp: Effort & Inspection: normal respiratory effort and no respiratory distress Auscultation: clear to auscultation bilaterally Cardio: Rate: tachycardic Rhythm: regular rhythm Heart sounds: no gallops, no murmurs and no rubs GI: Palpation (GI): Soft to palpation and Other GI palpation findings present ( Nontender) Auscultation: normal bowel sounds Extrem: General: Yes no pedal edema, No clubbing and No cyanosis Objective Data Labs 10/29/23 05:24 10/29/23 05:24 Labs: Laboratory Results - last 24 hr 10/28/23 10/28/23 10/28/23 11:43 11:55 12:49 WBC 28.8 H RBC 4.49 L Hgb 11.3 L Hct 37.5 L MCV 83.5 MCH 25.2 L MCHC 30.1 L RDW 15.5 Plt Count 579 H MPV 9.6 Immature Gran % (Auto) 1.1 H Neut % (Auto) 90.5 H Lymph % (Auto) 4.9 L [place] % (Auto) 3.3 Eos % (Auto) 0.0 Baso % (Auto) 0.2 Lymph # (Auto) 1.4 [place] # (Auto) 1.0 Eos # (Auto) 0.0 Baso # (Auto) 0.1 Abs Immat Gran (auto) 0.33 H Absolute Neuts (auto) 26.1 H Absolute Nucleated RBC 0.000 Nucleated RBC % (auto) 0.0 Smear Tech's Comments VERIFIED VBG pH VBG pCO2 VBG pO2 VBG HCO3 VBG O2 Saturation VBG Base Excess Sodium 136 Potassium 4.9 Chloride 91 L Carbon Dioxide 5 L* D Anion Gap 45 H BUN 29 H Creatinine 2.34 H Estim Creat Clear Calc 49.7 Estimated GFR 32 POC Glucose 599 H* 557 H* Random Glucose 697 H* Lactic Acid Lactic Acid F/U @ 2Hr Calcium 8.9 D Phosphorus Magnesium 2.0 Total Bilirubin 0.4 AST 13 ALT 23 Alkaline Phosphatase 124 H Troponin I High Sens < 2.7 Total Protein 7.1 Albumin 3.8 Beta-Hydroxybutyrate 16.31 H Urine Color Yellow Urine Appearance Clear Urine pH 5.5 Ur Specific [place] 1.020 Urine Protein 100 (2+) H Urine Glucose (UA) >=1000 H Urine Ketones >=160 Urine Blood Negative Urine Nitrite Negative Ur Leukocyte Esterase Negative Urine RBC 0-2 Urine WBC 0-5 Ur Squamous Epith Cells 0-2 Urine Bacteria None Seen Hyaline Casts 6-10 Granular Casts Present Urine Opiates Screen Not Detected Urine Fentanyl Screen Not Detected Ur Barbiturates Screen Not Detected Ur Phencyclidine Scrn Not Detected Ur Amphetamines Screen Not Detected U Benzodiazepines Scrn Not Detected Urine Cocaine Screen Not Detected U Marijuana (THC) Screen POSITIVE H Influenza Type A (PCR) NEGATIVE Influenza Type B (PCR) NEGATIVE RSV RNA Qual (PCR) NEGATIVE SARS-CoV-2 RNA (RT-PCR) NEGATIVE 10/28/23 10/28/23 10/28/23 12:50 12:53 14:15 WBC RBC Hgb Hct MCV MCH MCHC RDW Plt Count MPV Immature Gran % (Auto) Neut % (Auto) Lymph % (Auto) [place] % (Auto) Eos % (Auto) Baso % (Auto) Lymph # (Auto) [place] # (Auto) Eos # (Auto) Baso # (Auto) Abs Immat Gran (auto) Absolute Neuts (auto) Absolute Nucleated RBC Nucleated RBC % (auto) Smear Tech's Comments VBG pH 7.06 L* VBG pCO2 13 VBG pO2 83 VBG HCO3 4 L VBG O2 Saturation 92.0 VBG Base Excess -23.8 Sodium Potassium Chloride Carbon Dioxide Anion Gap BUN Creatinine Estim Creat Clear Calc Estimated GFR POC Glucose 386 H* Random Glucose Lactic Acid 3.3 H* Lactic Acid F/U @ 2Hr Calcium Phosphorus Magnesium Total Bilirubin AST ALT Alkaline Phosphatase Troponin I High Sens Total Protein Albumin Beta-Hydroxybutyrate Urine Color Urine Appearance Urine pH Ur Specific [place] Urine Protein Urine Glucose (UA) Urine Ketones Urine Blood Urine Nitrite Ur Leukocyte Esterase Urine RBC Urine WBC Ur Squamous Epith Cells Urine Bacteria Hyaline Casts Granular Casts Urine Opiates Screen Urine Fentanyl Screen Ur Barbiturates Screen Ur Phencyclidine Scrn Ur Amphetamines Screen U Benzodiazepines Scrn Urine Cocaine Screen U Marijuana (THC) Screen Influenza Type A (PCR) Influenza Type B (PCR) RSV RNA Qual (PCR) SARS-CoV-2 RNA (RT-PCR) 10/28/23 10/28/23 10/28/23 15:05 15:34 16:11 WBC RBC Hgb Hct MCV MCH MCHC RDW Plt Count MPV Immature Gran % (Auto) Neut % (Auto) Lymph % (Auto) [place] % (Auto) Eos % (Auto) Baso % (Auto) Lymph # (Auto) [place] # (Auto) Eos # (Auto) Baso # (Auto) Abs Immat Gran (auto) Absolute Neuts (auto) Absolute Nucleated RBC Nucleated RBC % (auto) Smear Tech's Comments VBG pH VBG pCO2 VBG pO2 VBG HCO3 VBG O2 Saturation VBG Base Excess Sodium Potassium Chloride Carbon Dioxide Anion Gap BUN Creatinine Estim Creat Clear Calc Estimated GFR POC Glucose 250 H 185 H Random Glucose Lactic Acid Lactic Acid F/U @ 2Hr 1.7 Calcium Phosphorus Magnesium Total Bilirubin AST ALT Alkaline Phosphatase Troponin I High Sens Total Protein Albumin Beta-Hydroxybutyrate Urine Color Urine Appearance Urine pH Ur Specific [place] Urine Protein Urine Glucose (UA) Urine Ketones Urine Blood Urine Nitrite Ur Leukocyte Esterase Urine RBC Urine WBC Ur Squamous Epith Cells Urine Bacteria Hyaline Casts Granular Casts Urine Opiates Screen Urine Fentanyl Screen Ur Barbiturates Screen Ur Phencyclidine Scrn Ur Amphetamines Screen U Benzodiazepines Scrn Urine Cocaine Screen U Marijuana (THC) Screen Influenza Type A (PCR) Influenza Type B (PCR) RSV RNA Qual (PCR) SARS-CoV-2 RNA (RT-PCR) 10/28/23 10/28/2324 17:17 18:00 18:13 WBC RBC Hgb Hct MCV MCH MCHC RDW Plt Count MPV Immature Gran % (Auto) Neut % (Auto) Lymph % (Auto) [place] % (Auto) Eos % (Auto) Baso % (Auto) Lymph # (Auto) [place] # (Auto) Eos # (Auto) Baso # (Auto) Abs Immat Gran (auto) Absolute Neuts (auto) Absolute Nucleated RBC Nucleated RBC % (auto) Smear Tech's Comments VBG pH VBG pCO2 VBG pO2 VBG HCO3 VBG O2 Saturation VBG Base Excess Sodium 139 Potassium 3.7 D Chloride 104 Carbon Dioxide 16 L Anion Gap 23 H BUN 26 H Creatinine 1.71 H Estim Creat Clear Calc 63.3 Estimated GFR 47 POC Glucose 152 H 144 H Random Glucose 150 H Lactic Acid Lactic Acid F/U @ 2Hr Calcium 7.9 L D Phosphorus Magnesium Total Bilirubin AST ALT Alkaline Phosphatase Troponin I High Sens Total Protein Albumin Beta-Hydroxybutyrate Urine Color Urine Appearance Urine pH Ur Specific [place] Urine Protein Urine Glucose (UA) Urine Ketones Urine Blood Urine Nitrite Ur Leukocyte Esterase Urine RBC Urine WBC Ur Squamous Epith Cells Urine Bacteria Hyaline Casts Granular Casts Urine Opiates Screen Urine Fentanyl Screen Ur Barbiturates Screen Ur Phencyclidine Scrn Ur Amphetamines Screen U Benzodiazepines Scrn Urine Cocaine Screen U Marijuana (THC) Screen Influenza Type A (PCR) Influenza Type B (PCR) RSV RNA Qual (PCR) SARS-CoV-2 RNA (RT-PCR) 10/28/23 10/28/23 10/28/23 19:06 20:04 21:04 WBC RBC Hgb Hct MCV MCH MCHC RDW Plt Count MPV Immature Gran % (Auto) Neut % (Auto) Lymph % (Auto) [place] % (Auto) Eos % (Auto) Baso % (Auto) Lymph # (Auto) [place] # (Auto) Eos # (Auto) Baso # (Auto) Abs Immat Gran (auto) Absolute Neuts (auto) Absolute Nucleated RBC Nucleated RBC % (auto) Smear Tech's Comments VBG pH VBG pCO2 VBG pO2 VBG HCO3 VBG O2 Saturation VBG Base Excess Sodium Potassium Chloride Carbon Dioxide Anion Gap BUN Creatinine Estim Creat Clear Calc Estimated GFR POC Glucose 175 H 245 H 204 H Random Glucose Lactic Acid Lactic Acid F/U @ 2Hr Calcium Phosphorus Magnesium Total Bilirubin AST ALT Alkaline Phosphatase Troponin I High Sens Total Protein Albumin Beta-Hydroxybutyrate Urine Color Urine Appearance Urine pH Ur Specific [place] Urine Protein Urine Glucose (UA) Urine Ketones Urine Blood Urine Nitrite Ur Leukocyte Esterase Urine RBC Urine WBC Ur Squamous Epith Cells Urine Bacteria Hyaline Casts Granular Casts Urine Opiates Screen Urine Fentanyl Screen Ur Barbiturates Screen Ur Phencyclidine Scrn Ur Amphetamines Screen U Benzodiazepines Scrn Urine Cocaine Screen U Marijuana (THC) Screen Influenza Type A (PCR) Influenza Type B (PCR) RSV RNA Qual (PCR) SARS-CoV-2 RNA (RT-PCR) 10/28/23 10/28/23 10/28/23 21:58 22:02 22:03 WBC RBC Hgb Hct MCV MCH MCHC RDW Plt Count MPV Immature Gran % (Auto) Neut % (Auto) Lymph % (Auto) [place] % (Auto) Eos % (Auto) Baso % (Auto) Lymph # (Auto) [place] # (Auto) Eos # (Auto) Baso # (Auto) Abs Immat Gran (auto) Absolute Neuts (auto) Absolute Nucleated RBC Nucleated RBC % (auto) Smear Tech's Comments VBG pH 7.42 VBG pCO2 28 VBG pO2 66 VBG HCO3 18 L VBG O2 Saturation 93.0 VBG Base Excess -4.4 Sodium 139 Potassium 3.8 Chloride 103 Carbon Dioxide 18 L Anion Gap 22 H BUN 22 H Creatinine 1.70 H Estim Creat Clear Calc 63.7 Estimated GFR 47 POC Glucose 162 H Random Glucose 184 H Lactic Acid Lactic Acid F/U @ 2Hr Calcium 8.2 L Phosphorus Magnesium Total Bilirubin AST ALT Alkaline Phosphatase Troponin I High Sens Total Protein Albumin Beta-Hydroxybutyrate Urine Color Urine Appearance Urine pH Ur Specific [place] Urine Protein Urine Glucose (UA) Urine Ketones Urine Blood Urine Nitrite Ur Leukocyte Esterase Urine RBC Urine WBC Ur Squamous Epith Cells Urine Bacteria Hyaline Casts Granular Casts Urine Opiates Screen Urine Fentanyl Screen Ur Barbiturates Screen Ur Phencyclidine Scrn Ur Amphetamines Screen U Benzodiazepines Scrn Urine Cocaine Screen U Marijuana (THC) Screen Influenza Type A (PCR) Influenza Type B (PCR) RSV RNA Qual (PCR) SARS-CoV-2 RNA (RT-PCR) 10/28/23 10/28/23 10/29/23 22:58 23:57 01:01 WBC RBC Hgb Hct MCV MCH MCHC RDW Plt Count MPV Immature Gran % (Auto) Neut % (Auto) Lymph % (Auto) [place] % (Auto) Eos % (Auto) Baso % (Auto) Lymph # (Auto) [place] # (Auto) Eos # (Auto) Baso # (Auto) Abs Immat Gran (auto) Absolute Neuts (auto) Absolute Nucleated RBC Nucleated RBC % (auto) Smear Tech's Comments VBG pH VBG pCO2 VBG pO2 VBG HCO3 VBG O2 Saturation VBG Base Excess Sodium Potassium Chloride Carbon Dioxide Anion Gap BUN Creatinine Estim Creat Clear Calc Estimated GFR POC Glucose 182 H 218 H 197 H Random Glucose Lactic Acid Lactic Acid F/U @ 2Hr Calcium Phosphorus Magnesium Total Bilirubin AST ALT Alkaline Phosphatase Troponin I High Sens Total Protein Albumin Beta-Hydroxybutyrate Urine Color Urine Appearance Urine pH Ur Specific [place] Urine Protein Urine Glucose (UA) Urine Ketones Urine Blood Urine Nitrite Ur Leukocyte Esterase Urine RBC Urine WBC Ur Squamous Epith Cells Urine Bacteria Hyaline Casts Granular Casts Urine Opiates Screen Urine Fentanyl Screen Ur Barbiturates Screen Ur Phencyclidine Scrn Ur Amphetamines Screen U Benzodiazepines Scrn Urine Cocaine Screen U Marijuana (THC) Screen Influenza Type A (PCR) Influenza Type B (PCR) RSV RNA Qual (PCR) SARS-CoV-2 RNA (RT-PCR) 10/29/23 10/29/23 10/29/23 01:56 03:00 03:55 WBC RBC Hgb Hct MCV MCH MCHC RDW Plt Count MPV Immature Gran % (Auto) Neut % (Auto) Lymph % (Auto) [place] % (Auto) Eos % (Auto) Baso % (Auto) Lymph # (Auto) [place] # (Auto) Eos # (Auto) Baso # (Auto) Abs Immat Gran (auto) Absolute Neuts (auto) Absolute Nucleated RBC Nucleated RBC % (auto) Smear Tech's Comments VBG pH VBG pCO2 VBG pO2 VBG HCO3 VBG O2 Saturation VBG Base Excess Sodium Potassium Chloride Carbon Dioxide Anion Gap BUN Creatinine Estim Creat Clear Calc Estimated GFR POC Glucose 153 H 127 H 148 H Random Glucose Lactic Acid Lactic Acid F/U @ 2Hr Calcium Phosphorus Magnesium Total Bilirubin AST ALT Alkaline Phosphatase Troponin I High Sens Total Protein Albumin Beta-Hydroxybutyrate Urine Color Urine Appearance Urine pH Ur Specific [place] Urine Protein Urine Glucose (UA) Urine Ketones Urine Blood Urine Nitrite Ur Leukocyte Esterase Urine RBC Urine WBC Ur Squamous Epith Cells Urine Bacteria Hyaline Casts Granular Casts Urine Opiates Screen Urine Fentanyl Screen Ur Barbiturates Screen Ur Phencyclidine Scrn Ur Amphetamines Screen U Benzodiazepines Scrn Urine Cocaine Screen U Marijuana (THC) Screen Influenza Type A (PCR) Influenza Type B (PCR) RSV RNA Qual (PCR) SARS-CoV-2 RNA (RT-PCR) 10/29/23 10/29/23 10/29/23 05:13 05:24 05:26 WBC 25.2 H RBC 3.63 L Hgb 9.3 L Hct 29.2 L D MCV 80.4 MCH 25.6 L MCHC 31.8 RDW 15.8 Plt Count 452 H MPV 9.9 Immature Gran % (Auto) 0.8 H Neut % (Auto) 83.3 H Lymph % (Auto) 7.1 L [place] % (Auto) 8.4 Eos % (Auto) 0.2 Baso % (Auto) 0.2 Lymph # (Auto) 1.8 [place] # (Auto) 2.1 H Eos # (Auto) 0.0 Baso # (Auto) 0.1 Abs Immat Gran (auto) 0.21 H Absolute Neuts (auto) 21.0 H Absolute Nucleated RBC 0.000 Nucleated RBC % (auto) 0.0 Smear Tech's Comments VERIFIED VBG pH 7.46 H VBG pCO2 33 VBG pO2 95 VBG HCO3 24 VBG O2 Saturation 99.0 VBG Base Excess 0.9 Sodium 137 Potassium 3.4 Chloride 106 Carbon Dioxide 22 Anion Gap 12 BUN 17 H Creatinine 1.32 Estim Creat Clear Calc 84.3 Estimated GFR > 60 POC Glucose 153 H Random Glucose 153 H Lactic Acid Lactic Acid F/U @ 2Hr Calcium 8.4 Phosphorus 1.7 L Magnesium 1.8 Total Bilirubin 0.3 AST 10 ALT 15 Alkaline Phosphatase 97 Troponin I High Sens Total Protein 5.5 L Albumin 3.0 L Beta-Hydroxybutyrate Urine Color Urine Appearance Urine pH Ur Specific [place] Urine Protein Urine Glucose (UA) Urine Ketones Urine Blood Urine Nitrite Ur Leukocyte Esterase Urine RBC Urine WBC Ur Squamous Epith Cells Urine Bacteria Hyaline Casts Granular Casts Urine Opiates Screen Urine Fentanyl Screen Ur Barbiturates Screen Ur Phencyclidine Scrn Ur Amphetamines Screen U Benzodiazepines Scrn Urine Cocaine Screen U Marijuana (THC) Screen Influenza Type A (PCR) Influenza Type B (PCR) RSV RNA Qual (PCR) SARS-CoV-2 RNA (RT-PCR) 10/29/23 10/29/23 10/29/23 06:03 07:03 08:01 WBC RBC Hgb Hct MCV MCH MCHC RDW Plt Count MPV Immature Gran % (Auto) Neut % (Auto) Lymph % (Auto) [place] % (Auto) Eos % (Auto) Baso % (Auto) Lymph # (Auto) [place] # (Auto) Eos # (Auto) Baso # (Auto) Abs Immat Gran (auto) Absolute Neuts (auto) Absolute Nucleated RBC Nucleated RBC % (auto) Smear Tech's Comments VBG pH VBG pCO2 VBG pO2 VBG HCO3 VBG O2 Saturation VBG Base Excess Sodium Potassium Chloride Carbon Dioxide Anion Gap BUN Creatinine Estim Creat Clear Calc Estimated GFR POC Glucose 184 H 206 H 192 H Random Glucose Lactic Acid Lactic Acid F/U @ 2Hr Calcium Phosphorus Magnesium Total Bilirubin AST ALT Alkaline Phosphatase Troponin I High Sens Total Protein Albumin Beta-Hydroxybutyrate Urine Color Urine Appearance Urine pH Ur Specific [place] Urine Protein Urine Glucose (UA) Urine Ketones Urine Blood Urine Nitrite Ur Leukocyte Esterase Urine RBC Urine WBC Ur Squamous Epith Cells Urine Bacteria Hyaline Casts Granular Casts Urine Opiates Screen Urine Fentanyl Screen Ur Barbiturates Screen Ur Phencyclidine Scrn Ur Amphetamines Screen U Benzodiazepines Scrn Urine Cocaine Screen U Marijuana (THC) Screen Influenza Type A (PCR) Influenza Type B (PCR) RSV RNA Qual (PCR) SARS-CoV-2 RNA (RT-PCR) Progress Note: A&P Assessment and plan (1) DKA, type 1: Status: Acute (2) CRISTI (acute kidney injury): Status: Resolved Plan Assessment: 33-year-old gentleman with underlying diabetes mellitus type 1 admitted with diabetic ketoacidosis requiring insulin drip. Plan: Neuro: No acute issues. Cardiac: No acute issues. Pulmonary: No acute issues. Renal: Acute kidney injury secondary to diabetic ketoacidosis, improving. Non oliguric. Continue to monitor renal indices and urine output. Endo: Diabetic ketoacidosis, titrated off insulin drip to SC insulin. GI: No acute issues. ID: No acute issues Heme/Onc: No acute issues. Psych: No acute issues. Miscellaneous: No acute issues. Prophylaxis: Heparin Diet: Diabetic Quality Stroke Does the patient have a stroke diagnosis?: No VTE Prior VTE?: No VTE Risk Level:: Medical - moderate - high VTE Device Contraindication: Treatment Not Indicated VTE Drug Contraindication: N/A - Med Ordered
[2023-10-29 09:53] LABS: Glucose, Whole Blood 145 mg/dL (60-115)
[2023-10-29 11:49] LABS: Glucose, Whole Blood 362 mg/dL (60-115)
[2023-10-29] MEDS: Insulin Lispro 100 UNIT/ML 3 ML VIAL SUBCUT ×3 (12:17→20:28)
[2023-10-29] MEDS: Insulin Glargine,Hum.rec.anlog 100 UNIT/ML 10 ML VIAL SUBCUT (12:17)
[2023-10-29 13:02] LABS: Anion Gap 12 (12-20); Blood Urea Nitrogen 13 mg/dL (9-16); Calcium 8.6 mg/dL (8.4-10.2); Carbon Dioxide 24 mmol/L (22-29); Chloride 102 mmol/L (96-108); Creatinine Clr Calc Pharmacy 82.4; Estimated Glomerular Filt Rate > 60; Glucose Random 320 mg/dL (60-115); Potassium 3.8 mmol/L (3.3-5.1); Sodium 134 mmol/L (135-145)
--- NOTE | 2023-10-29 15:08 | MHC.CM.PN ---
PATIENT IS FROM HOME ALONE. FUNCTIONALLY INDEPENDENT. DENIES USE OF DME OR SERVICES. NO PCP, DX DIABETES. DISCUSSED IMPORTANCE OF ESTABLISHING CARE. PROVIDED PHYSICIAN BROCHURE. NO ACTIVE INSURANCE AT THIS TIME. REFERRAL SENT TO FINANCIAL SERVICES. ALSO DISCUSSED CLINICS SUCH [facility] AND [facility] THAT HAVE INSURANCE NAVIGATORS. HCP ON FILE AND VERIFIED, SISTER NICOLE IS AGENT. DP: GOAL IS HOME SELF CARE. WILL NEED SHUTTLE TO TRANSPORT. CM WILL CONTINUE TO FOLLOW FOR DC NEEDS.
[2023-10-29 16:25] LABS: Glucose, Whole Blood 122 mg/dL (60-115)
[2023-10-29 20:20] LABS: Glucose, Whole Blood 152 mg/dL (60-115)
[2023-10-29] MEDS: Melatonin 3 MG TABLET 6 MG PO (23:50)
[2023-10-30 04:00] VITALS: BP 142/97; PULSE 82; RESP 16; TEMP 36.6; O2SAT 97
[2023-10-30 05:46] LABS: MANUAL DIFF FLAG NO
[2023-10-30 05:58] LABS: Basophils Absolute Auto 0.1 X10*3/uL (0.0-0.2); Basophils Percent Auto 0.5 % (0-2); Eosinophils Absolute Auto 0.1 X10*3/uL (0.0-0.4); Eosinophils Percent Auto 1.2 % (0-4); Hematocrit 27.6 % (42.0-52.0); Hemoglobin 8.5 g/dl (14.0-18.0); Imm Gran Abs Auto 0.04 X10*3/uL (0.00-0.03); Imm Gran Pct Auto 0.4 % (0.0-0.4); Lymphocytes Absolute Auto 1.7 X10*3/uL (1.2-4.9); Lymphocytes Percent Auto 15.9 % (20-40); Mean Corpuscular HGB Conc 30.8 g/dl (31.0-36.0); Mean Corpuscular Hemoglobin 24.8 pg (27.0-33.0); Mean Corpuscular Volume 80.5 fL (80.0-98.0); Mean Platelet Volume 9.8 fL (9.4-12.4); Monocytes Absolute Auto 0.9 X10*3/uL (0.1-1.2); Monocytes Percent Auto 8.1 % (2-11); Neutrophils Absolute Auto 7.9 x10*3/uL (2.0-8.3); Neutrophils Percent Auto 73.9 % (45-73); Platelet Count 346 X10*3/uL (160-400); Red Blood Count 3.43 X10*6/uL (4.60-5.80); Red Cell Distribution Width 15.4 % (11.0-16.0); White Blood Count 10.7 X10*3/uL (4.8-10.8)
[2023-10-30 06:17] LABS: Anion Gap 12 (12-20); Blood Urea Nitrogen 12 mg/dL (9-16); Carbon Dioxide 25 mmol/L (22-29); Chloride 105 mmol/L (96-108); Creatinine Clr Calc Pharmacy 101.1; Estimated Glomerular Filt Rate > 60; Glucose Random 202 mg/dL (60-115); Magnesium 1.7 mg/dL (1.6-2.6); Phosphorus 2.3 mg/dL (2.7-4.5); Potassium 3.3 mmol/L (3.3-5.1); Sodium 139 mmol/L (135-145)
[2023-10-30 07:21] VITALS: BP 157/102; PULSE 91; RESP 18; TEMP 36.7; O2SAT 96
[2023-10-30 07:39] LABS: Glucose, Whole Blood 260 mg/dL (60-115)
[2023-10-30] MEDS: Insulin Glargine,Hum.rec.anlog 100 UNIT/ML 10 ML VIAL 20 UNIT SUBCUT (07:49)
[2023-10-30] MEDS: Insulin Lispro 100 UNIT/ML 3 ML VIAL SUBCUT (07:49)
[2023-10-30] MEDS: Heparin Sodium,Porcine 5,000 UNIT/ML VIAL 5000 UNIT SUBCUT (07:49)
[2023-10-30 08:14] VITALS: BP 158/78
--- NOTE | 2023-10-30 10:20 | MHC.CM.PN ---
EMR reviewed. Per MD rounds patient is medically cleared for dc home self care. Will take shuttle home.
--- NOTE | 2023-10-30 11:16 | P.DS_ITS ---
DS: Providers Provider Date of Service: 10/30/23 Date of admission: 10/28/23 15:53 Primary care physician: Unknown Physician DS: Diagnosis Discharge Diagnosis (1) DKA, type 1: Status: Acute (2) CRISTI (acute kidney injury): Status: Resolved (3) Elevated WBC count: Status: Acute (4) Gastroenteritis: Status: Acute DS: Summary Hospital Course Hospital Course: Admission note HPI 33-year-old gentleman with underlying history of diabetes mellitus with prior episodes of DKA admitted on 10/28/2023 with diabetic ketoacidosis after presenting and complaining of nausea, vomiting, and dyspnea. Per patient he has been taking his insulin, however on ER evaluation patient with significant hyperglycemia and diabetic ketoacidosis. Started on insulin drip and admitted to intensive care unit. Hospital course The patient was admitted to the hospital for treatment of DKA. He was admitted to ICU on IV insulin drip and IV fluids with good response as the gap closed and he became able to tolerate PO. titrated off insulin drip and started on SC Lantus and SSI with fair control of his blood sugar levels. He likely had gastroenteritis driving the DKA. no more N\V\D. Will be discharged home on same doses of Lantus 30 units bedtime and SSI. Keep yourself well hydrated Use Insulin as prescribed For tonight, take 10-15 units of Lantus bedtime before you go back to full 30 units tomorrow night Time Attestation Discharge Coordination Time (in mins): 37 Quality: Safe Use of Opioids Does Pt have an Active Cancer Diagnosis on the Problem List?: No Quality: Stroke Does the patient have a stroke diagnosis?: No Physical Exam Vital Signs: Vital Signs: Last Vital Signs Temp 98.1 F 10/30/23 07:21 Pulse 91 10/30/23 07:21 Resp 18 10/30/23 07:21 BP 158/78 H 10/30/23 08:14 Pulse Ox 96 10/30/23 07:21 O2 Del Method Room Air 10/30/23 07:21 BMI result Body Mass Index 22.2 Const: Other: Constitutional : Awake, interactive, not in distress Neck : Normal inspection, Supple Cardiovascular : RRR, no JVP, no lower extremity edema Respiratory : good bilateral air entry, no crackles, wheezes or rhonchi Gastrointestinal: soft, lax, Normal bowel sounds, Non tender Skin : Warm, Dry Neurological : Alert & oriented x3, No focal deficit DS: Data Data Completed and Pending Labs on day of discharge: Laboratory Results - last 24 hr 10/29/23 10/29/23 10/29/23 11:43 12:29 16:17 WBC RBC Hgb Hct MCV MCH MCHC RDW Plt Count MPV Immature Gran % (Auto) Neut % (Auto) Lymph % (Auto) [place] % (Auto) Eos % (Auto) Baso % (Auto) Lymph # (Auto) [place] # (Auto) Eos # (Auto) Baso # (Auto) Abs Immat Gran (auto) Absolute Neuts (auto) Absolute Nucleated RBC Nucleated RBC % (auto) Sodium 134 L Potassium 3.8 Chloride 102 Carbon Dioxide 24 Anion Gap 12 BUN 13 Creatinine 1.35 Estim Creat Clear Calc 82.4 Estimated GFR > 60 POC Glucose 362 H* 122 H Random Glucose 320 H Calcium 8.6 Phosphorus Magnesium 10/29/23 10/30/23 10/30/23 20:12 05:08 07:24 WBC 10.7 RBC 3.43 L Hgb 8.5 L Hct 27.6 L MCV 80.5 MCH 24.8 L MCHC 30.8 L RDW 15.4 Plt Count 346 MPV 9.8 Immature Gran % (Auto) 0.4 Neut % (Auto) 73.9 H Lymph % (Auto) 15.9 L [place] % (Auto) 8.1 Eos % (Auto) 1.2 Baso % (Auto) 0.5 Lymph # (Auto) 1.7 [place] # (Auto) 0.9 Eos # (Auto) 0.1 Baso # (Auto) 0.1 Abs Immat Gran (auto) 0.04 H Absolute Neuts (auto) 7.9 Absolute Nucleated RBC 0.000 Nucleated RBC % (auto) 0.0 Sodium 139 Potassium 3.3 Chloride 105 Carbon Dioxide 25 Anion Gap 12 BUN 12 Creatinine 1.10 Estim Creat Clear Calc 101.1 Estimated GFR > 60 POC Glucose 152 H 260 H Random Glucose 202 H Calcium 8.0 L D Phosphorus 2.3 L Magnesium 1.7 Preliminary micro results at discharge 10/28/23 12:50 Blood Culture - Preliminary Blood - Venous No growth after 24 hours. 10/28/23 12:40 Blood Culture - Preliminary Blood - Venous No growth after 24 hours. Imaging Chest x-ray: Radiologist's impression: ITS Impressions Chest X-Ray 10/28/23 12:15 IMPRESSION: No acute cardiopulmonary process. Pulmonary Perfusion Imaging 10/28/23 17:15 IMPRESSION: Normal radionuclide lung perfusion scan. Pulmonary embolism absent. Discharge Plan Discharge Anticipated Discharge Date/Time: 10/30/23 10:43 Patient Disposition: Home, Self-Care Discharge Diagnosis: Diabetic ketoacidosis Referrals: Physician,Unknown J [Primary Care Provider] - 1 Week Discharge Medications: Continued metoclopramide HCl [Reglan] 5 mg tablet 5 mg PO TID PRN (Reason: nausea and vomiting) Qty: 30 0RF insulin glargine 100 unit/mL Solution 30 unit SUBCUT BEDTIME insulin lispro 100 unit/mL Insulin Pen 1 sliding scale dose SUBCUT USEASDIRECTD Protocol: Insulin Correction Scale Less than or equal to 110 ---- Give (units): 0 111 to 150 Give (units): 0 151 to 200 Give (units): 2 201 to 250 Give (units): 4 251 to 300 Give (units): 6 301 to 350 Give (units): 8 Greater than 350 Give (units): 10 Call MD if Blood Glucose > : 350 ondansetron 4 mg tablet,disintegrating 4 mg PO DAILY PRN (Reason: nausea and vomiting) 5 Days Qty: 14 0RF Discharge Orders: Discharge Order (Routine); Ordered 10/30/23 Ordered By: Jan Valera Diet: Advance to usual diet Activity on Discharge: As tolerated Stand Alone Forms: Patient Portal Discharge page Care Plan Goals: Read below Health Concerns: Read below Plan of Treatment: Read below Assessment: You were treated for diabetic ketoacidosis and responded well to IV fluids and Insulin. Keep yourself well hydrated Use Insulin as prescribed For tonight, take 10-15 units of Lantus bedtime before you go back to full 30 units tomorrow night
[2023-10-30 11:32] LABS: Estimated Average Glucose 289 mg/dL; Hemoglobin A1c % 11.7 % (<6.0)
[2023-10-30 11:38] LABS: Glucose, Whole Blood 182 mg/dL (60-115)
== END 2023-10-30 11:41 | disposition home or self-care (01) | DRG 420 ==
LOC: HO.ED 15:31 → HO.EDOVER 15:58 → HO.ICU 16:00 → HO.S3 10-29 10:12
PROVIDERS: Nurse Practitioner Family; Physician Assistant Medical; Admitting Provider Internal Medicine Pulmonary Disease; Emergency Provider Emergency Medicine; Visit Provider Student in an Organized Health Care Education/Training Program
DX: E10.10 Type 1 diabetes mellitus with ketoacidosis without coma (principal); N17.9 Acute kidney failure, unspecified; K31.84 Gastroparesis; E10.43 Type 1 diabetes mellitus with diabetic autonomic (poly)neuropathy; Z20.822 Contact with and (suspected) exposure to COVID-19; Z79.899 Other long term (current) drug therapy
CPT/HCPCS: 0241U; 36415; 71046; 78580; 80048; 80053; 80307; 81001; 81003; 82010; 82803; 82947; 83036; 83605; 83735; 84100; 84484; 85025; 87040; 93005; 99285; A9540; J0696; J1644; J2060

== ENCOUNTER → 2023-10-28 11:45 | Outpatient (BNV) | payer MEDICAID, SELFPAY | PROVIDERS: Admitting Provider Internal Medicine Pulmonary Disease; Emergency Provider Emergency Medicine; Visit Provider Internal Medicine Cardiovascular Disease | DX: R07.9 Chest pain, unspecified (principal); I51.7 Cardiomegaly; R94.31 Abnormal electrocardiogram [ECG] [EKG]; R00.0 Tachycardia, unspecified | CPT/HCPCS: 93010 ==

== ENCOUNTER → 2023-10-28 15:53 | Outpatient (BNV) | payer MEDICAID, SELFPAY | PROVIDERS: Admitting Provider Internal Medicine Pulmonary Disease; Emergency Provider Emergency Medicine; Visit Provider Student in an Organized Health Care Education/Training Program | DX: E10.10 Type 1 diabetes mellitus with ketoacidosis without coma (principal); N17.9 Acute kidney failure, unspecified; D72.829 Elevated white blood cell count, unspecified; K52.9 Noninfective gastroenteritis and colitis, unspecified | CPT/HCPCS: 99239 ==

== ENCOUNTER → 2023-10-28 15:53 | Outpatient (BNV) | payer OTHER, SELFPAY | PROVIDERS: Admitting Provider Internal Medicine Pulmonary Disease; Emergency Provider Emergency Medicine; Visit Provider Internal Medicine Pulmonary Disease | DX: E10.10 Type 1 diabetes mellitus with ketoacidosis without coma (principal); N17.9 Acute kidney failure, unspecified | CPT/HCPCS: 99223; 99233 ==

== ENCOUNTER 2023-12-23 15:28 | Emergency (ER) | payer OTHER, SELFPAY ==
--- NOTE | ~2023-12-23 | XR_ITS ---
EXAMINATION: XR ABDOMEN KUB CLINICAL INDICATION: Nausea and vomiting COMPARISON: None available. TECHNIQUE: AP view of the abdomen. FINDINGS: The bowel gas pattern is normal with no evidence of ileus or obstruction. No unusual soft tissue calcifications are noted. The bones are unremarkable. XR/XR KUB IMPRESSION: Unremarkable abdomen exam
--- NOTE | 2023-12-23 15:44 | ED_ITS ---
HPI - General Adult General Chief complaint: Abdominal Pain Stated complaint: nausea/vomiting type 1 diabetic Time Seen by Provider: 12/23/23 18:51 Source: patient Mode of arrival: ambulatory Limitations: no limitations History of Present Illness ED Provider: Estefani Montoya NP HPI narrative: Patient is a 33-year-old male with history of T1DM, CRISTI presenting to the emergency department with complaint of nausea, vomiting, diarrhea and diffuse abdominal pain since 5:00 a.m. today. He reports emesis is nonbloody, nonbilious. Denies taking any medications at home for his symptoms. States that he initially was having constipation then today began having diarrhea. Denies hematochezia or melena. Denies fevers. Denies any dysuria, frequency, urgency, hematuria or other urinary symptoms. Denies any chest pain, palpitations, dyspnea. He denies any recent drug or alcohol use, states he smokes marijuana rarely. MD complaint: abdominal pain, n/v/d Onset (ago): hour(s) Location: abdomen Radiation: non-radiation Severity: severe Quality: aching Pain Consistency: constant Relieving factors: none Exacerbating factors: none Associated symptoms: nausea/vomiting Treatments prior to arrival: none Related Data Home Medications ?Medication ?Instructions ?Recorded ?Confirmed insulin glargine 100 unit/mL 30 unit subcut BEDTIME 02/26/23 10/28/23 subcutaneous solution insulin lispro 100 unit/mL 1 sliding scale dose subcut 02/26/23 10/28/23 subcutaneous pen USEASDIRECTD Previous Rx's ?Medication ?Instructions ?Recorded metoclopramide HCl 5 mg tablet 5 mg PO TID PRN nausea and 09/20/23 (Reglan) vomiting #30 tabs ondansetron 4 mg disintegrating 4 mg PO DAILY PRN nausea and 10/24/23 tablet vomiting 5 days #14 tabs ondansetron 4 mg disintegrating 4 mg PO Q8H PRN nausea and 12/23/23 tablet vomiting #10 tabs Allergies Allergy/AdvReac Type Severity Reaction Status Date / Time No Known Allergies Allergy Verified 12/23/23 16:09 Review of Systems 2 Review of Systems: As per HPI. Yes all other systems are reviewed and are negative Constitutional: Constitutional: Reports as per HPI PMFSH Past Medical History Medical History Type 1 diabetes mellitus Gastroparesis Social History Social History Household Members: None Housing: House Do you presently have visiting nurse or other home services: No Alcohol intake: current Alcohol intake frequency: holidays/special occasions only Patient Tobacco Use Status: Never used Tobacco Smoked in Last 30 Days: No Second Hand Smoke Exposure: No Use of substances other than those prescribed or required for medical reasons: Yes Substance Use Type: Marijuana Substance Use Frequency: Chronic Longstanding Advance Directives: Yes Advance Directives on File: Yes Advance Directives Date on File: 06/22/23 service: No Physical Exam ED Vital Signs: Vital Signs - 24 hr 12/23/23 16:08 12/23/23 18:25 Temperature 97.5 F Pulse Rate 123 H 119 H Respiratory Rate 16 20 Blood Pressure 119/91 H 155/99 H Pulse Oximetry 99 98 Oxygen Delivery Method Room Air Room Air BMI result Body Mass Index 22.7 Vital signs have been reviewed and appear to be correct. Blood pressure elevated. Heart rate tachycardic. Respiratory rate normal. Temperature normal. Oxygen saturation normal. Const General: cooperative, no acute distress and anxious Orientation/consciousness: oriented to person, oriented to place, oriented to time and patient oriented x3 Limitations: no limitations HENMT Head: Yes normocephalic and Yes atraumatic Ears: external ears normal General nose exam: Normal external nose present Face and sinus: Yes face symmetric Mouth: oropharynx normal and moist mucous membranes Throat: Yes uvula midline Eyes Pupils: Equal, round and reactive pupils present Neck Neck: Yes normal visual inspection and Yes supple Resp Effort & Inspection: normal respiratory effort and able to speak in complete sentences Auscultation: clear to auscultation bilaterally Cardio Rate: regular rate Rhythm: regular rhythm Heart sounds: S1 normal heart sound present and S2 normal heart sound present GI Inspection: Yes normal to inspection Palpation (GI): Soft to palpation and nontender Auscultation: normoactive bowel sounds General: Yes no CVA tenderness Back/Spine/Pelvis Back: no CVA tenderness Skin General skin exam: elasticity normal and turgor normal Neuro General: oriented to person, oriented to place, oriented to time, patient oriented x3, tone normal, moves all extremities, Normal light touch and pain sensation, no focal motor deficits, CN's II-XI intact bilaterally and deep tendon reflexes 2+ bilaterally Cranial nerves: Yes Equal, round and reactive pupils present Cognition (Neuro): normal cognition Extrem General: Yes full ROM, Yes no pedal edema and Yes no calf tenderness Psych Mental Status: mental status grossly normal Affect: Anxious affect present Thought process: Normal thought process present Course Course Course Narrative: This is an RME performed by Reynaldo Tinajero CNP: Additional HPI, ROS, PE not included below will be deferred to primary provider. Patient is a 33-year-old male with nausea, vomiting, 10/10 diffuse abdominal pain, inability to tolerate any oral intake. Onset of symptoms was this morning. Reports he is a type 1 diabetic, undergoing evaluation for gastroparesis. Reports his blood sugars have been well controlled Plan: Labs, urinalysis, Medications Administered Discontinued Medications Generic Name Dose Route Start Last Admin Trade Name Freq PRN Reason Stop Dose Admin Haloperidol Lactate 5 mg 12/23/23 20:06 12/23/23 20:12 Haloperidol Lactate 5 Mg/Ml Vial IVPUSH 12/23/23 20:07 5 mg ONCE ONE Administration Sodium Chloride 1,000 mls @ 999 mls/hr 12/23/23 19:00 12/23/23 20:43 Ns IV 12/23/23 20:00 Infused .Q1H1M PARKER Infusion Sodium Chloride 1,000 mls @ 999 mls/hr 12/23/23 19:00 12/23/23 21:42 Ns IV 12/23/23 20:00 Infused .Q1H1M PARKER Infusion Lorazepam 1 mg 12/23/23 20:06 12/23/23 20:12 Lorazepam 2 Mg/Ml Vial IVPUSH 12/23/23 20:07 1 mg ONCE ONE Administration Ondansetron HCl 4 mg 12/23/23 19:06 12/23/23 19:41 Ondansetron Hcl 4 Mg/2 Ml Vial IVPUSH 12/23/23 19:07 4 mg ONCE ONE Administration Medical Decision Making Medical Decision Making MDM Narrative: Patient is a 33-year-old male with history of T1DM, CRISTI presenting to the emergency department with complaint of nausea, vomiting, diarrhea and diffuse abdominal pain since 5:00 a.m. today. On exam patient is awake, A+Ox3, tachycardic, VS otherwise WNL, afebrile, normal neurological exam without focal deficits, physical exam findings as above. Labs notable for glucose of 161, anion gap of 21, betahydroxybutyrate of 0.95, lactic of 5, pH of 7.52, bicarb of 35, CRISTI with BUN/Cr of 25/1.82, no leukocytosis. X-ray KUB notable for no evidence of ileus or bowel obstruction. My interpretation is in agreement with the radiologist's interpretation. At this time do not feel patient is in DKA, case discussed with my attending MD, Dr. Owen who feels patient is in metabolic alkalosis due to vomiting and dehydration. Patient initially denied recent marijuana use but urine drug screen notable for THC today, and on two prior visits. Feel symptoms may be due in part to cyclical vomiting syndrome/cannabinoid hyperemesis syndrome. Patient denied improvement in symptoms with Zofran but reported improvement in symptoms with Haldol and Ativan. Repeat lactic is normal, repeat BUN/creatinine significantly improved. Feel patient is stable for discharge home at this time. Will send prescription for Zofran. Instructed patient to follow-up with primary care provider. Return precautions discussed. Patient verbalized understanding of and agreement with plan. Differential Diagnosis Differential Diagnoses: The differential diagnosis associated with the presentation includes As per MDM. Admission/Observation Consideration of admission/observation: Escalation of care including admission/observation considered Patient would have been admitted to the hospital had their work up had any findings where hospital admission was appropriate and their clinical presentation warranted hospital admission. Lab Data [facility] Lab Attestation statement: I reviewed the patient's lab results. As per [facility]. 12/23/23 17:16 12/23/23 22:37 Labs: Lab Results 12/23/23 12/23/23 12/23/23 Range/Units 17:08 17:16 17:21 WBC 7.8 (4.8-10.8) X10*3/uL RBC 4.52 L D (4.60-5.80) X10*6/uL Hgb 11.3 L D (14.0-18.0) g/dl Hct 36.1 L D (42.0-52.0) % MCV 79.9 L (80.0-98.0) fL MCH 25.0 L (27.0-33.0) pg MCHC 31.3 (31.0-36.0) g/dl RDW 15.6 (11.0-16.0) % Plt Count 483 H D (160-400) X10*3/uL MPV 9.8 (9.4-12.4) fL Immature Gran % (Auto) 0.3 (0.0-0.4) % Neut % (Auto) 75.2 H (45-73) % Lymph % (Auto) 16.6 L (20-40) % [place] % (Auto) 7.0 (2-11) % Eos % (Auto) 0.3 (0-4) % Baso % (Auto) 0.6 (0-2) % Lymph # (Auto) 1.3 (1.2-4.9) X10*3/uL [place] # (Auto) 0.6 (0.1-1.2) X10*3/uL Eos # (Auto) 0.0 (0.0-0.4) X10*3/uL Baso # (Auto) 0.1 (0.0-0.2) X10*3/uL Abs Immat Gran (auto) 0.02 (0.00-0.03) X10*3/uL Absolute Neuts (auto) 5.9 (2.0-8.3) x10*3/uL Absolute Nucleated RBC 0.000 (0.0-0.012) X10*3/uL Nucleated RBC % (auto) 0.0 (0.0-0.2) /100WBC VBG pH 7.52 H (7.32-7.43) VBG pCO2 43 mmHg VBG pO2 49 mmHg VBG HCO3 35 H (22-26) mmol/L VBG O2 Saturation 82.0 % VBG Base Excess 11.8 mmol/L Sodium 143 (135-145) mmol/L Potassium 3.7 (3.3-5.1) mmol/L Chloride 96 (96-108) mmol/L Carbon Dioxide 30 H (22-29) mmol/L Anion Gap 21 H (12-20) BUN 25 H (9-16) mg/dL Creatinine 1.82 H (0.5-1.4) mg/dL Estim Creat Clear Calc 62.6 Estimated GFR 43 Random Glucose 161 H (60-115) mg/dL Lactic Acid 5.0 H* (0.5-2.0) mmol/L Lactic Acid F/U @ 2Hr (0.5-2.0) mmol/L Calcium 10.5 H D (8.4-10.2) mg/dL Magnesium 1.7 (1.6-2.6) mg/dL Total Bilirubin 0.3 (0.0-1.0) mg/dL AST 24 (5-37) U/L ALT 29 (0-40) U/L Alkaline Phosphatase 102 (39-117) U/L Total Protein 7.5 (6.5-8.0) g/dL Albumin 4.1 (3.5-5.0) g/dL Lipase 13 (8-78) U/L Beta-Hydroxybutyrate 0.95 H (0.02-0.27) mmol/L Urine Color Urine Appearance Urine pH (5.0-9.0) Ur Specific [place] (1.005-1.025) Urine Protein (Neg-Trace) mg/dL Urine Glucose (UA) (Negative) mg/dL Urine Ketones (Negative) mg/dL Urine Blood (Negative) Urine Nitrite (Negative) Ur Leukocyte Esterase (Negative) Urine Opiates Screen (Not Detect) Ur Buprenorphine Scrn (Not Detect) ng/mL Ur Oxycodone Screen (Not Detect) ng/mL Urine Methadone Screen (Not Detect) ng/mL Urine Fentanyl Screen (Not Detect) Ur Barbiturates Screen (Not Detect) Ur Phencyclidine Scrn (Not Detect) Ur Amphetamines Screen (Not Detect) U Benzodiazepines Scrn (Not Detect) Urine Cocaine Screen (Not Detect) U Marijuana (THC) Screen (Not Detect) Influenza Type A (PCR) NEGATIVE (Negative) Influenza Type B (PCR) NEGATIVE (Negative) RSV RNA Qual (PCR) NEGATIVE (Negative) SARS-CoV-2 RNA (RT-PCR) NEGATIVE (Negative) 12/23/23 12/23/23 Range/Units 18:25 22:37 WBC (4.8-10.8) X10*3/uL RBC (4.60-5.80) X10*6/uL Hgb (14.0-18.0) g/dl Hct (42.0-52.0) % MCV (80.0-98.0) fL MCH (27.0-33.0) pg MCHC (31.0-36.0) g/dl RDW (11.0-16.0) % Plt Count (160-400) X10*3/uL MPV (9.4-12.4) fL Immature Gran % (Auto) (0.0-0.4) % Neut % (Auto) (45-73) % Lymph % (Auto) (20-40) % [place] % (Auto) (2-11) % Eos % (Auto) (0-4) % Baso % (Auto) (0-2) % Lymph # (Auto) (1.2-4.9) X10*3/uL [place] # (Auto) (0.1-1.2) X10*3/uL Eos # (Auto) (0.0-0.4) X10*3/uL Baso # (Auto) (0.0-0.2) X10*3/uL Abs Immat Gran (auto) (0.00-0.03) X10*3/uL Absolute Neuts (auto) (2.0-8.3) x10*3/uL Absolute Nucleated RBC (0.0-0.012) X10*3/uL Nucleated RBC % (auto) (0.0-0.2) /100WBC VBG pH (7.32-7.43) VBG pCO2 mmHg VBG pO2 mmHg VBG HCO3 (22-26) mmol/L VBG O2 Saturation % VBG Base Excess mmol/L Sodium 143 (135-145) mmol/L Potassium 3.7 (3.3-5.1) mmol/L Chloride 102 (96-108) mmol/L Carbon Dioxide 29 (22-29) mmol/L Anion Gap 16 (12-20) BUN 23 H (9-16) mg/dL Creatinine 1.40 (0.5-1.4) mg/dL Estim Creat Clear Calc 81.4 Estimated GFR 59 Random Glucose 138 H (60-115) mg/dL Lactic Acid (0.5-2.0) mmol/L Lactic Acid F/U @ 2Hr 0.5 (0.5-2.0) mmol/L Calcium 8.8 D (8.4-10.2) mg/dL Magnesium (1.6-2.6) mg/dL Total Bilirubin (0.0-1.0) mg/dL AST (5-37) U/L ALT (0-40) U/L Alkaline Phosphatase (39-117) U/L Total Protein (6.5-8.0) g/dL Albumin (3.5-5.0) g/dL Lipase (8-78) U/L Beta-Hydroxybutyrate (0.02-0.27) mmol/L Urine Color Yellow Urine Appearance Clear Urine pH 8.0 (5.0-9.0) Ur Specific [place] 1.020 (1.005-1.025) Urine Protein Trace (Neg-Trace) mg/dL Urine Glucose (UA) 250 H (Negative) mg/dL Urine Ketones 40 (Negative) mg/dL Urine Blood Negative (Negative) Urine Nitrite Negative (Negative) Ur Leukocyte Esterase Negative (Negative) Urine Opiates Screen Not Detected (Not Detect) Ur Buprenorphine Scrn Not Detected (Not Detect) ng/mL Ur Oxycodone Screen Not Detected (Not Detect) ng/mL Urine Methadone Screen Not Detected (Not Detect) ng/mL Urine Fentanyl Screen Not Detected (Not Detect) Ur Barbiturates Screen Not Detected (Not Detect) Ur Phencyclidine Scrn Not Detected (Not Detect) Ur Amphetamines Screen Not Detected (Not Detect) U Benzodiazepines Scrn Not Detected (Not Detect) Urine Cocaine Screen Not Detected (Not Detect) U Marijuana (THC) Screen POSITIVE H (Not Detect) Influenza Type A (PCR) (Negative) Influenza Type B (PCR) (Negative) RSV RNA Qual (PCR) (Negative) SARS-CoV-2 RNA (RT-PCR) (Negative) Independent Interpretation I performed an independent interpretation of an: Plain X-Ray Interpretation: No evidence of ileus or obstruction on KUB Radiology Impression Discussion of test interpretation with radiology: I have reviewed the radiologist's reading. Radiologist Impression: FINDINGS: The bowel gas pattern is normal with no evidence of ileus or obstruction. No unusual soft tissue calcifications are noted. The bones are unremarkable. XR/XR KUB IMPRESSION: Unremarkable abdomen exam External Record Review External record reviewed: Inpatient record, Office record and Outpatient record Prescription Management I considered prescription management with: Other Critical Care Time Critical Care Time Critical Care Time: Yes Total Critical Care Time: 45 Attestation: I have personally provided critical care time exclusive of time spent on separately billable procedures. Time includes review of lab data, radiology results, discussion with consultants, and monitoring for potential decompensation. Intervention performed as documented. Discharge Plan Discharge Clinical Impression: Nausea & vomiting Patient Disposition: Home, Self-Care Instructions: Acute Nausea and Vomiting (ED), Cyclic Vomiting Syndrome (ED) Additional Instructions: You were evaluated in the emergency department today for nausea, vomiting and abdominal pain. Your labs did not show evidence of DKA (diabetic ketoacidosis). Your symptoms and lab work improved after fluids and medications given in the emergency department. We recommend that you follow-up with your primary care provider within the next 2 days. You are being a prescription for zofran which you can use every 8 hours as needed for nausea. Return to the emergency department if you develop worsening abdominal pain, persistent vomiting, fever, abnormal glucose levels or any other concerning symptoms. Prescriptions: New ondansetron 4 mg tablet,disintegrating 4 mg PO Q8H PRN (Reason: nausea and vomiting) Qty: 10 0RF No Action metoclopramide HCl [Reglan] 5 mg tablet 5 mg PO TID PRN (Reason: nausea and vomiting) Qty: 30 0RF insulin glargine 100 unit/mL Solution 30 unit SUBCUT BEDTIME insulin lispro 100 unit/mL Insulin Pen 1 sliding scale dose SUBCUT USEASDIRECTD Protocol: Insulin Correction Scale Less than or equal to 110 ---- Give (units): 0 111 to 150 Give (units): 0 151 to 200 Give (units): 2 201 to 250 Give (units): 4 251 to 300 Give (units): 6 301 to 350 Give (units): 8 Greater than 350 Give (units): 10 Call MD if Blood Glucose > : 350 ondansetron 4 mg tablet,disintegrating 4 mg PO DAILY PRN (Reason: nausea and vomiting) 5 Days Qty: 14 0RF Print Language: Syriac
[2023-12-23 16:08] VITALS: BP 119/91; PULSE 123; RESP 16; TEMP 36.4; O2SAT 99; BMI 22.7
[2023-12-23 17:22] LABS: MANUAL DIFF FLAG NO
[2023-12-23 17:24] LABS: Basophils Absolute Auto 0.1 X10*3/uL (0.0-0.2); Basophils Percent Auto 0.6 % (0-2); Eosinophils Percent Auto 0.3 % (0-4); Hematocrit 36.1 % (42.0-52.0); Hemoglobin 11.3 g/dl (14.0-18.0); Imm Gran Abs Auto 0.02 X10*3/uL (0.00-0.03); Imm Gran Pct Auto 0.3 % (0.0-0.4); Lymphocytes Absolute Auto 1.3 X10*3/uL (1.2-4.9); Lymphocytes Percent Auto 16.6 % (20-40); Mean Corpuscular HGB Conc 31.3 g/dl (31.0-36.0); Mean Corpuscular Volume 79.9 fL (80.0-98.0); Mean Platelet Volume 9.8 fL (9.4-12.4); Monocytes Absolute Auto 0.6 X10*3/uL (0.1-1.2); Neutrophils Absolute Auto 5.9 x10*3/uL (2.0-8.3); Neutrophils Percent Auto 75.2 % (45-73); Platelet Count 483 X10*3/uL (160-400); Red Blood Count 4.52 X10*6/uL (4.60-5.80); Red Cell Distribution Width 15.6 % (11.0-16.0); White Blood Count 7.8 X10*3/uL (4.8-10.8)
[2023-12-23 17:28] LABS: VBG Base Excess 11.8 mmol/L; VBG HCO3 35 mmol/L (22-26); VBG pCO2 43 mmHg; VBG pH 7.52 (7.32-7.43); VBG pO2 49 mmHg
[2023-12-23 17:29] LABS: Venous Blood Gas Refer to POC result
[2023-12-23 17:54] LABS: Alanine Aminotransferase 29 U/L (0-40); Albumin Level 4.1 g/dL (3.5-5.0); Alkaline Phosphatase 102 U/L (39-117); Anion Gap 21 (12-20); Aspartate Amino Transferase 24 U/L (5-37); Beta-Hydroxybutyrate 0.95 mmol/L (0.02-0.27); Bilirubin Total 0.3 mg/dL (0.0-1.0); Blood Urea Nitrogen 25 mg/dL (9-16); Calcium 10.5 mg/dL (8.4-10.2); Carbon Dioxide 30 mmol/L (22-29); Chloride 96 mmol/L (96-108); Creatinine Clr Calc Pharmacy 62.6; Estimated Glomerular Filt Rate 43; Glucose Random 161 mg/dL (60-115); Lipase 13 U/L (8-78); Magnesium 1.7 mg/dL (1.6-2.6); Potassium 3.7 mmol/L (3.3-5.1); Sodium 143 mmol/L (135-145); Total Protein 7.5 g/dL (6.5-8.0)
[2023-12-23 18:03] LABS: Influenza A PCR NEGATIVE (Negative); Influenza B PCR NEGATIVE (Negative); Resp Syncy Virus RNA Qual PCR NEGATIVE (Negative); SARS COV2 PCR INHOUSE NEGATIVE (Negative)
[2023-12-23 18:25] VITALS: BP 155/99; PULSE 119; RESP 20; O2SAT 98
[2023-12-23 18:33] LABS: Appearance Urine Clear; Color Urine Yellow; Glucose Urine UA 250 mg/dL (Negative); Leukocyte Esterase Urine Negative (Negative); Nitrite Urine Negative (Negative); Urine Blood Negative (Negative); Urine Ketones 40 mg/dL (Negative); Urine Protein Trace mg/dL (Neg-Trace)
[2023-12-23 19:20] LABS: Reflex Lactate? Lactic Acid Added
[2023-12-23] MEDS: 0.9 % Sodium Chloride 1,000 ML 999 ML IV ×2 (19:41)
[2023-12-23] MEDS: ondansetron HCL 4 MG/2 ML VIAL IVPUSH (19:41)
[2023-12-23] MEDS: Haloperidol Lactate 5 MG/ML VIAL IVPUSH (20:12)
[2023-12-23] MEDS: LORazepam 2 MG/ML VIAL 1 MG IVPUSH (20:12)
[2023-12-23 21:08] LABS: Amphetamine Screen Urine Not Detected (Not Detect); Barbiturates, Urine Not Detected (Not Detect); Benzodiazepines Screen Urine Not Detected (Not Detect); Buprenorphine Scr Not Detected (Not Detect); Cannabinoid Screen Urine POSITIVE (Not Detect); Cocaine Screen Urine Not Detected (Not Detect); Fentanyl, urine Not Detected (Not Detect); Methadone Screen, Urine Not Detected (Not Detect); Opiate Screen Urine Not Detected (Not Detect); Oxycodone Screen Urine Not Detected (Not Detect); Phencyclidine Screen Urine Not Detected (Not Detect)
[2023-12-23 22:52] LABS: ~Lactic Acid-LAB USE ONLY 0.5 mmol/L (0.5-2.0)
[2023-12-23 22:57] LABS: Anion Gap 16 (12-20); Blood Urea Nitrogen 23 mg/dL (9-16); Calcium 8.8 mg/dL (8.4-10.2); Carbon Dioxide 29 mmol/L (22-29); Chloride 102 mmol/L (96-108); Creatinine Clr Calc Pharmacy 81.4; Estimated Glomerular Filt Rate 59; Glucose Random 138 mg/dL (60-115); Potassium 3.7 mmol/L (3.3-5.1); Sodium 143 mmol/L (135-145)
[2023-12-23 23:47] VITALS: BP 148/88; PULSE 102; RESP 20; TEMP 36.8; O2SAT 98
== END 2023-12-24 00:17 | disposition home or self-care (01) ==
PROVIDERS: Nurse Practitioner Family; Registered Nurse Emergency; Emergency Provider Internal Medicine
DX: R11.2 Nausea with vomiting, unspecified (principal); R00.0 Tachycardia, unspecified; E10.9 Type 1 diabetes mellitus without complications; F12.90 Cannabis use, unspecified, uncomplicated; Z03.818 Encounter for observation for suspected exposure to other biological agents ruled out; Z79.4 Long term (current) use of insulin; Z79.899 Other long term (current) drug therapy
CPT/HCPCS: 0241U; 36415; 74018; 80048; 80053; 80307; 81003; 82010; 82803; 83605; 83690; 83735; 85025; 87040; 96361; 96374; 96375; 99284; J1630; J2060; J2405

== ENCOUNTER 2024-02-18 11:54 | Inpatient (IN) | payer OTHER, SELFPAY ==
[2024-02-18] VITALS (8 sets, daily range): BP systolic 121–149; BP diastolic 60–95; PULSE 91–130; RESP 14–24; TEMP 36.7–37.1; O2SAT 96–100; BMI 22.4; BMI 24.4
--- NOTE | ~2024-02-18 | CT_ITS ---
EXAMINATION: CT CERVICAL SPINE WITHOUT CONTRAST CLINICAL INFORMATION: Pain, injury COMPARISON: None available. TECHNIQUE: Noncontrast CT imaging examination of the cervical spine is performed. The axial images and multiplanar reformatted images are reviewed. This CT examination was performed using dose optimization techniques as appropriate, variously including the following: *Automated exposure control *Adjustment of mA and/or kV according to patient size (this includes techniques or standardized protocols for targeted exams where dose is matched to indication/reason for exam; i.e. extremities or head) *Use of iterative reconstruction technique DLP: 1001 mGy-cm (total, for CT exams of the head and cervical spine) FINDINGS: The localizer images demonstrate that the neck is flexed. The craniocervical junction is normal. The cervical vertebra have normal density, height and alignment. No fracture, prevertebral edema or soft tissue hematoma. Incidentally noted is a bone island of the C3 vertebra. The disc spaces are well-preserved. The facet joints and uncovertebral joints are unremarkable. No evidence of any significant stenosis of the cervical spinal canal or neural foramina. Thyroid gland is unremarkable. Mild paraseptal emphysema at the right lung apex. No pneumothorax. CT/CT cervical spine wo IV con IMPRESSION: No acute findings. No fracture or malalignment of the cervical spine.
--- NOTE | ~2024-02-18 | CT_ITS ---
EXAMINATION: CT HEAD WITHOUT CONTRAST CLINICAL INFORMATION: Injury. Pain. COMPARISON: None available. TECHNIQUE: Contiguous axial imaging was performed from the skull base to vertex without intravenous administration of contrast. This CT examination was performed using dose optimization techniques as appropriate, variously including the following: *Automated exposure control *Adjustment of mA and/or kV according to patient size (this includes techniques or standardized protocols for targeted exams where dose is matched to indication/reason for exam; i.e. extremities or head) *Use of iterative reconstruction technique DLP: 1001 mGy-cm FINDINGS: There is no acute intracranial hemorrhage. There is no evidence of acute/subacute cerebral or cerebellar infarction. There is no midline shift or mass effect. No extra-axial fluid collection. The ventricles are normal in size. The orbits are symmetric and within normal limits. The visualized paranasal sinuses and mastoid air cells are clear. There is a 8 mm soft tissue density lesion within the left parietal scalp. CT/CT head/brain wo IV con IMPRESSION: No acute intracranial pathology.
[2024-02-18 12:23] LABS: Glucose, Whole Blood 347 mg/dL (60-115)
--- NOTE | 2024-02-18 12:31 | ECG_ITS ---
Test Reason : FALL Blood Pressure : / mmHG Vent. Rate : 133 BPM Atrial Rate : 133 BPM P-R Int : 136 ms QRS Dur : 082 ms QT Int : 312 ms P-R-T Axes : 081 085 033 degrees QTc Int : 464 ms Sinus tachycardia Possible Left atrial enlargement Borderline ECG When compared with ECG of 28-OCT-2023 19:15, Non-specific change in ST segment in Inferior leads T wave inversion no longer evident in Lateral leads Referred By: Mone Almodovar Electronically Signed By:WILBERTO SAHNI MD
--- NOTE | 2024-02-18 12:54 | ED_ITS ---
HPI - General Adult General Chief complaint: General Medical Stated complaint: SYNCOPE,HIT NOSE,BLEEDING CONTROLLED PER EMS Time Seen by Provider: 02/18/24 12:48 Source: patient Mode of arrival: EMS Limitations: no limitations History of Present Illness ED Provider: claudio MONTES narrative: Patient is type 1 diabetic on insulin with gastroparesis with frequent episodes of vomiting comes here for similar episode for last 2 days nauseated unable to hold much fluids down last night blood sugar was high but he took his insulin on arrival of EMS POC was 395 was given 500 cc of normal saline earlier after vomiting patient fell lightheaded and passed out hitting his nose to the ground with minor epistaxis and swelling of the nose no other injuries no significant abdominal pain fever no chills patient does not have any PCP by and insulin from [facility] missed his Lantus insulin for last few days Related Data Home Medications ?Medication ?Instructions ?Recorded ?Confirmed insulin glargine 100 unit/mL 30 unit subcut BEDTIME 02/26/23 10/28/23 subcutaneous solution insulin lispro 100 unit/mL 1 sliding scale dose subcut 02/26/23 10/28/23 subcutaneous pen [id number] Previous Rx's ?Medication ?Instructions ?Recorded metoclopramide HCl 5 mg tablet 5 mg PO TID PRN nausea and 09/20/23 (Reglan) vomiting #30 tabs ondansetron 4 mg disintegrating 4 mg PO DAILY PRN nausea and 10/24/23 tablet vomiting 5 days #14 tabs ondansetron 4 mg disintegrating 4 mg PO Q8H PRN nausea and 12/23/23 tablet vomiting #10 tabs Allergies Allergy/AdvReac Type Severity Reaction Status Date / Time No Known Allergies Allergy Verified 02/18/24 12:24 Review of Systems 2 Review of Systems: Yes all other systems are reviewed and are negative PMFSH Past Medical History Medical History Type 1 diabetes mellitus Gastroparesis Social History Social History Household Members: None Housing: House Do you presently have visiting nurse or other home services: No Alcohol intake: current Alcohol intake frequency: holidays/special occasions only Patient Tobacco Use Status: Never used Tobacco Second Hand Smoke Exposure: No Substance Use Type: Marijuana Advance Directives: Yes Advance Directives on File: Yes Advance Directives Date on File: 06/22/23 Do you have a plan to hurt others: No Plan service: No Physical Exam ED Vital Signs: Vital Signs - 24 hr 02/18/24 12:22 Temperature 98.7 F Pulse Rate 130 H Respiratory Rate 18 Blood Pressure 149/93 H Pulse Oximetry 98 Oxygen Delivery Method Room Air BMI result Body Mass Index 24.4 Appearance: Alert. Oriented X3. No acute distress. Eyes: PERRLA, No Nystagmus ENT: Pharynx normal. Oral Mucosa moist superficial laceration nasal bridge with dried blood in the nostril Neck: Normal inspection. Neck supple. CVS: Normal heart rate and rhythm. Pulses normal. Respiratory: No respiratory distress. Equal air entry bilateral, no wheezing/rales/rhonchi Abdomen: Soft and nontender. Bowel sounds are present, no mass palpable, no CVA tenderness Skin: Skin warm and dry. Normal skin color. Normal skin turgor. Extremities: No lower extremity edema. No calf tenderness Neuro: Oriented X 3. No motor deficit. No sensory deficit.No cerebellar signs , cranial nerves II-XII intact Medications Administered Generic Name Dose Route Start Last Admin Trade Name Freq PRN Reason Stop Dose Admin Insulin Human Regular 100 unit in 100 mls @ 6 mls/hr 02/18/24 15:30 02/18/24 15:37 Myxredlin IVCONT 6 unit/hr .[id number] PARKER 6 mls/hr Administration Protocol 6 UNIT/HR Discontinued Medications Generic Name Dose Route Start Last Admin Trade Name Freq PRN Reason Stop Dose Admin Sodium Chloride 1,000 mls @ 999 mls/hr 02/18/24 12:55 02/18/24 13:09 Ns IV 02/18/24 13:55 999 mls/hr .Q1H1M ONE Administration Sodium Chloride 1,000 mls @ 999 mls/hr 02/18/24 13:05 02/18/24 13:45 Ns IV 02/18/24 14:05 999 mls/hr .Q1H1M ONE Administration Sodium Chloride 1,000 mls @ 999 mls/hr 02/18/24 14:27 02/18/24 15:40 Ns IV 02/18/24 15:27 999 mls/hr .Q1H1M ONE Administration Insulin Human Regular 12 unit 02/18/24 14:06 02/18/24 14:37 Insulin Regular, Human 100 Unit/Ml 10 Ml Vial IVPUSH 02/18/24 14:07 12 unit ONCE ONE Administration Ketorolac Tromethamine 30 mg 02/18/24 13:35 02/18/24 13:44 Ketorolac Tromethamine 30 Mg/Ml Vial IVPUSH 02/18/24 13:36 30 mg ONCE ONE Administration Metoclopramide HCl 10 mg 02/18/24 13:05 02/18/24 13:11 Metoclopramide Hcl 10 Mg/2 Ml Vial IVPUSH 02/18/24 13:06 10 mg ONCE ONE Administration Procedures Laceration Laceration 1: Site: face Size (cm): 1 Description: linear Depth: simple, single layer Skin layer closed with: other (Skin adhesive) Medical Decision Making Medical Decision Making MDM Narrative: Patient is type 1 diabetic noncompliant to his insulin , gastroparesis comes here for vomiting and elevated blood sugar noticed to have anion gap of 33, bicarb of 14 venous pH 7.29 with positive hydroxybutyrate patient received IV fluids insulin started on insulin drip will admit to ICU for further management Differential Diagnosis Differential Diagnoses: The differential diagnosis associated with the presentation includes Diabetic Ketoacidosis/gastroparesis/fluid loss/uncontrolled diabetes Admission/Observation Consideration of admission/observation: Escalation of care including admission/observation considered Consult Healthcare Provider 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 02/18/24 13:30 02/18/24 13:30 Labs: Lab Results 02/18/24 02/18/24 02/18/24 Range/Units 12:20 13:30 14:20 WBC 16.4 H (4.8-10.8) X10*3/uL RBC 4.44 L (4.60-5.80) X10*6/uL Hgb 11.1 L (14.0-18.0) g/dl Hct 35.6 L (42.0-52.0) % MCV 80.2 (80.0-98.0) fL MCH 25.0 L (27.0-33.0) pg MCHC 31.2 (31.0-36.0) g/dl RDW 16.4 H (11.0-16.0) % Plt Count 542 H (160-400) X10*3/uL MPV 9.3 L (9.4-12.4) fL Immature Gran % (Auto) 0.4 (0.0-0.4) % Neut % (Auto) 84.6 H (45-73) % Lymph % (Auto) 4.2 L (20-40) % [place] % (Auto) 10.6 (2-11) % Eos % (Auto) 0.0 (0-4) % Baso % (Auto) 0.2 (0-2) % Lymph # (Auto) 0.7 L (1.2-4.9) X10*3/uL [place] # (Auto) 1.7 H (0.1-1.2) X10*3/uL Eos # (Auto) 0.0 (0.0-0.4) X10*3/uL Baso # (Auto) 0.0 (0.0-0.2) X10*3/uL Abs Immat Gran (auto) 0.07 H (0.00-0.03) X10*3/uL Absolute Neuts (auto) 13.8 H (2.0-8.3) x10*3/uL Absolute Nucleated RBC 0.000 (0.0-0.012) X10*3/uL Nucleated RBC % (auto) 0.0 (0.0-0.2) /100WBC Smear Tech's Comments VERIFIED VBG pH 7.29 L (7.32-7.43) VBG pCO2 23 mmHg VBG pO2 52 mmHg VBG HCO3 11 L (22-26) mmol/L VBG O2 Saturation 77.0 % VBG Base Excess -12.9 mmol/L Sodium 137 (135-145) mmol/L Potassium 4.5 D (3.3-5.1) mmol/L Chloride 95 L (96-108) mmol/L Carbon Dioxide 14 L (22-29) mmol/L Anion Gap 33 H (12-20) BUN 22 H (9-16) mg/dL Creatinine 2.24 H (0.5-1.4) mg/dL Estim Creat Clear Calc 48.8 Estimated GFR 34 POC Glucose 347 H (60-115) mg/dL Random Glucose 406 H* (60-115) mg/dL Calcium 10.6 H D (8.4-10.2) mg/dL Magnesium 1.7 (1.6-2.6) mg/dL Total Bilirubin 0.3 (0.0-1.0) mg/dL AST 14 (5-37) U/L ALT 22 (0-40) U/L Alkaline Phosphatase 102 (39-117) U/L Total Protein 6.8 (6.5-8.0) g/dL Albumin 3.8 (3.5-5.0) g/dL Beta-Hydroxybutyrate 12.21 H (0.02-0.27) mmol/L 02/18/24 Range/Units 16:02 WBC (4.8-10.8) X10*3/uL RBC (4.60-5.80) X10*6/uL Hgb (14.0-18.0) g/dl Hct (42.0-52.0) % MCV (80.0-98.0) fL MCH (27.0-33.0) pg MCHC (31.0-36.0) g/dl RDW (11.0-16.0) % Plt Count (160-400) X10*3/uL MPV (9.4-12.4) fL Immature Gran % (Auto) (0.0-0.4) % Neut % (Auto) (45-73) % Lymph % (Auto) (20-40) % [place] % (Auto) (2-11) % Eos % (Auto) (0-4) % Baso % (Auto) (0-2) % Lymph # (Auto) (1.2-4.9) X10*3/uL [place] # (Auto) (0.1-1.2) X10*3/uL Eos # (Auto) (0.0-0.4) X10*3/uL Baso # (Auto) (0.0-0.2) X10*3/uL Abs Immat Gran (auto) (0.00-0.03) X10*3/uL Absolute Neuts (auto) (2.0-8.3) x10*3/uL Absolute Nucleated RBC (0.0-0.012) X10*3/uL Nucleated RBC % (auto) (0.0-0.2) /100WBC Smear Tech's Comments VBG pH (7.32-7.43) VBG pCO2 mmHg VBG pO2 mmHg VBG HCO3 (22-26) mmol/L VBG O2 Saturation % VBG Base Excess mmol/L Sodium (135-145) mmol/L Potassium (3.3-5.1) mmol/L Chloride (96-108) mmol/L Carbon Dioxide (22-29) mmol/L Anion Gap (12-20) BUN (9-16) mg/dL Creatinine (0.5-1.4) mg/dL Estim Creat Clear Calc Estimated GFR POC Glucose 425 H* (60-115) mg/dL Random Glucose (60-115) mg/dL Calcium (8.4-10.2) mg/dL Magnesium (1.6-2.6) mg/dL Total Bilirubin (0.0-1.0) mg/dL AST (5-37) U/L ALT (0-40) U/L Alkaline Phosphatase (39-117) U/L Total Protein (6.5-8.0) g/dL Albumin (3.5-5.0) g/dL Beta-Hydroxybutyrate (0.02-0.27) mmol/L Independent Interpretation I performed an independent interpretation of an: CT Scan Interpretation: CT scan of the head and C-spine negative Critical Care Time Critical Care Time Critical Care Time: Yes Total Critical Care Time: 60 Attestation: The patient was critically ill with a high probability of imminent or life threatening deterioration. I spent greater than 65 ???minutes of discontinuous time evaluating the patient,delivering critical care at the bedside, discussing and evaluating pertinent data with consultants. Critical care time does not include time spent performing separately billable procedures or teaching. Total time spent performing critical care was 60???minutes. Discharge Plan Discharge Clinical Impression: Diabetic ketoacidosis, Syncope, Diabetic gastroparesis Patient Disposition: Admitted As Inpatient Print Language: Albanian
[2024-02-18] MEDS: 0.9 % Sodium Chloride 1,000 ML 999 ML IV ×3 (13:09→15:40)
[2024-02-18] MEDS: Metoclopramide HCl 10 MG/2 ML VIAL IVPUSH (13:11)
[2024-02-18 13:36] LABS: Basophils Percent Auto 0.2 % (0-2); Hematocrit 35.6 % (42.0-52.0); Hemoglobin 11.1 g/dl (14.0-18.0); Imm Gran Abs Auto 0.07 X10*3/uL (0.00-0.03); Imm Gran Pct Auto 0.4 % (0.0-0.4); Lymphocytes Absolute Auto 0.7 X10*3/uL (1.2-4.9); Lymphocytes Percent Auto 4.2 % (20-40); MANUAL DIFF FLAG SCAN; Mean Corpuscular HGB Conc 31.2 g/dl (31.0-36.0); Mean Corpuscular Volume 80.2 fL (80.0-98.0); Mean Platelet Volume 9.3 fL (9.4-12.4); Monocytes Absolute Auto 1.7 X10*3/uL (0.1-1.2); Monocytes Percent Auto 10.6 % (2-11); Neutrophils Absolute Auto 13.8 x10*3/uL (2.0-8.3); Neutrophils Percent Auto 84.6 % (45-73); Platelet Count 542 X10*3/uL (160-400); Red Blood Count 4.44 X10*6/uL (4.60-5.80); Red Cell Distribution Width 16.4 % (11.0-16.0); SCAN SMEAR FLAG 1; White Blood Count 16.4 X10*3/uL (4.8-10.8)
[2024-02-18] MEDS: Ketorolac Tromethamine 30 MG/ML VIAL IVPUSH (13:44)
[2024-02-18 13:51] LABS: Alanine Aminotransferase 22 U/L (0-40); Albumin Level 3.8 g/dL (3.5-5.0); Alkaline Phosphatase 102 U/L (39-117); Anion Gap 33 (12-20); Aspartate Amino Transferase 14 U/L (5-37); Bilirubin Total 0.3 mg/dL (0.0-1.0); Blood Urea Nitrogen 22 mg/dL (9-16); Calcium 10.6 mg/dL (8.4-10.2); Carbon Dioxide 14 mmol/L (22-29); Chloride 95 mmol/L (96-108); Creatinine Clr Calc Pharmacy 48.8; Estimated Glomerular Filt Rate 34; Magnesium 1.7 mg/dL (1.6-2.6); Potassium 4.5 mmol/L (3.3-5.1); Sodium 137 mmol/L (135-145); Total Protein 6.8 g/dL (6.5-8.0)
[2024-02-18 13:53] LABS: Glucose Random 406 mg/dL (60-115)
[2024-02-18 13:56] LABS: SLIDE REVIEW VERIFIED
[2024-02-18 14:03] LABS: Beta-Hydroxybutyrate 12.21 mmol/L (0.02-0.27)
[2024-02-18 14:26] LABS: Venous Blood Gas Refer to POC result
[2024-02-18 14:27] LABS: VBG Base Excess -12.9 mmol/L; VBG HCO3 11 mmol/L (22-26); VBG pCO2 23 mmHg; VBG pH 7.29 (7.32-7.43); VBG pO2 52 mmHg
[2024-02-18] MEDS: Insulin Regular, Human 100 UNIT/ML 10 ML VIAL 12 UNIT IVPUSH (14:37)
[2024-02-18] MEDS: Insulin Regular/NS 100 UNIT/100 ML PLAST..BAG 6 UNIT IVCONT (15:37)
[2024-02-18 16:06] LABS: Glucose, Whole Blood 425 mg/dL (60-115)
--- NOTE | 2024-02-18 16:12 | P.HPCC_ITS ---
History of Present Illness Date of Service: 02/18/24 Chief Complaint: abdominal pain 33-year-old male past medical history of diabetes mellitus noncompliant to the medications, missed his insulin due to insurance issues presented to the ED with abdominal pain and syncopal episodes. He was found to be in DKA, pH was 7.29, anion gap of 32 so MICU was consulted for admission. He also has an acute kidney injury possibly due to volume depletion. Review of Systems 2 Constitutional: Constitutional: Reports anorexia, Reports difficulty sleeping and Reports excessive sweating Eyes: Eyes: Reports blurry vision, Denies exophthalmos and Reports change in vision ENT: Reports Normal hearing present and Denies bleeding gums Cardiovascular: Cardiovascular: Denies Abdominal Distension and Denies acrocyanosis Respiratory: Respiratory: Denies change in phlegm color and Denies chest congestion Gastrointestinal: Gastrointestinal: Denies belching and Denies melena Genitourinary: Genitourinary: Denies change in libido and Denies hematuria Musculoskeletal: Musculoskeletal: Denies abnormal gait and Denies back pain Integumentary/Breasts: Skin/Breast: Denies bleeding lesions and Denies swelling Neurologic: Reports Normal hearing present, Denies abnormal gait and Reports behavioral changes Psychiatric: Psychiatric: Reports abnormal sleep pattern, Reports anxiety, Reports behavioral changes and Denies change in libido Endocrine: Endocrine: Denies change in libido and Reports excessive sweating PMFSH Past Medical History Medical History Type 1 diabetes mellitus Gastroparesis Surgical History Surgical History (Updated 02/18/24 @ 18:04 by Leda Keller RN) History of dental surgery Social History Social History Household Members: None Housing: Apartment Do you presently have visiting nurse or other home services: No Alcohol intake: current Alcohol intake frequency: holidays/special occasions only Patient Tobacco Use Status: Former Tobacco user Second Hand Smoke Exposure: No Use of substances other than those prescribed or required for medical reasons: Yes Substance Use Type: Marijuana Substance Use Frequency: Socially Last Used Substance: Weeks (ago) Last Used Substance Other:: 2 weeks ago Currently Displaying Signs/Symptoms of Drug Intoxication Withdrawal: No Any prior treatment program specific to substance use: No Have you been hit, kicked, punched, or otherwise hurt by someone within the past year? If so, by whom?: No Do you feel safe in your current relationship?: No Current Relationship Is there a partner from a previous relationship who is making you feel unsafe now?: No Are you made to feel afraid or neglected: No Spiritual Healthcare Practices: none per patient Hoahaoism Healthcare Practices: none per patient Cultural Healthcare Practices: none per patient Advance Directives: Yes Advance Directives Information Provided: No Advance Directives on File: Yes Advance Directives Date on File: 06/22/23 Do you have a plan to hurt others: No Plan Recently lost weight without trying: No Eating poorly because of decreased appetite: No Nutrition Risks: Dental problems Poor oral hygiene: Yes service: No Meds Allergies Allergy/AdvReac Type Severity Reaction Status Date / Time No Known Allergies Allergy Verified 02/18/24 12:24 Active Medications: Current Medications Insulin Human Regular (Myxredlin) 100 unit in 100 mls @ 6 mls/hr IVCONT .[id number] [facility]; Protocol Last Admin: 02/18/24 15:37 Dose: 6 unit/hr, 6 mls/hr Home Medications ?Medication ?Instructions ?Recorded ?Confirmed ?Last Taken ?Type insulin glargine 100 unit/mL 30 unit subcut BEDTIME 02/26/23 02/18/24 02/15/24 History subcutaneous solution insulin lispro 100 unit/mL 1 sliding scale dose subcut TID 02/26/23 02/18/24 02/15/24 History subcutaneous pen Physical Exam 2 Vital Signs: Vital Signs: Last Vital Signs Temp 98.7 F 02/18/24 12:22 Pulse 130 H 02/18/24 12:22 Resp 18 02/18/24 12:22 BP 149/93 H 02/18/24 12:22 Pulse Ox 98 02/18/24 12:22 O2 Del Method Room Air 02/18/24 12:22 BMI result Body Mass Index 24.4 General: acute distress, ill appearing and tired appearing Nutritional Appearance: Poorly nourished and under weight Eyes: appearance normal, both eyes and all related structures; Alignment and Position: alignment normal and position normal Neck: No lymphadenopathy, no thyromegaly Resp: bilateral air entry equal, occasional added sounds present Cardio: Regular rate, regular rhythm; Heart sounds: S1 normal heart sound present and S2 normal heart sound present GI: soft, nontender, no guarding, no hepatosplenomegaly : bladder normal to inspection, bladder normal to palpation, no renal angle tenderness Skin: no rashes or lesions noted and elasticity normal Neuro: oriented to person, oriented to place, oriented to time and moves all extremities Neuro: Cranial nerves: Yes Normal hearing present Results Labs 02/19/24 04:55 02/19/24 08:31 Labs: Laboratory Results - last 24 hr 02/18/24 02/18/24 02/18/24 12:20 13:30 14:20 MCV 80.2 MCH 25.0 L MCHC 31.2 RDW 16.4 H Plt Count 542 H MPV 9.3 L Immature Gran % (Auto) 0.4 Neut % (Auto) 84.6 H Lymph % (Auto) 4.2 L [place] % (Auto) 10.6 Eos % (Auto) 0.0 Baso % (Auto) 0.2 Lymph # (Auto) 0.7 L [place] # (Auto) 1.7 H Eos # (Auto) 0.0 Baso # (Auto) 0.0 Abs Immat Gran (auto) 0.07 H Absolute Neuts (auto) 13.8 H Absolute Nucleated RBC 0.000 Nucleated RBC % (auto) 0.0 Smear Tech's Comments VERIFIED VBG pH 7.29 L VBG pCO2 23 VBG pO2 52 VBG HCO3 11 L VBG O2 Saturation 77.0 VBG Base Excess -12.9 Anion Gap 33 H Estim Creat Clear Calc 48.8 Estimated GFR 34 POC Glucose 347 H Random Glucose 406 H* Calcium 10.6 H D Magnesium 1.7 Total Bilirubin 0.3 AST 14 ALT 22 Alkaline Phosphatase 102 Total Protein 6.8 Albumin 3.8 Beta-Hydroxybutyrate 12.21 H 02/18/24 16:02 MCV MCH MCHC RDW Plt Count MPV Immature Gran % (Auto) Neut % (Auto) Lymph % (Auto) [place] % (Auto) Eos % (Auto) Baso % (Auto) Lymph # (Auto) [place] # (Auto) Eos # (Auto) Baso # (Auto) Abs Immat Gran (auto) Absolute Neuts (auto) Absolute Nucleated RBC Nucleated RBC % (auto) Smear Tech's Comments VBG pH VBG pCO2 VBG pO2 VBG HCO3 VBG O2 Saturation VBG Base Excess Anion Gap Estim Creat Clear Calc Estimated GFR POC Glucose 425 H* Random Glucose Calcium Magnesium Total Bilirubin AST ALT Alkaline Phosphatase Total Protein Albumin Beta-Hydroxybutyrate Assessment and Plan (1) Diabetic ketoacidosis: Status: Acute (2) Syncope: Status: Acute (3) CRISTI (acute kidney injury): Status: Resolved Plan DKA: Secondary to noncompliance We will start the patient on insulin drip and titrate according to blood sugar every hour until the anion gap closes We will give fluid boluses followed by LR at 150 cc/hour, if the blood sugar drops below 200 we will switch to D5 water We will get BMP, Mag phos every 4 hours until the patient is on insulin drip We will keep the patient NPO until ketoacidosis results HbA1c 10.9 Acute kidney injury: Secondary to volume depletion we will give multiple boluses Closely monitor renal function Monitor I's and O's Chronic anemia: Needs to be evaluated by his PCP once he is more stable Prophylaxis: Heparin, pantoprazole Total time managing care of this patient today: 35 minutes.
--- NOTE | 2024-02-18 16:37 | PHA.MEDREC ---
Addendum entered by Ana Lanza 02/18/24 16:41: Humalog is 7-30 units tid per sliding scale. Original Note: Pharmacy Consult ? Medication Reconciliation Pharmacy has completed the medication reconciliation. Spoke to patient to confirm med list. Patient states he is only on Insulin Humalog is 7-30 units per sliding scale, Lantus 30 units daily. Patient says he don't have a prescription for both he just gets both insulins at [facility].
[2024-02-18 17:01] LABS: Glucose, Whole Blood 302 mg/dL (60-115)
[2024-02-18] MEDS: Lactated Ringers 1,000 ML 999 ML IV (17:15)
[2024-02-18] MEDS: Lactated Ringers 1,000 ML 150 ML IVCONT (17:20)
[2024-02-18] MEDS: Pantoprazole Sodium 40 MG in 0.9 % Sodium Chloride 100 ML 400 MG IV (17:29)
[2024-02-18] MEDS: Heparin Sodium,Porcine 5,000 UNIT/ML VIAL 5000 UNIT SUBCUT (17:29)
[2024-02-18 18:18] LABS: Glucose, Whole Blood 159 mg/dL (60-115)
[2024-02-18] MEDS: Dextrose 5 % 1,000 ML 150 ML IVCONT (18:25)
[2024-02-18 19:03] LABS: Glucose, Whole Blood 137 mg/dL (60-115)
[2024-02-18 19:13] LABS: Anion Gap 21 (12-20); Blood Urea Nitrogen 17 mg/dL (9-16); Calcium 9.4 mg/dL (8.4-10.2); Carbon Dioxide 15 mmol/L (22-29); Chloride 104 mmol/L (96-108); Creatinine Clr Calc Pharmacy 63.2; Estimated Glomerular Filt Rate 46; Glucose Random 155 mg/dL (60-115); Potassium 3.8 mmol/L (3.3-5.1); Sodium 136 mmol/L (135-145)
[2024-02-18] MEDS: Insulin Glargine,Hum.rec.anlog 100 UNIT/ML 10 ML VIAL 30 UNIT SUBCUT (19:51)
[2024-02-18 20:01] LABS: Glucose, Whole Blood 132 mg/dL (60-115)
[2024-02-18 20:43] LABS: Appearance Urine Clear; Color Urine Yellow; Glucose Urine UA >=1000 mg/dL (Negative); Leukocyte Esterase Urine Negative (Negative); Nitrite Urine Negative (Negative); PH 5.5 (5.0-9.0); UMIC TRIGGER UACC YES; Urine Blood Trace (Negative); Urine Ketones >=160 mg/dL (Negative); Urine Protein Trace mg/dL (Neg-Trace)
[2024-02-18 20:48] LABS: Bacteria Urine None Seen (None Seen); RBC Urine 0-2 /HPF (0-2); Squamous Epithelial Cell Urine 0-2 /HPF (0-2); WBC Urine 0-5 /HPF (0-5)
[2024-02-18 20:50] LABS: Anion Gap 21 (12-20); Blood Urea Nitrogen 17 mg/dL (9-16); Calcium 9.4 mg/dL (8.4-10.2); Carbon Dioxide 13 mmol/L (22-29); Chloride 105 mmol/L (96-108); Creatinine Clr Calc Pharmacy 70.1; Estimated Glomerular Filt Rate 52; Glucose Random 163 mg/dL (60-115); Potassium 4.1 mmol/L (3.3-5.1); Sodium 135 mmol/L (135-145)
[2024-02-18 21:12] LABS: Glucose, Whole Blood 135 mg/dL (60-115)
[2024-02-18 22:04] LABS: Glucose, Whole Blood 148 mg/dL (60-115)
[2024-02-18 23:21] LABS: Glucose, Whole Blood 127 mg/dL (60-115)
[2024-02-19] VITALS (13 sets, daily range): BP systolic 109–156; BP diastolic 68–101; PULSE 83–100; RESP 15–25; TEMP 36.2–36.7; O2SAT 95–100; BMI 23.4
[2024-02-19 00:06] LABS: Glucose, Whole Blood 87 mg/dL (60-115)
[2024-02-19] MEDS: Heparin Sodium,Porcine 5,000 UNIT/ML VIAL 5000 UNIT SUBCUT ×2 (00:47→16:42)
[2024-02-19 01:12] LABS: Anion Gap 11 (12-20); Blood Urea Nitrogen 16 mg/dL (9-16); Carbon Dioxide 23 mmol/L (22-29); Chloride 105 mmol/L (96-108); Creatinine Clr Calc Pharmacy 70.1; Estimated Glomerular Filt Rate 52; Glucose Random 79 mg/dL (60-115); Potassium 3.3 mmol/L (3.3-5.1); Sodium 136 mmol/L (135-145)
[2024-02-19] MEDS: Potassium Chloride Packet 20 MEQ PACKET 40 MEQ PO (01:36)
[2024-02-19] MEDS: Lactated Ringers 1,000 ML 100 ML IVCONT (01:36)
[2024-02-19 05:28] LABS: MANUAL DIFF FLAG NO
[2024-02-19 05:33] LABS: Basophils Percent Auto 0.3 % (0-2); Eosinophils Absolute Auto 0.1 X10*3/uL (0.0-0.4); Hematocrit 27.8 % (42.0-52.0); Hemoglobin 8.8 g/dl (14.0-18.0); Imm Gran Abs Auto 0.04 X10*3/uL (0.00-0.03); Imm Gran Pct Auto 0.5 % (0.0-0.4); Lymphocytes Absolute Auto 1.7 X10*3/uL (1.2-4.9); Lymphocytes Percent Auto 19.1 % (20-40); Mean Corpuscular HGB Conc 31.7 g/dl (31.0-36.0); Mean Corpuscular Hemoglobin 24.8 pg (27.0-33.0); Mean Corpuscular Volume 78.3 fL (80.0-98.0); Monocytes Absolute Auto 1.5 X10*3/uL (0.1-1.2); Monocytes Percent Auto 16.7 % (2-11); Neutrophils Absolute Auto 5.5 x10*3/uL (2.0-8.3); Neutrophils Percent Auto 62.4 % (45-73); Platelet Count 406 X10*3/uL (160-400); Red Blood Count 3.55 X10*6/uL (4.60-5.80); Red Cell Distribution Width 16.5 % (11.0-16.0); White Blood Count 8.7 X10*3/uL (4.8-10.8)
[2024-02-19 05:53] LABS: Alanine Aminotransferase 15 U/L (0-40); Albumin Level 2.9 g/dL (3.5-5.0); Alkaline Phosphatase 78 U/L (39-117); Anion Gap 13 (12-20); Aspartate Amino Transferase 11 U/L (5-37); Bilirubin Total 0.2 mg/dL (0.0-1.0); Blood Urea Nitrogen 16 mg/dL (9-16); Calcium 8.8 mg/dL (8.4-10.2); Carbon Dioxide 22 mmol/L (22-29); Chloride 107 mmol/L (96-108); Creatinine Clr Calc Pharmacy 81.7; Estimated Glomerular Filt Rate > 60; Glucose Random 72 mg/dL (60-115); Potassium 3.9 mmol/L (3.3-5.1); Sodium 138 mmol/L (135-145); Total Protein 5.1 g/dL (6.5-8.0)
[2024-02-19] MEDS: Pantoprazole Sodium 40 MG in 0.9 % Sodium Chloride 100 ML 400 MG IVPUSH (05:56)
--- NOTE | 2024-02-19 05:57 | PM.CCPN ---
Subjective Subjective Date of Service: 02/19/24 Critical Care Time (minutes): 15 Comment: pt has no complaints. Focus ROS no c/o other thank being hungry Physical Exam Vital Signs: Vital Signs: Last Vital Signs Temp 98.0 F 02/18/24 23:00 Pulse 92 02/19/24 05:00 Resp 25 H 02/19/24 05:00 BP 156/99 H 02/19/24 05:00 Pulse Ox 100 02/19/24 05:00 O2 Del Method Room Air 02/19/24 05:00 BMI result Body Mass Index 24.4 Const: General: cooperative, healthy appearing and comfortable; No no acute distress Eyes: General: appearance normal, both eyes and all related structures Cardio: Jugular venous distension: JVD present Rate: regular rate Rhythm: regular rhythm Heart sounds: S1 normal heart sound present and S2 normal heart sound present GI: Inspection: Yes normal to inspection and No distended Palpation (GI): Soft to palpation, nontender, no guarding, not rigid and hepatosplenomegaly present Skin: General skin exam: rashes and/or lesions noted Objective Data Labs 02/19/24 04:55 02/19/24 08:31 Labs: Laboratory Results - last 24 hr 02/18/24 02/18/24 02/18/24 12:20 13:30 14:20 WBC 16.4 H RBC 4.44 L Hgb 11.1 L Hct 35.6 L MCV 80.2 MCH 25.0 L MCHC 31.2 RDW 16.4 H Plt Count 542 H MPV 9.3 L Immature Gran % (Auto) 0.4 Neut % (Auto) 84.6 H Lymph % (Auto) 4.2 L [place] % (Auto) 10.6 Eos % (Auto) 0.0 Baso % (Auto) 0.2 Lymph # (Auto) 0.7 L [place] # (Auto) 1.7 H Eos # (Auto) 0.0 Baso # (Auto) 0.0 Abs Immat Gran (auto) 0.07 H Absolute Neuts (auto) 13.8 H Absolute Nucleated RBC 0.000 Nucleated RBC % (auto) 0.0 Smear Tech's Comments VERIFIED VBG pH 7.29 L VBG pCO2 23 VBG pO2 52 VBG HCO3 11 L VBG O2 Saturation 77.0 VBG Base Excess -12.9 Sodium 137 Potassium 4.5 D Chloride 95 L Carbon Dioxide 14 L Anion Gap 33 H BUN 22 H Creatinine 2.24 H Estim Creat Clear Calc 48.8 Estimated GFR 34 POC Glucose 347 H Random Glucose 406 H* Calcium 10.6 H D Magnesium 1.7 Total Bilirubin 0.3 AST 14 ALT 22 Alkaline Phosphatase 102 Total Protein 6.8 Albumin 3.8 Beta-Hydroxybutyrate 12.21 H Urine Color Urine Appearance Urine pH Ur Specific [place] Urine Protein Urine Glucose (UA) Urine Ketones Urine Blood Urine Nitrite Ur Leukocyte Esterase Urine RBC Urine WBC Ur Squamous Epith Cells Urine Bacteria Hyaline Casts 02/18/24 02/18/24 02/18/24 16:02 16:56 18:13 WBC RBC Hgb Hct MCV MCH MCHC RDW Plt Count MPV Immature Gran % (Auto) Neut % (Auto) Lymph % (Auto) [place] % (Auto) Eos % (Auto) Baso % (Auto) Lymph # (Auto) [place] # (Auto) Eos # (Auto) Baso # (Auto) Abs Immat Gran (auto) Absolute Neuts (auto) Absolute Nucleated RBC Nucleated RBC % (auto) Smear Tech's Comments VBG pH VBG pCO2 VBG pO2 VBG HCO3 VBG O2 Saturation VBG Base Excess Sodium Potassium Chloride Carbon Dioxide Anion Gap BUN Creatinine Estim Creat Clear Calc Estimated GFR POC Glucose 425 H* 302 H 159 H Random Glucose Calcium Magnesium Total Bilirubin AST ALT Alkaline Phosphatase Total Protein Albumin Beta-Hydroxybutyrate Urine Color Urine Appearance Urine pH Ur Specific [place] Urine Protein Urine Glucose (UA) Urine Ketones Urine Blood Urine Nitrite Ur Leukocyte Esterase Urine RBC Urine WBC Ur Squamous Epith Cells Urine Bacteria Hyaline Casts 02/18/24 02/18/24 02/18/24 18:21 18:58 19:13 WBC RBC Hgb Hct MCV MCH MCHC RDW Plt Count MPV Immature Gran % (Auto) Neut % (Auto) Lymph % (Auto) [place] % (Auto) Eos % (Auto) Baso % (Auto) Lymph # (Auto) [place] # (Auto) Eos # (Auto) Baso # (Auto) Abs Immat Gran (auto) Absolute Neuts (auto) Absolute Nucleated RBC Nucleated RBC % (auto) Smear Tech's Comments VBG pH VBG pCO2 VBG pO2 VBG HCO3 VBG O2 Saturation VBG Base Excess Sodium 136 Potassium 3.8 Chloride 104 Carbon Dioxide 15 L Anion Gap 21 H BUN 17 H Creatinine 1.73 H Estim Creat Clear Calc 63.2 Estimated GFR 46 POC Glucose 137 H Random Glucose 155 H Calcium 9.4 D Magnesium Total Bilirubin AST ALT Alkaline Phosphatase Total Protein Albumin Beta-Hydroxybutyrate Urine Color Yellow Urine Appearance Clear Urine pH 5.5 Ur Specific [place] 1.020 Urine Protein Trace Urine Glucose (UA) >=1000 H Urine Ketones >=160 Urine Blood Trace H Urine Nitrite Negative Ur Leukocyte Esterase Negative Urine RBC 0-2 Urine WBC 0-5 Ur Squamous Epith Cells 0-2 Urine Bacteria None Seen Hyaline Casts 3-5 02/18/24 02/18/24 02/18/24 19:57 20:24 21:09 WBC RBC Hgb Hct MCV MCH MCHC RDW Plt Count MPV Immature Gran % (Auto) Neut % (Auto) Lymph % (Auto) [place] % (Auto) Eos % (Auto) Baso % (Auto) Lymph # (Auto) [place] # (Auto) Eos # (Auto) Baso # (Auto) Abs Immat Gran (auto) Absolute Neuts (auto) Absolute Nucleated RBC Nucleated RBC % (auto) Smear Tech's Comments VBG pH VBG pCO2 VBG pO2 VBG HCO3 VBG O2 Saturation VBG Base Excess Sodium 135 Potassium 4.1 Chloride 105 Carbon Dioxide 13 L Anion Gap 21 H BUN 17 H Creatinine 1.56 H Estim Creat Clear Calc 70.1 Estimated GFR 52 POC Glucose 132 H 135 H Random Glucose 163 H Calcium 9.4 Magnesium Total Bilirubin AST ALT Alkaline Phosphatase Total Protein Albumin Beta-Hydroxybutyrate Urine Color Urine Appearance Urine pH Ur Specific [place] Urine Protein Urine Glucose (UA) Urine Ketones Urine Blood Urine Nitrite Ur Leukocyte Esterase Urine RBC Urine WBC Ur Squamous Epith Cells Urine Bacteria Hyaline Casts 02/18/24 02/18/24 02/18/24 22:00 23:13 23:58 WBC RBC Hgb Hct MCV MCH MCHC RDW Plt Count MPV Immature Gran % (Auto) Neut % (Auto) Lymph % (Auto) [place] % (Auto) Eos % (Auto) Baso % (Auto) Lymph # (Auto) [place] # (Auto) Eos # (Auto) Baso # (Auto) Abs Immat Gran (auto) Absolute Neuts (auto) Absolute Nucleated RBC Nucleated RBC % (auto) Smear Tech's Comments VBG pH VBG pCO2 VBG pO2 VBG HCO3 VBG O2 Saturation VBG Base Excess Sodium Potassium Chloride Carbon Dioxide Anion Gap BUN Creatinine Estim Creat Clear Calc Estimated GFR POC Glucose 148 H 127 H 87 Random Glucose Calcium Magnesium Total Bilirubin AST ALT Alkaline Phosphatase Total Protein Albumin Beta-Hydroxybutyrate Urine Color Urine Appearance Urine pH Ur Specific [place] Urine Protein Urine Glucose (UA) Urine Ketones Urine Blood Urine Nitrite Ur Leukocyte Esterase Urine RBC Urine WBC Ur Squamous Epith Cells Urine Bacteria Hyaline Casts 02/19/24 02/19/24 00:46 04:55 WBC 8.7 RBC 3.55 L D Hgb 8.8 L D Hct 27.8 L D MCV 78.3 L MCH 24.8 L MCHC 31.7 RDW 16.5 H Plt Count 406 H D MPV 9.0 L Immature Gran % (Auto) 0.5 H Neut % (Auto) 62.4 Lymph % (Auto) 19.1 L [place] % (Auto) 16.7 H Eos % (Auto) 1.0 Baso % (Auto) 0.3 Lymph # (Auto) 1.7 [place] # (Auto) 1.5 H Eos # (Auto) 0.1 Baso # (Auto) 0.0 Abs Immat Gran (auto) 0.04 H Absolute Neuts (auto) 5.5 Absolute Nucleated RBC 0.000 Nucleated RBC % (auto) 0.0 Smear Tech's Comments VBG pH VBG pCO2 VBG pO2 VBG HCO3 VBG O2 Saturation VBG Base Excess Sodium 136 138 Potassium 3.3 3.9 Chloride 105 107 Carbon Dioxide 23 22 Anion Gap 11 L 13 BUN 16 16 Creatinine 1.56 H 1.34 Estim Creat Clear Calc 70.1 81.7 Estimated GFR 52 > 60 POC Glucose Random Glucose 79 72 Calcium 9.0 8.8 Magnesium Total Bilirubin 0.2 AST 11 ALT 15 Alkaline Phosphatase 78 Total Protein 5.1 L Albumin 2.9 L Beta-Hydroxybutyrate Urine Color Urine Appearance Urine pH Ur Specific [place] Urine Protein Urine Glucose (UA) Urine Ketones Urine Blood Urine Nitrite Ur Leukocyte Esterase Urine RBC Urine WBC Ur Squamous Epith Cells Urine Bacteria Hyaline Casts Progress Note: A&P Assessment and plan (1) Diabetic ketoacidosis: Status: Acute Plan DKA in Type I DM due to noncompliance==== resolved METABOLIC ACIDOSIS ===== resolved CRISTI due to vol depletion ==== resolved post syncope and fall ? nose fracture (out patient eval ) all resolved, pt off insulin gtt since last night, back on lantus dose from home, needs diet and diabetic counseling will transfer to the floor case discussed with Dr Ian LEDESMA service Case discussed with Dr. Arango who agrees Total critical care time is 20 min Quality Stroke Does the patient have a stroke diagnosis?: No VTE Prior VTE?: No VTE Risk Level:: Medical - low VTE Device Contraindication: N/A - Device Ordered VTE Drug Contraindication: N/A - Med Ordered
[2024-02-19 07:40] LABS: Glucose, Whole Blood 92 mg/dL (60-115)
[2024-02-19 07:49] LABS: Estimated Average Glucose 266 mg/dL; Hemoglobin A1c % 10.9 % (<6.0)
[2024-02-19 08:54] LABS: Anion Gap 12 (12-20); Blood Urea Nitrogen 14 mg/dL (9-16); Carbon Dioxide 21 mmol/L (22-29); Chloride 108 mmol/L (96-108); Creatinine Clr Calc Pharmacy 82.9; Estimated Glomerular Filt Rate > 60; Glucose Random 116 mg/dL (60-115); Potassium 4.2 mmol/L (3.3-5.1); Sodium 137 mmol/L (135-145)
--- NOTE | 2024-02-19 09:18 | PM.EVENT ---
Event Note Date of Service: 02/19/24 Event Note: Seen and evaluated this morning Start diet received home lantus dose SSI Encourage oral intake and increase activity Reglan for gastroparesis prn Time Spent With Patient Time: Total time managing care of this patient today ____ minutes.
[2024-02-19 11:13] LABS: Glucose, Whole Blood 165 mg/dL (60-115)
[2024-02-19 11:53] LABS: Glucose, Whole Blood 186 mg/dL (60-115)
--- NOTE | 2024-02-19 13:05 | MHC.CM.PN ---
Pt. lives alone in an apt., he has no home health services, for DME, he has diabetic supplies. He is not working and being evicted from apt., Resource booklet given. He said he has food stamps, and health insurance, and has medication at home. He is in the process of getting on disability for his health problems. HCP is on file and confirmed: Ara. PCP is new to him, he does not have a name but it is at [facility] in [place]. He will need assistance with transport home. DCP: home, self care, CM to follow and assist with DC plan.
[2024-02-19 16:38] LABS: Glucose, Whole Blood 253 mg/dL (60-115)
[2024-02-19] MEDS: Insulin Lispro 100 UNIT/ML 3 ML VIAL SUBCUT ×2 (16:42→21:04)
[2024-02-19 20:59] LABS: Glucose, Whole Blood 161 mg/dL (60-115)
[2024-02-19] MEDS: Insulin Glargine,Hum.rec.anlog 100 UNIT/ML 10 ML VIAL 30 UNIT SUBCUT (21:05)
--- NOTE | 2024-02-19 23:31 | PC.NURSE ---
Report received. Patient in bed sleeping.Care assumed.
[2024-02-20] VITALS: BP 131/90; PULSE 87; RESP 20; TEMP 36.4; O2SAT 97
[2024-02-20] MEDS: Fluticasone Propionate Nasal 16 GM SPRAY 2 SPRAY NOSTRIL-B (00:59)
[2024-02-20] MEDS: Heparin Sodium,Porcine 5,000 UNIT/ML VIAL 5000 UNIT SUBCUT (01:01)
[2024-02-20 04:00] VITALS: BP 133/91; PULSE 84; RESP 20; TEMP 36.1; O2SAT 96
[2024-02-20 05:23] VITALS: BMI 23.7
[2024-02-20] MEDS: Pantoprazole Sodium 40 MG in 0.9 % Sodium Chloride 100 ML 110 MG IVPUSH (05:27)
[2024-02-20 06:45] LABS: Hematocrit 26.3 % (42.0-52.0); Hemoglobin 8.3 g/dl (14.0-18.0); Mean Corpuscular HGB Conc 31.6 g/dl (31.0-36.0); Mean Corpuscular Hemoglobin 25.2 pg (27.0-33.0); Mean Corpuscular Volume 79.9 fL (80.0-98.0); Mean Platelet Volume 9.5 fL (9.4-12.4); Platelet Count 338 X10*3/uL (160-400); Red Blood Count 3.29 X10*6/uL (4.60-5.80); Red Cell Distribution Width 16.5 % (11.0-16.0); White Blood Count 8.2 X10*3/uL (4.8-10.8)
[2024-02-20 07:02] LABS: Anion Gap 11 (12-20); Blood Urea Nitrogen 13 mg/dL (9-16); Calcium 8.5 mg/dL (8.4-10.2); Carbon Dioxide 26 mmol/L (22-29); Chloride 106 mmol/L (96-108); Creatinine Clr Calc Pharmacy 111.7; Estimated Glomerular Filt Rate > 60; Glucose Random 84 mg/dL (60-115); Potassium 3.6 mmol/L (3.3-5.1); Sodium 139 mmol/L (135-145)
[2024-02-20 07:30] VITALS: BP 132/98; PULSE 84; RESP 18; TEMP 36.7; O2SAT 98
[2024-02-20 07:51] LABS: Glucose, Whole Blood 67 mg/dL (60-115)
[2024-02-20] MEDS: Acetaminophen 325 MG TABLET 650 MG PO (08:14)
--- NOTE | 2024-02-20 11:32 | PM.DS ---
DS: Providers Provider Date of Service: 02/20/24 Date of admission: 02/18/24 16:13 Primary care physician: Unknown Physician DS: Diagnosis Discharge Diagnosis (1) Diabetic ketoacidosis: Status: Acute DS: Summary Hospital Course Hospital Course: from initial hpi: 33-year-old male past medical history of diabetes mellitus noncompliant to the medications, missed his insulin due to insurance issues presented to the ED with abdominal pain and syncopal episodes. He was found to be in DKA, pH was 7.29, anion gap of 32 so MICU was consulted for admission. He also has an acute kidney injury possibly due to volume depletion. hospital course: Patient was admitted for diabetic ketoacidosis in type 1 diabetes complicated by syncope and fall. He was treated in ICU with insulin infusion in anion gap closed. Sugars normalized and patient was able to tolerate solid diet. Patient possibly has underlying gastroparesis. Was started on Reglan pre meal and should follow-up for gastric emptying study. Patient is feeling better will be discharged home. Time Attestation Discharge Coordination Time (in mins): 37 Quality: Safe Use of Opioids Does Pt have an Active Cancer Diagnosis on the Problem List?: No Quality: Stroke Does the patient have a stroke diagnosis?: No Physical Exam Vital Signs: Vital Signs: Last Vital Signs Temp 98.0 F 02/20/24 07:30 Pulse 84 02/20/24 07:30 Resp 18 02/20/24 07:30 BP 132/98 H 02/20/24 07:30 Pulse Ox 98 02/20/24 07:30 O2 Del Method Room Air 02/20/24 07:30 BMI result Body Mass Index 23.7 General: AO X 3, no acute distress, bruising on nasal bridge Resp: CTA bilateral, no accessory muscles used CVS: S1,S2,RRR GI: soft, non tender, non distended Neuro: motor grossly intact, alert Psych: appropriate affect, appropriate insight DS: Data Data Completed and Pending Labs on day of discharge: Laboratory Results - last 24 hr 02/19/24 02/19/24 02/19/24 11:49 16:33 20:52 WBC RBC Hgb Hct MCV MCH MCHC RDW Plt Count MPV Absolute Nucleated RBC Nucleated RBC % (auto) Sodium Potassium Chloride Carbon Dioxide Anion Gap BUN Creatinine Estim Creat Clear Calc Estimated GFR POC Glucose 186 H 253 H 161 H Random Glucose Calcium 02/20/24 02/20/24 06:24 07:42 WBC 8.2 RBC 3.29 L Hgb 8.3 L Hct 26.3 L MCV 79.9 L MCH 25.2 L MCHC 31.6 RDW 16.5 H Plt Count 338 MPV 9.5 Absolute Nucleated RBC 0.000 Nucleated RBC % (auto) 0.0 Sodium 139 Potassium 3.6 Chloride 106 Carbon Dioxide 26 Anion Gap 11 L BUN 13 Creatinine 0.98 Estim Creat Clear Calc 111.7 Estimated GFR > 60 POC Glucose 67 Random Glucose 84 Calcium 8.5 Discharge Plan Discharge Anticipated Discharge Date/Time: 02/20/24 11:30 Patient Disposition: Home, Self-Care Discharge Diagnosis: dka, syncope Referrals: PhysicianGladys [Primary Care Provider] - 1 Week Discharge Medications: New metoclopramide HCl [Reglan] 5 mg tablet 5 mg PO TIDAC Qty: 270 0RF Continued insulin glargine 100 unit/mL Solution 30 unit SUBCUT BEDTIME insulin lispro 100 unit/mL Insulin Pen 1 sliding scale dose SUBCUT TID Protocol: Insulin Correction Scale Less than or equal to 110 ---- Give (units): 0 111 to 150 Give (units): 0 151 to 200 Give (units): 2 201 to 250 Give (units): 4 251 to 300 Give (units): 6 301 to 350 Give (units): 8 Greater than 350 Give (units): 10 Call MD if Blood Glucose > : 350 Discharge Orders: Discharge Order (Routine); Ordered 02/20/24 Ordered By: Armen Yang Diet: Diabetic diet Activity on Discharge: As tolerated Stand Alone Forms: Patient Portal Discharge page Print Language: Lithuanian Care Plan Goals: recovery Health Concerns: gastroparesis, dka Plan of Treatment: continue insulin, starting reglan premeal for gastroparesis Assessment: see above
[2024-02-20 11:54] LABS: Glucose, Whole Blood 163 mg/dL (60-115)
[2024-02-20 12:00] VITALS: BP 157/95; PULSE 92; RESP 18; TEMP 36.3; O2SAT 98
[2024-02-20] MEDS: Insulin Lispro 100 UNIT/ML 3 ML VIAL SUBCUT (12:29)
--- NOTE | 2024-02-20 12:51 | MHC.CM.PN ---
Pt is medically cleared for discharge home self-care, pt will transport home via [facility] shuttle.
== END 2024-02-20 14:07 | disposition home or self-care (01) | DRG 420 ==
LOC: HO.ED 16:02 → HO.EDOVER 16:17 → HO.ICU 16:25 → HO.IMC 02-19 07:52
PROVIDERS: Physician Assistant Medical; Student in an Organized Health Care Education/Training Program; Admitting Provider Internal Medicine Critical Care Medicine; Emergency Provider Internal Medicine; Visit Provider Internal Medicine
DX: E10.10 Type 1 diabetes mellitus with ketoacidosis without coma (principal); N17.9 Acute kidney failure, unspecified; K31.84 Gastroparesis; E10.43 Type 1 diabetes mellitus with diabetic autonomic (poly)neuropathy; R55 Syncope and collapse; D64.9 Anemia, unspecified; T38.3X6A Underdosing of insulin and oral hypoglycemic [antidiabetic] drugs, initial encounter; Z71.3 Dietary counseling and surveillance; Z87.891 Personal history of nicotine dependence
CPT/HCPCS: 36415; 70450; 72125; 80048; 80053; 81001; 82010; 82803; 82947; 83036; 83735; 85025; 85027; 93005; 99285; J1644; J1885; J2470; J2765; J7120

== ENCOUNTER → 2024-02-18 12:31 | Outpatient (BNV) | payer OTHER, SELFPAY | PROVIDERS: Admitting Provider Internal Medicine Critical Care Medicine; Emergency Provider Internal Medicine; Visit Provider Internal Medicine Cardiovascular Disease | DX: R00.0 Tachycardia, unspecified (principal); R94.31 Abnormal electrocardiogram [ECG] [EKG] | CPT/HCPCS: 93010 ==

== ENCOUNTER → 2024-02-18 16:13 | Outpatient (BNV) | payer OTHER, SELFPAY | PROVIDERS: Admitting Provider Internal Medicine Critical Care Medicine; Emergency Provider Internal Medicine; Visit Provider Student in an Organized Health Care Education/Training Program | DX: E11.10 Type 2 diabetes mellitus with ketoacidosis without coma (principal) | CPT/HCPCS: 99239; 99499 ==

== ENCOUNTER → 2024-02-18 16:13 | Outpatient (BNV) | payer OTHER, SELFPAY | PROVIDERS: Admitting Provider Internal Medicine Critical Care Medicine; Emergency Provider Internal Medicine; Visit Provider Internal Medicine Critical Care Medicine | DX: E11.10 Type 2 diabetes mellitus with ketoacidosis without coma (principal); R55 Syncope and collapse; N17.9 Acute kidney failure, unspecified | CPT/HCPCS: 99223; 99231 ==

== ENCOUNTER 2024-03-21 10:59 | Emergency (ER) | payer OTHER, SELFPAY ==
[2024-03-21] VITALS (8 sets, daily range): BP systolic 108–158; BP diastolic 62–102; PULSE 94–120; RESP 12–18; TEMP 36.6–36.9; O2SAT 97–98; BMI 23.1
[2024-03-21 11:18] LABS: Glucose, Whole Blood 200 mg/dL (60-115)
--- NOTE | 2024-03-21 11:40 | ECG_ITS ---
Test Reason : RODRISA Blood Pressure : / mmHG Vent. Rate : 101 BPM Atrial Rate : 101 BPM P-R Int : 142 ms QRS Dur : 082 ms QT Int : 336 ms P-R-T Axes : 066 077 079 degrees QTc Int : 435 ms Sinus tachycardia Nonspecific T wave abnormality Abnormal ECG When compared with ECG of 18-FEB-2024 13:38, Nonspecific T wave abnormality has replaced inverted T waves in Inferior leads Nonspecific T wave abnormality, worse in Anterolateral leads Referred By: Elvira Morris Electronically Signed By:SVETLANA LAU
--- NOTE | 2024-03-21 11:53 | ED.SYNCOPE ---
HPI - Syncope General Chief Complaint: Syncope Stated Complaint: SYNCOPAL EPISODE Time Seen by Provider: 03/21/24 11:11 Source: patient, EMS, RN notes reviewed and old records reviewed Mode of arrival: EMS History of Present Illness ED Provider: Elvira Morris PA-C HPI narrative: 33-year-old male with a past medical history of diabetes, gastroparesis, chronic anemia, presenting to the ED via EMS s/p syncopal episode while at home [employer]. Reports feeling lightheaded/dizzy with + LOC on kitchen floor, denies head trauma. Reports chronic anemia which he is being worked up with his PCP. Also reports brbpr x1 year with abdominal spasming. Denies current anticoagulation use, headache, neck pain, back pain, CP/SOB, abdominal pain, nausea/vomiting. Related Data Home Medications ?Medication ?Instructions ?Recorded ?Confirmed insulin glargine 100 unit/mL 30 unit subcut BEDTIME 02/26/23 02/18/24 subcutaneous solution insulin lispro 100 unit/mL 1 sliding scale dose subcut TID 02/26/23 02/18/24 subcutaneous pen Previous Rx's ?Medication ?Instructions ?Recorded metoclopramide HCl 5 mg tablet 5 mg PO TIDAC #270 tabs 02/20/24 (Reglan) Allergies Allergy/AdvReac Type Severity Reaction Status Date / Time No Known Allergies Allergy Verified 03/21/24 11:13 Review of Systems Review of Systems: Constitutional: No Fever, No Chills ENT/Mouth: No Ear Pain, No Nasal Congestion, No sore throat, No Rhinorrhea, No Swallowing Difficulty Cardiovascular: No Chest Pain, No SOB Respiratory: No Cough, No Wheezing Gastrointestinal: No Nausea, No Vomiting, No Diarrhea, No Constipation, No Abdominal pain, +brbpr Genitourinary: No Dysuria, No Urinary Frequency, No Hematuria, No Urinary Incontinence/retention, No Flank Pain Musculoskeletal: No joint pain, No Myalgias, No Joint Swelling Skin: No Skin Lesions, No rash Neuro: +Weakness, No Numbness, No Paresthesias, +syncope, + lightheaded/dizzy Yes all other systems are reviewed and are negative Constitutional: Constitutional: Reports as per HPI Neurologic: Denies Abnormal speech present [facility] Past Medical History Attestation statement: The following information was validated with the patient. Source: old records reviewed Medical History Type 1 diabetes mellitus Gastroparesis Surgical History History of dental surgery Social History Social History Household Members: None Housing: Apartment Do you presently have visiting nurse or other home services: No Alcohol intake: current Alcohol intake frequency: holidays/special occasions only Patient Tobacco Use Status: Former Tobacco user Smoked in Last 30 Days: No Second Hand Smoke Exposure: No Use of substances other than those prescribed or required for medical reasons: Yes Substance Use Type: Marijuana Advance Directives: Yes Advance Directives on File: Yes Advance Directives Date on File: 06/22/23 Do you have a plan to hurt others: No Plan service: No Physical Exam Vital Signs: Vital Signs: Last Vital Signs Temp 98 F 03/21/24 15:49 Pulse 100 03/21/24 15:51 Resp 13 03/21/24 15:49 BP 140/88 H 03/21/24 15:51 Pulse Ox 98 03/21/24 15:49 O2 Del Method Room Air 03/21/24 15:49 BMI result Body Mass Index 23.1 Const: Other: +conjunctival pallor General: cooperative and no acute distress Orientation/consciousness: patient oriented x3 Limitations: no limitations HEENT: Head: Yes normal to inspection and Yes atraumatic Ears: hearing grossly normal bilaterally General nose exam: Normal external nose present Face and sinus: Yes normal facial exam Mouth: Normal oral and palatal mucosa present and no drooling Throat: Yes posterior oropharynx normal, Yes tonsils normal and Yes uvula midline Eyes: General: appearance normal, both eyes and all related structures Pupils: Equal, round and reactive pupils present EOM: EOMs intact bilaterally Neck: Neck: Yes normal visual inspection and Yes no meningeal signs Resp: Effort & Inspection: normal respiratory effort and no respiratory distress Auscultation: clear to auscultation bilaterally, no crackles and no wheezes Cardio: Rate: regular rate Heart sounds: S1 normal heart sound present and S2 normal heart sound present GI: Inspection: Yes normal to inspection Palpation (GI): Soft to palpation, nontender, no guarding and not rigid Rectal Exam - Male: Yes External hemorrhoid(s) present (without thrombosis) : General: Yes no CVA tenderness Back/Spine/Pelvis: Other: No midline cervical/thoracic/lumbar spinous tenderness/step-off or deformity Back: no CVA tenderness Skin: Rashes: no rashes Wounds: no wounds Neuro: General: patient oriented x3, tone normal, moves all extremities, no meningeal signs, no focal motor deficits and CN's II-XI intact bilaterally Cranial nerves: Yes CN's II-XII intact bilaterally, Yes Equal, round and reactive pupils present and Yes Bilaterally intact EOM present Cognition (Neuro): normal cognition Speech: No Abnormal speech present Motor exam (neuro): 5/5 motor strength present throughout, Pronator motor function not present and no tremor noted Coordination: [id number] test normal Romberg Test: Negative Extrem: General: Yes normal to inspection Course Course Course Narrative: -1211--no leukocytosis. H&H at patient's baseline. -occult stool negative -received records from patient's PCP, had labs drawn 03/12/2024 & H/H was 9.3/32.1 -CRISTI with creatinine 1.58 > will give IVF and repeat -UA with glucose and ketones (chronically), not infected -152--repeat BMP with resolved CRISTI, creatinine now 1.1 after 2L IVF -COVID/flu/RSV negative -initial orthostatic vital signs positive > will repeat after IVF -160--repeat orthostatic vital signs negative after IVF Results discussed with patient recommended close PCP follow-up discussed worrisome signs and symptoms and strict return precautions, and when to return to the emergency department. They verbalized understanding and feel safe for discharge at this time. Medications Administered Discontinued Medications Generic Name Dose Route Start Last Admin Trade Name Freq PRN Reason Stop Dose Admin Sodium Chloride 1,000 mls @ 999 mls/hr 03/21/24 11:45 03/21/24 13:00 Ns IV 03/21/24 12:45 Infused .Q1H1M PARKER Infusion Sodium Chloride 1,000 mls @ 999 mls/hr 03/21/24 12:45 03/21/24 14:23 Ns IV 03/21/24 13:45 Infused .Q1H1M PARKER Infusion Medical Decision Making Medical Decision Making [facility] Narrative: 33-year-old male with a past medical history of diabetes, gastroparesis, chronic anemia, presenting to the ED via EMS s/p syncopal episode while at home [employer]. Reports chronic anemia and brbpr x1 yr. On exam pale/conjunctival pallor appreciated, tachycardic, NAD/nontoxic appearing, no evidence of trauma, abdomen soft/nontender, non bleeding or thrombosed external hemorrhoids appreciated on rectal. Concern for anemia/GI bleed vs hemorrhoidal bleeding vs vasovagal syncope vs metabolic abnormalities. Rule out hyperglycemia/DKA and dehydration. Low suspicion for severe sepsis at this time or ICH or PE plan: EKG, labs, UA, occult stool, orthostatics, IVF, re-evaluate Please refer to course for remaining clinical decision making, interpretation of labs/imaging results, and discussions with consultants and/or family members. Differential Diagnosis Differential Diagnoses: The differential diagnosis associated with the presentation includes As above Admission/Observation Consideration of admission/observation: Escalation of care including admission/observation considered Lab Data MDM Lab Attestation statement: I reviewed the patient's lab results. 03/21/24 11:52 03/21/24 14:26 Labs: Lab Results 03/21/24 03/21/24 03/21/24 Range/Units 11:13 11:52 11:55 WBC 9.1 (4.8-10.8) X10*3/uL RBC 3.68 L (4.60-5.80) X10*6/uL Hgb 9.0 L (14.0-18.0) g/dl Hct 28.7 L (42.0-52.0) % MCV 78.0 L (80.0-98.0) fL MCH 24.5 L (27.0-33.0) pg MCHC 31.4 (31.0-36.0) g/dl RDW 15.8 (11.0-16.0) % Plt Count 463 H D (160-400) X10*3/uL MPV 8.5 L (9.4-12.4) fL Immature Gran % (Auto) 0.5 H (0.0-0.4) % Neut % (Auto) 75.4 H (45-73) % Lymph % (Auto) 15.7 L (20-40) % [place] % (Auto) 7.5 (2-11) % Eos % (Auto) 0.2 (0-4) % Baso % (Auto) 0.7 (0-2) % Lymph # (Auto) 1.4 (1.2-4.9) X10*3/uL [place] # (Auto) 0.7 (0.1-1.2) X10*3/uL Eos # (Auto) 0.0 (0.0-0.4) X10*3/uL Baso # (Auto) 0.1 (0.0-0.2) X10*3/uL Abs Immat Gran (auto) 0.05 H (0.00-0.03) X10*3/uL Absolute Neuts (auto) 6.9 (2.0-8.3) x10*3/uL Absolute Nucleated RBC 0.000 (0.0-0.012) X10*3/uL Nucleated RBC % (auto) 0.0 (0.0-0.2) /100WBC PT 10.8 L (11.1-13.3) SEC INR 0.9 (0.9-1.1) Sodium 139 (135-145) mmol/L Potassium 3.8 (3.3-5.1) mmol/L Chloride 102 (96-108) mmol/L Carbon Dioxide 21 L (22-29) mmol/L Anion Gap 20 (12-20) BUN 18 H (9-16) mg/dL Creatinine 1.58 H (0.5-1.4) mg/dL Estim Creat Clear Calc 73.2 Estimated GFR 51 POC Glucose 200 H (60-115) mg/dL Random Glucose 167 H (60-115) mg/dL Calcium 9.7 D (8.4-10.2) mg/dL Magnesium 1.8 (1.6-2.6) mg/dL Total Bilirubin 0.3 (0.0-1.0) mg/dL Direct Bilirubin 0.1 (0.0-0.5) mg/dL AST 14 (5-37) U/L ALT 25 (0-40) U/L Alkaline Phosphatase 93 (39-117) U/L Troponin I High Sens < 2.7 (<3.5-35.0) ng/L Total Protein 7.0 (6.5-8.0) g/dL Albumin 3.9 (3.5-5.0) g/dL Lipase 11 (8-78) U/L Urine Color Urine Appearance Urine pH (5.0-9.0) Ur Specific [place] (1.005-1.025) Urine Protein (Neg-Trace) mg/dL Urine Glucose (UA) (Negative) mg/dL Urine Ketones (Negative) mg/dL Urine Blood (Negative) Urine Nitrite (Negative) Ur Leukocyte Esterase (Negative) Urine RBC (0-2) /HPF Urine WBC (0-5) /HPF Ur Squamous Epith Cells (0-2) /HPF Urine Bacteria (None Seen) Hyaline Casts (0-2) /LPF Stool Occult Blood NEGATIVE (NEGATIVE) Influenza Type A (PCR) NEGATIVE (Negative) Influenza Type B (PCR) NEGATIVE (Negative) RSV RNA Qual (PCR) NEGATIVE (Negative) SARS-CoV-2 RNA (RT-PCR) NEGATIVE (Negative) 03/21/24 Range/Units 14:26 WBC (4.8-10.8) X10*3/uL RBC (4.60-5.80) X10*6/uL Hgb (14.0-18.0) g/dl Hct (42.0-52.0) % MCV (80.0-98.0) fL MCH (27.0-33.0) pg MCHC (31.0-36.0) g/dl RDW (11.0-16.0) % Plt Count (160-400) X10*3/uL MPV (9.4-12.4) fL Immature Gran % (Auto) (0.0-0.4) % Neut % (Auto) (45-73) % Lymph % (Auto) (20-40) % [place] % (Auto) (2-11) % Eos % (Auto) (0-4) % Baso % (Auto) (0-2) % Lymph # (Auto) (1.2-4.9) X10*3/uL [place] # (Auto) (0.1-1.2) X10*3/uL Eos # (Auto) (0.0-0.4) X10*3/uL Baso # (Auto) (0.0-0.2) X10*3/uL Abs Immat Gran (auto) (0.00-0.03) X10*3/uL Absolute Neuts (auto) (2.0-8.3) x10*3/uL Absolute Nucleated RBC (0.0-0.012) X10*3/uL Nucleated RBC % (auto) (0.0-0.2) /100WBC PT (11.1-13.3) SEC INR (0.9-1.1) Sodium 138 (135-145) mmol/L Potassium 4.1 (3.3-5.1) mmol/L Chloride 106 (96-108) mmol/L Carbon Dioxide 18 L (22-29) mmol/L Anion Gap 18 (12-20) BUN 16 (9-16) mg/dL Creatinine 1.18 (0.5-1.4) mg/dL Estim Creat Clear Calc 98.0 Estimated GFR > 60 POC Glucose (60-115) mg/dL Random Glucose 151 H (60-115) mg/dL Calcium 8.7 D (8.4-10.2) mg/dL Magnesium (1.6-2.6) mg/dL Total Bilirubin (0.0-1.0) mg/dL Direct Bilirubin (0.0-0.5) mg/dL AST (5-37) U/L ALT (0-40) U/L Alkaline Phosphatase (39-117) U/L Troponin I High Sens (<3.5-35.0) ng/L Total Protein (6.5-8.0) g/dL Albumin (3.5-5.0) g/dL Lipase (8-78) U/L Urine Color Yellow Urine Appearance Clear Urine pH 5.5 (5.0-9.0) Ur Specific [place] 1.025 (1.005-1.025) Urine Protein Trace (Neg-Trace) mg/dL Urine Glucose (UA) >=1000 H (Negative) mg/dL Urine Ketones >=160 (Negative) mg/dL Urine Blood Negative (Negative) Urine Nitrite Negative (Negative) Ur Leukocyte Esterase Negative (Negative) Urine RBC 0-2 (0-2) /HPF Urine WBC 0-5 (0-5) /HPF Ur Squamous Epith Cells 0-2 (0-2) /HPF Urine Bacteria None Seen (None Seen) Hyaline Casts 3-5 (0-2) /LPF Stool Occult Blood (NEGATIVE) Influenza Type A (PCR) (Negative) Influenza Type B (PCR) (Negative) RSV RNA Qual (PCR) (Negative) SARS-CoV-2 RNA (RT-PCR) (Negative) Independent Interpretation I performed an independent interpretation of an: EKG Radiology Impression Discussion of test interpretation with radiology: I have reviewed the radiologist's reading. Independent Historian Clinical information obtained from an independent historian. History obtained from or confirmed by: EMS External Record Review External record reviewed: Inpatient record, Office record, Outpatient record, Prior outpatient labs, Prior outpatient radiology, Primary care record and Outside ED record Tests considered The following testing was considered but not selected: As above Chronic Conditions Patient?s care impacted by: Diabetes gastroparesis Discharge Plan Discharge Clinical Impression: Syncope Patient Disposition: Home, Self-Care Prescriptions: No Action metoclopramide HCl [Reglan] 5 mg tablet 5 mg PO TIDAC Qty: 270 0RF insulin glargine 100 unit/mL Solution 30 unit SUBCUT BEDTIME insulin lispro 100 unit/mL Insulin Pen 1 sliding scale dose SUBCUT TID Protocol: Insulin Correction Scale Less than or equal to 110 ---- Give (units): 0 111 to 150 Give (units): 0 151 to 200 Give (units): 2 201 to 250 Give (units): 4 251 to 300 Give (units): 6 301 to 350 Give (units): 8 Greater than 350 Give (units): 10 Call MD if Blood Glucose > : 350 Print Language: Uzbek
[2024-03-21] MEDS: 0.9 % Sodium Chloride 1,000 ML 999 ML IV ×2 (11:55→13:31)
[2024-03-21 11:56] LABS: MANUAL DIFF FLAG NO
[2024-03-21 11:57] LABS: Basophils Absolute Auto 0.1 X10*3/uL (0.0-0.2); Basophils Percent Auto 0.7 % (0-2); Eosinophils Percent Auto 0.2 % (0-4); Hematocrit 28.7 % (42.0-52.0); Imm Gran Abs Auto 0.05 X10*3/uL (0.00-0.03); Imm Gran Pct Auto 0.5 % (0.0-0.4); Lymphocytes Absolute Auto 1.4 X10*3/uL (1.2-4.9); Lymphocytes Percent Auto 15.7 % (20-40); Mean Corpuscular HGB Conc 31.4 g/dl (31.0-36.0); Mean Corpuscular Hemoglobin 24.5 pg (27.0-33.0); Mean Platelet Volume 8.5 fL (9.4-12.4); Monocytes Absolute Auto 0.7 X10*3/uL (0.1-1.2); Monocytes Percent Auto 7.5 % (2-11); Neutrophils Absolute Auto 6.9 x10*3/uL (2.0-8.3); Neutrophils Percent Auto 75.4 % (45-73); Platelet Count 463 X10*3/uL (160-400); Red Blood Count 3.68 X10*6/uL (4.60-5.80); Red Cell Distribution Width 15.8 % (11.0-16.0); White Blood Count 9.1 X10*3/uL (4.8-10.8)
[2024-03-21 12:02] LABS: INTERNATIONAL NORM RATIO 0.9 (0.9-1.1); Prothrombin Time 10.8 SEC (11.1-13.3)
[2024-03-21 12:03] LABS: OBS Int Ctl Valid YES; OBS1 NEGATIVE (NEGATIVE)
[2024-03-21 12:23] LABS: Alanine Aminotransferase 25 U/L (0-40); Albumin Level 3.9 g/dL (3.5-5.0); Alkaline Phosphatase 93 U/L (39-117); Anion Gap 20 (12-20); Aspartate Amino Transferase 14 U/L (5-37); Bilirubin Direct 0.1 mg/dL (0.0-0.5); Bilirubin Total 0.3 mg/dL (0.0-1.0); Blood Urea Nitrogen 18 mg/dL (9-16); Calcium 9.7 mg/dL (8.4-10.2); Carbon Dioxide 21 mmol/L (22-29); Chloride 102 mmol/L (96-108); Creatinine Clr Calc Pharmacy 73.2; Estimated Glomerular Filt Rate 51; Glucose Random 167 mg/dL (60-115); Lipase 11 U/L (8-78); Magnesium 1.8 mg/dL (1.6-2.6); Potassium 3.8 mmol/L (3.3-5.1); Sodium 139 mmol/L (135-145)
[2024-03-21 12:43] LABS: Troponin-I High Sensitivity < 2.7 ng/L (<3.5-35.0)
[2024-03-21 12:45] LABS: Influenza A PCR NEGATIVE (Negative); Influenza B PCR NEGATIVE (Negative); Resp Syncy Virus RNA Qual PCR NEGATIVE (Negative); SARS COV2 PCR INHOUSE NEGATIVE (Negative)
[2024-03-21 14:43] LABS: Appearance Urine Clear; Color Urine Yellow; Glucose Urine UA >=1000 mg/dL (Negative); Leukocyte Esterase Urine Negative (Negative); Nitrite Urine Negative (Negative); PH 5.5 (5.0-9.0); Specific Gravity - Urine 1.025 (1.005-1.025); UMIC TRIGGER UACC YES; Urine Blood Negative (Negative); Urine Ketones >=160 mg/dL (Negative); Urine Protein Trace mg/dL (Neg-Trace)
[2024-03-21 15:06] LABS: Bacteria Urine None Seen (None Seen); RBC Urine 0-2 /HPF (0-2); Squamous Epithelial Cell Urine 0-2 /HPF (0-2); WBC Urine 0-5 /HPF (0-5)
[2024-03-21 15:10] LABS: Anion Gap 18 (12-20); Blood Urea Nitrogen 16 mg/dL (9-16); Calcium 8.7 mg/dL (8.4-10.2); Carbon Dioxide 18 mmol/L (22-29); Chloride 106 mmol/L (96-108); Estimated Glomerular Filt Rate > 60; Glucose Random 151 mg/dL (60-115); Potassium 4.1 mmol/L (3.3-5.1); Sodium 138 mmol/L (135-145)
== END 2024-03-21 16:29 | disposition home or self-care (01) ==
PROVIDERS: Physician Assistant; Emergency Provider Emergency Medicine
DX: R55 Syncope and collapse (principal); E10.9 Type 1 diabetes mellitus without complications; Z03.818 Encounter for observation for suspected exposure to other biological agents ruled out; R00.0 Tachycardia, unspecified; K64.4 Residual hemorrhoidal skin tags; Z79.4 Long term (current) use of insulin
CPT/HCPCS: 0241U; 36415; 80048; 80076; 81001; 82272; 82947; 83690; 83735; 84484; 85025; 85610; 93005; 96360; 96361; 99285

== ENCOUNTER 2024-04-13 07:43 | Emergency (ER) | payer OTHER, SELFPAY ==
[2024-04-13 07:45] VITALS: BP 169/107; PULSE 97; RESP 19; TEMP 36.6; O2SAT 100; BMI 21.7
[2024-04-13 08:19] VITALS: BP 151/102; PULSE 92; RESP 16; O2SAT 99
--- NOTE | 2024-04-13 08:40 | ED_ITS ---
HPI - Dental/Oral General Chief complaint: Dental/Oral Stated complaint: abscess in mouth Time Seen by Provider: 04/13/24 08:04 Source: patient and RN notes reviewed Mode of arrival: ambulatory Limitations: no limitations History of Present Illness ED Provider: Mamie Collier PA-C HPI Narrative: This is a 33-year-old male, with a history of type 1 diabetes, who presents emergency department with complaints of right upper dental pain x3 days. Patient states that he noticed some pain and swelling on his gumline. He states that he has a history of similar symptoms in the past and has been treated with antibiotics. He has a dentist appointment in 3 weeks however believes that he needs to get this area seen to prior to his appointment. He denies any fevers or chills. No chest pain or shortness for breath. He is otherwise feeling well. He states that his blood glucose level has been within normal limits. No other complaints or concerns at this time. MD Complaint: tooth pain Location: Tooth # Teeth map: 2 1. Onset (ago): day(s) Duration: constant Severity: moderate Relieving factors: nothing Exacerbating factors: nothing Context: history of dental caries and poor dental care Associated symptoms: gum swelling Treatment prior to arrival: none Related Data Home Medications ?Medication ?Instructions ?Recorded ?Confirmed insulin glargine 100 unit/mL 30 unit subcut BEDTIME 02/26/23 02/18/24 subcutaneous solution insulin lispro 100 unit/mL 1 sliding scale dose subcut TID 02/26/23 02/18/24 subcutaneous pen Previous Rx's ?Medication ?Instructions ?Recorded metoclopramide HCl 5 mg tablet 5 mg PO TIDAC #270 tabs 02/20/24 (Reglan) amoxicillin 875 mg-potassium 1 tab PO BID 10 days #20 tabs 04/13/24 clavulanate 125 mg tablet Allergies Allergy/AdvReac Type Severity Reaction Status Date / Time No Known Allergies Allergy Verified 04/13/24 07:46 Review of Systems 2 Review of Systems: Yes all other systems are reviewed and are negative Constitutional: Constitutional: Reports as per HPI [facility] Past Medical History Attestation statement: The following information was validated with the patient. Medical History Type 1 diabetes mellitus Gastroparesis Surgical History History of dental surgery Social History Social History Household Members: None Housing: Apartment Do you presently have visiting nurse or other home services: No Alcohol intake: current Alcohol intake frequency: holidays/special occasions only Patient Tobacco Use Status: Former Tobacco user Second Hand Smoke Exposure: No Substance Use Type: Marijuana Advance Directives: Yes Advance Directives on File: Yes Advance Directives Date on File: 06/22/23 Do you have a plan to hurt others: No Plan service: No Physical Exam 2 Vital Signs: Vital Signs: Last Vital Signs Temp 98 F 04/13/24 07:45 Pulse 92 04/13/24 08:19 Resp 16 04/13/24 08:19 BP 151/102 H 04/13/24 08:19 Pulse Ox 99 04/13/24 08:19 O2 Del Method Room Air 04/13/24 08:19 BMI result Body Mass Index 21.7 Const: General: cooperative, comfortable and no acute distress O rientation/consciousness: patient oriented x3 Limitations: no limitations HEENT: Other: Right upper dentition in poor dental repair, absent, broken, and decayed teeth noted. No gumline induration or fluctuance, no erythema, no discrete abscess identified. Head: Yes normal to inspection, Yes normocephalic and Yes atraumatic E ars: hearing grossly normal bilaterally General nose exam: Normal external nose present Face and sinus: Yes normal facial exam Mouth: Normal oral and palatal mucosa present, oropharynx normal and moist mucous membranes Throat: Yes posterior oropharynx normal Eyes: General: appearance normal, both eyes and all related structures E yelids: Yes eyelids normal Conjunctivae: conjunctivae normal Sclerae: s clerae normal Pupils: Equal, round and reactive pupils present EOM: EOMs intact bilaterally Neck: Neck: Yes normal visual inspection, Yes full ROM and Yes no lymphadenopathy Lymphatic: no lymphadenopathy noted Chest: Chest palpation & inspection: normal inspection of the chest Resp: Effort & Inspection: normal respiratory effort and able to speak in complete sentences Auscultation: clear to auscultation bilaterally, no crackles, no rales, no rhonchi and no wheezes Cardio: Rate: regular rate Rhythm: regular rhythm Heart sounds: S1 normal heart sound present and S2 normal heart sound present GI: Inspection: Yes normal to inspection Skin: General skin exam: no rashes or lesions noted Trauma: no lacerations or abrasions Wounds: no wounds Neuro: General: patient oriented x3 and moves all extremities Cranial nerves: Yes Equal, round and reactive pupils present Extrem: General: Yes normal to inspection Right upper extremity: normal to inspection Left upper extremity: normal to inspection Right lower extremity: normal to inspection Left lower extremity: normal to inspection Medical Decision Making Medical Decision Making MDM Narrative: This is a 33-year-old male, with a history of type 1 diabetes, who presents emergency department with complaints of right upper dental pain for the last 3 days. On arrival, patient mildly hypertensive at 169/107, repeat 151/102, he is asymptomatic. Physical examination concerning for dental pain, no discrete dental abscess seen on examination. Discussed strict return precautions. He has an appointment with a dentist in 3 weeks. Discharged on Augmentin. No other complaints or concerns at this time. Differential Diagnosis Differential Diagnoses: The differential diagnosis associated with the presentation includes Dental decay, dental fracture, dental abscess, TMJ Discharge Plan Discharge Clinical Impression: Pain, dental Patient Disposition: Home, Self-Care Instructions: Toothache (ED) Additional Instructions: You were seen in the emergency department for dental pain. You have extensive dental decay, that requires dental care. Please follow-up with your dentist as scheduled. Take prescribed Augmentin as directed, finish the entire course even if your symptoms improve. Alternate between ibuprofen and or Tylenol as needed for pain. If any new or worsening symptoms occur including but not limited to fevers, chills, chest pain, shortness breath, worsening swelling, pain, or if your symptoms do not improve in 72 hours, please return for re-evaluation. Prescriptions: New amoxicillin-pot clavulanate 875-125 mg tablet 1 tab PO BID 10 Days Qty: 20 0RF No Action metoclopramide HCl [Reglan] 5 mg tablet 5 mg PO TIDAC Qty: 270 0RF insulin glargine 100 unit/mL Solution 30 unit SUBCUT BEDTIME insulin lispro 100 unit/mL Insulin Pen 1 sliding scale dose SUBCUT TID Protocol: Insulin Correction Scale Less than or equal to 110 ---- Give (units): 0 111 to 150 Give (units): 0 151 to 200 Give (units): 2 201 to 250 Give (units): 4 251 to 300 Give (units): 6 301 to 350 Give (units): 8 Greater than 350 Give (units): 10 Call MD if Blood Glucose > : 350 Print Language: Rwandan
[2024-04-13 08:54] VITALS: BP 151/102; PULSE 92; RESP 18; TEMP 37.1; O2SAT 99
== END 2024-04-13 08:54 | disposition home or self-care (01) ==
PROVIDERS: Emergency Provider Emergency Medicine Emergency Medical Services; PCP Nurse Practitioner Family
DX: K08.89 Other specified disorders of teeth and supporting structures (principal); E11.9 Type 2 diabetes mellitus without complications; Z79.4 Long term (current) use of insulin; Z79.899 Other long term (current) drug therapy; Z87.891 Personal history of nicotine dependence
CPT/HCPCS: 99283; 99284

== ENCOUNTER 2024-05-14 08:44 | Emergency (ER) | payer OTHER, SELFPAY ==
[2024-05-14 08:57] VITALS: BP 130/60; PULSE 95; RESP 16; TEMP 36.6; O2SAT 100; BMI 25.4
--- NOTE | 2024-05-14 09:35 | ED.DENTAL ---
HPI - Dental/Oral General Chief complaint: Dental/Oral Stated complaint: tooth problem Time Seen by Provider: 05/14/24 09:15 Source: patient, RN notes reviewed and old records reviewed Mode of arrival: ambulatory History of Present Illness ED Provider: Elvira Morris PA-C [facility] Narrative: 34-year-old male with a past medical history of diabetes, gastroparesis, presenting to the ED complaining of persistent abscess right tooth x few weeks. Admits was seen and treated in our ED on 04/13, prescribed Augmentin, finished course of antibiotics with some improvement however developed C diff and was admitted to [facility] for C diff, discharged 2 days ago. Admits is currently still on antibiotics for C diff. no reports feels like dental infection has recurred with increasing swelling and hardness. Denies pain, fever, chills, difficulty or inability to swallow, SOB Related Data Home Medications ?Medication ?Instructions ?Recorded ?Confirmed insulin glargine 100 unit/mL 30 unit subcut BEDTIME 02/26/23 02/18/24 subcutaneous solution insulin lispro 100 unit/mL 1 sliding scale dose subcut TID 02/26/23 02/18/24 subcutaneous pen Previous Rx's ?Medication ?Instructions ?Recorded metoclopramide HCl 5 mg tablet 5 mg PO TIDAC #270 tabs 02/20/24 (Reglan) amoxicillin 875 mg-potassium 1 tab PO BID 10 days #20 tabs 04/13/24 clavulanate 125 mg tablet Allergies Allergy/AdvReac Type Severity Reaction Status Date / Time No Known Allergies Allergy Verified 05/14/24 08:59 Review of Systems Review of Systems: Yes all other systems are reviewed and are negative Constitutional: Constitutional: Reports as per [facility] Past Medical History Attestation statement: The following information was validated with the patient. Source: old records reviewed Medical History Type 1 diabetes mellitus Gastroparesis Surgical History History of dental surgery Social History Social History Household Members: None Housing: Apartment Do you presently have visiting nurse or other home services: No Alcohol intake: current Alcohol intake frequency: holidays/special occasions only Patient Tobacco Use Status: Former Tobacco user Second Hand Smoke Exposure: No Substance Use Type: Marijuana Advance Directives: Yes Advance Directives on File: Yes Advance Directives Date on File: 06/22/23 service: No Physical Exam Vital Signs: Vital Signs: Last Vital Signs Temp 97.8 F 05/14/24 08:57 Pulse 95 05/14/24 08:57 Resp 16 05/14/24 08:57 BP 130/60 05/14/24 08:57 Pulse Ox 100 05/14/24 08:57 O2 Del Method Room Air 05/14/24 08:57 BMI result Body Mass Index 25.4 Const: General: cooperative, healthy appearing and no acute distress Orientation/consciousness: patient oriented x3 Limitations: no limitations HEENT: Other: Poor dentition, diffuse dental caries. Right upper bicuspid gingivial area with swelling & induration. Small area of fluctuance. No warmth or tenderness. Head: Yes normal to inspection and Yes atraumatic Ears: hearing grossly normal bilaterally General nose exam: Normal external nose present Face and sinus: Yes normal facial exam Teeth and gingiva: caries and poor dentition Throat: Yes posterior oropharynx normal and Yes uvula midline Eyes: General: appearance normal, both eyes and all related structures EOM: EOMs intact bilaterally Neck: Neck: Yes normal visual inspection, Yes full ROM, Yes no lymphadenopathy and Yes no meningeal signs Resp: Effort & Inspection: normal respiratory effort and no respiratory distress Cardio: Rate: regular rate Skin: Rashes: no rashes Wounds: no wounds Neuro: General: patient oriented x3, tone normal and no meningeal signs Cranial nerves: Yes CN's II-XII intact bilaterally Gait exam (Neuro): Normal gait present Extrem: General: Yes normal to inspection Medical Decision Making Medical Decision Making MDM Narrative: 34-year-old male with a past medical history of diabetes, gastroparesis, presenting to the ED complaining of persistent abscess right tooth x few weeks. On exam vital signs stable, NAD, nontoxic appearing physical exam as noted above with indurated abscess to right upper bicuspid with small area of fluctuance. No evidence of cellulitis. No respiratory compromise. 18 gauge needle used to aspirate area with small amount of bloody/pus drainage. Will avoid additional antibiotics at this time due to patient's recent C diff, and is currently still being treated for C diff. Patient admits he has a dentist to follow-up with, is calling today to make an appointment Encouraged close follow-up. Discussed worrisome signs and symptoms Please refer to course for remaining clinical decision making, interpretation of labs/imaging results, and discussions with consultants and/or family members. Results discussed with patient including worrisome signs and symptoms and strict return precautions, and when to return to the emergency department. They verbalized understanding and feel safe for discharge at this time. Differential Diagnosis Differential Diagnoses: The differential diagnosis associated with the presentation includes As above External Record Review External record reviewed: Inpatient record, Office record, Outpatient record, Prior outpatient labs, Prior outpatient radiology, Primary care record and Outside ED record Tests considered The following testing was considered but not selected: As above Prescription Management I considered prescription management with: Pain Medication and Antibiotic Social Determinants Patient?s care significantly limited by Social Determinants of Health including: Low income, Alcoholism and drug addiction in family and Problems related to primary support group Procedures Abscess I/D Site: other (dental) Side (if applicable): right Technique: needle aspiration Sent for culture/gram staining?: No Irrigation: No Packing used?: none Discharge Plan Discharge Clinical Impression: Dental caries, Dental abscess Patient Disposition: Home, Self-Care Instructions: Dental Abscess (ED) Additional Instructions: Gargle with warm salt order. Please follow-up with dentist, call to make an appointment today If area worsens, becomes more swollen, you spike fevers, increasing or worsening pain return to the ED Prescriptions: No Action metoclopramide HCl [Reglan] 5 mg tablet 5 mg PO TIDAC Qty: 270 0RF amoxicillin-pot clavulanate 875-125 mg tablet 1 tab PO BID 10 Days Qty: 20 0RF insulin glargine 100 unit/mL Solution 30 unit SUBCUT BEDTIME insulin lispro 100 unit/mL Insulin Pen 1 sliding scale dose SUBCUT TID Protocol: Insulin Correction Scale Less than or equal to 110 ---- Give (units): 0 111 to 150 Give (units): 0 151 to 200 Give (units): 2 201 to 250 Give (units): 4 251 to 300 Give (units): 6 301 to 350 Give (units): 8 Greater than 350 Give (units): 10 Call MD if Blood Glucose > : 350 Referrals: Acosta Moya [Dentist] - Joe Lund DMD [Dentist] - Print Language: Bengali
[2024-05-14 09:45] VITALS: BP 130/60; PULSE 95; RESP 16; TEMP 36.6; O2SAT 100
== END 2024-05-14 09:46 | disposition home or self-care (01) ==
PROVIDERS: Emergency Provider Emergency Medicine; PCP Nurse Practitioner Family
DX: K04.7 Periapical abscess without sinus (principal); K02.9 Dental caries, unspecified; E10.9 Type 1 diabetes mellitus without complications
CPT/HCPCS: 10160; 99283

== ENCOUNTER 2024-08-31 17:43 | Inpatient (IN) | payer OTHER, SELFPAY ==
--- NOTE | ~2024-08-31 | CT_ITS ---
EXAMINATION: CT ABDOMEN AND PELVIS WITHOUT CONTRAST CLINICAL INFORMATION: Abdominal pain COMPARISON: CT dated June 21, 2023. TECHNIQUE: Multidetector volumetric imaging was performed from the superior aspect of the liver through the pubic symphysis. Sagittal and coronal reformatted images were obtained on the technologist's workstation. This CT examination was performed using dose optimization techniques as appropriate, variously including the following: *Automated exposure control *Adjustment of mA and/or kV according to patient size (this includes techniques or standardized protocols for targeted exams where dose is matched to indication/reason for exam; i.e. extremities or head) *Use of iterative reconstruction technique. DLP: 508 mGy centimeter. FINDINGS: Limited examination of the intra-abdominal organs and vascular structures due to lack of IV contrast. LUNG BASES: Linear attenuation in the lung bases. Bilateral small trace pleural effusions. LIVER, GALLBLADDER, AND BILIARY TREE: Liver measures 21 cm. No gross intrahepatic biliary ductal dilatation. No pericholecystic fluid collection or gallbladder wall thickening. No extrahepatic biliary ductal dilatation. PANCREAS: No peripancreatic fluid collections. No main pancreatic ductal dilatation. SPLEEN: 10 cm. ADRENAL GLANDS: No nodular lesions. KIDNEYS AND URETERS: No hydronephrosis. No nephrolithiasis. BLADDER: Fluid-filled. GASTROINTESTINAL TRACT: No intestinal obstruction pattern. Appendix is normal. No pneumoperitoneum. Mesenteric edema pattern. No fluid collections, peritoneal cavity. No pneumatosis intestinalis. ABDOMINAL WALL: Small tiny fat-containing umbilical hernia is a small component of the anterior margin of the intestine best seen on the profile.. LYMPH NODES: Nonspecific prominent mesenteric lymph nodes. VASCULAR: No aneurysm in the abdominal aorta. PELVIC VISCERA: Inadequate evaluation. OSSEOUS STRUCTURES: No acute fracture or listhesis. No lytic or blastic lesions. CT/CT abdomen pelvis wo IV con IMPRESSION: Small fat-containing umbilical hernia with the questionable focal inclusion of the anterior margin of the chest in. Mesenteric edema pattern with prominent mesenteric lymph nodes. Hepatomegaly. Prominent lymph nodes. Fleischner guidelines were followed. Electronically signed by: Cedric Mcdaniels MD 09/02/2024 12:15 PM [facility]
--- NOTE | ~2024-08-31 | XR_ITS ---
CLINICAL HISTORY: dka 1 view chest x-ray Comparison: CR/SR - XR CHEST 2V - 10/28/23 12:25 EDT Findings: No consolidation or effusion. Heart size is normal. No acute fracture. IMPRESSION: 1. No acute findings. This document has been electronically signed by: Mick Alaniz MD on 08/31/2024 20:51:19
[2024-08-31 18:13] VITALS: BP 176/102; PULSE 122; RESP 20; TEMP 36.6; O2SAT 100; BMI 19.4
--- NOTE | 2024-08-31 18:20 | ED.GENADULT ---
HPI - General Adult General Chief complaint: General Medical Stated complaint: HBS Time Seen by Provider: 08/31/24 18:14 Source: patient, EMS and old records reviewed Mode of arrival: EMS Limitations: no limitations History of Present Illness ED Provider: DR. Haynes HPI narrative: 34-year-old male with past medical history significant for DM 1 patient is noncompliant to the medication controlled with Lantus 30 units in the morning and Humalog as sliding scale, patient overall feel generalized weakness, no headache, no fever, no chills, no CP, no SOB, no abdominal pain, no upper respiratory symptoms, no coughing, sneezing. Blood sugar at home was reading as high. Patient had multiple admission for DKA. Related Data Home Medications ?Medication ?Instructions ?Recorded ?Confirmed insulin glargine 100 unit/mL 30 unit subcut BEDTIME 02/26/23 02/18/24 subcutaneous solution insulin lispro 100 unit/mL 1 sliding scale dose subcut TID 02/26/23 02/18/24 subcutaneous pen Previous Rx's ?Medication ?Instructions ?Recorded metoclopramide HCl 5 mg tablet 5 mg PO TIDAC #270 tabs 02/20/24 (Reglan) amoxicillin 875 mg-potassium 1 tab PO BID 10 days #20 tabs 04/13/24 clavulanate 125 mg tablet Allergies Allergy/AdvReac Type Severity Reaction Status Date / Time No Known Allergies Allergy Verified 08/31/24 18:16 Review of Systems Review of Systems: All other systems are reviewed and are negative Constitutional: Reports as per HPI and Reports no additional constitutional complaints Eyes: Reports as per HPI and Reports no additional eye complaints Reports system reviewed and no additional complaints, except as documented Cardiovascular: Reports as per HPI and Reports no additional cardiovascular complaints Respiratory: Reports as per HPI and Reports no additional respiratory complaints Gastrointestinal: Reports as per HPI and Reports no additional gastrointestinal complaints Genitourinary: Reports no additional female genitourinary complaints Musculoskeletal: Reports no additional musculoskeletal complaints Skin/Breast: Reports system reviewed and no additional complaints, except as docu Psychiatric: Reports no additional psychiatric complaints Endocrine: Reports no additional endocrine complaints Hematologic/Lymphatic: Reports no additional hematologic/lymphatic complaints Allergic/Immunologic: Reports no additional allergic/immunologic complaints Reports system reviewed and no additional complaints, except as documented and Reports Abnormal speech present [facility] Past Medical History Medical History Type 1 diabetes mellitus Gastroparesis Surgical History History of dental surgery Social History Social History Household Members: None Housing: Apartment Do you presently have visiting nurse or other home services: No Alcohol intake: current Alcohol intake frequency: holidays/special occasions only Patient Tobacco Use Status: Former Tobacco user Smoked in Last 30 Days: No Second Hand Smoke Exposure: No Use of substances other than those prescribed or required for medical reasons: No Substance Use Type: Marijuana Advance Directives: Yes Advance Directives on File: Yes Advance Directives Date on File: 06/22/23 service: No Physical Exam ED Vital Signs: Vital Signs - 24 hr 08/31/24 18:13 08/31/24 19:10 Temperature 98 F 99.0 F Pulse Rate 122 H 119 H Respiratory Rate 20 15 Blood Pressure 176/102 H 166/105 H Pulse Oximetry 100 99 Oxygen Delivery Method Room Air BMI result Body Mass Index 19.4 Vital signs have been reviewed and appear to be correct. Blood pressure elevated. Heart rate normal. Respiratory rate normal. Temperature normal. Oxygen saturation normal. Appearance: Alert. Oriented X3. No acute distress. Head: Normal external exam. Normocephalic. Atraumatic. No Solitario signs noted. No raccoon eyes noted Eyes: PERRLA. EOMI. Conjunctiva and sclera normal. Eyelids normal. ENT: TM's Normal. Pharynx normal. Uvula midline. Dry mucous membranes. No trismus noted. No drooling noted. No muffled voice noted. Neck: Normal inspection. Neck supple. FROM. No adenopathy. Thyroid Normal. No meningeal signs. No neck mass noted. CVS: Normal heart rate and rhythm. Heart sound normal. No murmurs noted. Pulses normal throughout. Respiratory: No respiratory distress. Painless inspiration. Breath sounds normal. No wheezes/rales/rhonchi noted. Chest nontender. No accessory muscle usage noted or decreased air movement noted. Abdomen: Soft and nontender. Bowel sounds normal in all 4 quadrants. No distention noted. No organomegaly noted. No visible injury noted. Back: No CVA tenderness. Full range of motion noted. Skin: Skin warm and dry. Normal skin color. Normal skin turgor. No rashes/lesions/lacerations noted. Extremities: No lower extremity edema. Extremities exhibit normal range of motion. Extremities nontender. Neuro: Oriented X 3. Cranial nerve exam: II-XII are grossly intact No motor deficit. No sensory deficit. Reflexes normal. Course Reevaluation(s) Reevaluation #1: 34-year-old male with history of DM 1 not compliant to his medication came in DKA, patient received 10 units of regular insulin in the ED and 2 L of normal saline improvement of Ag, and bicarb, patient now can take long-acting insulin 30 units of Lantus and start him on D10 as a maintenance IV fluids, patient can go on the floor. The case was discussed with / Haris Time: 20:28 Medications Administered Discontinued Medications Generic Name Dose Route Start Last Admin Trade Name Freq PRN Reason Stop Dose Admin Sodium Chloride 1,000 mls @ 999 mls/hr 08/31/24 18:14 08/31/24 19:35 Ns IV 08/31/24 19:14 Infused .Q1H1M ONE Infusion Sodium Chloride 1,000 mls @ 999 mls/hr 08/31/24 18:44 08/31/24 19:21 Ns IV 08/31/24 19:44 999 mls/hr .Q1H1M ONE Administration Insulin Human Regular 5 unit 08/31/24 18:44 08/31/24 19:15 Insulin Regular, Human 100 Unit/Ml 10 Ml Vial IVPUSH 08/31/24 18:45 5 unit ONCE ONE Administration Insulin Human Regular 5 unit 08/31/24 18:51 08/31/24 19:16 Insulin Regular, Human 100 Unit/Ml 10 Ml Vial IVPUSH 08/31/24 18:52 5 unit ONCE ONE Administration Medical Decision Making Differential Diagnosis Differential Diagnoses: The differential diagnosis associated with the presentation includes (DKA, hyperglycemia, pneumonia, UTI, dehydration, CRISTI) Admission/Observation Consideration of admission/observation: Escalation of care including admission/observation considered Consult Healthcare Provider Management of the patient was discussed with: Hospitalist (Dr. Carballo) and [employer] Machine (Dr. Burks) Lab Data MDM Lab Attestation statement: I reviewed the patient's lab results. 08/31/24 18:25 08/31/24 19:31 Labs: Lab Results 08/31/24 08/31/24 08/31/24 Range/Units 18:25 18:30 19:20 WBC 18.5 H (4.8-10.8) X10*3/uL RBC 3.94 L (4.60-5.80) X10*6/uL Hgb 10.2 L (14.0-18.0) g/dl Hct 31.7 L (42.0-52.0) % MCV 80.5 (80.0-98.0) fL MCH 25.9 L (27.0-33.0) pg MCHC 32.2 (31.0-36.0) g/dl RDW 14.7 (11.0-16.0) % Plt Count 538 H (160-400) X10*3/uL MPV 9.4 (9.4-12.4) fL Immature Gran % (Auto) 0.6 H (0.0-0.4) % Neut % (Auto) 86.8 H (45-73) % Lymph % (Auto) 7.0 L (20-40) % [place] % (Auto) 5.4 (2-11) % Eos % (Auto) 0.0 (0-4) % Baso % (Auto) 0.2 (0-2) % Lymph # (Auto) 1.3 (1.2-4.9) X10*3/uL [place] # (Auto) 1.0 (0.1-1.2) X10*3/uL Eos # (Auto) 0.0 (0.0-0.4) X10*3/uL Baso # (Auto) 0.0 (0.0-0.2) X10*3/uL Abs Immat Gran (auto) 0.12 H (0.00-0.03) X10*3/uL Absolute Neuts (auto) 16.0 H (2.0-8.3) x10*3/uL Absolute Nucleated RBC 0.000 (0.0-0.012) X10*3/uL Nucleated RBC % (auto) 0.0 (0.0-0.2) /100WBC VBG pH 7.35 (7.32-7.43) VBG pCO2 29 mmHg VBG pO2 46 mmHg VBG HCO3 16 L (22-26) mmol/L VBG O2 Saturation 72.0 % VBG Base Excess -7.4 mmol/L Sodium 134 L (135-145) mmol/L Potassium 4.0 (3.3-5.1) mmol/L Chloride 97 (96-108) mmol/L Carbon Dioxide 16 L (22-29) mmol/L Anion Gap 25 H (12-20) BUN 49 H (9-16) mg/dL Creatinine 2.10 H (0.5-1.4) mg/dL Estim Creat Clear Calc 45.8 Estimated GFR 37 POC Glucose (60-115) mg/dL Random Glucose 447 H* (60-115) mg/dL Calcium 8.7 (8.4-10.2) mg/dL Total Bilirubin 0.4 (0.0-1.0) mg/dL Direct Bilirubin 0.1 (0.0-0.5) mg/dL AST 17 (5-37) U/L ALT 33 (0-40) U/L Alkaline Phosphatase 97 (39-117) U/L Troponin I High Sens < 2.7 (<3.5-35.0) ng/L Total Protein 7.9 (6.5-8.0) g/dL Albumin 4.1 (3.5-5.0) g/dL Lipase 11 (8-78) U/L Beta-Hydroxybutyrate 6.37 H (0.02-0.27) mmol/L Urine Color Yellow Urine Appearance Clear Urine pH 5.0 (5.0-9.0) Ur Specific [place] 1.025 (1.005-1.025) Urine Protein 100 (2+) H (Neg-Trace) mg/dL Urine Glucose (UA) >=1000 H (Negative) mg/dL Urine Ketones >=160 (Negative) mg/dL Urine Blood Trace H (Negative) Urine Nitrite Negative (Negative) Ur Leukocyte Esterase Negative (Negative) Urine RBC 0-2 (0-2) /HPF Urine WBC 0-5 (0-5) /HPF Ur Squamous Epith Cells 0-2 (0-2) /HPF Urine Bacteria None Seen (None Seen) Hyaline Casts 0-2 (0-2) /LPF Influenza Type A (PCR) NEGATIVE (Negative) Influenza Type B (PCR) NEGATIVE (Negative) RSV RNA Qual (PCR) NEGATIVE (Negative) SARS-CoV-2 RNA (RT-PCR) NEGATIVE (Negative) 08/31/24 08/31/24 Range/Units 19:31 20:35 WBC (4.8-10.8) X10*3/uL RBC (4.60-5.80) X10*6/uL Hgb (14.0-18.0) g/dl Hct (42.0-52.0) % MCV (80.0-98.0) fL MCH (27.0-33.0) pg MCHC (31.0-36.0) g/dl RDW (11.0-16.0) % Plt Count (160-400) X10*3/uL MPV (9.4-12.4) fL Immature Gran % (Auto) (0.0-0.4) % Neut % (Auto) (45-73) % Lymph % (Auto) (20-40) % [place] % (Auto) (2-11) % Eos % (Auto) (0-4) % Baso % (Auto) (0-2) % Lymph # (Auto) (1.2-4.9) X10*3/uL [place] # (Auto) (0.1-1.2) X10*3/uL Eos # (Auto) (0.0-0.4) X10*3/uL Baso # (Auto) (0.0-0.2) X10*3/uL Abs Immat Gran (auto) (0.00-0.03) X10*3/uL Absolute Neuts (auto) (2.0-8.3) x10*3/uL Absolute Nucleated RBC (0.0-0.012) X10*3/uL Nucleated RBC % (auto) (0.0-0.2) /100WBC VBG pH (7.32-7.43) VBG pCO2 mmHg VBG pO2 mmHg VBG HCO3 (22-26) mmol/L VBG O2 Saturation % VBG Base Excess mmol/L Sodium 136 (135-145) mmol/L Potassium 3.7 (3.3-5.1) mmol/L Chloride 102 (96-108) mmol/L Carbon Dioxide 20 L (22-29) mmol/L Anion Gap 18 (12-20) BUN 46 H (9-16) mg/dL Creatinine 1.88 H (0.5-1.4) mg/dL Estim Creat Clear Calc 51.2 Estimated GFR 42 POC Glucose 183 H (60-115) mg/dL Random Glucose 299 H (60-115) mg/dL Calcium 8.7 (8.4-10.2) mg/dL Total Bilirubin (0.0-1.0) mg/dL Direct Bilirubin (0.0-0.5) mg/dL AST (5-37) U/L ALT (0-40) U/L Alkaline Phosphatase (39-117) U/L Troponin I High Sens (<3.5-35.0) ng/L Total Protein (6.5-8.0) g/dL Albumin (3.5-5.0) g/dL Lipase (8-78) U/L Beta-Hydroxybutyrate (0.02-0.27) mmol/L Urine Color Urine Appearance Urine pH (5.0-9.0) Ur Specific [place] (1.005-1.025) Urine Protein (Neg-Trace) mg/dL Urine Glucose (UA) (Negative) mg/dL Urine Ketones (Negative) mg/dL Urine Blood (Negative) Urine Nitrite (Negative) Ur Leukocyte Esterase (Negative) Urine RBC (0-2) /HPF Urine WBC (0-5) /HPF Ur Squamous Epith Cells (0-2) /HPF Urine Bacteria (None Seen) Hyaline Casts (0-2) /LPF Influenza Type A (PCR) (Negative) Influenza Type B (PCR) (Negative) RSV RNA Qual (PCR) (Negative) SARS-CoV-2 RNA (RT-PCR) (Negative) Independent Interpretation I performed an independent interpretation of an: Plain X-Ray (chest: No acute findings.) Radiology Impression Discussion of test interpretation with radiology: I have reviewed the radiologist's reading. Critical Care Time Critical Care Time Critical Care Time: Yes Total Critical Care Time: 60 Attestation: The patient was critically ill with a high probability of imminent or life-threatening deterioration. I spent greater than 30 minutes of discontinuous time evaluating the patient, delivering critical care at the bedside, discussing evaluating data with consultants. Critical care time does not include time spent performing separately billable procedures or teaching. Time spent performing critical care was 60 minutes. Discharge Plan Discharge Clinical Impression: Hyperglycemia, Diabetic ketoacidosis, CRISTI (acute kidney injury) Patient Disposition: Admitted As Inpatient Print Language: Singaporean
[2024-08-31] MEDS: 0.9 % Sodium Chloride 1,000 ML 999 ML IV ×5 (18:26→22:48)
[2024-08-31 18:31] LABS: MANUAL DIFF FLAG NO
[2024-08-31 18:33] LABS: Basophils Percent Auto 0.2 % (0-2); Hematocrit 31.7 % (42.0-52.0); Hemoglobin 10.2 g/dl (14.0-18.0); Imm Gran Abs Auto 0.12 X10*3/uL (0.00-0.03); Imm Gran Pct Auto 0.6 % (0.0-0.4); Lymphocytes Absolute Auto 1.3 X10*3/uL (1.2-4.9); Mean Corpuscular HGB Conc 32.2 g/dl (31.0-36.0); Mean Corpuscular Hemoglobin 25.9 pg (27.0-33.0); Mean Corpuscular Volume 80.5 fL (80.0-98.0); Mean Platelet Volume 9.4 fL (9.4-12.4); Monocytes Percent Auto 5.4 % (2-11); Neutrophils Percent Auto 86.8 % (45-73); Platelet Count 538 X10*3/uL (160-400); Red Blood Count 3.94 X10*6/uL (4.60-5.80); Red Cell Distribution Width 14.7 % (11.0-16.0); White Blood Count 18.5 X10*3/uL (4.8-10.8)
[2024-08-31 18:35] LABS: VBG Base Excess -7.4 mmol/L; VBG HCO3 16 mmol/L (22-26); VBG pCO2 29 mmHg; VBG pH 7.35 (7.32-7.43); VBG pO2 46 mmHg
[2024-08-31 18:40] LABS: Venous Blood Gas Refer to POC result
[2024-08-31 18:44] LABS: Beta-Hydroxybutyrate 6.37 mmol/L (0.02-0.27)
--- NOTE | 2024-08-31 18:47 | PC.NURSE ---
patient presents to ED from ems, patient states he has been having high blood sugars since sunday. patient endorses nausea/vomiting and polyuria. patient is alert and oriented x4, skin dry and intact. #20 placed in left FA, labs drawn and obtained. patient noted to be sinus tach 120s on the monitor, resp even and unlabored.
[2024-08-31 18:51] LABS: Alanine Aminotransferase 33 U/L (0-40); Albumin Level 4.1 g/dL (3.5-5.0); Alkaline Phosphatase 97 U/L (39-117); Anion Gap 25 (12-20); Aspartate Amino Transferase 17 U/L (5-37); Bilirubin Direct 0.1 mg/dL (0.0-0.5); Bilirubin Total 0.4 mg/dL (0.0-1.0); Blood Urea Nitrogen 49 mg/dL (9-16); Calcium 8.7 mg/dL (8.4-10.2); Carbon Dioxide 16 mmol/L (22-29); Chloride 97 mmol/L (96-108); Creatinine Clr Calc Pharmacy 45.8; Estimated Glomerular Filt Rate 37; Glucose Random 447 mg/dL (60-115); Lipase 11 U/L (8-78); Sodium 134 mmol/L (135-145); Total Protein 7.9 g/dL (6.5-8.0)
[2024-08-31 18:54] LABS: Troponin-I High Sensitivity < 2.7 ng/L (<3.5-35.0)
[2024-08-31 19:10] VITALS: BP 166/105; PULSE 119; RESP 15; TEMP 37.2; O2SAT 99
[2024-08-31] MEDS: Insulin Regular, Human 100 UNIT/ML 10 ML VIAL IVPUSH ×2 (19:15→19:16)
[2024-08-31 19:26] LABS: Appearance Urine Clear; Color Urine Yellow; Glucose Urine UA >=1000 mg/dL (Negative); Leukocyte Esterase Urine Negative (Negative); Nitrite Urine Negative (Negative); Specific Gravity - Urine 1.025 (1.005-1.025); UMIC TRIGGER UACC YES; Urine Blood Trace (Negative); Urine Ketones >=160 mg/dL (Negative); Urine Protein 100 (2+) mg/dL (Neg-Trace)
[2024-08-31 19:29] LABS: Bacteria Urine None Seen (None Seen); Hyaline Casts Urine 0-2 /LPF (0-2); RBC Urine 0-2 /HPF (0-2); Squamous Epithelial Cell Urine 0-2 /HPF (0-2); WBC Urine 0-5 /HPF (0-5)
[2024-08-31 19:53] LABS: Anion Gap 18 (12-20); Blood Urea Nitrogen 46 mg/dL (9-16); Calcium 8.7 mg/dL (8.4-10.2); Carbon Dioxide 20 mmol/L (22-29); Chloride 102 mmol/L (96-108); Creatinine Clr Calc Pharmacy 51.2; Estimated Glomerular Filt Rate 42; Glucose Random 299 mg/dL (60-115); Potassium 3.7 mmol/L (3.3-5.1); Sodium 136 mmol/L (135-145)
[2024-08-31 20:01] LABS: Influenza A PCR NEGATIVE (Negative); Influenza B PCR NEGATIVE (Negative); Resp Syncy Virus RNA Qual PCR NEGATIVE (Negative); SARS COV2 PCR INHOUSE NEGATIVE (Negative)
[2024-08-31 20:38] LABS: Glucose, Whole Blood 183 mg/dL (60-115)
[2024-08-31 21:07] VITALS: BP 179/99; PULSE 119; RESP 19; TEMP 37.3; O2SAT 97
--- NOTE | 2024-08-31 21:09 | P.HPHOSP_ITS ---
History of Present Illness Date of Service: 08/31/24 Attending physician on admission: hieu Chief Complaint: Nausea and vomiting Ashish Garrett is a 34 years old man with past medical history significant for type 1 diabetes mellitus on Lantus and insulin sliding scale presents to the emergency department complaining of multiple episodes of vomiting and diarrhea since yesterday. He also reports she was brought denies fever. He also reported some headache and dizziness. Denied chest pain, palpitations or shortness on breath. He also denied abdominal pain or any acute urinary symptoms. According to the patient he is compliant with his insulin. His smoke marijuana but denied illicit drug use. He also denied tobacco smoking or alcohol abuse. He has a history of prior events of DKA. In the ED, he was found to have significant tachycardia, currently 120-130 bpm. There is no fever or hypotension. Blood workup was remarkable for leukocytosis of 18.5, hemoglobin 10.2 and platelets 538. There is no bandemia. Venous pH is 7.35. Beta hydroxybutyric acid is 6.37. Last BNP showed no recurrent electrolyte imbalances. Bicarb is 20 anion gap is normal (it was 25 on arrival). BUN is 46 and creatinine 1.88. Initial glucose was 447 (183). LFTs, troponin lipase are normal. Urinalysis showed protein 2+, glucosuria and trace blood. There is UTI. Viral testing for COVID-19, RSV and influenza is negative. CXR is negative. ED tx: NS 2 L bolus, insulin R 10 units IV ( total). Review of Systems 2 Review of Systems: All 12 systems were reviewed and normal except as noted in HPI. [facility] Medical History Type 1 diabetes mellitus Gastroparesis Surgical History History of dental surgery Social History Household Members: None Housing: Apartment Do you presently have visiting nurse or other home services: No Alcohol intake: current Alcohol intake frequency: holidays/special occasions only Patient Tobacco Use Status: Former Tobacco user Smoked in Last 30 Days: No Second Hand Smoke Exposure: No Use of substances other than those prescribed or required for medical reasons: No Substance Use Type: Marijuana Advance Directives: Yes Advance Directives on File: Yes Advance Directives Date on File: 06/22/23 service: No Meds Allergies Allergy/AdvReac Type Severity Reaction Status Date / Time No Known Allergies Allergy Verified 08/31/24 18:16 Active Medications: Current Medications Acetaminophen (Acetaminophen 325 Mg Tablet) 975 mg PO Q6H PRN PRN Reason: Pain, Mild 1-3,fever,headache Enoxaparin Sodium (Enoxaparin Sodium 40 Mg/0.4 Ml Syringe) 40 mg SUBCUT Q24H PARKER Glucose (Glucose Gel 15 Gm Gel..Gram.) 15 gm PO Q15M PRN; Protocol PRN Reason: per Hypoglycemia Standing Ord. Dextrose (D5w) 1,000 mls @ 125 mls/hr IVCONT .Q8H PARKER Dextrose/Sodium Chloride (D5ns) 1,000 mls @ 250 mls/hr IVCONT .Q4H PARKER Sodium Chloride (Ns) 1,000 mls @ 999 mls/hr IV .Q1H1M STA Stop: 08/31/24 21:54 Last Admin: 08/31/24 21:05 Dose: 999 mls/hr Sodium Chloride (Ns) 1,000 mls @ 999 mls/hr IV .Q1H1M STA Stop: 08/31/24 21:54 Dextrose (D10) 250 mls @ 750 mls/hr IV Q15M PRN; Protocol PRN Reason: per Hypoglycemia Standing Ord. Insulin Glargine (Insulin Glargine,Hum.Rec.Anlog 100 Unit/Ml 10 Ml Vial) 20 unit SUBCUT BEDTIME [facility] Insulin Human Lispro (Insulin Lispro 100 Unit/Ml 3 Ml Vial) 0 unit SUBCUT QIDACHS [facility]; Protocol Sodium Chloride (0.9 % Sodium Chloride Flush 3 Ml Syringe) 3 ml IVFLUSH QSHIFT [facility] Home Medications ?Medication ?Instructions ?Recorded ?Confirmed ?Last Taken ?Type insulin glargine 100 unit/mL 30 unit subcut BEDTIME 02/26/23 02/18/24 02/15/24 History subcutaneous solution insulin lispro 100 unit/mL 1 sliding scale dose subcut TID 02/26/23 02/18/24 02/15/24 History subcutaneous pen Physical Exam 2 Vital Signs and Narrative: Vital Signs: Last Vital Signs Temp 99.2 F 08/31/24 21:07 Pulse 119 H 08/31/24 21:07 Resp 19 08/31/24 21:07 BP 179/99 H 08/31/24 21:07 Pulse Ox 97 08/31/24 21:07 O2 Del Method Room Air 08/31/24 21:07 BMI result Body Mass Index 19.4 Constitutional - Awake and Alert. Looks acutely ill. Pleasant.. HEENT - PERRL, EOMI. Very dry oral mucosa. Heart - tachycardic, regular rhythm, normal murmurs Lungs - Normal lung expansion, Normal respiratory effort, No respiratory distress, CTA bilaterally Abdomen - NT / ND; increased BS; No rebound or guarding Extremities - no calf tenderness bilaterally, no swelling Musculoskeletal - Normal inspection, normal ROM Skin - Warm/Dry. No pallor. No jaundice. Neurological - Alert & oriented x3, CN III-XII in tact, 5/5 strength BUE and BLE Psychological - Depressed affect Results Labs 08/31/24 18:25 08/31/24 19:31 Labs: Laboratory Results - last 24 hr 08/31/24 08/31/24 08/31/24 18:25 18:30 19:20 MCV 80.5 MCH 25.9 L MCHC 32.2 RDW 14.7 Plt Count 538 H MPV 9.4 Immature Gran % (Auto) 0.6 H Neut % (Auto) 86.8 H Lymph % (Auto) 7.0 L [place] % (Auto) 5.4 Eos % (Auto) 0.0 Baso % (Auto) 0.2 Lymph # (Auto) 1.3 [place] # (Auto) 1.0 Eos # (Auto) 0.0 Baso # (Auto) 0.0 Abs Immat Gran (auto) 0.12 H Absolute Neuts (auto) 16.0 H Absolute Nucleated RBC 0.000 Nucleated RBC % (auto) 0.0 VBG pH 7.35 VBG pCO2 29 VBG pO2 46 VBG HCO3 16 L VBG O2 Saturation 72.0 VBG Base Excess -7.4 Anion Gap 25 H Estim Creat Clear Calc 45.8 Estimated GFR 37 POC Glucose Random Glucose 447 H* Calcium 8.7 Total Bilirubin 0.4 Direct Bilirubin 0.1 AST 17 ALT 33 Alkaline Phosphatase 97 Troponin I High Sens < 2.7 Total Protein 7.9 Albumin 4.1 Lipase 11 Beta-Hydroxybutyrate 6.37 H Urine Color Yellow Urine Appearance Clear Urine pH 5.0 Ur Specific [place] 1.025 Urine Protein 100 (2+) H Urine Glucose (UA) >=1000 H Urine Ketones >=160 Urine Blood Trace H Urine Nitrite Negative Ur Leukocyte Esterase Negative Urine RBC 0-2 Urine WBC 0-5 Ur Squamous Epith Cells 0-2 Urine Bacteria None Seen Hyaline Casts 0-2 Influenza Type A (PCR) NEGATIVE Influenza Type B (PCR) NEGATIVE RSV RNA Qual (PCR) NEGATIVE SARS-CoV-2 RNA (RT-PCR) NEGATIVE 08/31/24 08/31/24 19:31 20:35 MCV MCH MCHC RDW Plt Count MPV Immature Gran % (Auto) Neut % (Auto) Lymph % (Auto) [place] % (Auto) Eos % (Auto) Baso % (Auto) Lymph # (Auto) [place] # (Auto) Eos # (Auto) Baso # (Auto) Abs Immat Gran (auto) Absolute Neuts (auto) Absolute Nucleated RBC Nucleated RBC % (auto) VBG pH VBG pCO2 VBG pO2 VBG HCO3 VBG O2 Saturation VBG Base Excess Anion Gap 18 Estim Creat Clear Calc 51.2 Estimated GFR 42 POC Glucose 183 H Random Glucose 299 H Calcium 8.7 Total Bilirubin Direct Bilirubin AST ALT Alkaline Phosphatase Troponin I High Sens Total Protein Albumin Lipase Beta-Hydroxybutyrate Urine Color Urine Appearance Urine pH Ur Specific [place] Urine Protein Urine Glucose (UA) Urine Ketones Urine Blood Urine Nitrite Ur Leukocyte Esterase Urine RBC Urine WBC Ur Squamous Epith Cells Urine Bacteria Hyaline Casts Influenza Type A (PCR) Influenza Type B (PCR) RSV RNA Qual (PCR) SARS-CoV-2 RNA (RT-PCR) Assessment and Plan (1) Diabetic ketoacidosis: Qualifiers: Diabetes mellitus type: type 1 Diabetes mellitus complication detail: w [facility] coma Qualified Code(s): E10.10 - Type 1 diabetes mellitus with ketoacidosis without coma Status: Acute (2) CRISTI (acute kidney injury): Status: Acute Plan Ashish Garrett is a 34 y/o man with PMHx significant for type 1 DM * Diabetes ketoacidosis; anion gap closed -acidosis corrected. Admit to hospitalist service. Telemetry. Two additional L of normal saline stat 10 continue IV fluids. Start Lantus 20 units subQ now then bedtime. Start diabetic diet now. Reglan every 6 hours for GI symptoms (hx of gastroparesis). Recheck BMP in 4 hours. Check hemoglobin A1c. Check urine drug screen. * CRISTI, creatinine improving. Secondary to vomiting and diarrhea. Continue hydration. Continue to monitor renal function. Avoid nephrotoxic agents. DVT prophylaxis: Lovenox subcut Code status: Full Patient will need hospitalization for at least 2 midnights for DKA/uncontrolled glucose + CRISTI treatment and evaluation with IV fluids, insulin and frequent blood workup checks. Quality Stroke Does the patient have a stroke diagnosis?: No VTE Prior VTE?: No VTE Risk Level:: Medical - moderate - high VTE Device Contraindication: Treatment Not Indicated VTE Drug Contraindication: N/A - Med Ordered
[2024-08-31] MEDS: Metoclopramide HCl 10 MG/2 ML VIAL IVPUSH (21:13)
[2024-08-31] MEDS: Insulin Glargine,Hum.rec.anlog 100 UNIT/ML 10 ML VIAL 20 UNIT SUBCUT (21:13)
[2024-08-31 21:27] LABS: Glucose, Whole Blood 187 mg/dL (60-115)
[2024-08-31 21:54] LABS: Amphetamine Screen Urine Not Detected (Not Detect); Barbiturates, Urine Not Detected (Not Detect); Benzodiazepines Screen Urine Not Detected (Not Detect); Buprenorphine Scr Not Detected (Not Detect); Cannabinoid Screen Urine POSITIVE (Not Detect); Cocaine Screen Urine Not Detected (Not Detect); Fentanyl, urine Not Detected (Not Detect); Methadone Screen, Urine Not Detected (Not Detect); Opiate Screen Urine Not Detected (Not Detect); Oxycodone Screen Urine Not Detected (Not Detect); Phencyclidine Screen Urine Not Detected (Not Detect)
[2024-08-31 22:17] LABS: Glucose, Whole Blood 194 mg/dL (60-115)
[2024-08-31 22:43] LABS: MANUAL DIFF FLAG NO
[2024-08-31 22:44] LABS: Basophils Percent Auto 0.2 % (0-2); Hematocrit 24.2 % (42.0-52.0); Imm Gran Abs Auto 0.07 X10*3/uL (0.00-0.03); Imm Gran Pct Auto 0.5 % (0.0-0.4); Lymphocytes Absolute Auto 1.5 X10*3/uL (1.2-4.9); Lymphocytes Percent Auto 10.3 % (20-40); Mean Corpuscular HGB Conc 33.1 g/dl (31.0-36.0); Mean Corpuscular Hemoglobin 26.2 pg (27.0-33.0); Mean Corpuscular Volume 79.3 fL (80.0-98.0); Mean Platelet Volume 9.1 fL (9.4-12.4); Monocytes Absolute Auto 1.5 X10*3/uL (0.1-1.2); Neutrophils Absolute Auto 11.6 x10*3/uL (2.0-8.3); Platelet Count 381 X10*3/uL (160-400); Red Blood Count 3.05 X10*6/uL (4.60-5.80); Red Cell Distribution Width 14.9 % (11.0-16.0); White Blood Count 14.7 X10*3/uL (4.8-10.8)
[2024-08-31] MEDS: Loperamide HCl 2 MG CAPSULE 4 MG PO (22:53)
[2024-08-31 23:02] LABS: Anion Gap 12 (12-20); Blood Urea Nitrogen 40 mg/dL (9-16); Carbon Dioxide 17 mmol/L (22-29); Chloride 109 mmol/L (96-108); Creatinine Clr Calc Pharmacy 62.9; Estimated Glomerular Filt Rate 53; Glucose Random 217 mg/dL (60-115); Magnesium 1.8 mg/dL (1.6-2.6); Potassium 3.9 mmol/L (3.3-5.1); Sodium 134 mmol/L (135-145)
[2024-08-31 23:07] LABS: Calcium 7.6 mg/dL (8.4-10.2)
[2024-08-31 23:22] LABS: Thyroid Stimulating Hormone 0.38 uIU/mL (0.32-4.0)
[2024-08-31] MEDS: KCl 20 mEq in 0.45% Sod 20 MEQ/1,000 ML IV.SOLN 150 MEQ IVCONT (23:38)
[2024-08-31 23:44] VITALS: BP 158/98; PULSE 113; RESP 22; O2SAT 95
[2024-08-31 23:48] LABS: CDiff Gene PCR POSITIVE (Negative)
[2024-09-01] VITALS (10 sets, daily range): BP systolic 147–164; BP diastolic 92–108; PULSE 86–111; RESP 16–22; TEMP 36.1–37.1; O2SAT 95–99; BMI 24.0
[2024-09-01 00:45] LABS: CDIFF Internal ctrl Dots and bkg OK (V); CDiff Toxin Negative (Negative)
[2024-09-01 01:08] LABS: Glucose, Whole Blood 170 mg/dL (60-115)
[2024-09-01 03:15] LABS: Glucose, Whole Blood 176 mg/dL (60-115)
[2024-09-01] MEDS: vancomycin HCL 125 MG CAPSULE 250 MG PO ×4 (03:48→21:13)
[2024-09-01] MEDS: Metoclopramide HCl 10 MG/2 ML VIAL IVPUSH ×4 (03:49→23:03)
[2024-09-01 05:32] LABS: Glucose, Whole Blood 161 mg/dL (60-115)
[2024-09-01] MEDS: KCl 20 mEq in 0.45% Sod 20 MEQ/1,000 ML IV.SOLN 150 MEQ IVCONT ×3 (06:03→21:05)
[2024-09-01 06:54] LABS: Basophils Percent Auto 0.3 % (0-2); Eosinophils Absolute Auto 0.1 X10*3/uL (0.0-0.4); Eosinophils Percent Auto 0.4 % (0-4); Hematocrit 24.5 % (42.0-52.0); Imm Gran Pct Auto 0.6 % (0.0-0.4); Lymphocytes Absolute Auto 1.6 X10*3/uL (1.2-4.9); Lymphocytes Percent Auto 10.3 % (20-40); MANUAL DIFF FLAG SCAN; Mean Corpuscular HGB Conc 32.7 g/dl (31.0-36.0); Mean Corpuscular Hemoglobin 26.1 pg (27.0-33.0); Mean Corpuscular Volume 79.8 fL (80.0-98.0); Mean Platelet Volume 9.5 fL (9.4-12.4); Monocytes Absolute Auto 1.8 X10*3/uL (0.1-1.2); Monocytes Percent Auto 11.6 % (2-11); Neutrophils Absolute Auto 11.9 x10*3/uL (2.0-8.3); Neutrophils Percent Auto 76.8 % (45-73); Platelet Count 385 X10*3/uL (160-400); Red Blood Count 3.07 X10*6/uL (4.60-5.80); SCAN SMEAR FLAG 1; White Blood Count 15.5 X10*3/uL (4.8-10.8)
[2024-09-01 06:55] LABS: Estimated Average Glucose 280 mg/dL; Hemoglobin A1c % 11.4 % (<6.0); Total Hemoglobin (HGBA1C) 2033.6284 umol/L
[2024-09-01 07:20] LABS: Anion Gap 10 (12-20); Beta-Hydroxybutyrate 0.48 mmol/L (0.02-0.27); Blood Urea Nitrogen 29 mg/dL (9-16); Calcium 7.8 mg/dL (8.4-10.2); Carbon Dioxide 20 mmol/L (22-29); Chloride 110 mmol/L (96-108); Creatinine Clr Calc Pharmacy 75.2; Estimated Glomerular Filt Rate > 60; Glucose Random 170 mg/dL (60-115); Sodium 136 mmol/L (135-145)
[2024-09-01 07:23] LABS: Glucose, Whole Blood 155 mg/dL (60-115)
[2024-09-01] MEDS: Insulin Lispro 100 UNIT/ML 3 ML VIAL SUBCUT ×3 (07:43→21:13)
--- NOTE | 2024-09-01 07:43 | PC.NURSE ---
this RN resumed care of pt at 0645. a&ox4. vss and up to date aside from being hypertensive/tachycardic. sinus tachy on the residential monitor. pt verbalies 8/10 abd pain. no prn medication to utilize at this time. will notify admitting provider. repeat POC = 155mg/dL. insulin administered per sliding scale. morning medications also administered per provider order. pt otherwise resting in no apparent distress. pending bed assignment at this time. plan of care ongoing. call rocha placed within reach.
[2024-09-01 08:36] LABS: SLIDE REVIEW VERIFIED
[2024-09-01] MEDS: Enoxaparin Sodium 40 MG/0.4 ML SYRINGE SUBCUT (08:54)
[2024-09-01 09:02] LABS: Adenovirus F 40/41 Not Detected (Not Detect.); Astrovirus Not Detected (Not Detect.); Campylobacter Not Detected (Not Detect.); Cryptosporidium Not Detected (Not Detect.); Cyclospora cayetanensis Not Detected (Not Detect.); E. coli EAEC Not Detected (Not Detect.); E. coli EPEC Not Detected (Not Detect.); E. coli ETEC Not Detected (Not Detect.); E. coli STEC Not Detected (Not Detect.); Entamoeba histolytica Not Detected (Not Detect.); Giardia lamblia Not Detected (Not Detect.); Norovirus GI/GII Not Detected (Not Detect.); Plesiomonas shigelloides Not Detected (Not Detect.); Rotavirus A Not Detected (Not Detect.); Salmonella Not Detected (Not Detect.); Sapovirus Not Detected (Not Detect.); Shigella sp./EIEC Not Detected (Not Detect.); Vibrio Not Detected (Not Detect.); Vibrio Cholerae Not Detected (Not Detect.); Yersinia enterocolitica Not Detected (Not Detect.)
--- NOTE | 2024-09-01 09:31 | PC.NURSE ---
pt remains q2h POCs at this time. repeat POC = 115mg/dL. no interventions needed at this time.
[2024-09-01 09:35] LABS: Glucose, Whole Blood 115 mg/dL (60-115)
--- NOTE | 2024-09-01 09:44 | PHA.MEDREC ---
Addendum entered by Nina Benjamin [facility] 09/01/24 10:06: patient is using insulin lispro 3 times a day, not TESTING Addendum entered by Nina Benjamin [facility] 09/01/24 10:06: reviewed by [facility]. Original Note: Pharmacy Consult ? Medication Reconciliation Pharmacy has completed the medication reconciliation. Spoke with patient and he confirmed his medications. He confirmed his Lantus and confirmed he is injecting 30 units of it daily. He also confirmed the Insulin Lispro and confirmed he is testing it three times a day before meals. He states he has not been able to take any medications since about -Sunday last week.
[2024-09-01 12:19] LABS: Glucose, Whole Blood 134 mg/dL (60-115)
--- NOTE | 2024-09-01 12:26 | P.PNIM_ITS ---
Subjective Subjective Date of Service: 09/01/24 Review of Systems Follow up cdiff, DKA still wth some abd pain Physical Exam 2 Vital Signs: Vital Signs: Last Vital Signs Temp 97.9 F 09/01/24 12:17 Pulse 102 H 09/01/24 12:17 Resp 18 09/01/24 12:17 BP 158/104 H 09/01/24 12:17 Pulse Ox 99 09/01/24 12:17 O2 Del Method Room Air 09/01/24 12:17 BMI result Body Mass Index 19.4 Appearing in no acute distress lung sounds are clear to auscultation heart regular rate rhythm, clear S1, S2 positive bowel sounds, abdomen is soft, nontender neuro patient is alert x3, no focal deficits Objective Data Active Medications Acetaminophen (Acetaminophen 325 Mg Tablet) 975 mg PO Q6H PRN PRN Reason: Pain, Mild 1-3,fever,headache Enoxaparin Sodium (Enoxaparin Sodium 40 Mg/0.4 Ml Syringe) 40 mg SUBCUT Q24H [facility] Last Admin: 09/01/24 08:54 Dose: 40 mg Documented By: ZEKE Glucose (Glucose Gel 15 Gm Gel..Gram.) 15 gm PO Q15M PRN; Protocol PRN Reason: per Hypoglycemia Standing Ord. Dextrose (D10) 250 mls @ 750 mls/hr IV Q15M PRN; Protocol PRN Reason: per Hypoglycemia Standing Ord. Potassium Chloride/Sodium Chloride (Kcl 20 Meq In 0.45% Sod) 20 meq in 1,000 mls @ 150 mls/hr IVCONT .Q6H40M [facility] Last Admin: 09/01/24 06:03 Dose: 150 mls/hr Documented By: REN Insulin Glargine (Insulin Glargine,Hum.Rec.Anlog 100 Unit/Ml 10 Ml Vial) 20 unit SUBCUT BEDTIME [facility] Last Admin: 08/31/24 21:13 Dose: 20 unit Documented By: REN Insulin Human Lispro (Insulin Lispro 100 Unit/Ml 3 Ml Vial) 0 unit SUBCUT QIDACHS [facility]; Protocol Last Admin: 09/01/24 12:22 Dose: Not Given Documented By: ZEKE Non-Admin Reason: No Insulin Coverage Metoclopramide HCl (Metoclopramide Hcl 10 Mg/2 Ml Vial) 10 mg IVPUSH Q6H [facility] Last Admin: 09/01/24 09:26 Dose: 10 mg Documented By: ZEKE Morphine Sulfate (Morphine Sulfate 2 Mg/Ml Cartridge) 1 mg IVPUSH Q4H PRN; Protocol PRN Reason: Pain, Severe (Pain Scale 7-10) Sodium Chloride (0.9 % Sodium Chloride Flush 3 Ml Syringe) 3 ml IVFLUSH QSHIFT [facility] Last Admin: 09/01/24 07:44 Dose: Not Given Documented By: ZEKE Non-Admin Reason: IV Running Vancomycin HCl (Vancomycin Hcl 125 Mg Capsule) 250 mg PO Q6H [facility] Last Admin: 09/01/24 08:54 Dose: 250 mg Documented By: ZEKE Labs 09/01/24 05:58 09/01/24 05:58 Labs: Laboratory Results - last 24 hr 08/31/24 08/31/24 08/31/24 18:25 18:30 19:20 MCV 80.5 MCH 25.9 L MCHC 32.2 RDW 14.7 Plt Count 538 H MPV 9.4 Immature Gran % (Auto) 0.6 H Neut % (Auto) 86.8 H Lymph % (Auto) 7.0 L Tyler % (Auto) 5.4 Eos % (Auto) 0.0 Baso % (Auto) 0.2 Lymph # (Auto) 1.3 Tyler # (Auto) 1.0 Eos # (Auto) 0.0 Baso # (Auto) 0.0 Abs Immat Gran (auto) 0.12 H Absolute Neuts (auto) 16.0 H Absolute Nucleated RBC 0.000 Nucleated RBC % (auto) 0.0 Smear Tech's Comments VBG pH 7.35 VBG pCO2 29 VBG pO2 46 VBG HCO3 16 L VBG O2 Saturation 72.0 VBG Base Excess -7.4 Anion Gap 25 H Estim Creat Clear Calc 45.8 Estimated GFR 37 POC Glucose Random Glucose 447 H* Estimat Average Glucose Hemoglobin A1c % Calcium 8.7 Phosphorus Magnesium Total Bilirubin 0.4 Direct Bilirubin 0.1 AST 17 ALT 33 Alkaline Phosphatase 97 Troponin I High Sens < 2.7 Total Protein 7.9 Albumin 4.1 Lipase 11 Beta-Hydroxybutyrate 6.37 H TSH Urine Color Yellow Urine Appearance Clear Urine pH 5.0 Ur Specific [place] 1.025 Urine Protein 100 (2+) H Urine Glucose (UA) >=1000 H Urine Ketones >=160 Urine Blood Trace H Urine Nitrite Negative Ur Leukocyte Esterase Negative Urine RBC 0-2 Urine WBC 0-5 Ur Squamous Epith Cells 0-2 Urine Bacteria None Seen Hyaline Casts 0-2 Stl C. cayetanensis PCR Stool Rotavirus A PCR Stl Adenov F 40/ PCR Stool Astrovirus (PCR) Stool Campylobacter PCR Stool Cryptosporidium PCR Stl Sh Tox Pr E STEC PCR Stool E coli O157 PCR Stl Enterotoxigenic E PCR Stool EPEC (PCR) Stool EAEC (PCR) Stl E. histolytica PCR Stool Giardia Lamblia PCR Stl P. shigelloides PCR Stool Salmonella PCR Stool Sapovirus (PCR) Stl Shigella/EIEC PCR St Y.enterocolitica PCR Stool Vibrio (PCR) Stl Vibrio cholerae PCR Stl Norovirus GI/GII PCR Urine Opiates Screen Not Detected Ur Buprenorphine Scrn Not Detected Ur Oxycodone Screen Not Detected Urine Methadone Screen Not Detected Urine Fentanyl Screen Not Detected Ur Barbiturates Screen Not Detected Ur Phencyclidine Scrn Not Detected Ur Amphetamines Screen Not Detected U Benzodiazepines Scrn Not Detected Urine Cocaine Screen Not Detected U Marijuana (THC) Screen POSITIVE H C. difficile Tox B Gene C. difficile Toxin A&B C. difficile Interpret Influenza Type A (PCR) NEGATIVE Influenza Type B (PCR) NEGATIVE RSV RNA Qual (PCR) NEGATIVE SARS-CoV-2 RNA (RT-PCR) NEGATIVE 08/31/24 08/31/24 08/31/24 19:31 20:35 21:15 MCV MCH MCHC RDW Plt Count MPV Immature Gran % (Auto) Neut % (Auto) Lymph % (Auto) Tyler % (Auto) Eos % (Auto) Baso % (Auto) Lymph # (Auto) Tyler # (Auto) Eos # (Auto) Baso # (Auto) Abs Immat Gran (auto) Absolute Neuts (auto) Absolute Nucleated RBC Nucleated RBC % (auto) Smear Tech's Comments VBG pH VBG pCO2 VBG pO2 VBG HCO3 VBG O2 Saturation VBG Base Excess Anion Gap 18 Estim Creat Clear Calc 51.2 Estimated GFR 42 POC Glucose 183 H 187 H Random Glucose 299 H Estimat Average Glucose Hemoglobin A1c % Calcium 8.7 Phosphorus 3.0 Magnesium 2.0 Total Bilirubin Direct Bilirubin AST ALT Alkaline Phosphatase Troponin I High Sens Total Protein Albumin Lipase Beta-Hydroxybutyrate TSH 0.38 Urine Color Urine Appearance Urine pH Ur Specific [place] Urine Protein Urine Glucose (UA) Urine Ketones Urine Blood Urine Nitrite Ur Leukocyte Esterase Urine RBC Urine WBC Ur Squamous Epith Cells Urine Bacteria Hyaline Casts Stl C. cayetanensis PCR Stool Rotavirus A PCR Stl Adenov F 40 PCR Stool Astrovirus (PCR) Stool Campylobacter PCR Stool Cryptosporidium PCR Stl Sh Tox Pr E STEC PCR Stool E coli O157 PCR Stl Enterotoxigenic E PCR Stool EPEC (PCR) Stool EAEC (PCR) Stl E. histolytica PCR Stool Giardia Lamblia PCR Stl P. shigelloides PCR Stool Salmonella PCR Stool Sapovirus (PCR) Stl Shigella/EIEC PCR St Y.enterocolitica PCR Stool Vibrio (PCR) Stl Vibrio cholerae PCR Stl Norovirus GI/GII PCR Urine Opiates Screen Ur Buprenorphine Scrn Ur Oxycodone Screen Urine Methadone Screen Urine Fentanyl Screen Ur Barbiturates Screen Ur Phencyclidine Scrn Ur Amphetamines Screen U Benzodiazepines Scrn Urine Cocaine Screen U Marijuana (THC) Screen C. difficile Tox B Gene C. difficile Toxin A&B C. difficile Interpret Influenza Type A (PCR) Influenza Type B (PCR) RSV RNA Qual (PCR) SARS-CoV-2 RNA (RT-PCR) 08/31/24 08/31/24 08/31/24 22:13 22:38 22:59 MCV 79.3 L MCH 26.2 L MCHC 33.1 RDW 14.9 Plt Count 381 D MPV 9.1 L Immature Gran % (Auto) 0.5 H Neut % (Auto) 79.0 H Lymph % (Auto) 10.3 L Tyler % (Auto) 10.0 Eos % (Auto) 0.0 Baso % (Auto) 0.2 Lymph # (Auto) 1.5 Tyler # (Auto) 1.5 H Eos # (Auto) 0.0 Baso # (Auto) 0.0 Abs Immat Gran (auto) 0.07 H Absolute Neuts (auto) 11.6 H Absolute Nucleated RBC 0.000 Nucleated RBC % (auto) 0.0 Smear Tech's Comments VBG pH VBG pCO2 VBG pO2 VBG HCO3 VBG O2 Saturation VBG Base Excess Anion Gap 12 Estim Creat Clear Calc 62.9 Estimated GFR 53 POC Glucose 194 H Random Glucose 217 H Estimat Average Glucose Hemoglobin A1c % Calcium 7.6 L D Phosphorus Magnesium 1.8 Total Bilirubin Direct Bilirubin AST ALT Alkaline Phosphatase Troponin I High Sens Total Protein Albumin Lipase Beta-Hydroxybutyrate TSH Urine Color Urine Appearance Urine pH Ur Specific [place] Urine Protein Urine Glucose (UA) Urine Ketones Urine Blood Urine Nitrite Ur Leukocyte Esterase Urine RBC Urine WBC Ur Squamous Epith Cells Urine Bacteria Hyaline Casts Stl C. cayetanensis PCR Not Detected Stool Rotavirus A PCR Not Detected Stl Adenov F 40/41 PCR Not Detected Stool Astrovirus (PCR) Not Detected Stool Campylobacter PCR Not Detected Stool Cryptosporidium PCR Not Detected Stl Sh Tox Pr E STEC PCR Not Detected Stool E coli O157 PCR Not applicable Stl Enterotoxigenic E PCR Not Detected Stool EPEC (PCR) Not Detected Stool EAEC (PCR) Not Detected Stl E. histolytica PCR Not Detected Stool Giardia Lamblia PCR Not Detected Stl P. shigelloides PCR Not Detected Stool Salmonella PCR Not Detected Stool Sapovirus (PCR) Not Detected Stl Shigella/EIEC PCR Not Detected St Y.enterocolitica PCR Not Detected Stool Vibrio (PCR) Not Detected Stl Vibrio cholerae PCR Not Detected Stl Norovirus GI/GII PCR Not Detected Urine Opiates Screen Ur Buprenorphine Scrn Ur Oxycodone Screen Urine Methadone Screen Urine Fentanyl Screen Ur Barbiturates Screen Ur Phencyclidine Scrn Ur Amphetamines Screen U Benzodiazepines Scrn Urine Cocaine Screen U Marijuana (THC) Screen C. difficile Tox B Gene POSITIVE A* C. difficile Toxin A&B Negative C. difficile Interpret SEE NOTE Influenza Type A (PCR) Influenza Type B (PCR) RSV RNA Qual (PCR) SARS-CoV-2 RNA (RT-PCR) 09/01/24 09/01/24 09/01/24 01:04 03:08 05:27 MCV MCH MCHC RDW Plt Count MPV Immature Gran % (Auto) Neut % (Auto) Lymph % (Auto) Tyler % (Auto) Eos % (Auto) Baso % (Auto) Lymph # (Auto) Tyler # (Auto) Eos # (Auto) Baso # (Auto) Abs Immat Gran (auto) Absolute Neuts (auto) Absolute Nucleated RBC Nucleated RBC % (auto) Smear Tech's Comments VBG pH VBG pCO2 VBG pO2 VBG HCO3 VBG O2 Saturation VBG Base Excess Anion Gap Estim Creat Clear Calc Estimated GFR POC Glucose 170 H 176 H 161 H Random Glucose Estimat Average Glucose Hemoglobin A1c % Calcium Phosphorus Magnesium Total Bilirubin Direct Bilirubin AST ALT Alkaline Phosphatase Troponin I High Sens Total Protein Albumin Lipase Beta-Hydroxybutyrate TSH Urine Color Urine Appearance Urine pH Ur Specific [place] Urine Protein Urine Glucose (UA) Urine Ketones Urine Blood Urine Nitrite Ur Leukocyte Esterase Urine RBC Urine WBC Ur Squamous Epith Cells Urine Bacteria Hyaline Casts Stl C. cayetanensis PCR Stool Rotavirus A PCR Stl Adenov F 40 PCR Stool Astrovirus (PCR) Stool Campylobacter PCR Stool Cryptosporidium PCR Stl Sh Tox Pr E STEC PCR Stool E coli O157 PCR Stl Enterotoxigenic E PCR Stool EPEC (PCR) Stool EAEC (PCR) Stl E. histolytica PCR Stool Giardia Lamblia PCR Stl P. shigelloides PCR Stool Salmonella PCR Stool Sapovirus (PCR) Stl Shigella/EIEC PCR St Y.enterocolitica PCR Stool Vibrio (PCR) Stl Vibrio cholerae PCR Stl Norovirus GI/GII PCR Urine Opiates Screen Ur Buprenorphine Scrn Ur Oxycodone Screen Urine Methadone Screen Urine Fentanyl Screen Ur Barbiturates Screen Ur Phencyclidine Scrn Ur Amphetamines Screen U Benzodiazepines Scrn Urine Cocaine Screen U Marijuana (THC) Screen C. difficile Tox B Gene C. difficile Toxin A&B C. difficile Interpret Influenza Type A (PCR) Influenza Type B (PCR) RSV RNA Qual (PCR) SARS-CoV-2 RNA (RT-PCR) 09/01/24 09/01/24 09/01/24 05:57 05:58 07:19 MCV 79.8 L MCH 26.1 L MCHC 32.7 RDW 15.0 Plt Count 385 MPV 9.5 Immature Gran % (Auto) 0.6 H Neut % (Auto) 76.8 H Lymph % (Auto) 10.3 L Tyler % (Auto) 11.6 H Eos % (Auto) 0.4 Baso % (Auto) 0.3 Lymph # (Auto) 1.6 Tyler # (Auto) 1.8 H Eos # (Auto) 0.1 Baso # (Auto) 0.0 Abs Immat Gran (auto) 0.10 H Absolute Neuts (auto) 11.9 H Absolute Nucleated RBC 0.000 Nucleated RBC % (auto) 0.0 Smear Tech's Comments VERIFIED VBG pH VBG pCO2 VBG pO2 VBG HCO3 VBG O2 Saturation VBG Base Excess Anion Gap 10 L Estim Creat Clear Calc 75.2 Estimated GFR > 60 POC Glucose 155 H Random Glucose 170 H Estimat Average Glucose 280 Hemoglobin A1c % 11.4 H Calcium 7.8 L Phosphorus Magnesium Total Bilirubin Direct Bilirubin AST ALT Alkaline Phosphatase Troponin I High Sens Total Protein Albumin Lipase Beta-Hydroxybutyrate 0.48 H TSH Urine Color Urine Appearance Urine pH Ur Specific [place] Urine Protein Urine Glucose (UA) Urine Ketones Urine Blood Urine Nitrite Ur Leukocyte Esterase Urine RBC Urine WBC Ur Squamous Epith Cells Urine Bacteria Hyaline Casts Stl C. cayetanensis PCR Stool Rotavirus A PCR Stl Adenov F PCR Stool Astrovirus (PCR) Stool Campylobacter PCR Stool Cryptosporidium PCR Stl Sh Tox Pr E STEC PCR Stool E coli O157 PCR Stl Enterotoxigenic E PCR Stool EPEC (PCR) Stool EAEC (PCR) Stl E. histolytica PCR Stool Giardia Lamblia PCR Stl P. shigelloides PCR Stool Salmonella PCR Stool Sapovirus (PCR) Stl Shigella/EIEC PCR St Y.enterocolitica PCR Stool Vibrio (PCR) Stl Vibrio cholerae PCR Stl Norovirus GI/GII PCR Urine Opiates Screen Ur Buprenorphine Scrn Ur Oxycodone Screen Urine Methadone Screen Urine Fentanyl Screen Ur Barbiturates Screen Ur Phencyclidine Scrn Ur Amphetamines Screen U Benzodiazepines Scrn Urine Cocaine Screen U Marijuana (THC) Screen C. difficile Tox B Gene C. difficile Toxin A&B C. difficile Interpret Influenza Type A (PCR) Influenza Type B (PCR) RSV RNA Qual (PCR) SARS-CoV-2 RNA (RT-PCR) 09/01/24 09/01/24 09:31 12:16 MCV MCH MCHC RDW Plt Count MPV Immature Gran % (Auto) Neut % (Auto) Lymph % (Auto) Tyler % (Auto) Eos % (Auto) Baso % (Auto) Lymph # (Auto) Tyler # (Auto) Eos # (Auto) Baso # (Auto) Abs Immat Gran (auto) Absolute Neuts (auto) Absolute Nucleated RBC Nucleated RBC % (auto) Smear Tech's Comments VBG pH VBG pCO2 VBG pO2 VBG HCO3 VBG O2 Saturation VBG Base Excess Anion Gap Estim Creat Clear Calc Estimated GFR POC Glucose 115 134 H Random Glucose Estimat Average Glucose Hemoglobin A1c % Calcium Phosphorus Magnesium Total Bilirubin Direct Bilirubin AST ALT Alkaline Phosphatase Troponin I High Sens Total Protein Albumin Lipase Beta-Hydroxybutyrate TSH Urine Color Urine Appearance Urine pH Ur Specific [place] Urine Protein Urine Glucose (UA) Urine Ketones Urine Blood Urine Nitrite Ur Leukocyte Esterase Urine RBC Urine WBC Ur Squamous Epith Cells Urine Bacteria Hyaline Casts Stl C. cayetanensis PCR Stool Rotavirus A PCR Stl Adenov F 40/ PCR Stool Astrovirus (PCR) Stool Campylobacter PCR Stool Cryptosporidium PCR Stl Sh Tox Pr E STEC PCR Stool E coli O157 PCR Stl Enterotoxigenic E PCR Stool EPEC (PCR) Stool EAEC (PCR) Stl E. histolytica PCR Stool Giardia Lamblia PCR Stl P. shigelloides PCR Stool Salmonella PCR Stool Sapovirus (PCR) Stl Shigella/EIEC PCR St Y.enterocolitica PCR Stool Vibrio (PCR) Stl Vibrio cholerae PCR Stl Norovirus GI/GII PCR Urine Opiates Screen Ur Buprenorphine Scrn Ur Oxycodone Screen Urine Methadone Screen Urine Fentanyl Screen Ur Barbiturates Screen Ur Phencyclidine Scrn Ur Amphetamines Screen U Benzodiazepines Scrn Urine Cocaine Screen U Marijuana (THC) Screen C. difficile Tox B Gene C. difficile Toxin A&B C. difficile Interpret Influenza Type A (PCR) Influenza Type B (PCR) RSV RNA Qual (PCR) SARS-CoV-2 RNA (RT-PCR) Assessment and Plan (1) Diabetic ketoacidosis: Status: Acute Plan Ashish Garrett is a 34 y/o man with PMHx significant for type 1 DM Cdiff had one previous bought continue vancomcyin for now discuss with ID Leukocytosis secondary to cdiff monitor Diabetes ketoacidosis; anion gap closed -acidosis corrected. Telemetry. Lantus 20 unitsbedtime. diabetic diet Reglan every 6 hours for GI symptoms (hx of gastroparesis). hemoglobin A1c. 11.7 urine drug screen pos for marijuana CRISTI, creatinine, improving. Secondary to vomiting and diarrhea. Continue hydration. Continue to monitor renal function. Avoid nephrotoxic agents. DVT prophylaxis: Lovenox subcut Code status: Full Quality Stroke Does the patient have a stroke diagnosis?: No VTE Prior VTE?: No VTE Risk Level:: Medical - moderate - high VTE Device Contraindication: Treatment Not Indicated VTE Drug Contraindication: N/A - Med Ordered
--- NOTE | 2024-09-01 12:30 | PC.NURSE ---
pt remains hypertensive/tachycardic at this time. otherwise vss and up to date. sinus tachycardic on the monitor. pt still verbalizing 8/10 abd pain at this time. denies nausea. no episodes of vomiting/diarrhea noted. prn medication still not placed by admitting provider. will administer when able. pt continues to wait for bed assignment at this time. plan of care ongoing. call rocha placed within reach.
[2024-09-01] MEDS: buPROPion HCl XL 150 MG TAB.ER.24H PO (12:56)
[2024-09-01] MEDS: Morphine Sulfate 2 MG/ML CARTRIDGE 1 MG IVPUSH ×3 (12:56→21:29)
[2024-09-01] MEDS: amLODIPine Besylate 10 MG TABLET PO (12:56)
--- NOTE | 2024-09-01 13:02 | PC.NURSE ---
medication ordered by provider/administered. effectiveness pending.
--- NOTE | 2024-09-01 16:26 | MHC.CM.PN ---
PT REPORTS HE HAS BEEN LIVING IN HIS CAR SINCE OF LAST YEAR HE SAYS HE WAS WORKING UNTIL RECENTLY HE DECLINES TO COMPLETE A HCP PCP: MARIANA SIMS DCP: PT WILL RETURN TO HIS CAR [facility]
[2024-09-01 17:10] LABS: Glucose, Whole Blood 212 mg/dL (60-115)
[2024-09-01 18:40] LABS: Glucose, Whole Blood 214 mg/dL (60-115)
--- NOTE | 2024-09-01 19:30 | PC.NURSE ---
This RN assumed pt care @ 1900. Pt a&ox4, no signs of distress. Pt resting in bed watching TV Pt denies pain at this time. Plan of care ongoing.
[2024-09-01 21:09] LABS: Glucose, Whole Blood 215 mg/dL (60-115)
[2024-09-01] MEDS: Insulin Glargine,Hum.rec.anlog 100 UNIT/ML 10 ML VIAL 20 UNIT SUBCUT (21:14)
--- NOTE | 2024-09-01 21:31 | PC.NURSE ---
Pt medicacted per oct Pt reporting 02/12 pain Plan of care ongoing
[2024-09-01] MEDS: 0.9 % Sodium Chloride Flush 3 ML SYRINGE IVFLUSH (23:03)
[2024-09-02] MEDS: Morphine Sulfate 2 MG/ML CARTRIDGE 1 MG IVPUSH ×2 (02:17→10:59)
[2024-09-02 03:37] VITALS: BP 165/90; PULSE 95; RESP 20; TEMP 36.3; O2SAT 95
[2024-09-02] MEDS: Metoclopramide HCl 10 MG/2 ML VIAL IVPUSH ×2 (03:46→11:11)
[2024-09-02] MEDS: vancomycin HCL 125 MG CAPSULE 250 MG PO ×2 (03:46→11:02)
[2024-09-02] MEDS: KCl 20 mEq in 0.45% Sod 20 MEQ/1,000 ML IV.SOLN 150 MEQ IVCONT (03:47)
[2024-09-02 08:00] VITALS: BP 156/97; PULSE 92; RESP 16; TEMP 36.4; O2SAT 96
[2024-09-02 08:04] LABS: Glucose, Whole Blood 149 mg/dL (60-115)
[2024-09-02] MEDS: 0.9 % Sodium Chloride Flush 3 ML SYRINGE IVFLUSH (11:02)
[2024-09-02] MEDS: buPROPion HCl XL 150 MG TAB.ER.24H PO (11:05)
[2024-09-02] MEDS: Dicyclomine HCl 10 MG CAPSULE PO (11:05)
[2024-09-02] MEDS: Omeprazole 20 MG CAPSULE.DR PO (11:06)
[2024-09-02] MEDS: Insulin Glargine,Hum.rec.anlog 100 UNIT/ML 10 ML VIAL 30 UNIT SUBCUT (11:06)
[2024-09-02] MEDS: Enoxaparin Sodium 40 MG/0.4 ML SYRINGE SUBCUT (11:07)
[2024-09-02 11:24] VITALS: BP 164/86
[2024-09-02] MEDS: amLODIPine Besylate 10 MG TABLET PO (11:24)
[2024-09-02] MEDS: lisinopriL 5 MG TABLET PO (11:24)
[2024-09-02 12:00] VITALS: BP 162/90; PULSE 90; RESP 18; TEMP 36.4; O2SAT 98
[2024-09-02 12:15] LABS: Glucose, Whole Blood 217 mg/dL (60-115)
--- NOTE | 2024-09-02 12:36 | PM.DS ---
DS: Providers Provider Date of Service: 09/02/24 Date of admission: 08/31/24 20:56 Date of discharge: 09/02/24 Primary care physician: Bree Benavides NP Consults: 09/01/24 15:01 Consult to Infectious Diseases Routine Consulting Provider: [facility] Reason for consultation: cdiff, recurrent DS: Diagnosis Discharge Diagnosis (1) Diabetic ketoacidosis: Status: Acute DS: Summary Hospital Course Hospital Course: History and physical as per admitting provider. Ashish Garrett is a 34 years old man with past medical history significant for type 1 diabetes mellitus on Lantus and insulin sliding scale presents to the emergency department complaining of multiple episodes of vomiting and diarrhea since yesterday. He also reports she was brought denies fever. He also reported some headache and dizziness. Denied chest pain, palpitations or shortness on breath. He also denied abdominal pain or any acute urinary symptoms. According to the patient he is compliant with his insulin. His smoke marijuana but denied illicit drug use. He also denied tobacco smoking or alcohol abuse. He has a history of prior events of DKA. In the ED, he was found to have significant tachycardia, currently 120-130 bpm. There is no fever or hypotension. Blood workup was remarkable for leukocytosis of 18.5, hemoglobin 10.2 and platelets 538. There is no bandemia. Venous pH is 7.35. Beta hydroxybutyric acid is 6.37. Last BNP showed no recurrent electrolyte imbalances. Bicarb is 20 anion gap is normal (it was 25 on arrival). BUN is 46 and creatinine 1.88. Initial glucose was 447 (183). LFTs, troponin lipase are normal. Urinalysis showed protein 2+, glucosuria and trace blood. There is UTI. Viral testing for COVID-19, RSV and influenza is negative. CXR is negative. ED tx: NS 2 L bolus, insulin R 10 units IV ( total). 34-year-old man treated for diabetic ketoacidosis, non anion gap acidosis. Treated with IV insulin, bedtime Lantus, diabetic diet. Hemoglobin A1c noted to be 11.7, patient placed on diabetic diet. Treated with Reglan for history of gastroparesis. Urine drug screen noted to be positive for marijuana. Noted to be in CRISTI secondary to the DKA, treated with IV fluids. Patient has now been out of DKA, eating regular diet with normal labs. Patient was noted to have a positive C diff, 2nd episode. Started on oral vancomycin. The patient will need to continue total of 10 days treatment. He should follow up with the Infectious Disease for any recurrent C diff episodes. Time Attestation Discharge Coordination Time (in mins): 40 Quality: Safe Use of Opioids Does Pt have an Active Cancer Diagnosis on the Problem List?: No Quality: Stroke Does the patient have a stroke diagnosis?: No Physical Exam Vital Signs: Vital Signs: Last Vital Signs Temp 97.6 F 09/02/24 12:00 Pulse 90 09/02/24 12:00 Resp 18 09/02/24 12:00 BP 162/90 H 09/02/24 12:00 Pulse Ox 98 09/02/24 12:00 O2 Del Method Room Air 09/02/24 12:00 BMI result Body Mass Index 24.0 Appearing in no acute distress head is normocephalic atraumatic eyes pupils are PERRLA sclera is anicteric mouth throat mucous membranes are intact and moist neck is supple no lymphadenopathy, no JVD noted lung sounds are clear to auscultation heart regular rate rhythm, clear S1, S2 positive bowel sounds, abdomen is soft, nontender neuro patient is alert x3, no focal deficits DS: Data Data Completed and Pending Labs on day of discharge: Laboratory Results - last 24 hr 09/01/24 09/01/24 09/01/24 17:07 18:36 21:06 POC Glucose 212 H 214 H 215 H 09/02/24 09/02/24 08:00 12:12 POC Glucose 149 H 217 H Discharge Plan Discharge Anticipated Discharge Date/Time: 09/02/24 12:28 Patient Disposition: Home, Self-Care Discharge Diagnosis: DKA Cdiff Referrals: Lian Bradley MD [Physician] - None () Bree Benavides NP [Primary Care Provider] - 1 Week Discharge Medications: New vancomycin 125 mg Capsule 250 mg PO Q6H Qty: 74 0RF omeprazole 20 mg Capsule,Delayed Release(Dr/Ec) 20 mg PO DAILY@0630 Qty: 30 0RF lisinopril 5 mg Tablet 5 mg PO DAILY Qty: 30 0RF Protocol: Hold for SBP< HOLD for SBP < : 90 Continued hydroxyzine HCl 50 mg tablet 50 mg PO BID PRN (Reason: anxiety) amlodipine 10 mg tablet 10 mg PO DAILY dicyclomine 10 mg capsule 10 mg PO QID PRN (Reason: Abdominal Spasm) bupropion HCl 150 mg tablet extended release 24 hr 150 mg PO DAILY Baqsimi 3 mg/actuation spray,non-aerosol 3 mg INTRANASAL Q15M PRN (Reason: Blood Glucose less then 50) insulin glargine 100 unit/mL Solution 30 unit SUBCUT DAILY insulin lispro 100 unit/mL Insulin Pen 1 sliding scale dose SUBCUT TIDAC Protocol: Insulin Correction Scale Less than or equal to 110 ---- Give (units): 0 111 to 150 Give (units): 0 151 to 200 Give (units): 2 201 to 250 Give (units): 4 251 to 300 Give (units): 6 301 to 350 Give (units): 8 Greater than 350 Give (units): 10 Call MD if Blood Glucose > : 350 Discharge Orders: Discharge Order (Routine); Ordered 09/02/24 Ordered By: Jessika Carlisle Diet: Advance to usual diet Activity on Discharge: As tolerated Stand Alone Forms: Patient Portal Discharge page Print Language: Latvian Care Plan Goals: complete vancomycin treatment Health Concerns: Diabetic ketoacidosis Plan of Treatment: Follow-up with primary care provider as needed Take all medications as prescribed Assessment: See discharge summary Discharge Date/Time: 09/02/24 13:54
--- NOTE | 2024-09-02 13:19 | MHC.CM.PN ---
Pt has been medically cleared for DC, he will go to where his car is parked via [facility] [place] shuttle.
[2024-09-02] MEDS: Insulin Lispro 100 UNIT/ML 3 ML VIAL SUBCUT (13:41)
== END 2024-09-02 13:54 | disposition home or self-care (01) | DRG 420 ==
LOC: HO.ED 20:27 → HO.EDOVER 21:15 → HO.IMC 09-01 19:37
PROVIDERS: Admitting Provider Internal Medicine; Emergency Provider Emergency Medicine; PCP Nurse Practitioner Family; Visit Provider Nurse Practitioner Acute Care
DX: E10.10 Type 1 diabetes mellitus with ketoacidosis without coma (principal); N17.9 Acute kidney failure, unspecified; A04.71 Enterocolitis due to Clostridium difficile, recurrent; E10.43 Type 1 diabetes mellitus with diabetic autonomic (poly)neuropathy; K31.84 Gastroparesis; Z20.822 Contact with and (suspected) exposure to COVID-19; Z91.148 Patient's other noncompliance with medication regimen for other reason; Z79.899 Other long term (current) drug therapy
CPT/HCPCS: 0241U; 36415; 71045; 74176; 80048; 80076; 80307; 81001; 82010; 82803; 82947; 83036; 83690; 83735; 84100; 84443; 84484; 85025; 87324; 87493; 87507; 99285; J1650; J2270; J2765; J3480

== ENCOUNTER → 2024-08-31 18:19 | Outpatient (BNV) | payer OTHER, SELFPAY | PROVIDERS: Emergency Provider Emergency Medicine; PCP Nurse Practitioner Family; Visit Provider Radiology Diagnostic Radiology | DX: R53.1 Weakness (principal) | CPT/HCPCS: 71045 ==

== ENCOUNTER 2024-08-31 20:56 | Outpatient (BNV) | payer OTHER, SELFPAY | END 2024-09-02 11:37 | PROVIDERS: Admitting Provider Internal Medicine; Emergency Provider Emergency Medicine; PCP Nurse Practitioner Family; Visit Provider Radiology Diagnostic Radiology | DX: K42.9 Umbilical hernia without obstruction or gangrene (principal); K66.8 Other specified disorders of peritoneum; R16.0 Hepatomegaly, not elsewhere classified; R59.0 Localized enlarged lymph nodes | CPT/HCPCS: 74176 ==

== ENCOUNTER → 2024-08-31 20:56 | Outpatient (BNV) | payer OTHER, SELFPAY | PROVIDERS: Admitting Provider Internal Medicine; Emergency Provider Emergency Medicine; PCP Nurse Practitioner Family; Visit Provider Internal Medicine | DX: E10.10 Type 1 diabetes mellitus with ketoacidosis without coma (principal) | CPT/HCPCS: 99223; 99232; 99239 ==

== ENCOUNTER 2024-12-01 06:36 | Inpatient (IN) | payer OTHER, SELFPAY ==
[2024-12-01] VITALS (14 sets, daily range): BP systolic 131–187; BP diastolic 74–124; PULSE 94–142; RESP 13–22; TEMP 36.4–36.8; O2SAT 94–99; BMI 22.4
--- NOTE | 2024-12-01 | ECG_ITS ---
Test Reason : tachycardia Blood Pressure : */* mmHG Vent. Rate : 109 BPM Atrial Rate : 109 BPM P-R Int : 144 ms QRS Dur : 84 ms QT Int : 342 ms P-R-T Axes : 68 78 76 degrees QTcB Int : 460 ms Sinus tachycardia with Fusion complexes Nonspecific T wave abnormality Abnormal ECG When compared with ECG of 21-Mar-2024 12:00, Fusion complexes are now Present Referred By: Generic ED Physician Electronically Signed By: Kam Gracia
[2024-12-01 07:36] LABS: MANUAL DIFF FLAG NO
[2024-12-01] MEDS: 0.9 % Sodium Chloride 1,000 ML 999 ML IV (07:36)
[2024-12-01 07:38] LABS: Basophils Percent Auto 0.3 % (0-2); Eosinophils Percent Auto 0.1 % (0-4); Hematocrit 35.4 % (42.0-52.0); Hemoglobin 11.9 g/dl (14.0-18.0); Imm Gran Abs Auto 0.06 X10*3/uL (0.00-0.03); Imm Gran Pct Auto 0.4 % (0.0-0.4); Lymphocytes Absolute Auto 1.4 X10*3/uL (1.2-4.9); Mean Corpuscular HGB Conc 33.6 g/dl (31.0-36.0); Mean Corpuscular Hemoglobin 27.2 pg (27.0-33.0); Mean Platelet Volume 9.8 fL (9.4-12.4); Monocytes Absolute Auto 0.5 X10*3/uL (0.1-1.2); Monocytes Percent Auto 3.5 % (2-11); Neutrophils Absolute Auto 12.1 x10*3/uL (2.0-8.3); Neutrophils Percent Auto 85.7 % (45-73); Platelet Count 453 X10*3/uL (160-400); Red Blood Count 4.37 X10*6/uL (4.60-5.80); Red Cell Distribution Width 14.7 % (11.0-16.0); White Blood Count 14.1 X10*3/uL (4.8-10.8)
[2024-12-01 07:40] LABS: VBG Base Excess 5.1 mmol/L; VBG HCO3 30 mmol/L (22-26); VBG pCO2 45 mmHg; VBG pH 7.42 (7.32-7.43); VBG pO2 43 mmHg
[2024-12-01 07:40] LABS: Venous Blood Gas Refer to POC result
[2024-12-01 07:50] LABS: Estimated Average Glucose 260 mg/dL; Hemoglobin A1C 284.0183 umol/L; Hemoglobin A1c % 10.7 % (<6.0); Total Hemoglobin (HGBA1C) 3035.1266 umol/L
[2024-12-01 07:51] LABS: Beta-Hydroxybutyrate 3.76 mmol/L (0.02-0.27); Magnesium 2.6 mg/dL (1.6-2.6)
[2024-12-01 07:54] LABS: Alanine Aminotransferase 36 U/L (0-40); Albumin Level 4.5 g/dL (3.5-5.0); Alkaline Phosphatase 124 U/L (39-117); Anion Gap 24 (12-20); Aspartate Amino Transferase 29 U/L (5-37); Bilirubin Total 0.4 mg/dL (0.0-1.0); Blood Urea Nitrogen 28 mg/dL (9-16); Carbon Dioxide 24 mmol/L (22-29); Chloride 100 mmol/L (96-108); Creatinine Clr Calc Pharmacy 76.1; Estimated Glomerular Filt Rate 56; Glucose Random 185 mg/dL (60-115); Lipase 12 U/L (8-78); Potassium 3.7 mmol/L (3.3-5.1); Sodium 144 mmol/L (135-145); Total Protein 8.4 g/dL (6.5-8.0)
--- NOTE | 2024-12-01 08:00 | PC.NURSE ---
Pt coming with complaints of N/V/D. Pt is a DM1 who has been having POC >300 for the past few days, reports he has still been taking his insulin at home even the past couple of days with his vomiting. Pt continues to actively be vomiting at this time. IV placed, IVF started, labs obtained. Pt reporting he was recently treated for CDiff, finished his course of antibiotics, had normal BMs which has since returned to diarrhea the last couple of days. Pt aware staff needs urine and a stool sample at this time. Call rocha within reach, warm blankets given, awaiting labs and provider at this time.
[2024-12-01] MEDS: ondansetron HCL 4 MG/2 ML VIAL IVPUSH ×2 (08:53→20:20)
[2024-12-01 08:56] LABS: Glucose, Whole Blood 185 mg/dL (60-115)
[2024-12-01] MEDS: Dextrose 5 % and Lactated Ring 1,000 ML 125 ML IVCONT (08:56)
--- NOTE | 2024-12-01 08:56 | ED.NAVMDI ---
HPI - Nausea/Vomiting/Diarrhea General Chief complaint: Nausea/Vomiting/Diarrhea Stated complaint: nausea Time Seen by Provider: 12/01/24 08:04 Source: patient, RN notes reviewed and old records reviewed Mode of arrival: ambulatory History of Present Illness ED Provider: Elvira Morris PA-C HPI Narrative: 34-year-old male with a past medical history of diabetes, gastroparesis, presenting to the ED complaining of abdominal discomfort, nausea, vomiting, diarrhea x yesterday. States he is unable to keep anything down. Reports compliance with his insulin, states glucometer has been reading high at home. Denies fever, chills, CP/SOB, dysuria/hematuria, bloody BMs/emesis Related Data Home Medications ?Medication ?Instructions ?Recorded ?Confirmed insulin glargine 100 unit/mL 30 unit subcut DAILY 02/26/23 09/01/24 subcutaneous solution insulin lispro 100 unit/mL 1 sliding scale dose subcut TIDAC 02/26/23 09/01/24 subcutaneous pen amlodipine 10 mg tablet 10 mg PO DAILY 09/01/24 09/01/24 bupropion HCl 150 mg 24 hr tablet, 150 mg PO DAILY 09/01/24 09/01/24 extended release dicyclomine 10 mg capsule 10 mg PO QID PRN Abdominal Spasm 09/01/24 09/01/24 glucagon 3 mg/actuation nasal 3 mg intranasal Q15M PRN Blood 09/01/24 09/01/24 spray (Baqsimi) Glucose less then 50 hydroxyzine HCl 50 mg tablet 50 mg PO BID PRN anxiety 09/01/24 09/01/24 Previous Rx's ?Medication ?Instructions ?Recorded lisinopril 5 mg tablet 5 mg PO DAILY #30 tabs 09/02/24 omeprazole 20 mg capsule,delayed 20 mg PO DAILY@0630 #30 caps 09/02/24 release vancomycin 125 mg capsule 250 mg (2 x 125 mg) PO Q6H #74 caps 09/02/24 Allergies Allergy/AdvReac Type Severity Reaction Status Date / Time No Known Allergies Allergy Verified 12/01/24 06:43 Review of Systems Review of Systems: Yes all other systems are reviewed and are negative Constitutional: Constitutional: Reports as per [facility] Past Medical History Attestation statement: The following information was validated with the patient. Source: old records reviewed Medical History Type 1 diabetes mellitus Gastroparesis Surgical History History of dental surgery Social History Social History Household Members: None Housing: Apartment Housing Other:: Car Do you presently have visiting nurse or other home services: No Alcohol intake: current Alcohol intake frequency: holidays/special occasions only Patient Tobacco Use Status: Former Tobacco user Second Hand Smoke Exposure: No Use of substances other than those prescribed or required for medical reasons: Yes Substance Use Type: Marijuana Substance Use Frequency: Monthly Last Used Substance: Weeks (ago) Advance Directives: Yes Advance Directives on File: Yes Advance Directives Date on File: 06/22/23 service: No Physical Exam Vital Signs: Vital Signs: Last Vital Signs Temp 97.8 F 12/01/24 14:10 Pulse 127 H 12/01/24 14:10 Resp 16 12/01/24 14:10 BP 165/97 H 12/01/24 14:10 Pulse Ox 99 12/01/24 14:10 O2 Del Method Room Air 12/01/24 14:10 BMI result Body Mass Index 22.4 Const: General: cooperative, healthy appearing and no acute distress Orientation/consciousness: patient oriented x3 Limitations: no limitations HEENT: Head: Yes normal to inspection and Yes atraumatic Ears: hearing grossly normal bilaterally General nose exam: Normal external nose present Face and sinus: Yes normal facial exam Eyes: General: appearance normal, both eyes and all related structures EOM: EOMs intact bilaterally Neck: Neck: Yes normal visual inspection and Yes no meningeal signs Resp: Effort & Inspection: normal respiratory effort and no respiratory distress Auscultation: clear to auscultation bilaterally Cardio: Rate: regular rate Heart sounds: S1 normal heart sound present and S2 normal heart sound present GI: Inspection: Yes normal to inspection Palpation (GI): Soft to palpation, nontender, no guarding and not rigid : General: Yes no CVA tenderness Back/Spine/Pelvis: Back: no CVA tenderness Skin: Rashes: no rashes Wounds: no wounds Neuro: General: patient oriented x3, tone normal and no meningeal signs Cranial nerves: Yes CN's II-XII intact bilaterally Gait exam (Neuro): Normal gait present Extrem: General: Yes normal to inspection Course Course Course Narrative: -0902--leukocytosis of 14.1 > likely reactive from vomiting rather than severe sepsis. No evidence of infectious etiology. H&H stable. -pH 7.42 -glucose 185, anion gap of 24 > likely from ketosis/DKA with mild CRISTI w/ BUN of 28 and creatinine of 1.46. beta hydroxybutyrate 3.76 -A1c 10.7 > patient has received 1L NS > will now give D5 LR and insulin -1142--patient has received 1L NS, 5U insulin, D5LR @125 & repeat chemistry protein unchanged, anion gap remains 24. Creatinine 1.45. Glucose 303 > D5 discontinued, will give additional 1L LR & 5U insulin & recheck -1452--C diff positive. Patient with recurrence of status. Per up-to-date recommendations will start on fidaxomicin -1504--repeat chemistry unchanged. Anion gap remains 24. BUN 24, creatinine 1.46 > will initiate insulin drip and D5 LR and consult public services librarian for ICU admission Medications Administered Generic Name Dose Route Start Last Admin Trade Name Freq PRN Reason Stop Dose Admin Dextrose/Lactated Ringer's 1,000 mls @ 125 mls/hr 12/01/24 08:45 12/01/24 11:55 D5lr IVCONT 0 mls/hr .Q8H PARKER Infusion Discontinued Medications Generic Name Dose Route Start Last Admin Trade Name Freq PRN Reason Stop Dose Admin Diphenhydramine HCl 25 mg 12/01/24 11:32 12/01/24 11:49 Diphenhydramine Hcl 50 Mg/Ml Vial IVPUSH 12/01/24 11:33 25 mg ONCE ONE Administration Sodium Chloride 1,000 mls @ 999 mls/hr 12/01/24 07:45 12/01/24 08:53 Ns IV 12/01/24 08:45 Infused .Q1H1M PARKER Infusion Lactated Ringer's 1,000 mls @ 999 mls/hr 12/01/24 11:45 12/01/24 12:55 Lr IV 12/01/24 12:45 Infused .Q1H1M PARKER Infusion Lactated Ringer's 1,000 mls @ 999 mls/hr 12/01/24 13:00 12/01/24 14:12 Lr IV 12/01/24 14:00 Infused .Q1H1M PARKER Infusion Insulin Human Regular 5 unit 12/01/24 08:45 12/01/24 08:59 Insulin Regular, Human 100 Unit/Ml 10 Ml Vial IVPUSH 12/01/24 08:46 5 unit ONCE ONE Administration Insulin Human Regular 5 unit 12/01/24 11:37 12/01/24 11:53 Insulin Regular, Human 100 Unit/Ml 10 Ml Vial IVPUSH 12/01/24 11:38 5 unit ONCE ONE Administration Insulin Human Regular 5 unit 12/01/24 12:52 12/01/24 13:29 Insulin Regular, Human 100 Unit/Ml 10 Ml Vial IVPUSH 12/01/24 12:53 5 unit ONCE ONE Administration Metoclopramide HCl 10 mg 12/01/24 11:32 12/01/24 11:42 Metoclopramide Hcl 10 Mg/2 Ml Vial IVPUSH 12/01/24 11:33 10 mg ONCE ONE Administration Ondansetron HCl 4 mg 12/01/24 08:45 12/01/24 08:53 Ondansetron Hcl 4 Mg/2 Ml Vial IVPUSH 12/01/24 08:46 4 mg ONCE ONE Administration Medical Decision Making Medical Decision Making MDM Narrative: 34-year-old male with a past medical history of diabetes, gastroparesis, presenting to the ED complaining of abdominal discomfort, nausea, vomiting, diarrhea x yesterday. On exam hypertensive, tachycardic, abdomen is soft, nontender. Concern for hyperglycemia/DKA vs dehydration vs gastroenteritis vs food poisoning. Lower suspicion for acute appendicitis/diverticulitis, pancreatitis or cholecystitis/lithiasis at this time with nontender abdomen. Unlikely renal stone. Low suspicion for severe sepsis as vital sign abnormalities likely from dehydration Plan: EKG, labs, UA, viral testing, IVF, stool studies, anticipated admission Please refer to course for remaining clinical decision making, interpretation of labs/imaging results, and discussions with consultants and/or family members. Differential Diagnosis Differential Diagnoses: The differential diagnosis associated with the presentation includes As above Admission/Observation Consideration of admission/observation: Escalation of care including admission/observation considered Consult Healthcare Provider Management of the patient was discussed with: Hospitalist (public services librarian ) Lab Data [facility] Lab Attestation statement: I reviewed the patient's lab results. 12/01/24 07:31 12/01/24 14:19 Labs: Lab Results 12/01/24 12/01/24 12/01/24 Range/Units 07:31 07:36 08:52 WBC 14.1 H (4.8-10.8) X10*3/uL RBC 4.37 L D (4.60-5.80) X10*6/uL Hgb 11.9 L D (14.0-18.0) g/dl Hct 35.4 L D (42.0-52.0) % MCV 81.0 (80.0-98.0) fL MCH 27.2 (27.0-33.0) pg MCHC 33.6 (31.0-36.0) g/dl RDW 14.7 (11.0-16.0) % Plt Count 453 H (160-400) X10*3/uL MPV 9.8 (9.4-12.4) fL Immature Gran % (Auto) 0.4 (0.0-0.4) % Neut % (Auto) 85.7 H (45-73) % Lymph % (Auto) 10.0 L (20-40) % [place] % (Auto) 3.5 (2-11) % Eos % (Auto) 0.1 (0-4) % Baso % (Auto) 0.3 (0-2) % Lymph # (Auto) 1.4 (1.2-4.9) X10*3/uL [place] # (Auto) 0.5 (0.1-1.2) X10*3/uL Eos # (Auto) 0.0 (0.0-0.4) X10*3/uL Baso # (Auto) 0.0 (0.0-0.2) X10*3/uL Abs Immat Gran (auto) 0.06 H (0.00-0.03) X10*3/uL Absolute Neuts (auto) 12.1 H (2.0-8.3) x10*3/uL Absolute Nucleated RBC 0.000 (0.0-0.012) X10*3/uL Nucleated RBC % (auto) 0.0 (0.0-0.2) /100WBC VBG pH 7.42 (7.32-7.43) VBG pCO2 45 mmHg VBG pO2 43 mmHg VBG HCO3 30 H (22-26) mmol/L VBG O2 Saturation 66.0 % VBG Base Excess 5.1 mmol/L Sodium 144 (135-145) mmol/L Potassium 3.7 (3.3-5.1) mmol/L Chloride 100 (96-108) mmol/L Carbon Dioxide 24 (22-29) mmol/L Anion Gap 24 H (12-20) BUN 28 H (9-16) mg/dL Creatinine 1.46 H (0.5-1.4) mg/dL Estim Creat Clear Calc 76.1 Estimated GFR 56 POC Glucose 185 H (60-115) mg/dL Random Glucose 185 H (60-115) mg/dL Estimat Average Glucose 260 mg/dL Hemoglobin A1c % 10.7 H (<6.0) % Calcium 10.0 D (8.4-10.2) mg/dL Magnesium 2.6 (1.6-2.6) mg/dL Total Bilirubin 0.4 (0.0-1.0) mg/dL AST 29 (5-37) U/L ALT 36 (0-40) U/L Alkaline Phosphatase 124 H (39-117) U/L Total Protein 8.4 H (6.5-8.0) g/dL Albumin 4.5 (3.5-5.0) g/dL Lipase 12 (8-78) U/L Beta-Hydroxybutyrate 3.76 H (0.02-0.27) mmol/L C. difficile Tox B Gene (Negative) 12/01/24 12/01/24 12/01/24 Range/Units 10:07 11:12 12:50 WBC (4.8-10.8) X10*3/uL RBC (4.60-5.80) X10*6/uL Hgb (14.0-18.0) g/dl Hct (42.0-52.0) % MCV (80.0-98.0) fL MCH (27.0-33.0) pg MCHC (31.0-36.0) g/dl RDW (11.0-16.0) % Plt Count (160-400) X10*3/uL MPV (9.4-12.4) fL Immature Gran % (Auto) (0.0-0.4) % Neut % (Auto) (45-73) % Lymph % (Auto) (20-40) % [place] % (Auto) (2-11) % Eos % (Auto) (0-4) % Baso % (Auto) (0-2) % Lymph # (Auto) (1.2-4.9) X10*3/uL [place] # (Auto) (0.1-1.2) X10*3/uL Eos # (Auto) (0.0-0.4) X10*3/uL Baso # (Auto) (0.0-0.2) X10*3/uL Abs Immat Gran (auto) (0.00-0.03) X10*3/uL Absolute Neuts (auto) (2.0-8.3) x10*3/uL Absolute Nucleated RBC (0.0-0.012) X10*3/uL Nucleated RBC % (auto) (0.0-0.2) /100WBC VBG pH (7.32-7.43) VBG pCO2 mmHg VBG pO2 mmHg VBG HCO3 (22-26) mmol/L VBG O2 Saturation % VBG Base Excess mmol/L Sodium 143 (135-145) mmol/L Potassium 3.9 (3.3-5.1) mmol/L Chloride 101 (96-108) mmol/L Carbon Dioxide 22 (22-29) mmol/L Anion Gap 24 H (12-20) BUN 26 H (9-16) mg/dL Creatinine 1.45 H (0.5-1.4) mg/dL Estim Creat Clear Calc 76.7 Estimated GFR 56 POC Glucose 148 H 301 H (60-115) mg/dL Random Glucose 303 H (60-115) mg/dL Estimat Average Glucose mg/dL Hemoglobin A1c % (<6.0) % Calcium 9.0 D (8.4-10.2) mg/dL Magnesium (1.6-2.6) mg/dL Total Bilirubin (0.0-1.0) mg/dL AST (5-37) U/L ALT (0-40) U/L Alkaline Phosphatase (39-117) U/L Total Protein (6.5-8.0) g/dL Albumin (3.5-5.0) g/dL Lipase (8-78) U/L Beta-Hydroxybutyrate (0.02-0.27) mmol/L C. difficile Tox B Gene (Negative) 12/01/24 12/01/24 Range/Units 13:39 14:19 WBC (4.8-10.8) X10*3/uL RBC (4.60-5.80) X10*6/uL Hgb (14.0-18.0) g/dl Hct (42.0-52.0) % MCV (80.0-98.0) fL MCH (27.0-33.0) pg MCHC (31.0-36.0) g/dl RDW (11.0-16.0) % Plt Count (160-400) X10*3/uL MPV (9.4-12.4) fL Immature Gran % (Auto) (0.0-0.4) % Neut % (Auto) (45-73) % Lymph % (Auto) (20-40) % [place] % (Auto) (2-11) % Eos % (Auto) (0-4) % Baso % (Auto) (0-2) % Lymph # (Auto) (1.2-4.9) X10*3/uL [place] # (Auto) (0.1-1.2) X10*3/uL Eos # (Auto) (0.0-0.4) X10*3/uL Baso # (Auto) (0.0-0.2) X10*3/uL Abs Immat Gran (auto) (0.00-0.03) X10*3/uL Absolute Neuts (auto) (2.0-8.3) x10*3/uL Absolute Nucleated RBC (0.0-0.012) X10*3/uL Nucleated RBC % (auto) (0.0-0.2) /100WBC VBG pH (7.32-7.43) VBG pCO2 mmHg VBG pO2 mmHg VBG HCO3 (22-26) mmol/L VBG O2 Saturation % VBG Base Excess mmol/L Sodium 144 (135-145) mmol/L Potassium 3.8 (3.3-5.1) mmol/L Chloride 103 (96-108) mmol/L Carbon Dioxide 21 L (22-29) mmol/L Anion Gap 24 H (12-20) BUN 24 H (9-16) mg/dL Creatinine 1.46 H (0.5-1.4) mg/dL Estim Creat Clear Calc 76.1 Estimated GFR 56 POC Glucose (60-115) mg/dL Random Glucose 264 H (60-115) mg/dL Estimat Average Glucose mg/dL Hemoglobin A1c % (<6.0) % Calcium 9.3 (8.4-10.2) mg/dL Magnesium (1.6-2.6) mg/dL Total Bilirubin (0.0-1.0) mg/dL AST (5-37) U/L ALT (0-40) U/L Alkaline Phosphatase (39-117) U/L Total Protein (6.5-8.0) g/dL Albumin (3.5-5.0) g/dL Lipase (8-78) U/L Beta-Hydroxybutyrate (0.02-0.27) mmol/L C. difficile Tox B Gene POSITIVE A* (Negative) Independent Interpretation I performed an independent interpretation of an: EKG (My interpretation EKG sinus tachycardia with fusion complexes rate of 109. NC interval 144. Patient compresses now present when compared to prior. No STEMI ) Radiology Impression Discussion of test interpretation with radiology: I have reviewed the radiologist's reading. External Record Review External record reviewed: Inpatient record, Office record, Outpatient record, Prior outpatient labs, Prior outpatient radiology, Primary care record and Outside ED record Tests considered The following testing was considered but not selected: As above Prescription Management I considered prescription management with: Pain Medication, Antibiotic and Other Chronic Conditions Patient?s care impacted by: Diabetes Social Determinants Patient?s care significantly limited by Social Determinants of Health including: Other Social Determinant of Health Critical Care Time Critical Care Time Critical Care Time: Yes Total Critical Care Time: 60 Attestation: I have personally provided critical care time exclusive of time spent on separately billable procedures. Time includes review of lab data, radiology results, discussion with consultants, and monitoring for potential decompensation. Intervention performed as documented. Discharge Plan Discharge Clinical Impression: DKA (diabetic ketoacidosis), C. difficile colitis Patient Disposition: Admitted As Inpatient Print Language: Thai
[2024-12-01] MEDS: Insulin Regular, Human 100 UNIT/ML 10 ML VIAL IVPUSH ×3 (08:59→13:29)
--- NOTE | 2024-12-01 09:07 | PC.NURSE ---
Pt updated on plan, IVF started, insuin given, POC 185 prior to admin. Pt currently sleeping on his stomach in bed, vomiting has seemed to ease at this time.
[2024-12-01 10:11] LABS: Glucose, Whole Blood 148 mg/dL (60-115)
[2024-12-01 11:33] LABS: Anion Gap 24 (12-20); Blood Urea Nitrogen 26 mg/dL (9-16); Carbon Dioxide 22 mmol/L (22-29); Chloride 101 mmol/L (96-108); Creatinine Clr Calc Pharmacy 76.7; Estimated Glomerular Filt Rate 56; Glucose Random 303 mg/dL (60-115); Potassium 3.9 mmol/L (3.3-5.1); Sodium 143 mmol/L (135-145)
[2024-12-01] MEDS: Metoclopramide HCl 10 MG/2 ML VIAL IVPUSH (11:42)
[2024-12-01] MEDS: diphenhydrAMINE HCL 50 MG/ML VIAL 25 MG IVPUSH (11:49)
[2024-12-01] MEDS: Lactated Ringers 1,000 ML 999 ML IV ×2 (11:55→13:27)
[2024-12-01 12:53] LABS: Glucose, Whole Blood 301 mg/dL (60-115)
[2024-12-01 14:34] LABS: CDiff Gene PCR POSITIVE (Negative)
[2024-12-01 14:53] LABS: Anion Gap 24 (12-20); Blood Urea Nitrogen 24 mg/dL (9-16); Calcium 9.3 mg/dL (8.4-10.2); Carbon Dioxide 21 mmol/L (22-29); Chloride 103 mmol/L (96-108); Creatinine Clr Calc Pharmacy 76.1; Estimated Glomerular Filt Rate 56; Glucose Random 264 mg/dL (60-115); Potassium 3.8 mmol/L (3.3-5.1); Sodium 144 mmol/L (135-145)
[2024-12-01 15:20] LABS: CDIFF Internal ctrl Dots and bkg OK (V); CDiff Toxin Negative (Negative)
[2024-12-01] MEDS: Insulin Regular/NS 100 UNIT/100 ML PLAST..BAG 7.5 UNIT IVCONT (15:23)
--- NOTE | 2024-12-01 15:29 | P.HPCC_ITS ---
History of Present Illness Date of Service: 12/01/24 Chief Complaint: Nausea, vomiting, diarrhea 34-year-old gentleman with underlying diabetes mellitus and prior episode of C diff presenting complaining of 1 day history of nausea, vomiting, diarrhea and hypoglycemia. On ER evaluation patient with mild diabetic ketoacidosis and multiple bouts diarrhea positive pauci diff. of note, recently treated with the vancomycin regimen. Patient started on fidaxomicin, insulin drip, IV fluids, and admitted to the intensive care unit. Review of Systems 2 Constitutional: Constitutional: Denies daytime sleepiness, Denies excessive sweating, Denies fatigue, Denies fever(s), Denies lethargy, Denies malaise, Denies night sweats, Denies snoring and Denies weight loss Eyes: Eyes: Denies blurry vision and Denies itchy eyes ENT: Denies nasal congestion, Denies post nasal drip, Denies sinus pain, Denies sinus pressure and Denies other ( Thrush) Cardiovascular: Cardiovascular: Denies chest pain, Denies pedal edema, Denies dyspnea, Denies orthopnea and Denies paroxysmal nocturnal dyspnea Respiratory: Respiratory: Denies cough, Denies hemoptysis, Denies excessive phlegm production, Denies dyspnea, Denies snoring and Denies wheezing Gastrointestinal: Gastrointestinal: Denies abdominal pain, Denies heartburn, Reports diarrhea, Reports nausea and Reports vomiting Musculoskeletal: Musculoskeletal: Denies myalgias, Denies arthralgias and Denies joint swelling Integumentary/Breasts: Skin/Breast: Denies rash Neurologic: Denies memory loss and Denies seizure-like activity Psychiatric: Psychiatric: Denies abnormal sleep pattern, Denies anxiety and Denies memory loss Endocrine: Endocrine: Denies excessive sweating, Denies fatigue and Denies heat intolerance Hematologic/Lymphatic: Hematologic/Lymphatic: Denies easy bruising Allergic/Immunologic: Allergic/Immunologic: Denies itchy eyes, Denies seasonal rhinorrhea and Denies wheezing PMFSH Past Medical History Medical History Type 1 diabetes mellitus Gastroparesis Surgical History Surgical History History of dental surgery Social History Social History Household Members: None Housing: Apartment Housing Other:: Car Do you presently have visiting nurse or other home services: No Alcohol intake: current Alcohol intake frequency: holidays/special occasions only Patient Tobacco Use Status: Former Tobacco user Second Hand Smoke Exposure: No Use of substances other than those prescribed or required for medical reasons: Yes Substance Use Type: Marijuana Substance Use Frequency: Monthly Last Used Substance: Weeks (ago) Advance Directives: Yes Advance Directives on File: Yes Advance Directives Date on File: 06/22/23 service: No Meds Allergies Allergy/AdvReac Type Severity Reaction Status Date / Time No Known Allergies Allergy Verified 12/01/24 06:43 Active Medications: Current Medications Dextrose (Dextrose 50 % 25 Gm/50 Ml Syringe) 25 gm IVPUSH Q30M PRN PRN Reason: BG < 70 Fidaxomicin (Fidaxomicin 200 Mg Tablet) 200 mg PO Q12H PARKER Heparin Sodium (Porcine) (Heparin Sodium,Porcine 5,000 Unit/Ml Vial) 5,000 unit SUBCUT Q8H PARKER Dextrose/Lactated Ringer's (D5lr) 1,000 mls @ 125 mls/hr IVCONT .Q8H PARKER Last Infusion: 12/01/24 15:11 Dose: 125 mls/hr Insulin Human Regular (Myxredlin) 100 unit in 100 mls @ 7.5 mls/hr IVCONT .[id number] PARKER; Protocol Last Admin: 12/01/24 15:23 Dose: 7.5 unit/hr, 7.5 mls/hr Home Medications ?Medication ?Instructions ?Recorded ?Confirmed ?Last Taken ?Type insulin glargine 100 unit/mL 30 unit subcut DAILY 02/26/23 09/01/24 3 Days Ago History subcutaneous solution ~08/29/24 insulin lispro 100 unit/mL 1 sliding scale dose subcut TIDAC 02/26/23 09/01/24 3 Days Ago History subcutaneous pen ~08/29/24 amlodipine 10 mg tablet 10 mg PO DAILY 09/01/24 09/01/24 3 Days Ago History ~08/29/24 bupropion HCl 150 mg 24 hr tablet, 150 mg PO DAILY 09/01/24 09/01/24 3 Days Ago History extended release ~08/29/24 dicyclomine 10 mg capsule 10 mg PO QID PRN Abdominal Spasm 09/01/24 09/01/24 Unknown History glucagon 3 mg/actuation nasal 3 mg intranasal Q15M PRN Blood 09/01/24 09/01/24 Unknown History spray (Baqsimi) Glucose less then 50 hydroxyzine HCl 50 mg tablet 50 mg PO BID PRN anxiety 09/01/24 09/01/24 Unknown History carvedilol 6.25 mg tablet 6.25 mg PO BID 12/01/24 Unknown History polyethylene glycol 3350 17 17 g PO DAILY 12/01/24 Unknown History gram/dose oral powder Physical Exam 2 Vital Signs: Vital Signs: Last Vital Signs Temp 97.8 F 12/01/24 14:10 Pulse 127 H 12/01/24 14:10 Resp 16 12/01/24 14:10 BP 165/97 H 12/01/24 14:10 Pulse Ox 99 12/01/24 14:10 O2 Del Method Room Air 12/01/24 14:10 BMI result Body Mass Index 22.4 Const: General: no acute distress and alert Nutritional Appearance: not obese Orientation/consciousness: Other orientation findings ( oriented) HEENT: Head: Yes atraumatic Eyes: General: appearance normal, both eyes and all related structures S clerae: sclerae normal EOM: EOMs intact bilaterally Neck: Neck: Yes supple Lymphatic: no lymphadenopathy noted Resp: Effort & Inspection: normal respiratory effort and no use of accessory muscles Auscultation: clear to auscultation bilaterally Cardio: Rate: tachycardic Rhythm: regular rhythm Heart sounds: no gallops, no murmurs and no rubs GI: Palpation (GI): Soft to palpation and Other GI palpation findings present ( Nontender) Auscultation: normal bowel sounds Skin: General skin exam: other ( warm) Extrem: General: No clubbing, No cyanosis and No edema Results Labs 12/01/24 07:31 12/01/24 14:19 Labs: Laboratory Results - last 24 hr 12/01/24 12/01/24 12/01/24 07:31 07:36 08:52 MCV 81.0 MCH 27.2 MCHC 33.6 RDW 14.7 Plt Count 453 H MPV 9.8 Immature Gran % (Auto) 0.4 Neut % (Auto) 85.7 H Lymph % (Auto) 10.0 L [place] % (Auto) 3.5 Eos % (Auto) 0.1 Baso % (Auto) 0.3 Lymph # (Auto) 1.4 [place] # (Auto) 0.5 Eos # (Auto) 0.0 Baso # (Auto) 0.0 Abs Immat Gran (auto) 0.06 H Absolute Neuts (auto) 12.1 H Absolute Nucleated RBC 0.000 Nucleated RBC % (auto) 0.0 VBG pH 7.42 VBG pCO2 45 VBG pO2 43 VBG HCO3 30 H VBG O2 Saturation 66.0 VBG Base Excess 5.1 Anion Gap 24 H Estim Creat Clear Calc 76.1 Estimated GFR 56 POC Glucose 185 H Random Glucose 185 H Estimat Average Glucose 260 Hemoglobin A1c % 10.7 H Calcium 10.0 D Magnesium 2.6 Total Bilirubin 0.4 AST 29 ALT 36 Alkaline Phosphatase 124 H Total Protein 8.4 H Albumin 4.5 Lipase 12 Beta-Hydroxybutyrate 3.76 H C. difficile Tox B Gene C. difficile Toxin A&B C. difficile Interpret 12/01/24 12/01/24 12/01/24 10:07 11:12 12:50 MCV MCH MCHC RDW Plt Count MPV Immature Gran % (Auto) Neut % (Auto) Lymph % (Auto) [place] % (Auto) Eos % (Auto) Baso % (Auto) Lymph # (Auto) [place] # (Auto) Eos # (Auto) Baso # (Auto) Abs Immat Gran (auto) Absolute Neuts (auto) Absolute Nucleated RBC Nucleated RBC % (auto) VBG pH VBG pCO2 VBG pO2 VBG HCO3 VBG O2 Saturation VBG Base Excess Anion Gap 24 H Estim Creat Clear Calc 76.7 Estimated GFR 56 POC Glucose 148 H 301 H Random Glucose 303 H Estimat Average Glucose Hemoglobin A1c % Calcium 9.0 D Magnesium Total Bilirubin AST ALT Alkaline Phosphatase Total Protein Albumin Lipase Beta-Hydroxybutyrate C. difficile Tox B Gene C. difficile Toxin A&B C. difficile Interpret 12/01/24 12/01/24 13:39 14:19 MCV MCH MCHC RDW Plt Count MPV Immature Gran % (Auto) Neut % (Auto) Lymph % (Auto) [place] % (Auto) Eos % (Auto) Baso % (Auto) Lymph # (Auto) [place] # (Auto) Eos # (Auto) Baso # (Auto) Abs Immat Gran (auto) Absolute Neuts (auto) Absolute Nucleated RBC Nucleated RBC % (auto) VBG pH VBG pCO2 VBG pO2 VBG HCO3 VBG O2 Saturation VBG Base Excess Anion Gap 24 H Estim Creat Clear Calc 76.1 Estimated GFR 56 POC Glucose Random Glucose 264 H Estimat Average Glucose Hemoglobin A1c % Calcium 9.3 Magnesium Total Bilirubin AST ALT Alkaline Phosphatase Total Protein Albumin Lipase Beta-Hydroxybutyrate C. difficile Tox B Gene POSITIVE A* C. difficile Toxin A&B Negative C. difficile Interpret SEE NOTE Assessment and Plan (1) DKA (diabetic ketoacidosis): Status: Acute (2) C. difficile diarrhea: Status: Acute Plan Assessment: 54-year-old gentleman admitted with diabetic ketoacidosis and recurrent C diff diarrhea. Plan: Neuro: No acute issues. Cardiac: No acute issues. Pulmonary: No acute issues. Renal: CRISTI, likely secondary to intravascular volume depletion on the background of DKA and proceed diff. Non oliguric. Continue to monitor renal indices and urine output. Endo: Diabetic ketoacidosis, continue on insulin drip protocol. GI: Recurrent C diff. Start fidaxomicin. Infectious disease service consulted. ID: No acute issues Heme/Onc: No acute issues. Psych: No acute issues. Miscellaneous: No acute issues. Prophylaxis: Heparin Diet: NPO
[2024-12-01 16:19] LABS: Glucose, Whole Blood 294 mg/dL (60-115)
[2024-12-01] MEDS: Fidaxomicin 200 MG TABLET PO (16:22)
[2024-12-01] MEDS: Heparin Sodium,Porcine 5,000 UNIT/ML VIAL 5000 UNIT SUBCUT ×2 (16:22→22:59)
[2024-12-01] MEDS: fentaNYL citrate/PF 100 MCG/2 ML VIAL 50 MCG IVPUSH ×3 (16:38→21:44)
[2024-12-01 16:52] LABS: Glucose, Whole Blood 202 mg/dL (60-115)
[2024-12-01] MEDS: Dextrose 5 % and Lactated Ring 1,000 ML 250 ML IVCONT ×2 (17:59→21:46)
[2024-12-01 18:04] LABS: Glucose, Whole Blood 136 mg/dL (60-115)
[2024-12-01 18:18] LABS: Appearance Urine Clear; Color Urine Yellow; Glucose Urine UA >=1000 mg/dL (Negative); Leukocyte Esterase Urine Negative (Negative); Nitrite Urine Negative (Negative); PH 5.5 (5.0-9.0); Specific Gravity - Urine 1.025 (1.005-1.025); UMIC TRIGGER UACC YES; Urine Blood Moderate (2+) (Negative); Urine Ketones >=160 mg/dL (Negative); Urine Protein 300 (3+) mg/dL (Neg-Trace)
[2024-12-01 18:23] LABS: Bacteria Urine None Seen (None Seen); Hyaline Casts Urine 0-2 /LPF (0-2); Squamous Epithelial Cell Urine 0-2 /HPF (0-2); WBC Urine 0-5 /HPF (0-5)
[2024-12-01 19:10] LABS: Glucose, Whole Blood 127 mg/dL (60-115)
[2024-12-01 20:04] LABS: Glucose, Whole Blood 133 mg/dL (60-115)
--- NOTE | 2024-12-01 20:31 | PHA.MEDREC ---
Pharmacy Consult ? Medication Reconciliation Pharmacy has completed the medication reconciliation, spoke to patient to confirm medications - no longer on lisinopril, miralax and vancomycin capsules.
[2024-12-01 20:40] LABS: Anion Gap 18 (12-20); Blood Urea Nitrogen 19 mg/dL (9-16); Calcium 8.6 mg/dL (8.4-10.2); Carbon Dioxide 24 mmol/L (22-29); Chloride 106 mmol/L (96-108); Creatinine Clr Calc Pharmacy 95.8; Estimated Glomerular Filt Rate > 60; Glucose Random 147 mg/dL (60-115); Magnesium 1.8 mg/dL (1.6-2.6); Phosphorus 1.4 mg/dL (2.7-4.5); Potassium 3.4 mmol/L (3.3-5.1); Sodium 145 mmol/L (135-145)
[2024-12-01 21:16] LABS: Glucose, Whole Blood 151 mg/dL (60-115)
[2024-12-01] MEDS: Potassium Phosphate/NS 15 MMOL/250 ML PLAST..BAG 62.5 MMOL IV (21:27)
[2024-12-01 22:04] LABS: Glucose, Whole Blood 154 mg/dL (60-115)
[2024-12-01] MEDS: HYDROmorphone HCl 1 MG/ML SYRINGE IVPUSH (22:53)
[2024-12-01 22:58] LABS: Glucose, Whole Blood 152 mg/dL (60-115)
[2024-12-01 23:57] LABS: Glucose, Whole Blood 146 mg/dL (60-115)
[2024-12-02] VITALS (21 sets, daily range): BP systolic 126–173; BP diastolic 83–116; PULSE 86–100; RESP 13–20; TEMP 36.2–36.9; O2SAT 90–98; BMI 22.6
[2024-12-02 01:07] LABS: Glucose, Whole Blood 156 mg/dL (60-115)
[2024-12-02] MEDS: Dextrose 5 % and Lactated Ring 1,000 ML 250 ML IVCONT ×2 (01:11→04:56)
[2024-12-02] MEDS: HYDROmorphone HCl 1 MG/ML SYRINGE IVPUSH ×6 (01:18→13:37)
[2024-12-02 01:53] LABS: Glucose, Whole Blood 138 mg/dL (60-115)
[2024-12-02] MEDS: ondansetron HCL 4 MG/2 ML VIAL IVPUSH ×4 (02:48→18:39)
[2024-12-02 03:05] LABS: Glucose, Whole Blood 136 mg/dL (60-115)
[2024-12-02 03:58] LABS: Glucose, Whole Blood 185 mg/dL (60-115)
[2024-12-02 05:25] LABS: VBG Base Excess 7.8 mmol/L; VBG HCO3 30 mmol/L (22-26); VBG pCO2 34 mmHg; VBG pH 7.55 (7.32-7.43); VBG pO2 85 mmHg
[2024-12-02 05:25] LABS: Glucose, Whole Blood 165 mg/dL (60-115)
[2024-12-02 05:34] LABS: MANUAL DIFF FLAG NO
[2024-12-02 05:35] LABS: Basophils Percent Auto 0.3 % (0-2); Eosinophils Percent Auto 0.1 % (0-4); Hematocrit 27.4 % (42.0-52.0); Imm Gran Abs Auto 0.04 X10*3/uL (0.00-0.03); Imm Gran Pct Auto 0.3 % (0.0-0.4); Lymphocytes Absolute Auto 1.5 X10*3/uL (1.2-4.9); Lymphocytes Percent Auto 12.3 % (20-40); Mean Corpuscular HGB Conc 32.8 g/dl (31.0-36.0); Mean Corpuscular Hemoglobin 26.9 pg (27.0-33.0); Mean Platelet Volume 9.6 fL (9.4-12.4); Monocytes Absolute Auto 1.1 X10*3/uL (0.1-1.2); Monocytes Percent Auto 9.3 % (2-11); Neutrophils Absolute Auto 9.2 x10*3/uL (2.0-8.3); Neutrophils Percent Auto 77.7 % (45-73); Platelet Count 315 X10*3/uL (160-400); Red Blood Count 3.34 X10*6/uL (4.60-5.80); Red Cell Distribution Width 14.8 % (11.0-16.0); White Blood Count 11.8 X10*3/uL (4.8-10.8)
[2024-12-02 05:58] LABS: Anion Gap 16 (12-20); Blood Urea Nitrogen 15 mg/dL (9-16); Calcium 8.4 mg/dL (8.4-10.2); Carbon Dioxide 25 mmol/L (22-29); Chloride 109 mmol/L (96-108); Estimated Glomerular Filt Rate > 60; Glucose Random 193 mg/dL (60-115); Magnesium 1.7 mg/dL (1.6-2.6); Phosphorus 2.9 mg/dL (2.7-4.5); Potassium 3.6 mmol/L (3.3-5.1); Sodium 146 mmol/L (135-145)
[2024-12-02 06:23] LABS: Glucose, Whole Blood 172 mg/dL (60-115)
[2024-12-02 06:39] LABS: Venous Blood Gas Refer to POC result
[2024-12-02 07:19] LABS: Glucose, Whole Blood 168 mg/dL (60-115)
[2024-12-02 08:02] LABS: Glucose, Whole Blood 170 mg/dL (60-115)
[2024-12-02] MEDS: Heparin Sodium,Porcine 5,000 UNIT/ML VIAL 5000 UNIT SUBCUT ×3 (08:33→22:06)
[2024-12-02] MEDS: Insulin Glargine,Hum.rec.anlog 100 UNIT/ML 10 ML VIAL 30 UNIT SUBCUT (08:34)
[2024-12-02] MEDS: amLODIPine Besylate 10 MG TABLET PO (08:36)
[2024-12-02] MEDS: Potassium Chloride/H20 10 MEQ/100 ML PIGGYBACK 100 MEQ IV ×2 (08:54→13:40)
[2024-12-02] MEDS: Albumin Human 25 % 100 ML IV ×2 (08:54→13:37)
[2024-12-02] MEDS: Lactated Ringers 1,000 ML 150 ML IVCONT ×3 (08:55→22:06)
[2024-12-02 09:43] LABS: Glucose, Whole Blood 167 mg/dL (60-115)
--- NOTE | 2024-12-02 09:52 | MHC.CM.PN ---
Met with pt to discuss d/c planning needs: pt states he has been residing in his vehicle and working for [employer]: he states he has a new job starting in December that offers housing. Pt has no barriers to obtaining DM meds/supplies - declined community housing information and states he follows with PCP regularly for DM management. No additional services expected at this time. Pt has own transportation from [facility] [place].
--- NOTE | 2024-12-02 10:03 | P.PNCC_ITS ---
Subjective Subjective Date of Service: 12/02/24 Interval History: 34-year-old gentleman with underlying diabetes mellitus and prior episode of C diff presenting complaining of 1 day history of nausea, vomiting, diarrhea and hypoglycemia. On ER evaluation patient with mild diabetic ketoacidosis and multiple bouts diarrhea positive pauci diff. of note, recently treated with the vancomycin regimen. Patient started on fidaxomicin, insulin drip, IV fluids, and admitted to the intensive care unit. No events overnight. Titrated off insulin drip. Continues with diarrhea. Critical Care Time (minutes): 0 Physical Exam 2 Vital Signs: Vital Signs: Last Vital Signs Temp 97.1 F 12/02/24 07:38 Pulse 86 12/02/24 09:00 Resp 18 12/02/24 09:00 BP 167/102 H 12/02/24 09:00 Pulse Ox 94 12/02/24 09:00 O2 Del Method Nasal Cannula 12/02/24 09:00 O2 Flow Rate 1 12/02/24 09:00 BMI result Body Mass Index 22.6 Const: General: no acute distress, alert and awake Eyes: Sclerae: sclerae normal EOM: EOMs intact bilaterally Neck: Neck: Yes no lymphadenopathy, Yes trachea midline and Yes supple Resp: Effort & Inspection: normal respiratory effort and no respiratory distress Auscultation: clear to auscultation bilaterally Cardio: Rate: regular rate Rhythm: regular rhythm Heart sounds: no gallops, no murmurs and no rubs GI: Palpation (GI): Soft to palpation and Other GI palpation findings present ( Nontender) Auscultation: normal bowel sounds Extrem: General: Yes no pedal edema, No clubbing and No cyanosis Objective Data Labs 12/02/24 05:18 12/02/24 05:18 Labs: Laboratory Results - last 24 hr 12/01/24 12/01/24 12/01/24 10:07 11:12 12:50 WBC RBC Hgb Hct MCV MCH MCHC RDW Plt Count MPV Immature Gran % (Auto) Neut % (Auto) Lymph % (Auto) [place] % (Auto) Eos % (Auto) Baso % (Auto) Lymph # (Auto) [place] # (Auto) Eos # (Auto) Baso # (Auto) Abs Immat Gran (auto) Absolute Neuts (auto) Absolute Nucleated RBC Nucleated RBC % (auto) VBG pH VBG pCO2 VBG pO2 VBG HCO3 VBG O2 Saturation VBG Base Excess Sodium 143 Potassium 3.9 Chloride 101 Carbon Dioxide 22 Anion Gap 24 H BUN 26 H Creatinine 1.45 H Estim Creat Clear Calc 76.7 Estimated GFR 56 POC Glucose 148 H 301 H Random Glucose 303 H Calcium 9.0 D Phosphorus Magnesium Albumin Urine Color Urine Appearance Urine pH Ur Specific [place] Urine Protein Urine Glucose (UA) Urine Ketones Urine Blood Urine Nitrite Ur Leukocyte Esterase Urine RBC Urine WBC Ur Squamous Epith Cells Urine Bacteria Hyaline Casts C. difficile Tox B Gene C. difficile Toxin A&B C. difficile Interpret 12/01/24 12/01/24 12/01/24 13:39 14:19 15:21 WBC RBC Hgb Hct MCV MCH MCHC RDW Plt Count MPV Immature Gran % (Auto) Neut % (Auto) Lymph % (Auto) [place] % (Auto) Eos % (Auto) Baso % (Auto) Lymph # (Auto) [place] # (Auto) Eos # (Auto) Baso # (Auto) Abs Immat Gran (auto) Absolute Neuts (auto) Absolute Nucleated RBC Nucleated RBC % (auto) VBG pH VBG pCO2 VBG pO2 VBG HCO3 VBG O2 Saturation VBG Base Excess Sodium 144 Potassium 3.8 Chloride 103 Carbon Dioxide 21 L Anion Gap 24 H BUN 24 H Creatinine 1.46 H Estim Creat Clear Calc 76.1 Estimated GFR 56 POC Glucose 294 H Random Glucose 264 H Calcium 9.3 Phosphorus Magnesium Albumin Urine Color Urine Appearance Urine pH Ur Specific [place] Urine Protein Urine Glucose (UA) Urine Ketones Urine Blood Urine Nitrite Ur Leukocyte Esterase Urine RBC Urine WBC Ur Squamous Epith Cells Urine Bacteria Hyaline Casts C. difficile Tox B Gene POSITIVE A* C. difficile Toxin A&B Negative C. difficile Interpret SEE NOTE 12/01/24 12/01/24 12/01/24 16:48 18:00 18:06 WBC RBC Hgb Hct MCV MCH MCHC RDW Plt Count MPV Immature Gran % (Auto) Neut % (Auto) Lymph % (Auto) [place] % (Auto) Eos % (Auto) Baso % (Auto) Lymph # (Auto) [place] # (Auto) Eos # (Auto) Baso # (Auto) Abs Immat Gran (auto) Absolute Neuts (auto) Absolute Nucleated RBC Nucleated RBC % (auto) VBG pH VBG pCO2 VBG pO2 VBG HCO3 VBG O2 Saturation VBG Base Excess Sodium Potassium Chloride Carbon Dioxide Anion Gap BUN Creatinine Estim Creat Clear Calc Estimated GFR POC Glucose 202 H 136 H Random Glucose Calcium Phosphorus Magnesium Albumin Urine Color Yellow Urine Appearance Clear Urine pH 5.5 Ur Specific [place] 1.025 Urine Protein 300 (3+) H Urine Glucose (UA) >=1000 H Urine Ketones >=160 Urine Blood Moderate (2+) H Urine Nitrite Negative Ur Leukocyte Esterase Negative Urine RBC 6-10 H Urine WBC 0-5 Ur Squamous Epith Cells 0-2 Urine Bacteria None Seen Hyaline Casts 0-2 C. difficile Tox B Gene C. difficile Toxin A&B C. difficile Interpret 12/01/24 12/01/24 12/01/24 19:06 20:01 20:13 WBC RBC Hgb Hct MCV MCH MCHC RDW Plt Count MPV Immature Gran % (Auto) Neut % (Auto) Lymph % (Auto) [place] % (Auto) Eos % (Auto) Baso % (Auto) Lymph # (Auto) [place] # (Auto) Eos # (Auto) Baso # (Auto) Abs Immat Gran (auto) Absolute Neuts (auto) Absolute Nucleated RBC Nucleated RBC % (auto) VBG pH VBG pCO2 VBG pO2 VBG HCO3 VBG O2 Saturation VBG Base Excess Sodium 145 Potassium 3.4 Chloride 106 Carbon Dioxide 24 Anion Gap 18 BUN 19 H Creatinine 1.16 Estim Creat Clear Calc 95.8 Estimated GFR > 60 POC Glucose 127 H 133 H Random Glucose 147 H Calcium 8.6 D Phosphorus 1.4 L Magnesium 1.8 Albumin Urine Color Urine Appearance Urine pH Ur Specific [place] Urine Protein Urine Glucose (UA) Urine Ketones Urine Blood Urine Nitrite Ur Leukocyte Esterase Urine RBC Urine WBC Ur Squamous Epith Cells Urine Bacteria Hyaline Casts C. difficile Tox B Gene C. difficile Toxin A&B C. difficile Interpret 12/01/24 12/01/24 12/01/24 21:12 22:01 22:53 WBC RBC Hgb Hct MCV MCH MCHC RDW Plt Count MPV Immature Gran % (Auto) Neut % (Auto) Lymph % (Auto) [place] % (Auto) Eos % (Auto) Baso % (Auto) Lymph # (Auto) [place] # (Auto) Eos # (Auto) Baso # (Auto) Abs Immat Gran (auto) Absolute Neuts (auto) Absolute Nucleated RBC Nucleated RBC % (auto) VBG pH VBG pCO2 VBG pO2 VBG HCO3 VBG O2 Saturation VBG Base Excess Sodium Potassium Chloride Carbon Dioxide Anion Gap BUN Creatinine Estim Creat Clear Calc Estimated GFR POC Glucose 151 H 154 H 152 H Random Glucose Calcium Phosphorus Magnesium Albumin Urine Color Urine Appearance Urine pH Ur Specific [place] Urine Protein Urine Glucose (UA) Urine Ketones Urine Blood Urine Nitrite Ur Leukocyte Esterase Urine RBC Urine WBC Ur Squamous Epith Cells Urine Bacteria Hyaline Casts C. difficile Tox B Gene C. difficile Toxin A&B C. difficile Interpret 12/01/24 12/02/24 12/02/24 23:52 01:03 01:49 WBC RBC Hgb Hct MCV MCH MCHC RDW Plt Count MPV Immature Gran % (Auto) Neut % (Auto) Lymph % (Auto) [place] % (Auto) Eos % (Auto) Baso % (Auto) Lymph # (Auto) [place] # (Auto) Eos # (Auto) Baso # (Auto) Abs Immat Gran (auto) Absolute Neuts (auto) Absolute Nucleated RBC Nucleated RBC % (auto) VBG pH VBG pCO2 VBG pO2 VBG HCO3 VBG O2 Saturation VBG Base Excess Sodium Potassium Chloride Carbon Dioxide Anion Gap BUN Creatinine Estim Creat Clear Calc Estimated GFR POC Glucose 146 H 156 H 138 H Random Glucose Calcium Phosphorus Magnesium Albumin Urine Color Urine Appearance Urine pH Ur Specific [place] Urine Protein Urine Glucose (UA) Urine Ketones Urine Blood Urine Nitrite Ur Leukocyte Esterase Urine RBC Urine WBC Ur Squamous Epith Cells Urine Bacteria Hyaline Casts C. difficile Tox B Gene C. difficile Toxin A&B C. difficile Interpret 12/02/24 12/02/24 12/02/24 03:00 03:53 05:18 WBC 11.8 H RBC 3.34 L D Hgb 9.0 L D Hct 27.4 L D MCV 82.0 MCH 26.9 L MCHC 32.8 RDW 14.8 Plt Count 315 D MPV 9.6 Immature Gran % (Auto) 0.3 Neut % (Auto) 77.7 H Lymph % (Auto) 12.3 L [place] % (Auto) 9.3 Eos % (Auto) 0.1 Baso % (Auto) 0.3 Lymph # (Auto) 1.5 [place] # (Auto) 1.1 Eos # (Auto) 0.0 Baso # (Auto) 0.0 Abs Immat Gran (auto) 0.04 H Absolute Neuts (auto) 9.2 H Absolute Nucleated RBC 0.000 Nucleated RBC % (auto) 0.0 VBG pH VBG pCO2 VBG pO2 VBG HCO3 VBG O2 Saturation VBG Base Excess Sodium 146 H Potassium 3.6 Chloride 109 H Carbon Dioxide 25 Anion Gap 16 BUN 15 Creatinine 1.17 Estim Creat Clear Calc 95.0 Estimated GFR > 60 POC Glucose 136 H 185 H Random Glucose 193 H Calcium 8.4 Phosphorus 2.9 Magnesium 1.7 Albumin 3.0 L Urine Color Urine Appearance Urine pH Ur Specific [place] Urine Protein Urine Glucose (UA) Urine Ketones Urine Blood Urine Nitrite Ur Leukocyte Esterase Urine RBC Urine WBC Ur Squamous Epith Cells Urine Bacteria Hyaline Casts C. difficile Tox B Gene C. difficile Toxin A&B C. difficile Interpret 12/02/24 12/02/24 12/02/24 05:19 05:21 06:19 WBC RBC Hgb Hct MCV MCH MCHC RDW Plt Count MPV Immature Gran % (Auto) Neut % (Auto) Lymph % (Auto) [place] % (Auto) Eos % (Auto) Baso % (Auto) Lymph # (Auto) [place] # (Auto) Eos # (Auto) Baso # (Auto) Abs Immat Gran (auto) Absolute Neuts (auto) Absolute Nucleated RBC Nucleated RBC % (auto) VBG pH 7.55 H VBG pCO2 34 VBG pO2 85 VBG HCO3 30 H VBG O2 Saturation 99.0 VBG Base Excess 7.8 Sodium Potassium Chloride Carbon Dioxide Anion Gap BUN Creatinine Estim Creat Clear Calc Estimated GFR POC Glucose 165 H 172 H Random Glucose Calcium Phosphorus Magnesium Albumin Urine Color Urine Appearance Urine pH Ur Specific [place] Urine Protein Urine Glucose (UA) Urine Ketones Urine Blood Urine Nitrite Ur Leukocyte Esterase Urine RBC Urine WBC Ur Squamous Epith Cells Urine Bacteria Hyaline Casts C. difficile Tox B Gene C. difficile Toxin A&B C. difficile Interpret 12/02/24 12/02/24 12/02/24 07:07 08:00 09:39 WBC RBC Hgb Hct MCV MCH MCHC RDW Plt Count MPV Immature Gran % (Auto) Neut % (Auto) Lymph % (Auto) [place] % (Auto) Eos % (Auto) Baso % (Auto) Lymph # (Auto) [place] # (Auto) Eos # (Auto) Baso # (Auto) Abs Immat Gran (auto) Absolute Neuts (auto) Absolute Nucleated RBC Nucleated RBC % (auto) VBG pH VBG pCO2 VBG pO2 VBG HCO3 VBG O2 Saturation VBG Base Excess Sodium Potassium Chloride Carbon Dioxide Anion Gap BUN Creatinine Estim Creat Clear Calc Estimated GFR POC Glucose 168 H 170 H 167 H Random Glucose Calcium Phosphorus Magnesium Albumin Urine Color Urine Appearance Urine pH Ur Specific [place] Urine Protein Urine Glucose (UA) Urine Ketones Urine Blood Urine Nitrite Ur Leukocyte Esterase Urine RBC Urine WBC Ur Squamous Epith Cells Urine Bacteria Hyaline Casts C. difficile Tox B Gene C. difficile Toxin A&B C. difficile Interpret Progress Note: A&P Assessment and plan (1) C. difficile colitis: Status: Acute (2) DKA (diabetic ketoacidosis): Status: Acute (3) CRISTI (acute kidney injury): Status: Resolved Plan Assessment: 54-year-old gentleman admitted with diabetic ketoacidosis and recurrent C diff diarrhea. Plan: Neuro: No acute issues. Cardiac: No acute issues. Pulmonary: No acute issues. Renal: CRISTI, likely secondary to intravascular volume depletion on the background of DKA and proceed diff, improving. Continue IV fluid support. Non oliguric. Continue to monitor renal indices and urine output. Endo: Diabetic ketoacidosis resolved, titrated off insulin drip. GI: Recurrent C diff. Continue fidaxomicin. Infectious disease service consulted. ID: No acute issues Heme/Onc: No acute issues. Psych: No acute issues. Miscellaneous: No acute issues. Prophylaxis: Heparin Diet: Diabetic Quality Stroke Does the patient have a stroke diagnosis?: No VTE Prior VTE?: No VTE Risk Level:: Medical - moderate - high VTE Device Contraindication: Treatment Not Indicated VTE Drug Contraindication: N/A - Med Ordered
[2024-12-02 11:33] LABS: Glucose, Whole Blood 246 mg/dL (60-115)
[2024-12-02] MEDS: Insulin Lispro 100 UNIT/ML 3 ML VIAL SUBCUT (11:34)
[2024-12-02] MEDS: Fidaxomicin 200 MG TABLET PO (14:55)
[2024-12-02 15:56] LABS: Glucose, Whole Blood 83 mg/dL (60-115)
[2024-12-02] MEDS: HYDROmorphone HCl 2 MG/ML VIAL IVPUSH ×2 (15:59→22:06)
[2024-12-02 20:27] LABS: Glucose, Whole Blood 129 mg/dL (60-115)
[2024-12-03] VITALS (7 sets, daily range): BP systolic 144–173; BP diastolic 86–108; PULSE 88–113; RESP 16–18; TEMP 36.3–36.8; O2SAT 94–98; BMI 22.9
[2024-12-03] MEDS: HYDROmorphone HCl 2 MG/ML VIAL IVPUSH ×5 (02:17→20:53)
[2024-12-03] MEDS: ondansetron HCL 4 MG/2 ML VIAL IVPUSH ×3 (02:17→20:53)
[2024-12-03] MEDS: Fidaxomicin 200 MG TABLET PO ×2 (04:52→16:13)
[2024-12-03] MEDS: Lactated Ringers 1,000 ML 150 ML IVCONT ×2 (04:53→10:54)
[2024-12-03 06:59] LABS: MANUAL DIFF FLAG NO
[2024-12-03 07:04] LABS: Basophils Absolute Auto 0.1 X10*3/uL (0.0-0.2); Basophils Percent Auto 0.6 % (0-2); Eosinophils Absolute Auto 0.1 X10*3/uL (0.0-0.4); Eosinophils Percent Auto 0.9 % (0-4); Hematocrit 26.9 % (42.0-52.0); Hemoglobin 8.8 g/dl (14.0-18.0); Imm Gran Abs Auto 0.03 X10*3/uL (0.00-0.03); Imm Gran Pct Auto 0.3 % (0.0-0.4); Lymphocytes Absolute Auto 2.2 X10*3/uL (1.2-4.9); Lymphocytes Percent Auto 22.8 % (20-40); Mean Corpuscular HGB Conc 32.7 g/dl (31.0-36.0); Mean Corpuscular Hemoglobin 27.1 pg (27.0-33.0); Mean Corpuscular Volume 82.8 fL (80.0-98.0); Monocytes Absolute Auto 0.8 X10*3/uL (0.1-1.2); Monocytes Percent Auto 8.7 % (2-11); Neutrophils Absolute Auto 6.4 x10*3/uL (2.0-8.3); Neutrophils Percent Auto 66.7 % (45-73); Platelet Count 261 X10*3/uL (160-400); Red Blood Count 3.25 X10*6/uL (4.60-5.80); Red Cell Distribution Width 14.5 % (11.0-16.0); White Blood Count 9.6 X10*3/uL (4.8-10.8)
[2024-12-03 07:20] LABS: Alanine Aminotransferase 21 U/L (0-40); Albumin Level 3.2 g/dL (3.5-5.0); Alkaline Phosphatase 77 U/L (39-117); Anion Gap 10 (12-20); Aspartate Amino Transferase 22 U/L (5-37); Bilirubin Total 0.3 mg/dL (0.0-1.0); Blood Urea Nitrogen 8 mg/dL (9-16); Calcium 8.6 mg/dL (8.4-10.2); Carbon Dioxide 30 mmol/L (22-29); Chloride 104 mmol/L (96-108); Creatinine Clr Calc Pharmacy 111.6; Estimated Glomerular Filt Rate > 60; Glucose Random 167 mg/dL (60-115); Magnesium 1.5 mg/dL (1.6-2.6); Phosphorus 2.2 mg/dL (2.7-4.5); Potassium 3.6 mmol/L (3.3-5.1); Sodium 140 mmol/L (135-145); Total Protein 5.6 g/dL (6.5-8.0)
[2024-12-03 07:28] LABS: Glucose, Whole Blood 161 mg/dL (60-115)
[2024-12-03] MEDS: amLODIPine Besylate 10 MG TABLET PO (07:38)
[2024-12-03] MEDS: Insulin Glargine,Hum.rec.anlog 100 UNIT/ML 10 ML VIAL 30 UNIT SUBCUT (07:39)
[2024-12-03] MEDS: Heparin Sodium,Porcine 5,000 UNIT/ML VIAL 5000 UNIT SUBCUT ×3 (07:39→23:53)
[2024-12-03] MEDS: Insulin Lispro 100 UNIT/ML 3 ML VIAL SUBCUT ×2 (07:39→20:52)
[2024-12-03] MEDS: Magnesium Sulfate/H2O 2 GM/50 ML PIGGYBACK IV (08:49)
[2024-12-03 10:41] LABS: Glucose, Whole Blood 50 mg/dL (60-115)
--- NOTE | 2024-12-03 10:42 | MHC.CM.PN ---
Per rounds, pt is still acute. His DCP will be home, self care, CM to follow for DC needs.
[2024-12-03] MEDS: Omeprazole 20 MG CAPSULE.DR PO ×2 (10:54→16:13)
[2024-12-03] MEDS: Glucose Gel 15 GM GEL..GRAM. PO ×4 (10:54→16:46)
[2024-12-03] MEDS: Metoclopramide HCl 5 MG TABLET PO (11:01)
[2024-12-03 11:26] LABS: Glucose, Whole Blood 75 mg/dL (60-115)
--- NOTE | 2024-12-03 11:45 | P.PNIM_ITS ---
Subjective Subjective Date of Service: 12/03/24 Interval History: Seen and evaluated this morning reporting nausea, vomiting and abdominal pain Unable to tolerate much of diet incident of low Glu this morning no other events Review of Systems Review of Systems: Yes all other systems are reviewed and are negative Physical Exam 2 Vital Signs: Vital Signs: Last Vital Signs Temp 98.3 F 12/03/24 11:14 Pulse 97 12/03/24 11:14 Resp 18 12/03/24 11:14 BP 161/100 H 12/03/24 11:14 Pulse Ox 95 12/03/24 11:14 O2 Del Method Room Air 12/03/24 11:14 O2 Flow Rate 1 12/02/24 09:00 BMI result Body Mass Index 22.9 Const: Other: Constitutional : Awake, interactive, not in distress Neck : Normal inspection, Supple Cardiovascular : RRR, no JVP, trace bilateral lower extremity edema Respiratory : good bilateral air entry, no crackles, wheezes or rhonchi Gastrointestinal: soft, lax, Normal bowel sounds, generalized mild tenderness Skin : Warm, Dry Neurological : Alert & oriented x3, No focal deficit Objective Data Active Medications Amlodipine Besylate (Amlodipine Besylate 10 Mg Tablet) 10 mg PO DAILY [facility]; Protocol Last Admin: 12/03/24 07:38 Dose: 10 mg Documented By: KATHERINE Belladonna Alkaloids/Phenobarbital (Phenobarb/Hyoscy/Atropine/Scop 10 Ml Elixir) 5 ml PO QID [facility] Dextrose (Dextrose 50 % 25 Gm/50 Ml Syringe) 25 gm IVPUSH Q30M PRN PRN Reason: BG < 70 Fidaxomicin (Fidaxomicin 200 Mg Tablet) 200 mg PO Q12H [facility] Last Admin: 12/03/24 04:52 Dose: 200 mg Documented By: MIRTA Glucose (Glucose Gel 15 Gm Gel..Gram.) 15 gm PO Q15M PRN PRN Reason: per Hypoglycemia Standing Ord. Last Admin: 12/03/24 11:21 Dose: 15 gm Documented By: KATHERINE Heparin Sodium (Porcine) (Heparin Sodium,Porcine 5,000 Unit/Ml Vial) 5,000 unit SUBCUT Q8H [facility] Last Admin: 12/03/24 07:39 Dose: 5,000 unit Documented By: KATHERINE Hydromorphone HCl (Hydromorphone Hcl 2 Mg/Ml Vial) 2 mg IVPUSH Q4H PRN; Protocol PRN Reason: Pain, Severe (Pain Scale 7-10) Last Admin: 12/03/24 10:54 Dose: 2 mg Documented By: KATHERINE Lactated Ringer's (Lr) 1,000 mls @ 80 mls/hr IVCONT .[id number] [facility] Last Admin: 12/03/24 10:54 Dose: 150 mls/hr Documented By: KATHERINE Insulin Glargine (Insulin Glargine,Hum.Rec.Anlog 100 Unit/Ml 10 Ml Vial) 20 unit SUBCUT DAILY [facility] Insulin Human Lispro (Insulin Lispro 100 Unit/Ml 3 Ml Vial) 0 unit SUBCUT QIDACHS [facility]; Protocol Last Admin: 12/03/24 11:31 Dose: Not Given Documented By: KATHERINE Non-Admin Reason: No Insulin Coverage Omeprazole (Omeprazole 20 Mg Capsule.) 20 mg PO BID@0630,1630 [facility] Last Admin: 12/03/24 10:54 Dose: 20 mg Documented By: KATHERINE Ondansetron HCl (Ondansetron Hcl 4 Mg/2 Ml Vial) 4 mg IVPUSH Q6H PRN PRN Reason: Nausea and Vomiting Last Admin: 12/03/24 02:17 Dose: 4 mg Documented By: MIRTA Labs 12/03/24 06:30 12/03/24 06:30 Labs: Laboratory Results - last 24 hr 12/02/24 12/02/24 12/03/24 15:51 20:23 06:30 MCV 82.8 MCH 27.1 MCHC 32.7 RDW 14.5 Plt Count 261 MPV 10.0 Immature Gran % (Auto) 0.3 Neut % (Auto) 66.7 Lymph % (Auto) 22.8 [place] % (Auto) 8.7 Eos % (Auto) 0.9 Baso % (Auto) 0.6 Lymph # (Auto) 2.2 [place] # (Auto) 0.8 Eos # (Auto) 0.1 Baso # (Auto) 0.1 Abs Immat Gran (auto) 0.03 Absolute Neuts (auto) 6.4 Absolute Nucleated RBC 0.000 Nucleated RBC % (auto) 0.0 Anion Gap 10 L Estim Creat Clear Calc 111.6 Estimated GFR > 60 POC Glucose 83 129 H Random Glucose 167 H Calcium 8.6 Phosphorus 2.2 L Magnesium 1.5 L Total Bilirubin 0.3 AST 22 ALT 21 Alkaline Phosphatase 77 Total Protein 5.6 L Albumin 3.2 L 12/03/24 12/03/24 12/03/24 07:25 10:36 11:06 MCV MCH MCHC RDW Plt Count MPV Immature Gran % (Auto) Neut % (Auto) Lymph % (Auto) [place] % (Auto) Eos % (Auto) Baso % (Auto) Lymph # (Auto) [place] # (Auto) Eos # (Auto) Baso # (Auto) Abs Immat Gran (auto) Absolute Neuts (auto) Absolute Nucleated RBC Nucleated RBC % (auto) Anion Gap Estim Creat Clear Calc Estimated GFR POC Glucose 161 H 50 L* 75 Random Glucose Calcium Phosphorus Magnesium Total Bilirubin AST ALT Alkaline Phosphatase Total Protein Albumin Assessment and Plan (1) C. difficile colitis: Status: Acute (2) DKA (diabetic ketoacidosis): Status: Acute (3) Hypomagnesemia: Status: Acute Plan A 34-year-old gentleman admitted with diabetic ketoacidosis and recurrent C diff diarrhea was admitted in ICU for insulin drip. CRISTI secondary to intravascular volume depletion resolved with IV fluids follow BMO Type I DM with Diabetic ketoacidosis complicated with hypoglycemic event acidosis resolved Continue Lantus, decrease dose to 20 for no Recurrent C diff. reporting abdominal pain, less diarrhea Continue fidaxomicin decrease IVF to 80cc\hr Infectious disease service consulted. advance diet as tolerated acute hypomagnesemia give IV replacement and follow Prophylaxis: Heparin The patient will be monitored overnight for C.Diff infection with abdominal pain and decrease PO intake Quality Stroke Does the patient have a stroke diagnosis?: No VTE Prior VTE?: No VTE Risk Level:: Medical - moderate - high VTE Device Contraindication: Treatment Not Indicated VTE Drug Contraindication: N/A - Med Ordered
[2024-12-03] MEDS: PHENobarb/Hyoscy/Atropine/Scop 10 ML ELIXIR 5 ML PO ×4 (11:50→20:52)
[2024-12-03 11:57] LABS: Glucose, Whole Blood 81 mg/dL (60-115)
[2024-12-03 16:06] LABS: Glucose, Whole Blood 63 mg/dL (60-115)
[2024-12-03 16:41] LABS: Glucose, Whole Blood 58 mg/dL (60-115)
[2024-12-03] MEDS: Lactated Ringers 1,000 ML 80 ML IVCONT ×2 (16:51→23:49)
[2024-12-03 17:45] LABS: Glucose, Whole Blood 96 mg/dL (60-115)
[2024-12-03 20:04] LABS: Glucose, Whole Blood 155 mg/dL (60-115)
[2024-12-04] VITALS (8 sets, daily range): BP systolic 151–176; BP diastolic 83–100; PULSE 84–107; RESP 14–18; TEMP 36.4–36.9; O2SAT 95–98
--- NOTE | 2024-12-04 00:08 | W.PM.IDCN ---
History of Present Illness Data of Consult Service Date: 12/03/24 Requesting physician: Jan Valera Primary Care Provider: Bree Benavides NP HPI Reason for consult: recurrent Cdiff He presents with weakness and found to have diarrhea,Cdiff positive. He reports six visits about this over six months. He is homeless Review of Systems Review of Systems: Yes all other systems are reviewed and are negative PMFSH Past Medical History Medical History Hypertension Type 1 diabetes mellitus Gastroparesis Family History Family history: reviewed and not pertinent Surgical History Surgical History History of dental surgery Social History Social History Household Members: None Housing: Homeless Housing Other:: Car Do you presently have visiting nurse or other home services: No Alcohol intake: current Alcohol intake frequency: holidays/special occasions only Patient Tobacco Use Status: Former Tobacco user Second Hand Smoke Exposure: No Substance Use Type: Marijuana Advance Directives Date on File: 06/22/23 service: No Meds Allergies Allergy/AdvReac Type Severity Reaction Status Date / Time No Known Allergies Allergy Verified 12/01/24 06:43 Active Medications: Current Medications Amlodipine Besylate (Amlodipine Besylate 10 Mg Tablet) 10 mg PO DAILY [facility]; Protocol Last Admin: 12/03/24 07:38 Dose: 10 mg Belladonna Alkaloids/Phenobarbital (Phenobarb/Hyoscy/Atropine/Scop 10 Ml Elixir) 5 ml PO QID [facility] Last Admin: 12/03/24 20:52 Dose: 5 ml Dextrose (Dextrose 50 % 25 Gm/50 Ml Syringe) 25 gm IVPUSH Q30M PRN PRN Reason: BG < 70 Fidaxomicin (Fidaxomicin 200 Mg Tablet) 200 mg PO Q12H [facility] Last Admin: 12/03/24 16:13 Dose: 200 mg Glucose (Glucose Gel 15 Gm Gel..Gram.) 15 gm PO Q15M PRN PRN Reason: per Hypoglycemia Standing Ord. Last Admin: 12/03/24 16:46 Dose: 15 gm Heparin Sodium (Porcine) (Heparin Sodium,Porcine 5,000 Unit/Ml Vial) 5,000 unit SUBCUT Q8H [facility] Last Admin: 12/03/24 23:53 Dose: 5,000 unit Hydromorphone HCl (Hydromorphone Hcl 2 Mg/Ml Vial) 2 mg IVPUSH Q4H PRN; Protocol PRN Reason: Pain, Severe (Pain Scale 7-10) Last Admin: 12/03/24 20:53 Dose: 2 mg Lactated Ringer's (Lr) 1,000 mls @ 80 mls/hr IVCONT .[id number] [facility] Last Admin: 12/03/24 23:49 Dose: 80 mls/hr Insulin Glargine (Insulin Glargine,Hum.Rec.Anlog 100 Unit/Ml 10 Ml Vial) 20 unit SUBCUT DAILY [facility] Insulin Human Lispro (Insulin Lispro 100 Unit/Ml 3 Ml Vial) 0 unit SUBCUT QIDACHS [facility]; Protocol Last Admin: 12/03/24 20:52 Dose: 2 unit Omeprazole (Omeprazole 20 Mg Capsule.Dr) 20 mg PO BID@0630,1630 [facility] Last Admin: 12/03/24 16:13 Dose: 20 mg Ondansetron HCl (Ondansetron Hcl 4 Mg/2 Ml Vial) 4 mg IVPUSH Q6H PRN PRN Reason: Nausea and Vomiting Last Admin: 12/03/24 20:53 Dose: 4 mg Home Medications ?Medication ?Instructions ?Recorded ?Confirmed ?Last Taken ?Type insulin glargine 100 unit/mL 30 unit subcut DAILY 02/26/23 12/01/24 11/29/24 History subcutaneous solution insulin lispro 100 unit/mL 1 sliding scale dose subcut TIDAC 02/26/23 12/01/24 11/29/24 History subcutaneous pen amlodipine 10 mg tablet 10 mg PO DAILY 09/01/24 12/01/24 11/29/24 History bupropion HCl 150 mg 24 hr tablet, 150 mg PO DAILY 09/01/24 12/01/24 11/29/24 History extended release dicyclomine 10 mg capsule 10 mg PO QID PRN Abdominal Spasm 09/01/24 12/01/24 11/29/24 History glucagon 3 mg/actuation nasal 3 mg intranasal Q15M PRN Blood 09/01/24 12/01/24 11/29/24 History spray (Baqsimi) Glucose less then 50 hydroxyzine HCl 50 mg tablet 50 mg PO BID PRN anxiety 09/01/24 12/01/24 11/29/24 History carvedilol 6.25 mg tablet 6.25 mg PO BID 12/01/24 12/01/24 11/29/24 History omeprazole 20 mg capsule,delayed 40 mg PO DAILY@0630 12/01/24 12/01/24 11/29/24 History release Physical Exam Vital Signs: Vital Signs: Last Vital Signs Temp 98.2 F 12/03/24 23:47 Pulse 100 12/03/24 23:47 Resp 18 12/03/24 23:47 BP 144/86 H 12/03/24 23:47 Pulse Ox 96 12/03/24 23:47 O2 Del Method Room Air 12/03/24 23:47 O2 Flow Rate 1 12/02/24 09:00 BMI result Body Mass Index 22.9 Results Labs 12/03/24 06:30 12/03/24 06:30 Labs: Short CBC 12/03/24 Range/Units 06:30 WBC 9.6 (4.8-10.8) X10*3/uL Hgb 8.8 L (14.0-18.0) g/dl Hct 26.9 L (42.0-52.0) % Plt Count 261 (160-400) X10*3/uL BMP 12/03/24 06:30 Sodium 140 Potassium 3.6 Chloride 104 Carbon Dioxide 30 H BUN 8 L Creatinine 1.02 Calcium 8.6 Liver Function 12/03/24 Range/Units 06:30 Total Bilirubin 0.3 (0.0-1.0) mg/dL AST 22 (5-37) U/L ALT 21 (0-40) U/L Alkaline Phosphatase 77 (39-117) U/L Albumin 3.2 L (3.5-5.0) g/dL Assessment and Plan (1) C. difficile colitis: Status: Acute (2) DKA (diabetic ketoacidosis): Status: Acute Plan Taper Cdiff medication and then
[2024-12-04] MEDS: HYDROmorphone HCl 2 MG/ML VIAL IVPUSH ×5 (01:19→20:47)
[2024-12-04] MEDS: Fidaxomicin 200 MG TABLET PO (04:47)
[2024-12-04] MEDS: Omeprazole 20 MG CAPSULE.DR PO ×2 (04:47→15:45)
[2024-12-04] MEDS: Dextrose 50 % 25 GM/50 ML SYRINGE IVPUSH (07:36)
[2024-12-04] MEDS: ondansetron HCL 4 MG/2 ML VIAL IVPUSH (07:36)
[2024-12-04] MEDS: Insulin Glargine,Hum.rec.anlog 100 UNIT/ML 10 ML VIAL 20 UNIT SUBCUT (07:51)
[2024-12-04] MEDS: amLODIPine Besylate 10 MG TABLET PO (07:51)
[2024-12-04] MEDS: PHENobarb/Hyoscy/Atropine/Scop 10 ML ELIXIR 5 ML PO ×4 (07:52→20:47)
[2024-12-04 07:54] LABS: Glucose, Whole Blood 163 mg/dL (60-115)
[2024-12-04 07:54] LABS: Glucose, Whole Blood 49 mg/dL (60-115)
[2024-12-04] MEDS: Heparin Sodium,Porcine 5,000 UNIT/ML VIAL 5000 UNIT SUBCUT ×3 (08:03→22:54)
[2024-12-04 08:12] LABS: MANUAL DIFF FLAG NO
[2024-12-04 08:18] LABS: Basophils Absolute Auto 0.1 X10*3/uL (0.0-0.2); Basophils Percent Auto 0.6 % (0-2); Eosinophils Absolute Auto 0.1 X10*3/uL (0.0-0.4); Eosinophils Percent Auto 0.9 % (0-4); Hematocrit 29.8 % (42.0-52.0); Hemoglobin 9.6 g/dl (14.0-18.0); Imm Gran Abs Auto 0.04 X10*3/uL (0.00-0.03); Imm Gran Pct Auto 0.4 % (0.0-0.4); Lymphocytes Absolute Auto 1.7 X10*3/uL (1.2-4.9); Lymphocytes Percent Auto 18.5 % (20-40); Mean Corpuscular HGB Conc 32.2 g/dl (31.0-36.0); Mean Corpuscular Hemoglobin 26.4 pg (27.0-33.0); Mean Corpuscular Volume 81.9 fL (80.0-98.0); Mean Platelet Volume 9.4 fL (9.4-12.4); Monocytes Absolute Auto 1.1 X10*3/uL (0.1-1.2); Monocytes Percent Auto 11.8 % (2-11); Neutrophils Absolute Auto 6.1 x10*3/uL (2.0-8.3); Neutrophils Percent Auto 67.8 % (45-73); Platelet Count 293 X10*3/uL (160-400); Red Blood Count 3.64 X10*6/uL (4.60-5.80); Red Cell Distribution Width 14.1 % (11.0-16.0)
[2024-12-04 08:33] LABS: Anion Gap 11 (12-20); Blood Urea Nitrogen 5 mg/dL (9-16); Calcium 8.7 mg/dL (8.4-10.2); Carbon Dioxide 31 mmol/L (22-29); Chloride 101 mmol/L (96-108); Creatinine Clr Calc Pharmacy 116.1; Estimated Glomerular Filt Rate > 60; Glucose Random 156 mg/dL (60-115); Potassium 3.5 mmol/L (3.3-5.1); Sodium 139 mmol/L (135-145)
[2024-12-04 11:40] LABS: Glucose, Whole Blood 135 mg/dL (60-115)
[2024-12-04] MEDS: Losartan Potassium 25 MG TABLET PO (11:42)
[2024-12-04] MEDS: Lactated Ringers 1,000 ML 80 ML IVCONT (11:51)
--- NOTE | 2024-12-04 12:36 | HO.PM.IMPN ---
Subjective Subjective Date of Service: 12/04/24 Interval History: Seen and evaluated this morning reporting mildly improved nausea, vomiting and abdominal pain able to tolerate part of diet incident of low Glu this morning no other events Review of Systems Review of Systems: Yes all other systems are reviewed and are negative Physical Exam Vital Signs: Vital Signs: Last Vital Signs Temp 98.5 F 12/04/24 12:07 Pulse 107 H 12/04/24 12:07 Resp 18 12/04/24 12:07 BP 161/90 H 12/04/24 12:07 Pulse Ox 97 12/04/24 12:07 O2 Del Method Room Air 12/04/24 12:07 O2 Flow Rate 1 12/02/24 09:00 BMI result Body Mass Index 22.9 Const: Other: Constitutional : Awake, interactive, not in distress Neck : Normal inspection, Supple Cardiovascular : RRR, no JVP, trace bilateral lower extremity edema Respiratory : good bilateral air entry, no crackles, wheezes or rhonchi Gastrointestinal: soft, lax, Normal bowel sounds, generalized mild tenderness Skin : Warm, Dry Neurological : Alert & oriented x3, No focal deficit Objective Data Active Medications Amlodipine Besylate (Amlodipine Besylate 5 Mg Tablet) 5 mg PO DAILY FORMERLY [facility], [facility]–1983; Protocol Belladonna Alkaloids/Phenobarbital (Phenobarb/Hyoscy/Atropine/Scop 10 Ml Elixir) 5 ml PO QID FORMERLY [facility], 1928–1983 Last Admin: 12/04/24 12:28 Dose: 5 ml Documented By: BEN Dextrose (Dextrose 50 % 25 Gm/50 Ml Syringe) 25 gm IVPUSH Q30M PRN PRN Reason: BG < 70 Last Admin: 12/04/24 07:36 Dose: 25 gm Documented By: BEN Fidaxomicin (Fidaxomicin 200 Mg Tablet) 200 mg PO Q12H FORMERLY [facility], [facility]–1983 Last Admin: 12/04/24 04:47 Dose: 200 mg Documented By: MIRTA Glucose (Glucose Gel 15 Gm Gel..Gram.) 15 gm PO Q15M PRN PRN Reason: per Hypoglycemia Standing Ord. Last Admin: 12/03/24 16:46 Dose: 15 gm Documented By: KATHERINE Heparin Sodium (Porcine) (Heparin Sodium,Porcine 5,000 Unit/Ml Vial) 5,000 unit SUBCUT Q8H FORMERLY [facility], 1928–1983 Last Admin: 12/04/24 08:03 Dose: 5,000 unit Documented By: BEN Hydromorphone HCl (Hydromorphone Hcl 2 Mg/Ml Vial) 2 mg IVPUSH Q4H PRN; Protocol PRN Reason: Pain, Severe (Pain Scale 7-10) Last Admin: 12/04/24 11:52 Dose: 2 mg Documented By: BEN Lactated Ringer's (Lr) 1,000 mls @ 80 mls/hr IVCONT .[id number] FOR[facility]LY [facility], [facility]–1983 Last Admin: 12/04/24 11:51 Dose: 80 mls/hr Documented By: BEN Insulin Glargine (Insulin Glargine,Hum.Rec.Anlog 100 Unit/Ml 10 Ml Vial) 15 unit SUBCUT DAILY FOR[facility]LY [facility], [facility]1983 Insulin Human Lispro (Insulin Lispro 100 Unit/Ml 3 Ml Vial) 0 unit SUBCUT QIDACHS FOR[facility]LY [facility], [facility]–1983; Protocol Last Admin: 12/04/24 11:41 Dose: Not Given Documented By: BEN Non-Admin Reason: No Insulin Coverage Losartan Potassium (Losartan Potassium 25 Mg Tablet) 25 mg PO DAILY FOR[facility]LY [facility], [facility]–1983; Protocol Last Admin: 12/04/24 11:42 Dose: 25 mg Documented By: BEN Omeprazole (Omeprazole 20 Mg Capsule.Dr) 20 mg PO BID@0630,1630 FOR[facility], [facility]1983 Last Admin: 12/04/24 04:47 Dose: 20 mg Documented By: MIRTA Ondansetron HCl (Ondansetron Hcl 4 Mg/2 Ml Vial) 4 mg IVPUSH Q6H PRN PRN Reason: Nausea and Vomiting Last Admin: 12/04/24 07:36 Dose: 4 mg Documented By: BEN Labs 12/04/24 07:52 12/04/24 07:52 Labs: Laboratory Results - last 24 hr 12/03/24 12/03/24 12/03/24 16:03 16:38 17:41 MCV MCH MCHC RDW Plt Count MPV Immature Gran % (Auto) Neut % (Auto) Lymph % (Auto) Christian % (Auto) Eos % (Auto) Baso % (Auto) Lymph # (Auto) Christian # (Auto) Eos # (Auto) Baso # (Auto) Abs Immat Gran (auto) Absolute Neuts (auto) Absolute Nucleated RBC Nucleated RBC % (auto) Anion Gap Estim Creat Clear Calc Estimated GFR POC Glucose 63 58 L* 96 Random Glucose Calcium 12/03/24 12/04/24 12/04/24 20:00 07:29 07:40 MCV MCH MCHC RDW Plt Count MPV Immature Gran % (Auto) Neut % (Auto) Lymph % (Auto) Christian % (Auto) Eos % (Auto) Baso % (Auto) Lymph # (Auto) Christian # (Auto) Eos # (Auto) Baso # (Auto) Abs Immat Gran (auto) Absolute Neuts (auto) Absolute Nucleated RBC Nucleated RBC % (auto) Anion Gap Estim Creat Clear Calc Estimated GFR POC Glucose 155 H 49 L* 163 H Random Glucose Calcium 12/04/24 12/04/24 07:52 11:35 MCV 81.9 MCH 26.4 L MCHC 32.2 RDW 14.1 Plt Count 293 MPV 9.4 Immature Gran % (Auto) 0.4 Neut % (Auto) 67.8 Lymph % (Auto) 18.5 L Christian % (Auto) 11.8 H Eos % (Auto) 0.9 Baso % (Auto) 0.6 Lymph # (Auto) 1.7 Christian # (Auto) 1.1 Eos # (Auto) 0.1 Baso # (Auto) 0.1 Abs Immat Gran (auto) 0.04 H Absolute Neuts (auto) 6.1 Absolute Nucleated RBC 0.000 Nucleated RBC % (auto) 0.0 Anion Gap 11 L Estim Creat Clear Calc 116.1 Estimated GFR > 60 POC Glucose 135 H Random Glucose 156 H Calcium 8.7 Assessment and Plan (1) C. difficile colitis: Status: Acute (2) DKA (diabetic ketoacidosis): Status: Acute (3) C. difficile diarrhea: Status: Acute (4) Diabetic gastroparesis: Status: Acute Plan A 34-year-old gentleman admitted with diabetic ketoacidosis and recurrent C diff diarrhea was admitted in ICU for insulin drip. Type I DM with Diabetic ketoacidosis complicated with hypoglycemic event acidosis resolved Continue Lantus, decrease dose to 20 for no Recurrent C diff. reporting abdominal pain, less diarrhea dc fidaxomicin and start Vancomycin 125 Q6 per ID decrease IVF to 80cc\hr Infectious disease input appreciated advance diet as tolerated CRISTI secondary to intravascular volume depletion resolved with IV fluids acute hypomagnesemia IV replacement and follow Prophylaxis: Heparin The patient will be monitored overnight for C.Diff infection with abdominal pain and decrease PO intake Quality Stroke Does the patient have a stroke diagnosis?: No VTE Prior VTE?: No VTE Risk Level:: Medical - moderate - high VTE Device Contraindication: Treatment Not Indicated VTE Drug Contraindication: N/A - Med Ordered
[2024-12-04] MEDS: vancomycin HCL 125 MG CAPSULE PO ×2 (12:58→17:53)
[2024-12-04 16:05] LABS: Glucose, Whole Blood 148 mg/dL (60-115)
[2024-12-04 20:08] LABS: Glucose, Whole Blood 107 mg/dL (60-115)
[2024-12-05] MEDS: Lactated Ringers 1,000 ML 80 ML IVCONT ×2 (00:01→12:43)
[2024-12-05] MEDS: vancomycin HCL 125 MG CAPSULE PO ×3 (00:04→12:01)
[2024-12-05] MEDS: HYDROmorphone HCl 2 MG/ML VIAL IVPUSH ×3 (01:19→10:22)
[2024-12-05 03:34] VITALS: BP 134/84; PULSE 86; RESP 18; TEMP 36.1; O2SAT 94
[2024-12-05] MEDS: Omeprazole 20 MG CAPSULE.DR PO (05:59)
[2024-12-05 07:24] LABS: Glucose, Whole Blood 140 mg/dL (60-115)
[2024-12-05 07:40] VITALS: BP 163/95; PULSE 89; RESP 18; TEMP 36.8; O2SAT 92
[2024-12-05] MEDS: ondansetron HCL 4 MG/2 ML VIAL IVPUSH (07:46)
[2024-12-05] MEDS: PHENobarb/Hyoscy/Atropine/Scop 10 ML ELIXIR 5 ML PO ×2 (07:47→12:42)
[2024-12-05] MEDS: Losartan Potassium 25 MG TABLET PO (07:47)
[2024-12-05] MEDS: amLODIPine Besylate 5 MG TABLET PO (07:47)
[2024-12-05] MEDS: Heparin Sodium,Porcine 5,000 UNIT/ML VIAL 5000 UNIT SUBCUT (07:47)
[2024-12-05] MEDS: Insulin Glargine,Hum.rec.anlog 100 UNIT/ML 10 ML VIAL 15 UNIT SUBCUT (10:22)
[2024-12-05 11:10] LABS: Glucose, Whole Blood 197 mg/dL (60-115)
[2024-12-05] MEDS: Insulin Lispro 100 UNIT/ML 3 ML VIAL SUBCUT (12:01)
--- NOTE | 2024-12-05 12:54 | PM.DS ---
DS: Providers Provider Date of Service: 12/05/24 Date of admission: 12/01/24 15:15 Date of discharge: 12/05/24 Primary care physician: Bree Benavides NP Consults: 12/01/24 14:52 Consult to Infectious Diseases Routine Consulting Provider: [facility] Reason for consultation: +C.diff recurrence 12/01/24 15:25 Consult to Infectious Diseases Routine Consulting Provider: [facility] Reason for consultation: Recurrent C diff Has provider been notified: No DS: Diagnosis Discharge Diagnosis (1) C. difficile colitis: Status: Acute (2) DKA (diabetic ketoacidosis): Status: Acute (3) C. difficile diarrhea: Status: Acute (4) Diabetic gastroparesis: Status: Acute (5) Hypomagnesemia: Status: Acute (6) Uncontrolled hypertension: Status: Acute DS: Summary Hospital Course Hospital Course: Admission note HPI by [employer] Operator 34-year-old gentleman with underlying diabetes mellitus and prior episode of C diff presenting complaining of 1 day history of nausea, vomiting, diarrhea and hypoglycemia. On ER evaluation patient with mild diabetic ketoacidosis and multiple bouts diarrhea positive pauci diff. of note, recently treated with the vancomycin regimen. Patient started on fidaxomicin, insulin drip, IV fluids, and admitted to the intensive care unit. Hospital course # Type I DM with Diabetic ketoacidosis complicated with hypoglycemic event. The patient was admitted to ICU on Insulin drip and IV fluids and transferred later to medical floor as the Gap closed and he was able to tolerate more PO diet. had episode of hypoglycemia as he was not eating much. Lantus dose decreased and he tolerated diet better with no recurrence of hypoglycemic events. His HbA1c is 10.7 which is within the range of 10-11.7 he has be in since 2023. Advised for better control of sugar and follow with diabetic clinic for firmer control of his sugar at home. He was also advised to follow with GI for further evaluation of gastroparesis. To continue Lantus 30 units along with sliding scale on discharge. # Recurrent C diff. reporting abdominal pain, less diarrhea. Started on fidaxomicin then discontinued and start Vancomycin 125 Q6 per ID. To finish total of 2 weeks. # CRISTI secondary to intravascular volume depletion resolved with IV fluids # acute hypomagnesemia received IV replacement with good response. Discharge plan Better sugar control. monitor 3-4 times a day and follow with diabetes clinic for adjustment of home medications Zofran as needed for nausea Start Losartan 25 mg for hypertension and kidney protection Continue Vancomycin as prescribed for C.Diff infection Follow with GI as outpatient for gastroparesis evaluation Time Attestation Discharge Coordination Time (in mins): 42 Quality: Safe Use of Opioids Does Pt have an Active Cancer Diagnosis on the Problem List?: No Quality: Stroke Does the patient have a stroke diagnosis?: No Physical Exam Vital Signs: Vital Signs: Last Vital Signs Temp 98.3 F 12/05/24 07:40 Pulse 89 12/05/24 07:40 Resp 18 12/05/24 07:40 BP 163/95 H 12/05/24 07:40 Pulse Ox 92 12/05/24 07:40 O2 Del Method Room Air 12/05/24 07:40 O2 Flow Rate 1 12/02/24 09:00 BMI result Body Mass Index 22.9 Const: Other: Constitutional : Awake, interactive, not in distress Neck : Normal inspection, Supple Cardiovascular : RRR, no JVP, trace bilateral lower extremity edema Respiratory : good bilateral air entry, no crackles, wheezes or rhonchi Gastrointestinal: soft, lax, Normal bowel sounds, no tenderness Skin : Warm, Dry Neurological : Alert & oriented x3, No focal deficit DS: Data Data Completed and Pending Labs on day of discharge: Laboratory Results - last 24 hr 12/04/24 12/04/24 12/05/24 15:59 20:03 07:19 POC Glucose 148 H 107 140 H 12/05/24 11:07 POC Glucose 197 H Discharge Plan Discharge Anticipated Discharge Date/Time: 12/05/24 12:49 Patient Disposition: Home, Self-Care Discharge Diagnosis: C.Diff infection Diabetic ketoacidosis Referrals: Bree Benavides NP [Primary Care Provider] - 1 Week Discharge Medications: New losartan 25 mg Tablet 25 mg PO DAILY Qty: 90 0RF Protocol: Hold for SBP< HOLD for SBP < : 90 ondansetron 4 mg tablet,disintegrating 4 mg PO Q8H PRN (Reason: nausea and vomiting) Qty: 30 0RF vancomycin 125 mg capsule 125 mg PO QID 12 Days Qty: 48 0RF insulin glargine-yfgn 100 unit/mL (3 mL) insulin pen 30 unit subcut QAM Qty: 15 0RF (DME) lancets Misc See Rx Instructions .ROUTE .MEDSUPPLY Qty: 100 2RF Rx Instructions: 4 times daily alcohol swabs [Alcohol Pads] Pads, Medicated 1 pad topical QIDACHS Qty: 200 0RF (DME) pen needle, diabetic [Pen Needle] 31 gauge x 5/16 needle See Rx Instructions .ROUTE .MEDSUPPLY Qty: 1200 0RF Rx Instructions: As directed: QID (DME) FreeStyle Lite Strips Strip See Rx Instructions .ROUTE .MEDSUPPLY Qty: 100 1RF Rx Instructions: QID Continued hydroxyzine HCl 50 mg tablet 50 mg PO BID PRN (Reason: anxiety) amlodipine 10 mg tablet 10 mg PO DAILY dicyclomine 10 mg capsule 10 mg PO QID PRN (Reason: Abdominal Spasm) bupropion HCl 150 mg tablet extended release 24 hr 150 mg PO DAILY Baqsimi 3 mg/actuation spray,non-aerosol 3 mg INTRANASAL Q15M PRN (Reason: Blood Glucose less then 50) carvedilol 6.25 mg tablet 6.25 mg PO BID omeprazole 20 mg capsule,delayed release(DR/EC) 40 mg PO DAILY@0630 insulin lispro 100 unit/mL Insulin Pen 1 sliding scale dose SUBCUT TIDAC Qty: 15 0RF Protocol: Insulin Correction Scale Less than or equal to 110 ---- Give (units): 0 111 to 150 Give (units): 0 151 to 200 Give (units): 2 201 to 250 Give (units): 4 251 to 300 Give (units): 6 301 to 350 Give (units): 8 Greater than 350 Give (units): 10 Call MD if Blood Glucose > : 350 Discontinued insulin glargine 100 unit/mL Solution 30 unit SUBCUT DAILY Discharge Orders: Discharge Order (Routine); Ordered 12/05/24 Ordered By: Jan Valera Diet: Diabetic diet Activity on Discharge: As tolerated Stand Alone Forms: Patient Portal Discharge page Print Language: Azeri Care Plan Goals: Better sugar control. monitor 3-4 times a day and follow with diabetes clinic for adjustment of home medications Zofran as needed for nausea Start Losartan 25 mg for hypertension and kidney protection Continue Vancomycin as prescribed for C.Diff infection Follow with GI as outpatient for gastroparesis evaluation Health Concerns: DKA Uncontrolled hypertension Plan of Treatment: Insulin Losartan Assessment: as above
--- NOTE | 2024-12-05 13:20 | MHC.CM.PN ---
Patient medically cleared for dc self care. Patient reports he has been staying in his car. Declines [facility] list or resource guide. 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 Car is [facility] lot.
== END 2024-12-05 14:17 | disposition home or self-care (01) | DRG 248 ==
LOC: HO.ED 15:04 → HO.EDOVER 15:16 → HO.ICU 15:31 → HO.IMC 12-02 11:39 → HO.S3 12-04 12:13
PROVIDERS: Physician Assistant; Admitting Provider Internal Medicine Pulmonary Disease; Emergency Provider Emergency Medicine Emergency Medical Services; PCP Nurse Practitioner Family; Visit Provider Student in an Organized Health Care Education/Training Program
DX: A04.71 Enterocolitis due to Clostridium difficile, recurrent (principal); E10.10 Type 1 diabetes mellitus with ketoacidosis without coma; E10.43 Type 1 diabetes mellitus with diabetic autonomic (poly)neuropathy; N17.9 Acute kidney failure, unspecified; E10.649 Type 1 diabetes mellitus with hypoglycemia without coma; E86.0 Dehydration; E83.42 Hypomagnesemia; Z59.02 Unsheltered homelessness; Z87.891 Personal history of nicotine dependence; Z79.899 Other long term (current) drug therapy
CPT/HCPCS: 36415; 80048; 80053; 81001; 82010; 82040; 82803; 82947; 83036; 83690; 83735; 84100; 85025; 87324; 87493; 93005; 99285; J1171; J1200; J1644; J2405; J2765; J3010; J3475; J3480; J7120; P9047

== ENCOUNTER → 2024-12-01 07:10 | Outpatient (BNV) | payer OTHER, SELFPAY | PROVIDERS: Emergency Provider Emergency Medicine Emergency Medical Services; PCP Nurse Practitioner Family; Visit Provider Internal Medicine Cardiovascular Disease | DX: R00.0 Tachycardia, unspecified (principal) | CPT/HCPCS: 93010 ==

== ENCOUNTER → 2024-12-01 15:15 | Outpatient (BNV) | payer OTHER, SELFPAY | PROVIDERS: Admitting Provider Internal Medicine Pulmonary Disease; Emergency Provider Emergency Medicine Emergency Medical Services; PCP Nurse Practitioner Family; Visit Provider Internal Medicine | DX: A04.72 Enterocolitis due to Clostridium difficile, not specified as recurrent (principal); E11.10 Type 2 diabetes mellitus with ketoacidosis without coma | CPT/HCPCS: 99222 ==

== ENCOUNTER → 2024-12-01 15:15 | Outpatient (BNV) | payer OTHER, SELFPAY | PROVIDERS: Admitting Provider Internal Medicine Pulmonary Disease; Emergency Provider Emergency Medicine Emergency Medical Services; PCP Nurse Practitioner Family; Visit Provider Internal Medicine Pulmonary Disease | DX: E11.10 Type 2 diabetes mellitus with ketoacidosis without coma (principal); A04.72 Enterocolitis due to Clostridium difficile, not specified as recurrent; N17.9 Acute kidney failure, unspecified | CPT/HCPCS: 99223; 99232 ==

== ENCOUNTER → 2024-12-01 15:15 | Outpatient (BNV) | payer OTHER, SELFPAY | PROVIDERS: Admitting Provider Internal Medicine Pulmonary Disease; Emergency Provider Emergency Medicine Emergency Medical Services; PCP Nurse Practitioner Family; Visit Provider Student in an Organized Health Care Education/Training Program | DX: A04.72 Enterocolitis due to Clostridium difficile, not specified as recurrent (principal); E11.10 Type 2 diabetes mellitus with ketoacidosis without coma; E83.42 Hypomagnesemia | CPT/HCPCS: 99232; 99239 ==